=== PATIENT | male | born 1935 | race Caucasian/White ===

== ENCOUNTER → 2016-09-26 | Outpatient (CLI) | payer MEDICARE ==
[~2016-09-26] MED LIST: /ADVA50050; /TIOT18INH INH; ACET65TA OR; ADVA230A INH; ALBU83IN INH; ALFU10TA2 PO; ASPI81TA63; ASPI81TA83 OR; AVEL1TAB PO; BACITAB3 PO; BENI20TA11; CALC600T7 PO; CALCIUM+VIT D PO; CARD180T OR; CIPR500T4 OR; CODE30SO PO; COLA50CA3 PO; COMBVENT; COUM1TAB17 PO; DARV100T; ELIQ2.5T PO; FLAG250T OR; FLON0.054; FLUTISP; FURO20TA2 PO; IBUP-1114 PO; IBUP200C PO; IPRASOL4 IN; LEVA250T PO; LEVA500T; LEVA500T OR; LIPI20TA PO; MEGE20TA PO; METO25TAB PO; MOM30SS PO; MOTR200T4; NICO21DI26 EXT; NICO21DI4 TD; NICOINH IN; PERF50TA PO; POTA10TA16 PO; PRED10TA2; PRED20TA; PRED20TAB PO; PRED50TA; PRED50TA PO; PRIL20CA; PRIL40CA PO; PROAIR INH; REGL10TA6 PO; SPIR1CAP INH; STAR120T3 PO; STARLIX PO; TRAD5TAB PO; TRAMADOL PO; ULTR200T; UROXATRAL PO; VITA500C24 PO; WARF-23 PO; [UNRECOGNIZED DRUG - CODE] SC; [UNRECOGNIZED DRUG - OTHER]
[2016-09-26 13:45] LABS: INR 1.56
== END ==
LOC: M SMT 10:18
PROVIDERS: ATTEND Family Medicine
DX: Z79.01 Long term (current) use of anticoagulants (principal)

== ENCOUNTER → 2016-10-03 | Outpatient (CLI) | payer MEDICARE ==
[2016-10-03 14:02] LABS: INR 1.58
== END ==
LOC: M SMT 11:24
PROVIDERS: ATTEND Family Medicine
DX: Z86.79 Personal history of other diseases of the circulatory system (principal)

== ENCOUNTER → 2016-10-04 | Outpatient (CLI) | payer MEDICARE ==
--- NOTE | 2016-10-04 09:31 | REP ---
Clinical: Abdominal distention. Technique: Ortiz scale ultrasound using curved array transducer. Findings: Fatty infiltration of the liver is appreciated. Spleen with 1 cm cyst is otherwise normal. Visualized pancreas is unremarkable. There is evidence for prior cholecystectomy without biliary ductal dilatation. The common bile duct measures 4.8 mm diameter. Right kidney measures 11.3 x 5.7 x 5.2 cm and is mildly hyperechoic without hydronephrosis, nephrolithiasis or cystic mass lesion. The left kidney is mildly atrophic and echogenic measuring 8.8 x 4.7 x 4.5 cm with 2.9 cm upper pole cyst and no evidence for hydronephrosis or nephrolithiasis. The aorta measures up to 2.4 cm maximal diameter. No ascites identified. Impression: 1. Fatty infiltration to the liver. 2. Evidence for chronic medical renal disease and left renal cyst. 3. Small benign appearing splenic cyst. Signed by Gregg Andrew MD 10/04/2016 09:22 A
== END ==
LOC: M RAD 07:48
PROVIDERS: ATTEND Family Medicine
DX: K76.0 Fatty (change of) liver, not elsewhere classified (principal); N28.1 Cyst of kidney, acquired; D73.4 Cyst of spleen

== ENCOUNTER → 2016-10-10 | Outpatient (CLI) | payer MEDICARE ==
[2016-10-10 13:57] LABS: INR 1.63
== END ==
LOC: M SMT 10:15
PROVIDERS: ATTEND Family Medicine
DX: Z79.01 Long term (current) use of anticoagulants (principal); Z86.79 Personal history of other diseases of the circulatory system

== ENCOUNTER → 2016-10-17 | Outpatient (CLI) | payer MEDICARE ==
[~2016-10-17] MED LIST changes: +GLIM2TA PO; +LOPR1TAB6 PO; +NEUR300C PO; +TESS100C PO
[2016-10-17 13:26] LABS: INR 2.18
== END ==
LOC: M SMT 10:16
PROVIDERS: ATTEND Family Medicine
DX: Z51.81 Encounter for therapeutic drug level monitoring (principal); Z79.01 Long term (current) use of anticoagulants; Z86.79 Personal history of other diseases of the circulatory system
CPT/HCPCS: 36415; 85610; G0463

== ENCOUNTER 2016-10-18 04:59 | Emergency (ER) | payer MEDICARE ==
[~2016-10-18] VITALS: Ht 172.7 cm; Wt 77.1 kg
[~2016-10-18 04:59] MED LIST changes: -GLIM2TA PO; -LOPR1TAB6 PO; -NEUR300C PO; -TESS100C PO
[2016-10-18] MEDS ORDERED: MORPHINE 4 MG/ML 1ML SYRINGE IV ONE (05:30)
[2016-10-18] MEDS ORDERED: GLIM2TA PO (05:55)
[2016-10-18] MEDS ORDERED: NEUR300C PO (05:55)
[2016-10-18] MEDS ORDERED: TESS100C PO (05:55)
[2016-10-18] MEDS ORDERED: LOPR1TAB6 PO (05:55)
--- NOTE | 2016-10-18 06:20 | REPUSA ---
CLINICAL HISTORY: Trauma. TECHNIQUE: Multiple axial CT images were obtained through the thorax without IV contrast material. COMMENTS: Acute mildly displaced fracture of the axillary portion of the left seventh rib. Healed fractures of the axillary portions of the right sixth and seventh ribs. Moderate central pulmonary emphysema. Atelectatic airspace disease in the subpleural aspect of the right upper lobe. Bilateral basilar atelectatic pulmonary changes. Mild cardiomegaly. Prior CABG. Mild to moderate chronic compression fractures of the mid and lower thoracic vertebral bodies. IMPRESSION: Acute mildly displaced fracture of the axillary portion of the left seventh rib. Healed fractures of the right chest ribs. Atelectatic airspace disease in the subpleural aspect of the right upper lobe. This has mildly increa sed since prior exam on 04/26/2016. Unchanged emphysema, cardiomediastinal prior CABG. Chronic compression fractures of the mid and lower thoracic vertebral bodies. Thank you for your kind referral of this patient.
[2016-10-18 06:22] LABS: BASO % 0.6 % (0.0-1.0); EOS # 0.3 K/mm3 (0.0-0.50); EOS % 5.3 % (0.0-3.0); LARGE UNSTAINED CELL # 0.1 K/mm3 (0.0-0.4); LARGE UNSTAINED CELL % 2.5 % (0.0-4.0); LYMPH # 0.8 K/mm3 (1.5-4.5); LYMPH % 11.7 % (24.0-44.0); MEAN CORPUSCULAR HEMOGLOBIN 29.7 pg (27.0-33.0); MEAN CORPUSCULAR HGB CONC 32.3 g/dl (32.0-36.5); MEAN CORPUSCULAR VOLUME 91.8 fl (80.0-96.0); MONO # 0.4 K/mm3 (0.0-0.8); MONO % 7.3 % (0.0-5.0); NEUTROPHILS % 72.5 % (36.0-66.0); PLATELET COUNT, AUTOMATED 144 k/mm3 (150-450); RED CELL DISTRIBUTION WIDTH 15.1 % (11.5-14.5); WHITE BLOOD COUNT 5.6 K/mm3 (4.0-10.0)
[2016-10-18 06:29] LABS: INR 2.18
[2016-10-18 06:45] LABS: CALCIUM LEVEL 8.2 MG/DL (8.8-10.2); CREATININE FOR GFR 1.39 MG/DL (0.70-1.30); GLOMERULAR FILTRATION RATE 52.5 (>42); POTASSIUM SERUM 4.6 MEQ/L (3.5-5.1)
[2016-10-18 07:54] VITALS: BP 133/63
== END 2016-10-18 08:01 | disposition home or self-care (01) ==
LOC: EDBD 04:59 → M ED 06:30
DX: S22.32XA Fracture of one rib, left side, initial encounter for closed fracture (principal); W01.0XXA Fall on same level from slipping, tripping and stumbling without subsequent striking against object, initial encounter; Y92.098 Other place in other non-institutional residence as the place of occurrence of the external cause; Y93.89 Activity, other specified; Y99.8 Other external cause status; J44.9 Chronic obstructive pulmonary disease, unspecified; E11.22 Type 2 diabetes mellitus with diabetic chronic kidney disease; I12.9 Hypertensive chronic kidney disease with stage 1 through stage 4 chronic kidney disease, or unspecified chronic kidney disease; I50.9 Heart failure, unspecified; N18.9 Chronic kidney disease, unspecified; E78.9 Disorder of lipoprotein metabolism, unspecified; I25.2 Old myocardial infarction; I48.91 Unspecified atrial fibrillation; Z91.030 Bee allergy status; Z79.899 Other long term (current) drug therapy; Z79.84 Long term (current) use of oral hypoglycemic drugs; Z79.01 Long term (current) use of anticoagulants

== ENCOUNTER → 2016-10-24 | Outpatient (CLI) | payer MEDICARE ==
[~2016-10-24] MED LIST changes: +GLIM2TA PO; +LOPR1TAB6 PO; +NEUR300C PO; +TESS100C PO
[2016-10-24 12:00] LABS: INR 2.43
== END ==
LOC: M SMT 08:52
PROVIDERS: ATTEND Family Medicine
DX: R31.0 Gross hematuria (principal); Z51.81 Encounter for therapeutic drug level monitoring; Z79.01 Long term (current) use of anticoagulants
CPT/HCPCS: 36415; 81001; 85610; 87086; 88108; G0463

== ENCOUNTER → 2016-10-31 | Outpatient (CLI) | payer MEDICARE ==
[2016-10-31 14:03] LABS: INR 2.54
== END ==
LOC: M SMT 09:50
PROVIDERS: ATTEND Family Medicine
DX: Z51.81 Encounter for therapeutic drug level monitoring (principal); Z79.01 Long term (current) use of anticoagulants; Z86.79 Personal history of other diseases of the circulatory system

== ENCOUNTER → 2016-11-03 | Outpatient (CLI) | payer MEDICARE ==
--- NOTE | 2016-11-03 14:16 | REP ---
Clinical: Urinary retention and gross hematuria. Technique: Real time short scale ultrasound examination using curved array transducer. Findings: The bilateral kidneys are echogenic but relatively normal in contour and without hydronephrosis, obvious nephrolithiasis or mass lesion. The right kidney measures 10.9 x 5.2 x 5.2 cm without cystic change. The left kidney is atrophic at 8.4 x 5.0 x 4.0 cm and includes a 3.4 cm simple upper pole cyst. Bladder is distended and relatively normal measuring 10.7 x 10.3 x 16.2 cm. Impression: Chronic medical renal disease and 3.4 cm simple upper pole left renal cyst Signed by Gregg Andrew MD 11/03/2016 02:08 P
== END ==
LOC: M RAD 13:02
PROVIDERS: ATTEND Nurse Practitioner Women's Health
DX: R33.9 Retention of urine, unspecified (principal); R31.0 Gross hematuria

== ENCOUNTER → 2016-11-14 | Outpatient (CLI) | payer MEDICARE ==
[2016-11-14 13:40] LABS: INR 2.75
== END ==
LOC: M SMT 09:52
PROVIDERS: ATTEND Family Medicine
DX: Z51.81 Encounter for therapeutic drug level monitoring (principal); Z79.01 Long term (current) use of anticoagulants

== ENCOUNTER → 2016-12-05 | Outpatient (CLI) | payer MEDICARE ==
[2016-12-05 13:53] LABS: INR 2.34
== END ==
LOC: M SMT 09:42
PROVIDERS: ATTEND Family Medicine
DX: Z51.81 Encounter for therapeutic drug level monitoring (principal); Z79.01 Long term (current) use of anticoagulants

== ENCOUNTER 2016-12-18 09:48 | Emergency (ER) | payer MEDICARE ==
[~2016-12-18] VITALS: Ht 172.7 cm; Wt 75.7 kg
[2016-12-18] MEDS ORDERED: NS 500 ML IV ONE (10:00)
[2016-12-18] MEDS ORDERED: RAPA8CAP PO (10:26)
[2016-12-18] MEDS ORDERED: COUM1TAB14 PO (10:26)
[2016-12-18] MEDS ORDERED: LEXA5TAB13 PO (10:26)
[2016-12-18] MEDS ORDERED: COUM6TAB PO (10:26)
--- NOTE | 2016-12-18 10:52 | REP ---
TWO VIEW CHEST: Two views of the chest are performed and compared to a prior study of 01/06/2016. Right upper lobe peripheral opacity is stable. No new infiltrates are seen. Heart is normal in size and the mediastinal silhouette is unchanged. There is calcification of the thoracic aorta. Multiple sternal wires and mediastinal clips are present. There are degenerative changes of the spine. IMPRESSION: Old right upper lobe opacity is unchanged. No new infiltrate. Signed by Satnam Ortiz MD 12/19/2016 04:01 P
[2016-12-18 11:23] LABS: BASO % 0.6 % (0.0-1.0); EOS # 0.3 K/mm3 (0.0-0.50); EOS % 4.6 % (0.0-3.0); LARGE UNSTAINED CELL # 0.1 K/mm3 (0.0-0.4); LARGE UNSTAINED CELL % 1.6 % (0.0-4.0); LYMPH # 0.9 K/mm3 (1.5-4.5); LYMPH % 11.4 % (24.0-44.0); MEAN CORPUSCULAR HEMOGLOBIN 29.6 pg (27.0-33.0); MEAN CORPUSCULAR HGB CONC 33.3 g/dl (32.0-36.5); MEAN CORPUSCULAR VOLUME 88.8 fl (80.0-96.0); MONO # 0.4 K/mm3 (0.0-0.8); MONO % 6.1 % (0.0-5.0); NEUTROPHILS % 75.7 % (36.0-66.0); PLATELET COUNT, AUTOMATED 164 k/mm3 (150-450); WHITE BLOOD COUNT 6.6 K/mm3 (4.0-10.0)
[2016-12-18 11:36] LABS: INR 2.53
[2016-12-18 12:00] LABS: ALBUMIN 3.2 GM/DL (3.2-5.2); ALBUMIN/GLOBULIN RATIO 0.74 (1.00-1.93); ALKALINE PHOSPHATASE 90 U/L (45-117); ALT/SGPT 26 U/L (12-78); ANION GAP 5 MEQ/L (8-16); AST/SGOT 20 U/L (15-37); BILIRUBIN,DIRECT < 0.1 MG/DL (0.0-0.2); BILIRUBIN,TOTAL 0.4 MG/DL (0.2-1.0); BLOOD UREA NITROGEN 27 MG/DL (7-18); CARBON DIOXIDE LEVEL 29 MEQ/L (21-32); CHLORIDE LEVEL 105 MEQ/L (98-107); CREATININE FOR GFR 1.48 MG/DL (0.70-1.30); GLOMERULAR FILTRATION RATE 48.8 (>42); GLUCOSE, FASTING 211 MG/DL (83-110); POTASSIUM SERUM 4.4 MEQ/L (3.5-5.1); SODIUM LEVEL 139 MEQ/L (136-145); TOTAL PROTEIN 7.5 GM/DL (6.4-8.2)
--- NOTE | 2016-12-18 13:41 | ECGEPIP ---
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 RBBB INFERIOR MYOCARDIAL INFARCTION, PROBABLY OLD SIMILAR TO 01/06/16 Electronically Signed On 12-18-2016 13:41:04 EDT by Eren Martínez
[2016-12-18 13:58] VITALS: BP 157/79
[2016-12-18] MEDS ORDERED: ALB2.5NEB INH (17:22)
[2016-12-18] MEDS ORDERED: GLUCTAB6 PO (17:22)
[2016-12-18] MEDS ORDERED: GLIM4TAB PO (17:22)
[2016-12-18] MEDS ORDERED: METO-346 PO (17:22)
[2016-12-18] MEDS ORDERED: ATOR40TA PO (17:22)
[2016-12-18] MEDS ORDERED: ACET50TAOT PO (17:22)
[2016-12-18] MEDS ORDERED: PROA1AER INH (17:23)
[2016-12-18] MEDS ORDERED: LORA-376 PO (17:23)
== END 2016-12-18 14:15 | disposition home or self-care (01) ==
LOC: EDBD 09:48 → M ED 11:14
DX: R04.2 Hemoptysis (principal); I48.91 Unspecified atrial fibrillation; E11.9 Type 2 diabetes mellitus without complications; I10 Essential (primary) hypertension; F32.9 Major depressive disorder, single episode, unspecified; J44.9 Chronic obstructive pulmonary disease, unspecified; K57.92 Diverticulitis of intestine, part unspecified, without perforation or abscess without bleeding; C34.90 Malignant neoplasm of unspecified part of unspecified bronchus or lung; Z79.01 Long term (current) use of anticoagulants; Z79.899 Other long term (current) drug therapy; Z79.84 Long term (current) use of oral hypoglycemic drugs; Z91.030 Bee allergy status

== ENCOUNTER 2016-12-18 16:08 | Inpatient (IN) | payer MEDICARE ==
[~2016-12-18] VITALS: Ht 172.7 cm; Wt 73.5 kg
[~2016-12-18 16:08] MED LIST changes: +COUM1TAB14 PO; +COUM6TAB PO; +LEXA5TAB13 PO; +RAPA8CAP PO
[2016-12-18] MEDS ORDERED: ACET50TAOT PO (17:22)
[2016-12-18] MEDS ORDERED: ALB2.5NEB INH (17:22)
[2016-12-18] MEDS ORDERED: GLUCTAB6 PO (17:22)
[2016-12-18] MEDS ORDERED: ATOR40TA PO (17:22)
[2016-12-18] MEDS ORDERED: METO-346 PO (17:22)
[2016-12-18] MEDS ORDERED: GLIM4TAB PO (17:22)
[2016-12-18] MEDS ORDERED: LORA-376 PO (17:23)
[2016-12-18] MEDS ORDERED: PROA1AER INH (17:23)
[2016-12-18 18:25] LABS: BASO % 0.5 % (0.0-1.0); EOS # 0.3 K/mm3 (0.0-0.50); EOS % 4.9 % (0.0-3.0); LARGE UNSTAINED CELL # 0.1 K/mm3 (0.0-0.4); LYMPH # 0.9 K/mm3 (1.5-4.5); LYMPH % 13.6 % (24.0-44.0); MEAN CORPUSCULAR HGB CONC 33.1 g/dl (32.0-36.5); MEAN CORPUSCULAR VOLUME 90.6 fl (80.0-96.0); MONO # 0.5 K/mm3 (0.0-0.8); MONO % 7.1 % (0.0-5.0); NEUTROPHILS # 4.9 K/mm3 (1.8-7.7); NEUTROPHILS % 71.8 % (36.0-66.0); PLATELET COUNT, AUTOMATED 175 k/mm3 (150-450); WHITE BLOOD COUNT 6.8 K/mm3 (4.0-10.0)
[2016-12-18] MEDS: NS 1,000 ML IV SCH (18:47)
[2016-12-18] MEDS ORDERED: LORazepam 0.5 MG TAB PO PRN (19:00)
[2016-12-18] MEDS ORDERED: ONDANSETRON 4MG/2ML VIAL (J2405) IV PRN (19:00)
[2016-12-18] MEDS ORDERED: GLUCOSE 4 GM CHEW TABLET PO PRN (19:00)
[2016-12-18] MEDS ORDERED: DEXTROSE 50% 50 ML SYRINGE IV PRN (19:00)
[2016-12-18] MEDS ORDERED: BISACODYL 5 MG TAB PO PRN (19:00)
[2016-12-18] MEDS ORDERED: ACETAMINOPHEN TAB 650MG DOSE (2X325MG) PO PRN (19:00)
[2016-12-18] MEDS ORDERED: GLUCAGON FOR INJ 1 MG VIAL (J1610) SC PRN (19:00)
[2016-12-18 19:09] LABS: INR 2.56
[2016-12-18] MEDS ORDERED: ISOVUE-370 76% 100ML VIAL (Q9967) As Ordered ONE (20:10)
--- NOTE | 2016-12-18 20:50 | REPUSA ---
CT of the chest Clinical statement: lung cancer, hemoptysis. Technique: Multiple axial CT images were obtained from the thoracic inlet through the upper abdomen a fter a bolus administration of nonionic intravenous contrast. Coronal and sagittal reconstructions we re also obtained. Comparison: 10/18/2016. Findings: The pulmonary arteries are well-opacified with contrast, with no intraluminal filling defec ts to suggest embolism. The thoracic aorta is unremarkable. Thyroid gland is within normal limits. Th ere is no thoracic lymphadenopathy. There are no pericardial or pleural effusions. The lungs are shabbir ar of any acute infiltrate. Moderate diffuse emphysematous changes are seen, most prominent in the r ight lung apex, with associated scarring and parenchymal changes. Limited imaging of the upper abdom en is unremarkable. There are no suspicious osseous lesions. There is mild anterior compression abnor mality of T12. Minimal degenerative disc disease is noted at L1/L2. Old healed bilateral rib fracture s are stable. Impression: 1. No evidence of pulmonary embolism. 2. Moderate emphysematous changes with chronic parenchymal changes in the right upper lung are grossl y stable This is likely the site of the patient's known neoplasm, but is grossly stable. No acute inf iltrates or pulmonary nodules are appreciated. 3. Stable anterior compression abnormality of T12. 4. Stable bilateral old healed rib fractures. 5. Overall, no significant interval change.
[2016-12-18] MEDS: ALBUTEROL SULFATE 2.5 MG/0.5 ML INH NEB SOLN INH SCH (21:00)
[2016-12-18] MEDS: ADVAIR HFA 230/21 INHALER INH SCH (21:00)
[2016-12-19] MEDS: ATORVASTATIN 20 MG TAB PO SCH ×2 (00:18→21:35)
[2016-12-19] MEDS: HumaLOG INSULIN (NovoLOG) PER UNIT SC SCH ×5 (00:19→21:00)
[2016-12-19 04:08] VITALS: BP 133/75
[2016-12-19 05:56] LABS: BASO % 0.5 % (0.0-1.0); EOS # 0.3 K/mm3 (0.0-0.50); EOS % 4.5 % (0.0-3.0); LARGE UNSTAINED CELL # 0.2 K/mm3 (0.0-0.4); LARGE UNSTAINED CELL % 2.4 % (0.0-4.0); LYMPH # 0.8 K/mm3 (1.5-4.5); LYMPH % 12.8 % (24.0-44.0); MEAN CORPUSCULAR HEMOGLOBIN 29.7 pg (27.0-33.0); MEAN CORPUSCULAR HGB CONC 32.6 g/dl (32.0-36.5); MONO # 0.4 K/mm3 (0.0-0.8); MONO % 6.5 % (0.0-5.0); NEUTROPHILS # 4.7 K/mm3 (1.8-7.7); NEUTROPHILS % 73.3 % (36.0-66.0); PLATELET COUNT, AUTOMATED 165 k/mm3 (150-450); WHITE BLOOD COUNT 6.4 K/mm3 (4.0-10.0)
[2016-12-19 06:05] LABS: INR 2.53
[2016-12-19 06:17] LABS: CALCIUM LEVEL 8.7 MG/DL (8.8-10.2); CREATININE FOR GFR 1.35 MG/DL (0.70-1.30); GLOMERULAR FILTRATION RATE 54.3 (>42); POTASSIUM SERUM 4.1 MEQ/L (3.5-5.1)
[2016-12-19 08:00] VITALS: BP 114/65
[2016-12-19] MEDS: NS 1,000 ML IV SCH (08:01)
[2016-12-19] MEDS: TIOTROPIUM INHALER/CAPSULE (SPIRIVA) INH SCH (08:39)
[2016-12-19] MEDS: ALBUTEROL SULFATE 2.5 MG/0.5 ML INH NEB SOLN INH SCH ×3 (08:39→19:20)
[2016-12-19] MEDS ORDERED: GLIMEPIRIDE 2 MG TAB PO SCH (09:00)
[2016-12-19] MEDS: ESCITALOPRAM OXALATE 5MG TABLET (LEXAPRO) PO SCH (09:05)
--- NOTE | 2016-12-19 10:52 | HPE ---
DATE OF ADMISSION: 12/15/2016 PRIMARY CARE PROVIDER: Dr. Guille Wagner CHIEF COMPLAINT: Coughing up blood. HISTORY OF PRESENT ILLNESS: Mr. Mcclure is a 81-year-old male with past medical history significant for right lung adenocarcinoma status post radiation about a year ago, prostate cancer status post radiation and hormone treatment completed in 2011, chronic obstructive pulmonary disease (COPD), chronic hypoxic respiratory failure on 2 liters of oxygen, diabetes, hypertension, dyslipidemia, benign prostatic hypertrophy with urinary retention and self catheterization, chronic atrial fibrillation on Coumadin, coronary artery disease, chronic kidney disease and anxiety, who presents to the emergency department with hemoptysis. Patient reports that he had one episode this morning of about 1-2 ounces of blood. He was seen earlier in the emergency department (ED). Vitals and hemoglobin was stable and he was subsequently discharged. After returning back to the [facility] home, he had two more episodes of hemoptysis. He reports that the second episode had about 1-2 ounces of blood and the third episode had a very minimal amount of blood. He denies any previous episode of this. He denies any fevers, chills, weight loss, chest pain or pressure, or increased shortness of breath. He does have chronic shortness of breath with this COPD that is unchanged. He did report some nausea over the weekend; however, denies any vomiting, abdominal pain, constipation, diarrhea, blood in the stool. No headache, blurry vision, double vision or loss of vision. He has history of chronic urinary retention and self-catheterizes in the morning and at night and will occasionally have hematuria secondary to self-catheterization . No lightheadedness, dizziness or syncope. In the emergency department, vitals are stable. Hemoglobin is stable at 12.6. Hemoglobin earlier today was 13.3. Given his recurrent hemoptysis, he was subsequently admitted. PAST MEDICAL HISTORY: 1. Right lung adenocarcinoma status post radiation. 2. Prostate cancer status post radiation and hormone treatment completed in 2011. 3. History of atrial fibrillation on Coumadin. 4. Coronary artery disease. 5. Diabetes. 6. Hypertension. 7. Hyperlipidemia. 8. Benign prostatic hypertrophy with urinary retention and self-catheterization. 9. Chronic kidney disease. 10. Anxiety. 11. Chronic hypoxic respiratory failure on 2 liters of oxygen. 12. Chronic obstructive pulmonary disease (COPD). PAST SURGICAL HISTORY: 1. Coronary artery bypass grafting times five. 2. Cholecystectomy. 3. Appendectomy. 4. Cardiac ablation. 5. Hernia repair. 6. Bilateral cataract surgery. HOME MEDICATIONS: - Coumadin 6 mg by mouth 4 times a week. - Coumadin 4 mg by mouth 3 times a week - metoprolol 12.5 mg twice a day - Tessalon Perles 100 mg by mouth three times a day - ProAir 2 puffs inhaled four times a day as needed - acetaminophen 1000 mg by mouth three times a day as needed - glucosamine chondroitin one tablet by mouth at night - Tradjenta 5 mg by mouth at night - Starlix 120 mg by mouth three times a day - Rapaflo 8 mg by mouth at night. - albuterol sulfate 2.5 mg nebulizer three times a day - atorvastatin 40 mg by mouth at night - Lexapro 5 mg by mouth daily - glimepiride 8 mg daily - lorazepam 0.5 mg by mouth daily as needed - Advair two puffs inhaled twice daily - Spiriva 18 mcg inhaled daily ALLERGIES: No known drug allergies. SOCIAL HISTORY: Patient is a former smoker, quit about 2-1/2 years ago. Smoked one pack per day for about 60 years. Rare alcohol use. Denies any illicit drug use. He lives in the assisted living home. One dog. No recent travel. No sick contacts. No exposure to birds or farm animals. FAMILY HISTORY: Mother had history of hypertension and cerebrovascular accident (CVA), at 84. Father had history of myocardial infarction at 72. Sister has history of breast cancer. Brother from pancreatic cancer at 62. Son has history of glaucoma. REVIEW OF SYSTEMS: As per history of present illness (HPI). Patient denies any chronic cough prior to today. No numbness or tingling or weakness in his extremities. No rashes or skin lesions. No palpitations or lower extremity edema. He has occasional pain with the insertion of urinary catheter, but only with manipulation of catheter, not currently. No current hematuria. No rashes or skin lesions. No history of cerebrovascular accident (CVA). No history of thyroid disorder. PHYSICAL EXAMINATION: VITAL SIGNS: Temperature 98.0, pulse 76, respiratory rate 18, blood pressure 164/83, pulse oximetry 97% on 3 liters nasal cannula. GENERAL: The patient is alert and oriented times three. In no acute distress. HEENT: Normocephalic, atraumatic. Extraocular muscles are intact. Pupils are equally round and reactive to light. No scleral icterus. Moist mucosa. HEART: Normal S1, S2. Regular. No murmur appreciated. LUNGS: Clear to auscultation bilaterally. No rales, rhonchi or wheezing. ABDOMEN: Soft, nontender, nondistended. Positive bowel sounds. No rebound, guarding or rigidity. EXTREMITIES: No significant cyanosis or edema. Positive pedal pulses bilaterally. SKIN: Warm and dry. No rashes noted. NEUROLOGIC: No focal deficits. Cranial nerves II through XII are grossly intact. Motor and sensation intact. LABORATORY DATA: WBC 6.8, hemoglobin 12.6, hematocrit 37.9, platelet count 175. PT 27.6, INR 2.56. Sodium 139, potassium 4.4, chloride 105, carbon dioxide 29, anion gap 5, BUN 27, creatinine 1.48, GFR 48.8, fasting glucose 211, lactic acid 1.2, calcium 9.0. Total bilirubin 0.4, direct bilirubin less than 0.1, AST 20, ALT 26, alkaline phosphatase 90, total protein 7.5, albumin 3.2, lipase 178. Chest x-ray revealed old right upper lobe opacity that is unchanged. No new infiltrate. Patient had EKG done which showed sinus rhythm, possible left atrial enlargement , incomplete right bundle branch block. ASSESSMENT/PLAN: Mr. Mcclure is a 81-year-old male with multiple past medical history including lung adenocarcinoma status post radiation about a year ago, atrial fibrillation on chronic Coumadin, coronary artery disease, chronic obstructive pulmonary disease (COPD), prostate cancer status post radiation and hormone treatment completed in 2011, chronic hypoxic respiratory failure on 2 liters, diabetes, hypertension, hyperlipidemia, chronic kidney disease, benign prostatic hypertrophy with urinary retention and self-catheterization and anxiety, who presents with recurrent hemoptysis. 1. Hemoptysis. Rule out malignancy versus infection. Patient is afebrile and vitals are stable. Chest x-ray did not show any acute infiltrate. Right upper lobe opacity was reported as unchanged. Will order a CT with contrast to further evaluate. He is also on chronic Coumadin which is being held. Will check hemoglobin and hematocrit every eight hours. Will gently hydrate him with normal saline at a rate of 60 mL/hr. Pulmonary has been consulted for recurrent hemoptysis, although this is not massive. Monitor his vital signs and monitor for any decompensation. If he develops massive hemoptysis, may consider reversing his INR with [facility]. 2. History of lung adenocarcinoma status post five days of radiation about a year ago. The patient reports that this has been stable. He has not had any followup specifically for this history. Will obtain CT with contrast. 3. History of atrial fibrillation on chronic Coumadin. Patient is currently sinus rhythm. Rate is controlled. Coumadin is being held at this time secondary to hemoptysis. 4. Chronic obstructive pulmonary disease (COPD) and chronic hypoxic respiratory failure on 2 liters at home. Continue with pulmonary breathing medications, albuterol nebulizer as needed. He takes Advair and Spiriva at home. Titrate oxygen to 88-92%. He does not appear to be using significantly more oxygen than his baseline. 5. Diabetes. Continue with glimepiride. Insulin sliding scale with hypoglycemic protocol. Consistent carbohydrate diet. 6. Hypertension. Monitor his blood pressures. He is on normal saline. Metoprolol can be resumed tomorrow. Monitor for hemodynamic stability. 7. Hyperlipidemia. Continue Lipitor. 8. Coronary artery disease. The patient is asymptomatic status post coronary artery bypass graft (CABG). Continue beta dotty and statin therapy. Does not appear to be on aspirin. 9. History of prostate cancer status post radiation and hormone therapy. Treatment completed in 2011. 10. History of benign prostatic hypertrophy with urinary retention. Patient self-catheterizes in the morning and at night. 11. Chronic kidney disease. Creatinine is about baseline. Will gently hydrate. 12. History of anxiety. Continue with Ativan daily as needed for anxiety. The patient is also on Lexapro daily. 13. Deep venous thrombosis (DVT) prophylaxis. Thromboembolitic deterrents (TEDs) and sequentials. 13. CODE STATUS: Patient is DO NOT RESUSCITATE. He reports that his healthcare proxy is his son, Sin Bernal. My preceptor for this patient encounter was Dr. Jerome Harman. The preceptor was physically present in the building during the encounter and was fully available as needed. All aspects of the patient interview, examination, medical decision-making process, and medical care plan development were reviewed and approved by the preceptor. The preceptor is aware and concurs with the plan as stated in the body of this note and will attest to such by his/her co-signature. Edited: priti 12/22/2016 1439 MTDAlphonso
--- NOTE | 2016-12-19 11:08 | IPN ---
DATE: 12/19/2016 SUBJECTIVE: Mr. Mcclure was seen this morning at bedside. No acute overnight issues. The patient denies any further episodes of hemoptysis. He states that he is feeling well this morning. No chest pain/pressure, shortness of breath, lightheadedness, dizziness, nausea, vomiting, abdominal pain, diarrhea, fever, or chills. Vitals are stable. He is on baseline oxygen of 2 liters at home. OBJECTIVE: VITAL SIGNS: Temperature 97.8, pulse 87, respiratory rate 20, blood pressure 114/65, pulse oximetry 97% on 2 liters. GENERAL: The patient is alert and oriented times three. No acute distress. HEENT: Normocephalic, atraumatic. Extraocular muscles are intact. Moist mucosa. NECK: Supple. No cervical lymphadenopathy. No thyromegaly. HEART: Normal S1, S2. Regular rate and rhythm. No murmurs appreciated. LUNGS: Clear to auscultation bilaterally. No rales, rhonchi or wheezing. ABDOMEN: Soft, nontender, nondistended. Positive bowel sounds. EXTREMITIES: No cyanosis or edema. SKIN: Warm and dry. No rashes noted. NEUROLOGIC: No focal deficits. Moving all extremities. LABORATORY DATA: WBC 6.4, hemoglobin 12.3, hematocrit 37.7, platelet count 165. Sodium 143, potassium 4.1, chloride 109, carbon dioxide 26, anion gap 8, BUN 28, creatinine 1.35, GFR 54.3, fasting glucose 150, calcium 8.7, PT 27.3, INR 2.53. IMAGING: The patient had a chest CT, which revealed no pulmonary embolism. Moderate emphysema with chronic parenchymal changes in the right upper lung. No acute infiltrates or pulmonary nodules. Stable anterior compression abnormality of T12, stable bilateral old healed rib fractures. ASSESSMENT AND PLAN: 1. Hemoptysis. The patient has had no further episodes of this. Coumadin was held last night. We will not resume Coumadin at this time. If he remains stable, he may be discharged tomorrow. Hemoglobin and hematocrit have remained stable and vitals are stable. Pulmonary was consulted yesterday and he will need outpatient followup. 2. History of lung adenocarcinoma, status post radiation about one year ago. Chest CT does not reveal any new nodules or infiltrates. 3. History of atrial fibrillation, on chronic Coumadin. Coumadin is being resumed. INR is therapeutic. 4. Chronic obstructive pulmonary disease (COPD) with chronic hypoxic respiratory failure. He is on 2 liters of oxygen at night. Breathing is stable. Continue with Advair, Spiriva, and albuterol as needed. 5. Diabetes. Continue insulin sliding scale with hypoglycemic protocol. Home medications to be resumed upon discharge. 6. Hypertension. Blood pressure is stable. The patient's beta dotty was held. This could be resumed at discharge. 7. Hyperlipidemia. Continue atorvastatin 40 mg at night. 8. History of prostate cancer, status post radiation and home therapy completed in 2011. 9. History of benign prostatic hypertrophy (BPH) with urinary retention. The patient does self catheterization in the morning and at night. 10. History of anxiety. Continue Lexapro and Ativan daily as needed. 11. Deep vein thrombosis (DVT) prophylaxis. Coumadin is being resumed. DISPOSITION: The patient will likely be discharged tomorrow, as long as he remains stable My preceptor for this patient encounter was Dr. Mary Anne Almendarez. The preceptor was physically present in the building during the encounter and was fully available. As needed, all aspects of the patient interview, examination, medical decision making process, and medical care plan development were reviewed and approved by the preceptor. The preceptor is aware and concurs with the plan as stated in the body of this note and will attest to such by his/her cosignature. EMY
[2016-12-19] MEDS: ADVAIR HFA 230/21 INHALER INH SCH ×2 (11:18→20:37)
[2016-12-19 11:45] VITALS: BP 160/81
[2016-12-19 16:00] VITALS: BP 143/84
[2016-12-19] MEDS ORDERED: WARFARIN SOD 3 MG TAB PO SCH (17:00)
[2016-12-19 19:21] VITALS: BP 119/69
[2016-12-19] MEDS ORDERED: SLF 3 ML SYR IV PRN (21:15)
[2016-12-19] MEDS: SLF 3 ML SYR IV SCH (21:35)
[2016-12-19 23:35] VITALS: BP 133/67
[2016-12-20 04:00] VITALS: BP 123/75
[2016-12-20] MEDS: SLF 3 ML SYR IV SCH (05:32)
[2016-12-20 05:37] LABS: BASO % 0.6 % (0.0-1.0); EOS # 0.3 K/mm3 (0.0-0.50); EOS % 4.8 % (0.0-3.0); LARGE UNSTAINED CELL # 0.2 K/mm3 (0.0-0.4); LARGE UNSTAINED CELL % 2.7 % (0.0-4.0); LYMPH # 0.9 K/mm3 (1.5-4.5); MEAN CORPUSCULAR HEMOGLOBIN 29.5 pg (27.0-33.0); MEAN CORPUSCULAR HGB CONC 32.9 g/dl (32.0-36.5); MEAN CORPUSCULAR VOLUME 89.5 fl (80.0-96.0); MONO # 0.4 K/mm3 (0.0-0.8); MONO % 7.7 % (0.0-5.0); NEUTROPHILS # 3.9 K/mm3 (1.8-7.7); NEUTROPHILS % 70.2 % (36.0-66.0); PLATELET COUNT, AUTOMATED 158 k/mm3 (150-450); RED CELL DISTRIBUTION WIDTH 15.1 % (11.5-14.5); WHITE BLOOD COUNT 5.5 K/mm3 (4.0-10.0)
[2016-12-20 05:43] LABS: INR 1.99
[2016-12-20 05:51] LABS: CALCIUM LEVEL 8.3 MG/DL (8.8-10.2); CREATININE FOR GFR 1.4 MG/DL (0.70-1.30); POTASSIUM SERUM 4.1 MEQ/L (3.5-5.1)
[2016-12-20 08:00] VITALS: BP 109/74
[2016-12-20] MEDS: TIOTROPIUM INHALER/CAPSULE (SPIRIVA) INH SCH (08:11)
[2016-12-20] MEDS: ADVAIR HFA 230/21 INHALER INH SCH (08:12)
[2016-12-20] MEDS: ESCITALOPRAM OXALATE 5MG TABLET (LEXAPRO) PO SCH (08:43)
[2016-12-20] MEDS: HumaLOG INSULIN (NovoLOG) PER UNIT SC SCH ×2 (08:43→11:46)
[2016-12-20] MEDS: ALBUTEROL SULFATE 2.5 MG/0.5 ML INH NEB SOLN INH SCH ×2 (09:00→12:42)
[2016-12-20] MEDS ORDERED: PREVNAR 13 VACCINE SYRINGE (CPT CODE:90670) IM ONE (09:00)
[2016-12-20 12:00] VITALS: BP 144/79
[2016-12-20] MEDS ORDERED: WARFARIN SOD 4 MG TAB PO SCH (17:00)
--- NOTE | 2016-12-21 12:02 | DSES ---
DATE OF ADMISSION: 12/18/2016 DATE OF DISCHARGE: 12/20/2016 DISCHARGE DIAGNOSES: 1. Hemoptysis. 2. History of lung adenocarcinoma status post radiation about a year ago. 3. History of prostate cancer status post radiation and hormone therapy completed in 2011. 4. History of atrial fibrillation on chronic anticoagulation with Coumadin. 5. Coronary artery disease. 6. Hypertension. 7. Diabetes. 8. Hyperlipidemia. 9. Benign prostatic hypertrophy with urinary retention and self-catheterization. 10. Chronic kidney disease. 11. Chronic hypoxic respiratory failure on two liters of oxygen. 12. Chronic obstructive pulmonary disease (COPD). 13. Anxiety. DISCHARGE MEDICATIONS: - acetaminophen 1000 mg by mouth three times daily as needed - albuterol nebulizer inhaled three times daily - albuterol inhaler two puffs inhaled four times a day as needed - atorvastatin 40 mg daily - Tessalon Perles 100 mg three times a day - Lexapro 5 mg by mouth daily - glimepiride 8 mg by mouth daily - glucosamine chondroitin one tablet by mouth at night - Tradjenta 5 mg by mouth at night - lorazepam 0.5 mg by mouth daily as needed - metoprolol 12.5 mg by mouth twice daily - Starlix 120 mg by mouth three times daily - Advair two puffs inhaled twice daily - Rapaflo 8 mg by mouth at night - Spiriva 18 mcg inhaled daily DISCONTINUED MEDICATIONS: - Coumadin 6 mg by mouth four times a week - Coumadin 4 mg by mouth three times a week CONSULTANTS: Dr. Montero, pulmonology. HISTORY OF PRESENT ILLNESS: The patient presented with a history of hemoptysis. He reported that he had two episodes where he had maybe 1-2 ounces of blood and the third episode was a minimal amount of blood. He denied any other significant complaints apart from the hemoptysis. No fevers, chills, weight loss, chest pain, pressure or increased shortness of breath. He was admitted to the hospital for closer observation. He was seen by pulmonary who recommended obtaining a sputum culture. His Coumadin was discontinued. He had a CT of the chest given his history of lung adenocarcinoma which just revealed moderate emphysema changes with chronic parenchymal changes in the right upper lung, likely from his previous neoplasm. He was monitored on the floor without any significant recurrence of his hemoptysis. On the day of discharge, the patient had not had any recurrence. He was feeling well. No fevers, chills, chest pain/pressure, shortness of breath, lightheadedness, dizziness, nausea, vomiting, abdominal pain, diarrhea, bleeding or bruising. LABORATORY DATA ON DISCHARGE: WBC 5.5, hemoglobin 12.5, hematocrit 38.0, platelet count 158. Sodium 141, potassium 4.1, chloride 109, carbon dioxide 26, anion gap 6, BUN 27, creatinine 1.4, GFR 52, fasting glucose 153, calcium 8.3, PT 22.7, INR 1.99. IMAGING STUDIES: As stated above. PHYSICAL EXAMINATION ON DISCHARGE: VITAL SIGNS: Temperature 97.4, pulse 89, respiratory rate 20, blood pressure 109/74, pulse oximetry 92% on two liters nasal cannula. GENERAL: The patient is alert and oriented, in no acute distress. HEENT: Normocephalic, atraumatic. Extraocular muscles are intact. Pupils are equally round and reactive to light. No scleral icterus. Moist mucosa. NECK: Supple. No cervical lymphadenopathy. No thyromegaly. HEART: Normal S1, S2, regular rate and rhythm. No murmurs appreciated. LUNGS: Clear to auscultation bilaterally. No rales, rhonchi or wheezing. ABDOMEN: Soft, nontender, nondistended. Positive bowel sounds. No rebound, guarding or rigidity. EXTREMITIES: No cyanosis or edema. Positive pedal pulses bilaterally. SKIN: Warm and dry. No rashes noted. NEUROLOGIC: No focal deficits. Cranial nerves II-XII are grossly intact. Motor and sensation intact. DISCHARGE INSTRUCTIONS: The patient is discharged in stable condition. He should followup with pulmonary within a week. Followup with his primary care physician within a week. Coumadin has been discontinued and should not be reinstated until he is seen by pulmonary in case they need to do any procedures. Sputum culture obtained prior to discharge. Activity as tolerated. Consistent-carbohydrate diet. Return to the emergency department with any worsening symptoms. THINGS TO FOLLOWUP ON: Sputum culture results. TIME SPENT ON DISCHARGE: Greater than 30 minutes. My preceptor for this patient encounter was Dr. Mary Anne Almendarez. The preceptor was physically present in the building during the encounter and was fully available as needed. All aspects of the patient interview, examination, medical decision making process, and medical care plan development were reviewed and approved by the preceptor. The preceptor is aware and concurs with the plan as stated in the body of this note and will attest to such by his/her co-signature.
== END 2016-12-20 13:23 | disposition home or self-care (01) | DRG 204 ==
LOC: EDBD 16:08 → M ED 18:54 → M ED INP 19:37 → M PCU 23:55
PROVIDERS: ADMIT Internal Medicine; ATTEND Internal Medicine
DX: R04.2 Hemoptysis (principal); J96.11 Chronic respiratory failure with hypoxia; I25.10 Atherosclerotic heart disease of native coronary artery without angina pectoris; E11.9 Type 2 diabetes mellitus without complications; N40.0 Benign prostatic hyperplasia without lower urinary tract symptoms; N18.9 Chronic kidney disease, unspecified; J44.9 Chronic obstructive pulmonary disease, unspecified; F41.9 Anxiety disorder, unspecified; I48.91 Unspecified atrial fibrillation; Z66 Do not resuscitate; Z79.899 Other long term (current) drug therapy; I12.9 Hypertensive chronic kidney disease with stage 1 through stage 4 chronic kidney disease, or unspecified chronic kidney disease; E78.5 Hyperlipidemia, unspecified; Z85.118 Personal history of other malignant neoplasm of bronchus and lung; Z85.46 Personal history of malignant neoplasm of prostate

== ENCOUNTER → 2017-01-02 | Outpatient (CLI) | payer MEDICARE ==
[~2017-01-02] MED LIST changes: +ACET50TAOT PO; +ALB2.5NEB INH; +ATOR40TA PO; +GABA-282 PO; +GLIM4TAB PO; +GLUCTAB6 PO; +INSUDET SC; +LORA-376 PO; +METO-346 PO; +PRED10TA PO; +PROA1AER INH; +TOUJ1.2I SC; +WARF4TAB51 PO
== END ==
LOC: M PLARAD 11:08
PROVIDERS: ATTEND Radiology Radiation Oncology
DX: C34.11 Malignant neoplasm of upper lobe, right bronchus or lung (principal); Z51.81 Encounter for therapeutic drug level monitoring; Z79.01 Long term (current) use of anticoagulants; R33.9 Retention of urine, unspecified
CPT/HCPCS: 36415; 78815; 81001; 85610; A9552

== ENCOUNTER → 2017-01-02 | Outpatient (CLI) | payer MEDICARE ==
[~2017-01-02] MED LIST changes: -GABA-282 PO; -INSUDET SC; -PRED10TA PO; -TOUJ1.2I SC; -WARF4TAB51 PO
[2017-01-02 13:51] LABS: INR 0.98
== END ==
LOC: M SMT 10:52
PROVIDERS: ATTEND Family Medicine
DX: Z51.81 Encounter for therapeutic drug level monitoring (principal); Z79.01 Long term (current) use of anticoagulants; R33.9 Retention of urine, unspecified

== ENCOUNTER → 2017-01-04 | Outpatient (CLI) | payer MEDICARE ==
[~2017-01-04] MED LIST changes: +ALBUTEROL SULFATE 2.5 MG/0.5 ML INH NEB SOLN As Ordered ONE; +EPINEPHrine 1MG/10ML SYRINGE 1.5IN As Ordered ONE; +LIDOCAINE 1% MDV 20ML VIAL As Ordered ONE; +LIDOCAINE 4% INJ 5 ML AMP As Ordered ONE; +LIDOCAINE VISCOUS 2% SOLN 15ML UDC As Ordered ONE; +MIDAZOLAM INJ 2 MG/2 ML VIAL (J2250) As Ordered ONE; +fentaNYL 100 MCG/2 ML INJECTION (J3010) As Ordered ONE
[2017-01-04 09:01] VITALS: BP 131/78
--- NOTE | 2017-01-04 10:06 | RO ---
DATE OF PROCEDURE: 01/04/2017 PREPROCEDURE DIAGNOSIS: Hemoptysis. POSTPROCEDURE DIAGNOSIS: Hemoptysis. PROCEDURE: Bronchoscopy SURGEON: Dr. Garrett Olson. MACHINE CLOTH EXAMINER: ANESTHESIA: 2 mg Versed. DESCRIPTION OF PROCEDURE: The procedure explained and consent obtained. The patient was placed on continuous cardiac monitoring, oximetry, and tidal CO2 monitoring. He had frequent blood pressure evaluations. [place] procedure was followed. Sedation was achieved with 2 mg of Versed. The patient was given 4% lidocaine nebulization. Following this, the right nares was topically anesthetized. However, the bronchoscope could not fit through the opening. The left nares was then topically anesthetized and again the bronchoscopy could not fit through the opening. A mouth block was then placed and the posterior pharynx was numbed with Cetacaine. Following this, the bronchoscope was introduced to the level of the vocal cords. The vocal cords moved well but were "ratty" in appearance. Following topical anesthetization, the bronchoscope was introduced into the trachea. Both the left and right lung were examined. There is a small amount of clear, slightly viscus secretions. There was pitting of the airway and evidence of bronchiectasis. No endobronchial lesions. No heme. After inspecting all of the orifices in both the left and right side, and finding no abnormalities responsible for hemoptysis, the bronchoscope was with drawn. He tolerated the procedure well. FINDINGS: 1. Small amount of clear, slightly viscus secretions with pitting of the airways and evidence of bronchiectasis. 2. No endobronchial lesions. No heme. SPECIMENS: None. MTDD
== END | disposition home or self-care (01) ==
LOC: M OPP 06:41
PROVIDERS: ATTEND Internal Medicine Pulmonary Disease
DX: R04.2 Hemoptysis (principal); Z98.890 Other specified postprocedural states; J44.9 Chronic obstructive pulmonary disease, unspecified; Z85.118 Personal history of other malignant neoplasm of bronchus and lung; I48.92 Unspecified atrial flutter; E11.9 Type 2 diabetes mellitus without complications; Z95.1 Presence of aortocoronary bypass graft; Z85.46 Personal history of malignant neoplasm of prostate; I25.10 Atherosclerotic heart disease of native coronary artery without angina pectoris; I25.2 Old myocardial infarction; Z87.891 Personal history of nicotine dependence; Z79.899 Other long term (current) drug therapy; Z79.01 Long term (current) use of anticoagulants; Z79.51 Long term (current) use of inhaled steroids; Z99.81 Dependence on supplemental oxygen
CPT/HCPCS: 31622; 94640; J2250; J3010

== ENCOUNTER → 2017-01-11 | Outpatient (CLI) | payer MEDICARE ==
[~2017-01-11] MED LIST changes: -ALBUTEROL SULFATE 2.5 MG/0.5 ML INH NEB SOLN As Ordered ONE; -EPINEPHrine 1MG/10ML SYRINGE 1.5IN As Ordered ONE; -LIDOCAINE 1% MDV 20ML VIAL As Ordered ONE; -LIDOCAINE 4% INJ 5 ML AMP As Ordered ONE; -LIDOCAINE VISCOUS 2% SOLN 15ML UDC As Ordered ONE; -MIDAZOLAM INJ 2 MG/2 ML VIAL (J2250) As Ordered ONE; -fentaNYL 100 MCG/2 ML INJECTION (J3010) As Ordered ONE
[2017-01-11 14:29] LABS: INR 1.85
== END ==
LOC: M SMT 10:46
PROVIDERS: ATTEND Family Medicine
DX: Z51.81 Encounter for therapeutic drug level monitoring (principal); Z79.01 Long term (current) use of anticoagulants

== ENCOUNTER → 2017-01-18 | Outpatient (CLI) | payer MEDICARE ==
[2017-01-18 14:15] LABS: INR 2.62
== END ==
LOC: M SMT 08:50
PROVIDERS: ATTEND Family Medicine
DX: Z51.81 Encounter for therapeutic drug level monitoring (principal); Z79.01 Long term (current) use of anticoagulants

== ENCOUNTER 2017-01-27 21:02 | Inpatient (IN) | payer MEDICARE ==
[~2017-01-27] VITALS: Ht 172.7 cm; Wt 76.1 kg
[2017-01-27] MEDS ORDERED: INSUDET SC (21:24)
--- NOTE | 2017-01-27 22:30 | REPUSA ---
CLINICAL HISTORY: Syncope TECHNIQUE: Head CT without contrast COMPARISON: No study for comparison is available at the time of interpretation. Brain: Generalized atrophy. No intracranial hemorrhage, hydrocephalus, acute parenchymal edema or mick dent mass. Calvarium: Unremarkable. Sinuses: Paranasal sinuses are clear. Mastoid air cells are opacified. Intracranial vessels: Atherosclerotic calcification of the anterior and posterior circulation. IMPRESSION: 1. Generalized age-related atrophy without hemorrhage. 2. Opacification of the bilateral mastoid air cells is nonspecific, though mastoiditis is not exclude d.
[2017-01-27 22:52] LABS: BASO % 0.4 % (0.0-1.0); EOS # 0.2 K/mm3 (0.0-0.50); EOS % 2.6 % (0.0-3.0); LARGE UNSTAINED CELL # 0.1 K/mm3 (0.0-0.4); LARGE UNSTAINED CELL % 1.6 % (0.0-4.0); LYMPH # 0.7 K/mm3 (1.5-4.5); LYMPH % 11.1 % (24.0-44.0); MEAN CORPUSCULAR HEMOGLOBIN 29.7 pg (27.0-33.0); MEAN CORPUSCULAR HGB CONC 33.1 g/dl (32.0-36.5); MEAN CORPUSCULAR VOLUME 89.6 fl (80.0-96.0); MONO # 0.6 K/mm3 (0.0-0.8); MONO % 10.3 % (0.0-5.0); NEUTROPHILS # 4.3 K/mm3 (1.8-7.7); PLATELET COUNT, AUTOMATED 159 k/mm3 (150-450); RED CELL DISTRIBUTION WIDTH 15.3 % (11.5-14.5); WHITE BLOOD COUNT 5.8 K/mm3 (4.0-10.0)
[2017-01-27 22:57] LABS: VENOUS BASE EXCESS 0.2 (-2.0-2.0); VENOUS O2 SATURATION 74.9 % (60.0-80.0); VENOUS PARTIAL PRESSURE CO2 42.1 mmHg (38.0-50.0); VENOUS PARTIAL PRESSURE O2 40.3 mmHg (30.0-50.0); VENOUS STANDARD HCO3 24.2 MEQ/L; VENOUS TOTAL CO2 26.5 MEQ/L (24.0-28.0)
[2017-01-27] MEDS ORDERED: TOUJ1.2I SC (23:41)
[2017-01-27 23:42] LABS: ANION GAP 6 MEQ/L (8-16); BLOOD UREA NITROGEN 24 MG/DL (7-18); CARBON DIOXIDE LEVEL 29 MEQ/L (21-32); CHLORIDE LEVEL 102 MEQ/L (98-107); CREATININE FOR GFR 1.26 MG/DL (0.70-1.30); GLOMERULAR FILTRATION RATE 58.6 (>35); GLUCOSE, FASTING 216 MG/DL (83-110); POTASSIUM SERUM 4.2 MEQ/L (3.5-5.1); SODIUM LEVEL 137 MEQ/L (136-145)
[2017-01-27] MEDS ORDERED: FURO20TA2 PO (23:44)
[2017-01-27] MEDS ORDERED: POTA10TA16 PO (23:44)
[2017-01-27] MEDS ORDERED: GABA-282 PO (23:44)
[2017-01-27] MEDS ORDERED: WARF4TAB51 PO ×2 (23:44)
[2017-01-27] MEDS ORDERED: ISOVUE-370 76% 100ML VIAL (Q9967) As Ordered ONE (23:56)
[2017-01-28] VITALS (7 sets, daily range): BP systolic 108–141; BP diastolic 58–71
--- NOTE | 2017-01-28 02:30 | REPUSA ---
CLINICAL HISTORY: Abdominal pain. TECHNIQUE: Multiple axial, sagittal and coronal CT images were obtained through the abdomen and pelvi s after administration of intravenous contrast material. COMMENTS: The liver is of uniform attenuation without mass or defect. There is no intra or extrahepatic biliary ductal dilatation. The spleen is normal. The gallbladder is surgically absent.. The pancreas is of n ormal contour and attenuation characteristics. There is no evidence of adrenal mass. Both kidneys demonstrate prompt and equal nephrograms. The kidneys are normal in size, shape and conf iguration. There is no evidence of renal or ureteral mass. No renal or ureteral calculi are identifie d. There is no hydroureter or hydronephrosis. 2cm left renal cyst is seen. No evidence for appendicitis. There iis wall thickening involving all small bowel segments ompatible with enteritis. . No evidence for small or large bowel obstruction. There is no evidence of abdomina l ascites or lymphadenopathy. There is no evidence of intrinsic or extrinsic bladder mass. There is no pelvic ascites or lymphadeno andrew. Radiation seeds are noted in the prostate. Images of the lung bases show no evidence of pleural or parenchymal mass. There are no pleural effusi ons. The bony structures are free of lytic or blastic lesions. Multilevel degenerative changes are seen in volving the thoracolumbar spine. Scattered calcifications are seen involving the aorta and major bran ches compatible with atherosclerosis. IMPRESSION: Enteritis. Infectious and inflammatory etiiologies are considered Thank you for your kind referral of this patient.
[2017-01-28] MEDS ORDERED: ACETAMINOPHEN TAB 650MG DOSE (2X325MG) PO PRN (06:00)
[2017-01-28] MEDS ORDERED: LORazepam 0.5 MG TAB PO PRN (06:15)
[2017-01-28] MEDS ORDERED: ALBUTEROL 90 MCG/ACT 8GM HFA INHALER INH PRN (06:15)
[2017-01-28] MEDS ORDERED: metroNIDAZOLE 500 MG in APPROPRIATE DILUENT 1 EA IV SCH (06:30)
[2017-01-28 06:40] LABS: BASO % 0.4 % (0.0-1.0); EOS # 0.2 K/mm3 (0.0-0.50); EOS % 3.9 % (0.0-3.0); LARGE UNSTAINED CELL # 0.1 K/mm3 (0.0-0.4); LARGE UNSTAINED CELL % 2.5 % (0.0-4.0); LYMPH # 0.8 K/mm3 (1.5-4.5); LYMPH % 12.4 % (24.0-44.0); MEAN CORPUSCULAR HEMOGLOBIN 29.8 pg (27.0-33.0); MEAN CORPUSCULAR HGB CONC 33.2 g/dl (32.0-36.5); MEAN CORPUSCULAR VOLUME 89.8 fl (80.0-96.0); MONO # 0.5 K/mm3 (0.0-0.8); MONO % 8.4 % (0.0-5.0); NEUTROPHILS # 4.1 K/mm3 (1.8-7.7); NEUTROPHILS % 72.4 % (36.0-66.0); PLATELET COUNT, AUTOMATED 146 k/mm3 (150-450); RED CELL DISTRIBUTION WIDTH 15.2 % (11.5-14.5); WHITE BLOOD COUNT 5.6 K/mm3 (4.0-10.0)
[2017-01-28 06:55] LABS: INR 2.5
[2017-01-28] MEDS ORDERED: PANTOPRAZOLE 40MG INJ (PROTONIX) (C9113) IV SCH (07:00)
[2017-01-28 07:08] LABS: ALBUMIN 2.7 GM/DL (3.2-5.2); ALBUMIN/GLOBULIN RATIO 0.68 (1.00-1.93); ALKALINE PHOSPHATASE 65 U/L (45-117); ALT/SGPT 21 U/L (12-78); ANION GAP 6 MEQ/L (8-16); AST/SGOT 13 U/L (15-37); BILIRUBIN,TOTAL 0.6 MG/DL (0.2-1.0); BLOOD UREA NITROGEN 22 MG/DL (7-18); CALCIUM LEVEL 8.9 MG/DL (8.8-10.2); CARBON DIOXIDE LEVEL 28 MEQ/L (21-32); CHLORIDE LEVEL 104 MEQ/L (98-107); CREATININE FOR GFR 1.17 MG/DL (0.70-1.30); GLOMERULAR FILTRATION RATE > 60.0 (>35); GLUCOSE, FASTING 177 MG/DL (83-110); POTASSIUM SERUM 4.1 MEQ/L (3.5-5.1); SODIUM LEVEL 138 MEQ/L (136-145); TOTAL PROTEIN 6.7 GM/DL (6.4-8.2)
[2017-01-28] MEDS: ALBUTEROL SULFATE 2.5 MG/0.5 ML INH NEB SOLN INH SCH ×3 (07:34→20:00)
[2017-01-28] MEDS: ADVAIR HFA 230/21 INHALER INH SCH ×2 (08:50→21:03)
[2017-01-28] MEDS: TIOTROPIUM INHALER/CAPSULE (SPIRIVA) INH SCH (08:50)
[2017-01-28] MEDS: METOPROLOL TART 12.5 MG PER 1/2 TAB PO SCH ×2 (08:55→20:40)
[2017-01-28] MEDS: ESCITALOPRAM OXALATE 5MG TABLET (LEXAPRO) PO SCH (08:56)
[2017-01-28] MEDS: LEVEMIR (INSULIN DETEMIR) 1 UNITS/0.01ML SC SCH (08:56)
[2017-01-28] MEDS: GABAPENTIN 300 MG CAP PO SCH ×3 (08:56→20:40)
[2017-01-28] MEDS: NS 1,000 ML IV SCH (09:00)
--- NOTE | 2017-01-28 09:16 | REP ---
Portable chest: Single view. History: Syncope. Comparison study: December 18, 2016. Findings: The patient status post prior sternotomy. Heart is not enlarged. EKG monitoring electrodes and oxygen delivery tubing are seen. There is an irregular parenchymal opacity in the right lung apex immediately underlying the EKG electrode clip on today's radiograph. This is unchanged from the comparison study. On December 18, [address] exam, this was described. The patient apparently has a history of lung carcinoma. Impression: Irregular opacity persists in the right upper lung zone unchanged. Otherwise no acute disease. The patient is status post prior sternotomy. Signed by Morris Pineda MD 01/28/2017 11:30 A
--- NOTE | 2017-01-28 15:15 | REP ---
MR angiography the brain without contrast: History: CVA. Technique: 3-D [id number] MR angiography of the brain is acquired in the usual fashion and maximal intensity projection images were generated in rotational format about the vertical and horizontal axes. In addition, source axial T1-weighted images are viewed in cine mode. MR angiographic findings: The distal vertebral arteries are patent , right is a dominant . Basilar artery is a little tortuous but widely patent. The posterior cerebral and superior cerebellar vessels are normal , the right posterior cerebral takes a persistent origin which is a common normal variant. The distal internal carotid arteries are unremarkable. The right A1 segment is absent. The anterior communicator is patent. Anterior and middle cerebral arteries appear intact. There is no visible galo aneurysm or arteriovenous malformation. Impression: Unremarkable MR angiography the brain. Signed by Morris Pineda MD 01/28/2017 03:06 P
[2017-01-28] MEDS: WARFARIN SOD 3 MG TAB PO SCH (16:53)
[2017-01-28] MEDS: ATORVASTATIN 20 MG TAB PO SCH (20:40)
[2017-01-29] MEDS: NS 1,000 ML IV SCH (03:54)
[2017-01-29 04:45] VITALS: BP 113/59
[2017-01-29 05:46] LABS: MEAN CORPUSCULAR HEMOGLOBIN 29.6 pg (27.0-33.0); MEAN CORPUSCULAR VOLUME 89.7 fl (80.0-96.0); WHITE BLOOD COUNT 6.2 K/mm3 (4.0-10.0)
[2017-01-29 05:58] LABS: ANION GAP 4 MEQ/L (8-16); BLOOD UREA NITROGEN 17 MG/DL (7-18); CALCIUM LEVEL 8.2 MG/DL (8.8-10.2); CARBON DIOXIDE LEVEL 27 MEQ/L (21-32); CHLORIDE LEVEL 101 MEQ/L (98-107); GLOMERULAR FILTRATION RATE > 60.0 (>35); GLUCOSE, FASTING 136 MG/DL (83-110); POTASSIUM SERUM 3.9 MEQ/L (3.5-5.1); SODIUM LEVEL 132 MEQ/L (136-145)
--- NOTE | 2017-01-29 07:14 | REP ---
BRAIN MRI STUDY WITHOUT CONTRAST: HISTORY: CVA. Comparison CT study is from January 27, 2017. TECHNIQUE: Axial and sagittal imaging planes are utilized for T1 and T2-weighted scans. Sequences include spin-echo, fast spin echo, FLAIR, and diffusion weighted sequences. MRI FINDINGS: No bony calvarial lesion is appreciated. Craniocervical junction and upper cervical cord are normal in appearance. There is diffuse moderate cerebral atrophy. There is no evidence of intracranial hemorrhage. Diffusion weighted scan show no evidence to suggest acute ischemia. No mass, extra-axial fluid collection or midline shift is seen. There is some periventricular and subcortical T2 hyperintensity bilaterally consistent with small vessel changes. IMPRESSION: Moderate diffuse atrophy and small vessel changes. No acute intracranial lesion. Signed by Morris Pineda MD 01/29/2017 08:22 A
[2017-01-29 08:00] VITALS: BP 137/65
[2017-01-29] MEDS: ALBUTEROL SULFATE 2.5 MG/0.5 ML INH NEB SOLN INH SCH ×3 (08:00→22:38)
[2017-01-29] MEDS: TIOTROPIUM INHALER/CAPSULE (SPIRIVA) INH SCH (08:10)
[2017-01-29] MEDS: ADVAIR HFA 230/21 INHALER INH SCH ×2 (08:10→20:32)
[2017-01-29] MEDS ORDERED: PANTOPRAZOLE 40MG INJ (PROTONIX) (C9113) IV SCH (09:00)
[2017-01-29] MEDS: METOPROLOL TART 12.5 MG PER 1/2 TAB PO SCH ×2 (09:41→20:41)
[2017-01-29] MEDS: ESCITALOPRAM OXALATE 5MG TABLET (LEXAPRO) PO SCH (09:41)
[2017-01-29] MEDS: GABAPENTIN 300 MG CAP PO SCH ×3 (09:41→20:42)
[2017-01-29] MEDS: LEVEMIR (INSULIN DETEMIR) 1 UNITS/0.01ML SC SCH (09:42)
[2017-01-29 12:00] VITALS: BP 127/63
[2017-01-29] MEDS ORDERED: GLUCOSE 4 GM CHEW TABLET PO PRN (15:45)
[2017-01-29] MEDS ORDERED: DEXTROSE 50% 50 ML SYRINGE IV PRN (15:45)
[2017-01-29] MEDS ORDERED: GLUCAGON FOR INJ 1 MG VIAL (J1610) SC PRN (15:45)
[2017-01-29 16:00] VITALS: BP 134/62
--- NOTE | 2017-01-29 16:18 | REP ---
CAROTID DUPLEX ULTRASOUND: 01/29/2017 Clinical history: TIA symptoms. No prior study. Findings: Standard duplex techniques were utilized. There is circumferential small amounts of soft plaque in the right common carotid with more plaque in the bulb and extending to the proximal ICA and ECA. Some mixed plaque noted. The left internal carotid shows intimal thickening, soft plaque and some calcific plaque mid CCA with more distally in the CCA and circumferential mixed plaque at the bulb as well. This extends into the ICA and ECA. Peak velocities: Right Left CCA systolic 0.89 m/s 1.06 m/s ICA systolic 1.32 m/s 1.16 m/Colin diastolic 0.25 m/s 0.30 m/s ECA systolic 1.07 cm/s 1.17m/s IC/CC ratio 1.5 1.1 Cranial direction of flow is seen in both vertebral arteries. Doppler waveform analysis shows some mild spectral broadening in the proximal right ICA without filling of the systolic window. The left ICA also shows some mild spectral broadening. There is some tortuosity of the mid to distal course of that vessel where spectral broadening was also seen and likely contributed to the spectral broadening from that tortuosity. There is no other finding. Impression: 1. Bilateral proximal 50% carotid stenosis based on velocity criteria and some mild spectral broadening. I do not see severe critical stenosis. Soft and mixed plaque with some shadowing at the bulb and proximal IACs. 2. Cranial direction of flow in the vertebral arteries bilaterally. Signed by Lc Vyas MD 01/30/2017 03:56 P
[2017-01-29] MEDS: WARFARIN SOD 4 MG TAB PO SCH (16:24)
[2017-01-29] MEDS: HumaLOG INSULIN (NovoLOG) PER UNIT SC SCH ×2 (17:32→20:41)
[2017-01-29] MEDS: ATORVASTATIN 20 MG TAB PO SCH (20:41)
[2017-01-29 20:44] VITALS: BP 130/62
--- NOTE | 2017-01-29 21:56 | IPN ---
DATE: 01/29/2017 NOTE: At the time of this dictation, no history and physical is available. In brief, this is an 82-year-old man who was recently admitted to [facility] on 12/18/2016 through 12/20/2016. At that time, the patient was found to have hemoptysis. He was discontinued on Coumadin, which he had been on for atrial fibrillation. He was recommended to followup with pulmonary. He did undergo bronchoscopy on 01/04/2017 in the outpatient setting for hemoptysis. The patient has a history of active lung cancer. No abnormalities or other lesions were seen. During his previous stay, the patient did have a CT scan of the chest, which revealed moderate emphysema, chronic parenchymal changes in the right upper lung, grossly stable. This is at the site of the patient's known neoplasm. The patient subsequently underwent outpatient PET scan on 01/02/2017 with stable findings in the right upper lung region, compatible with post radiation change. The patient was reportedly at his assisted living facility on the date of admission. He does not remember the details of his fall, but he reportedly was in a standing position and fell to his right knee. He used his Life Alert. He denies any loss of consciousness. He denies prodromal symptoms but he really cannot recall. The patient did have some nausea on his arrival to the hospital; however, he was afebrile and not tachycardic. CT scan of his belly was completed that showed enteritis. The patient was admitted to the progressive care unit for syncope. OBJECTIVE: This morning, the patient reports that he feels back to normal. He tells me that he actually feels better than he has in the last month. He is extremely hard of hearing. The patient informs me that he has no complaints at this time and has no nausea. He is eating well. VITAL SIGNS: Temperature 97.4, pulse 74, respiratory rate 20, blood pressure 137/65, oxygen saturation 92% on 2 liters. GENERAL: He is a frail, obese, elderly man lying in bed. He is not in any acute distress. He is extremely hard of hearing. HEENT: Cranial nerves II through XII are grossly intact. He has hearing aids in place. Moist mucous membranes. No elevation in central venous pressure. He has a chronic wet cough, which is not new or worse. ABDOMINAL EXAM: Obese. RESPIRATORY EXAM: Good air movement. He has no wheezes appreciable. EXTREMITIES: He has no clubbing, cyanosis or edema. LABORATORY STUDIES: WBC 6.2, hemoglobin 10.6, hematocrit 32.1, platelet count 160. Chemistry panel: Sodium 132, potassium 3.9, chloride 101, bicarbonate 27, BUN 17, down from 24, creatinine 1.2. C-reactive protein is 9. Two sets of cardiac enzymes are negative. TSH within normal limits. INR is 2.5. Arterial blood gas is unremarkable. Urine culture is negative. Blood culture is pending. IMAGING: The patient did have a CT scan of his head, which revealed generalized age-related atrophy without hemorrhage. Some opacification of the bilateral mastoid. He had a chest x-ray with a regular opacity persisting in the right upper lung zone. He also had a CT of the abdomen and pelvis, which, as mentioned above, revealed enteritis. The patient did have a MRI of the brain that revealed moderate diffuse atrophy and small vessel changes. No acute intracranial lesion. He also had a MRA of the brain, which was unremarkable. The patient did have a duplex of the carotids, which is currently pending. Echocardiogram was ordered but not yet completed. ASSESSMENT AND PLAN: This is an 82-year-old man status post what appears to be an unwitnessed syncopal episode at assisted living facility. 1. Syncopal episode. I feel that this may be most likely related to a viral gastroenteritis. Self limiting abdominal symptoms have resolved and he is tolerating a regular diet. He has had one time fever, but otherwise is not tachycardic. No leukocytosis. He is no longer having any diarrhea or abdominal symptoms. We were unable to obtain a GI PCR panel. Given that he has lung cancer there was concern and fairly significant chronic obstructive pulmonary disease (COPD) and an unwitnessed episode where the patient was unable to provide an accurate history regarding the condition of his fall, he is undergoing a full syncope workup. We are waiting carotid duplex and echocardiogram. Should these be negative, I suspect that he can continue working with physical therapy (PT) with a goal of returning back to his assisted living facility. Should he worsen or develop pulmonary symptoms, we will consider treatment for potential healthcare associated pneumonia. 2. Atrial fibrillation. The patient is anticoagulated with Coumadin. We will check INR daily. He is on metoprolol. 3. Depression. The patient is on Lexapro. 4. Anxiety. The patient is on as needed Ativan. 5. Chronic obstructive pulmonary disease (COPD). The patient is on 2 liters chronically of oxygen. He is on Spiriva and Advair. He is at his baseline. 6. Diabetic neuropathy. The patient is on Gabapentin. 7. Type 2 diabetes. The patient is on 18 units of Levemir and sliding scale. 8. Dyslipidemia. The patient is on a statin. 9. Coronary artery disease. The patient is on aspirin. He is on Coumadin, statin and a beta dotty. 10. History of prostate cancer, status post hormonal therapy 12 years ago. 11. Adenocarcinoma of the right lung. Has a history of it in the right upper lobe, recent bronchoscopy and PET scan were negative. 12. Chronic kidney disease, stable. 13. Deep vein thrombosis (DVT) prophylaxis. The patient is therapeutic with Coumadin. DISPOSITION: The patient will continue to be monitored. I suspect that he will be eventually placed back to his assisted living facility. EMY
--- NOTE | 2017-01-29 22:03 | ECHO ---
DATE OF PROCEDURE: REFERRING PHYSICIAN: Jenna Wan MD INDICATION: Syncope. HEIGHT: 170 cm WEIGHT: 72 kg DIMENSIONS: IVS: 1.1 LV: 4.4 LVPW: 1.2 LA: 3.6 Aorta: 3.7 FINDINGS: The study is of fair technical quality. Left ventricle is normal size and hyperdynamic left ventricle (LV) systolic function. Estimated left ventricular ejection fraction (LVEF) 70-75%. Borderline left ventricular hypertrophy (LVH) is noted. Right ventricle does not appear enlarged. Both atria appear grossly normal. Aortic valve is heavily sclerotic, but mobility of cusp seems grossly preserved based on fair visualization. There are also mild degenerative abnormalities of mitral valve with thickening of mitral leaflets and mitral annular calcifications. Tricuspid and pulmonic valves appear normal. No pericardial effusion is noted. Inferior vena cava is normal size. Aortic root is on upper limits of normal size. Aortic arch and abdominal aorta were not visualized. Doppler interrogation reveals no aortic insufficiency and no significant stenosis. There is trace mitral insufficiency and trace tricuspid insufficiency. Quality of TR jet was not sufficient to adequately estimate pulmonary artery pressure. Pulmonic valve is also functionally competent. Mitral inflow pattern and tissue Doppler imaging of mitral annulus reveal grade 1 diastolic dysfunction. CONCLUSION 1. The study is of fair technical quality. 2. Aortic sclerosis but no significant stenosis or insufficiency. 3. No further valvular abnormalities. 4. Normal central venous pressure. 5. Unable to estimate pulmonary artery pressure. COMMENT: Subacute bacterial endocarditis (SBE) prophylaxis is not recommended. This study does not provide explanation for mechanism of syncopal event.
[2017-01-29 23:59] VITALS: BP 115/65
[2017-01-30 05:04] VITALS: BP 140/65
[2017-01-30 06:27] LABS: MEAN CORPUSCULAR HEMOGLOBIN 29.7 pg (27.0-33.0); MEAN CORPUSCULAR HGB CONC 33.1 g/dl (32.0-36.5); MEAN CORPUSCULAR VOLUME 89.7 fl (80.0-96.0); RED CELL DISTRIBUTION WIDTH 15.4 % (11.5-14.5); WHITE BLOOD COUNT 5.5 K/mm3 (4.0-10.0)
[2017-01-30 06:39] LABS: CALCIUM LEVEL 8.2 MG/DL (8.8-10.2); CREATININE FOR GFR 1.3 MG/DL (0.70-1.30); GLOMERULAR FILTRATION RATE 56.5 (>35)
[2017-01-30 06:43] LABS: INR 2.65
[2017-01-30 08:00] VITALS: BP 118/58
[2017-01-30] MEDS: ALBUTEROL SULFATE 2.5 MG/0.5 ML INH NEB SOLN INH SCH ×3 (08:00→19:27)
[2017-01-30] MEDS: TIOTROPIUM INHALER/CAPSULE (SPIRIVA) INH SCH (08:31)
[2017-01-30] MEDS: ADVAIR HFA 230/21 INHALER INH SCH ×2 (08:31→19:27)
--- NOTE | 2017-01-30 08:37 | ECGEPIP ---
Stationary ECG Study [facility] - ED Test Date: 2017-01-27 Pat Name: LELO GANDHI Department: Room: - Gender: M Hand Umbrella Tipper: tk : [id number] Requested By: DEMARCO Werner Order Number: [id number] Reading MD: Araceli Barboza Measurements Intervals [place] Rate: 89 P: 33 WI: 172 QRS: 22 QRSD: 113 T: 44 QT: 341 QTc: 416 Interpretive Statements SINUS RHYTHM POSSIBLE RIGHT VENTRICULAR CONDUCTION DELAY INFERIOR MYOCARDIAL INFARCTION, PROBABLY OLD SIMILAR 12/18/16 Electronically Signed On 01-30-2017 8:36:47 EDT by Araceli Barboza
[2017-01-30] MEDS: GABAPENTIN 300 MG CAP PO SCH ×3 (08:51→20:49)
[2017-01-30] MEDS: ESCITALOPRAM OXALATE 5MG TABLET (LEXAPRO) PO SCH (08:51)
[2017-01-30] MEDS: METOPROLOL TART 12.5 MG PER 1/2 TAB PO SCH ×2 (08:51→20:49)
[2017-01-30] MEDS: LEVEMIR (INSULIN DETEMIR) 1 UNITS/0.01ML SC SCH (08:51)
[2017-01-30] MEDS: HumaLOG INSULIN (NovoLOG) PER UNIT SC SCH ×4 (08:52→20:44)
[2017-01-30 12:00] VITALS: BP 125/66
[2017-01-30] MEDS: cefTRIAXone SOD 1 GM in D5W MINI-BAG PLUS 50 ML IV SCH (15:27)
[2017-01-30 16:00] VITALS: BP 140/68
[2017-01-30 16:10] VITALS: BP 168/76
[2017-01-30] MEDS: WARFARIN SOD 3 MG TAB PO SCH (17:12)
--- NOTE | 2017-01-30 19:18 | IPNPDOC ---
Subjective Date Seen The patient was seen on 01/30/17. Subjective Chief Complaint/HPI The patient is a 82-year-old male admitted with a reason for visit of Enteritis. Events since last encounter No acute events overnight, denied cp, abd pain, sob, reported cough, denied n/v/ diarrhea Constitutional: Denies: Chills, Fever ENT: Denies: Head Aches Skin: Denies: Rash Pulmonary: Reports: Cough, Denies: Dyspnea Cardiovascular: Denies: Chest Pain, Palpitations Gastrointestinal: Denies: Nausea, Vomiting, Abdominal Pain, Diarrhea, Constipation Objective Physical Examination General Exam: Positive: Alert, Cooperative, No Acute Distress, Other (frail, hard of hearing) Eye Exam: Positive: PERRLA, Conjunctiva & lids normal, EOMI, Negative: Sclera icteric ENT Exam: Positive: Mucous membr. moist/pink, Negative: Atraumatic Chest Exam: Positive: Clear to auscultation, Normal air movement, Negative: Rales, Rhonchi, Wheezing Heart Exam: Positive: Irregular Rhythm, Normal S1, Normal S2 Abdomen Exam: Positive: Normal bowel sounds, Soft, Negative: Tenderness Extremity Exam: Negative: Edema Assessment /Plan Assessment 82-year-old man h/o a fib, depression, anxiety, COPD on 2L o2, DMII with diabteic neuropathy, HLD, CAD, prsotate cancer, adnocarcinoma of lung, CKD status post what appears to be an unwitnessed syncopal episode at assisted living facility Problems (1) Syncope Status: Acute Problem Text: likely viral gastroenteritis vs UTI. Self limiting abdominal symptoms have resolved and he is tolerating a regular diet. He has had one time fever, but otherwise is not tachycardic. No leukocytosis. He is no longer having any diarrhea or abdominal symptoms. We were unable to obtain a GI PCR panel. Given that he has lung cancer there was concern and fairly significant chronic obstructive pulmonary disease (COPD) and an unwitnessed episode where the patient was unable to provide an accurate history regarding the condition of his fall, he is undergoing a full syncope workup. We are waiting carotid duplex and echocardiogram, mri. pt, (2) Anxiety and depression Problem Text: c/w med (3) Afib Problem Text: c/w bb and Coumadin f/u INR (4) COPD (chronic obstructive pulmonary disease) Problem Text: stable , c/w med, O2 dependent (5) CAD (coronary artery disease) Problem Text: c/w med (6) Prostate cancer Problem Text: remission , outpatient f/u (7) Adenocarcinoma, lung Problem Text: remission, outpatient f/u (8) CKD (chronic kidney disease) Problem Text: stable (9) UTI (urinary tract infection) Problem Text: cultures appreciated, Rocephin (10) DMII (diabetes mellitus, type 2) Problem Text: basal bolus insulin fs Plan/VTE VTE Prophylaxis Ordered?: Yes (coumadin for a fib) Plan/Urinary Catheter Reason for insertion/continuin: Acute obstruct/retention Disposition pending pt, return of assisted living VS, I&O, 24H, Fishbone Vital Signs/I&O Vital Signs Date Time Temp Pulse Resp B/P (MAP) Pulse Ox O2 Delivery O2 Flow Rate FiO2 01/30/17 18:25 Nasal Cannula 2.0 01/30/17 16:10 98.8 102 22 168/76 (106) 92 I&O- Last 24 Hours up to 6 AM 01/30/17 05:59 Intake Total 1980 ml Output Total 1100 ml Balance 880 ml Laboratory Data 24H LABS Laboratory Tests 2 01/29/17 20:36: Bedside Glucose (Misc Panel) 264H 01/30/17 05:34: Prothrombin Time 28.3H, Prothromb Time International Ratio 2.65, Anion Gap 7L, Glomerular Filtration Rate 56.5, Blood Urea Nitrogen 25H, Creatinine 1.30, Sodium Level 136, Potassium Level 4.0, Chloride Level 104, Carbon Dioxide Level 25, Calcium Level 8.2L 01/30/17 12:05: Bedside Glucose (Misc Panel) 270H 01/30/17 16:17: Bedside Glucose (Misc Panel) 268H CBC/BMP Laboratory Tests 01/30/17 05:34 Red Blood Count 3.34 L, Mean Corpuscular Volume 89.7, Mean Corpuscular Hemoglobin 29.7, Mean Corpuscular Hemoglobin Concent 33.1, Red Cell Distribution Width 15.4 H, Calcium Level 8.2 L Microbiology Microbiology 01/29/17 Blood Culture - Preliminary, Resulted No growth after 24 hours . All specim... 01/29/17 Blood Culture - Preliminary, Resulted No growth after 24 hours . All specim... 01/28/17 Urine Culture - Final, Complete Strep Agalactiae Group B 01/27/17 Urine Culture - Final, Complete ALEXIS OLIVEIRA MD Jan 30, 2017 19:18
[2017-01-30] MEDS: ATORVASTATIN 20 MG TAB PO SCH (20:49)
[2017-01-30] MEDS: DOCUSATE SODIUM 100 MG CAP PO SCH (21:57)
[2017-01-30 22:00] VITALS: BP 134/64
[2017-01-31 02:00] VITALS: BP 109/52
[2017-01-31 06:00] VITALS: BP 122/58
[2017-01-31 06:44] LABS: MEAN CORPUSCULAR HEMOGLOBIN 29.3 pg (27.0-33.0); MEAN CORPUSCULAR HGB CONC 32.2 g/dl (32.0-36.5); RED CELL DISTRIBUTION WIDTH 14.8 % (11.5-14.5); WHITE BLOOD COUNT 6.7 K/mm3 (4.0-10.0)
[2017-01-31 06:48] LABS: INR 2.54
[2017-01-31 07:11] LABS: CALCIUM LEVEL 8.5 MG/DL (8.8-10.2); CREATININE FOR GFR 1.36 MG/DL (0.70-1.30); GLOMERULAR FILTRATION RATE 53.7 (>35); POTASSIUM SERUM 4.2 MEQ/L (3.5-5.1)
[2017-01-31] MEDS: ALBUTEROL SULFATE 2.5 MG/0.5 ML INH NEB SOLN INH SCH ×4 (08:00→23:16)
[2017-01-31] MEDS: ADVAIR HFA 230/21 INHALER INH SCH ×2 (08:13→20:10)
[2017-01-31] MEDS: TIOTROPIUM INHALER/CAPSULE (SPIRIVA) INH SCH (08:13)
[2017-01-31] MEDS: METOPROLOL TART 12.5 MG PER 1/2 TAB PO SCH ×2 (08:25→21:52)
[2017-01-31] MEDS: ESCITALOPRAM OXALATE 5MG TABLET (LEXAPRO) PO SCH (08:25)
[2017-01-31] MEDS: GABAPENTIN 300 MG CAP PO SCH ×3 (08:25→21:53)
[2017-01-31] MEDS: DOCUSATE SODIUM 100 MG CAP PO SCH ×2 (08:25→21:52)
[2017-01-31] MEDS: LEVEMIR (INSULIN DETEMIR) 1 UNITS/0.01ML SC SCH (08:26)
[2017-01-31] MEDS: HumaLOG INSULIN (NovoLOG) PER UNIT SC SCH ×4 (08:26→21:50)
[2017-01-31 10:00] VITALS: BP 136/77
[2017-01-31 14:00] VITALS: BP 133/64
[2017-01-31] MEDS: cefTRIAXone SOD 1 GM in D5W MINI-BAG PLUS 50 ML IV SCH (15:10)
[2017-01-31] MEDS: WARFARIN SOD 4 MG TAB PO SCH (17:07)
--- NOTE | 2017-01-31 17:55 | IPNPDOC ---
Subjective Date Seen The patient was seen on 01/31/17. Subjective Chief Complaint/HPI The patient is a 82-year-old male admitted with a reason for visit of Enteritis. Events since last encounter denied cp, abd pain, n/v reported respiration at baseline, Febrile overnight, possiblly 2/2 to UTI General: Denies: Chills Constitutional: Reports: Chills, Fever Eyes: Denies: Pain, Vision change ENT: Denies: Head Aches, Ear Pain Skin: Denies: Rash, Lesions Pulmonary: Reports: Dyspnea, Cough Cardiovascular: Denies: Chest Pain, Palpitations, Orthopnea Gastrointestinal: Denies: Nausea, Vomiting, Abdominal Pain Genitourinary: Reports: Other Symptoms (thompson, straignth cath at home) Objective Physical Examination General Exam: Positive: Alert, Cooperative, No Acute Distress, Other (frail, hard of hearing) Eye Exam: Positive: PERRLA, Conjunctiva & lids normal, EOMI, Negative: Sclera icteric ENT Exam: Positive: Mucous membr. moist/pink, Negative: Atraumatic Chest Exam: Positive: Normal air movement, Rales, Negative: Rhonchi, Wheezing Heart Exam: Positive: Irregular Rhythm, Normal S1, Normal S2 Abdomen Exam: Positive: Normal bowel sounds, Soft, Negative: Tenderness Extremity Exam: Negative: Edema Assessment /Plan Problems (1) Syncope Status: Acute Problem Text: likely viral gastroenteritis vs UTI. Self limiting abdominal symptoms have resolved and he is tolerating a regular diet. febrile overnight No leukocytosis. He is no longer having any diarrhea or abdominal symptoms. We were unable to obtain a GI PCR panel. Given that he has lung cancer there was concern and fairly significant chronic obstructive pulmonary disease (COPD) and an unwitnessed episode where the patient was unable to provide an accurate history regarding the condition of his fall, he is undergoing a full syncope workup. We are waiting carotid duplex and echocardiogram, mri. pt, (2) Anxiety and depression Problem Text: c/w med (3) Afib Problem Text: c/w bb and Coumadin f/u INR (4) COPD (chronic obstructive pulmonary disease) Problem Text: stable , c/w med, O2 dependent (5) CAD (coronary artery disease) Problem Text: c/w med (6) Prostate cancer Problem Text: remission , outpatient f/u (7) Adenocarcinoma, lung Problem Text: remission, outpatient f/u (8) CKD (chronic kidney disease) Problem Text: stable (9) UTI (urinary tract infection) Problem Text: cultures appreciated, Rocephin (10) DMII (diabetes mellitus, type 2) Problem Text: basal bolus insulin fs (11) Fever Problem Text: undergoing treatment for UTI, with rocephin f/u cxr and bcx repeat Tylenol monitor Plan/VTE VTE Prophylaxis Ordered?: Yes (coumadin for a fib) Plan/Urinary Catheter Urinary Catheter: Straight Cath Reason for insertion/continuin: Acute obstruct/retention Disposition pending PT and monitor for afebrile VS, I&O, 24H, Fishbone Vital Signs/I&O Vital Signs Date Time Temp Pulse Resp B/P (MAP) Pulse Ox O2 Delivery O2 Flow Rate FiO2 01/31/17 14:00 97.8 92 18 133/64 (87) 94 High Flow Cannula 2.0 I&O- Last 24 Hours up to 6 AM 01/31/17 06:00 Intake Total 1080 ml Output Total 1450 ml Balance -370 ml Laboratory Data 24H LABS Laboratory Tests 2 01/30/17 20:40: Bedside Glucose (Misc Panel) 236H 01/31/17 06:02: Prothrombin Time 27.4H, Prothromb Time International Ratio 2.54, Anion Gap 5L, Glomerular Filtration Rate 53.7, Blood Urea Nitrogen 26H, Creatinine 1.36H, Sodium Level 136, Potassium Level 4.2, Chloride Level 105, Carbon Dioxide Level 26, Calcium Level 8.5L 01/31/17 16:06: Bedside Glucose (Misc Panel) 197H CBC/BMP Laboratory Tests 01/31/17 06:02 Red Blood Count 3.45 L, Mean Corpuscular Volume 91.0, Mean Corpuscular Hemoglobin 29.3, Mean Corpuscular Hemoglobin Concent 32.2, Red Cell Distribution Width 14.8 H, Calcium Level 8.5 L Microbiology Microbiology 01/31/17 Blood Culture, Received Pending 01/31/17 Blood Culture, Received Pending 01/29/17 Blood Culture - Preliminary, Resulted No Growth after 48 hours. All Specime... 01/29/17 Blood Culture - Preliminary, Resulted No Growth after 48 hours. All Specime... 01/28/17 Urine Culture - Final, Complete Strep Agalactiae Group B 01/27/17 Urine Culture - Final, Complete ALEXIS OLIVEIRA MD Jan 31, 2017 17:55
[2017-01-31 18:00] VITALS: BP 136/63
--- NOTE | 2017-01-31 18:33 | REP ---
CHEST PA AND LATERAL: 01/31/2017: Comparison: Portable chest 01/27/2017, two-view chest 12/18/2016, CT chest 12/18/2016 and 10/18/2016. Clinical history: Known lung carcinoma. Evaluate for pneumonia. Findings: Sternotomy wires and clips from prior CABG noted. Calcified coronary arteries suggested. Heart size not enlarged. Aorta is calcified at the arch without aneurysm. Airway midline. Chronic a opacity pleural-based right upper lobe as seen on previous chest x-rays and CT and related to his prior of lung malignancy. I do not see pleural effusion. Basilar fibrotic changes are seen without some lateral pleural thickening. I see no definite new or superimposed acute infiltrate. Bones are demineralized. There is no acute compression deformity evident. No free air. Impression: 1. COPD with emphysematous changes and fibrosis with a pleural-based chronic change right upper lobe likely related to his primary malignancy and unchanged from the two previous studies. No new or superimposed acute infiltrate, cardiomegaly, edema or definite effusion. Signed by Lc Vyas MD 01/31/2017 08:30 P
[2017-01-31] MEDS: ATORVASTATIN 20 MG TAB PO SCH (21:53)
[2017-01-31 22:00] VITALS: BP_SYST 127; BP_SYST 133; BP_SYST 137; BP_DIAS 69; BP_DIAS 72; BP_DIAS 77
[2017-02-01] VITALS (8 sets, daily range): BP systolic 124–155; BP diastolic 60–75
[2017-02-01] MEDS ORDERED: MIRALAX *UNIT DOSE* 17GM PACKET PO PRN (02:00)
[2017-02-01] MEDS ORDERED: ALBUTEROL SULFATE 2.5 MG/0.5 ML INH NEB SOLN NEB PRN (02:00)
[2017-02-01] MEDS: SENNA 8.6 MG TAB (SENOKOT) PO SCH ×3 (02:02→21:05)
[2017-02-01 06:10] LABS: MEAN CORPUSCULAR HEMOGLOBIN 29.7 pg (27.0-33.0); MEAN CORPUSCULAR HGB CONC 33.1 g/dl (32.0-36.5); MEAN CORPUSCULAR VOLUME 89.9 fl (80.0-96.0); RED CELL DISTRIBUTION WIDTH 15.1 % (11.5-14.5); WHITE BLOOD COUNT 7.7 K/mm3 (4.0-10.0)
[2017-02-01 06:13] LABS: INR 2.52
[2017-02-01] MEDS: ALBUTEROL SULFATE 2.5 MG/0.5 ML INH NEB SOLN INH SCH ×3 (06:20→19:09)
[2017-02-01 06:29] LABS: CALCIUM LEVEL 8.8 MG/DL (8.8-10.2); CREATININE FOR GFR 1.36 MG/DL (0.70-1.30); GLOMERULAR FILTRATION RATE 53.7 (>35); POTASSIUM SERUM 4.2 MEQ/L (3.5-5.1)
[2017-02-01] MEDS: TIOTROPIUM INHALER/CAPSULE (SPIRIVA) INH SCH (07:25)
[2017-02-01] MEDS: ADVAIR HFA 230/21 INHALER INH SCH ×2 (07:26→19:11)
[2017-02-01] MEDS: NS 1,000 ML IV SCH ×2 (08:12→17:12)
[2017-02-01] MEDS: ESCITALOPRAM OXALATE 5MG TABLET (LEXAPRO) PO SCH (08:12)
[2017-02-01] MEDS: HumaLOG INSULIN (NovoLOG) PER UNIT SC SCH ×4 (08:12→20:59)
[2017-02-01] MEDS: METOPROLOL TART 12.5 MG PER 1/2 TAB PO SCH ×2 (08:13→21:05)
[2017-02-01] MEDS: DOCUSATE SODIUM 100 MG CAP PO SCH ×2 (08:13→21:05)
[2017-02-01] MEDS: LEVEMIR (INSULIN DETEMIR) 1 UNITS/0.01ML SC SCH (08:13)
[2017-02-01] MEDS: GABAPENTIN 300 MG CAP PO SCH ×3 (08:13→21:05)
[2017-02-01] MEDS: BENZONATATE 100 MG CAP PO SCH ×3 (09:31→21:05)
[2017-02-01] MEDS: cefTRIAXone SOD 1 GM in D5W MINI-BAG PLUS 50 ML IV SCH (15:30)
[2017-02-01] MEDS: WARFARIN SOD 3 MG TAB PO SCH (17:12)
--- NOTE | 2017-02-01 17:57 | IPNPDOC ---
Subjective Date Seen The patient was seen on 02/01/17. Subjective Chief Complaint/HPI The patient is a 82-year-old male admitted with a reason for visit of Enteritis. Events since last encounter reported lightheadedness, Orthostatic Positive, Given IVF with resolution. Denied cp/f/c/n/v/ abd pain. unable to straight cath, thompson replaced. D/w family about disposition, family wished STR prior to return to assisted living Constitutional: Denies: Chills, Fever Eyes: Denies: Pain ENT: Denies: Head Aches Pulmonary: Reports: Dyspnea, Cough Cardiovascular: Reports: Lt Headedness, Denies: Chest Pain, Palpitations Gastrointestinal: Denies: Nausea, Vomiting, Abdominal Pain, Diarrhea, Constipation Objective Physical Examination General Exam: Positive: Alert, Cooperative, No Acute Distress, Other (frail, hard of hearing) Eye Exam: Positive: PERRLA, Conjunctiva & lids normal, EOMI, Negative: Sclera icteric ENT Exam: Positive: Mucous membr. moist/pink, Negative: Atraumatic Chest Exam: Positive: Normal air movement, Rales, Negative: Rhonchi, Wheezing Heart Exam: Positive: Rate Normal, Regular Rhythm, Normal S1, Normal S2 Abdomen Exam: Positive: Normal bowel sounds, Soft, Negative: Tenderness Extremity Exam: Negative: Edema Assessment /Plan Assessment 82-year-old man h/o a fib, depression, anxiety, COPD on 2L o2, DMII with diabteic neuropathy, HLD, CAD, prsotate cancer, adnocarcinoma of lung, CKD status post what appears to be an unwitnessed syncopal episode at assisted living facility Problems (1) Syncope Status: Acute Problem Text: likely viral gastroenteritis vs UTI. Self limiting abdominal symptoms have resolved and he is tolerating a regular diet. febrile No leukocytosis. He is no longer having any diarrhea or abdominal symptoms. We were unable to obtain a GI PCR panel. Given that he has lung cancer there was concern and fairly significant chronic obstructive pulmonary disease (COPD) and an unwitnessed episode where the patient was unable to provide an accurate history regarding the condition of his fall, he is undergoing a full syncope workup. We are waiting carotid duplex and echocardiogram, mri. pt, IVF given for orthostasis, (2) Anxiety and depression Problem Text: c/w med (3) Afib Problem Text: c/w bb and Coumadin f/u INR (4) COPD (chronic obstructive pulmonary disease) Problem Text: stable , c/w med, O2 dependent Tessalon cameron (5) CAD (coronary artery disease) Problem Text: c/w med (6) Prostate cancer Problem Text: remission , outpatient f/u (7) Adenocarcinoma, lung Problem Text: remission, outpatient f/u tessalon Erasmo (8) CKD (chronic kidney disease) Problem Text: stable (9) UTI (urinary tract infection) Problem Text: cultures appreciated, Rocephin (10) DMII (diabetes mellitus, type 2) Problem Text: basal bolus insulin fs (11) Fever Problem Text: undergoing treatment for UTI, with rocephin f/u cxr and bcx repeat Tylenol monitor (12) Dehydration Problem Text: orthostatic pos IVF resolved with IVF (13) Physical deconditioning Problem Text: pt/ot PFS for potential STR. Plan/VTE VTE Prophylaxis Ordered?: Yes (coumadin for a fib) Plan/Urinary Catheter Urinary Catheter: Straight Cath Reason for insertion/continuin: Acute obstruct/retention Disposition PT, family wished for STR. VS, I&O, 24H, [facility] Vital Signs/I&O Vital Signs Date Time Temp Pulse Resp B/P (MAP) Pulse Ox O2 Delivery O2 Flow Rate FiO2 02/01/17 17:32 90 135/74 (94) 95 130/72 (91) 98 130/66 (87) 02/01/17 14:00 96.9 19 93 High Flow Cannula 2.0 I&O- Last 24 Hours up to 6 AM 02/01/17 05:59 Intake Total 1310 ml Output Total 675 ml Balance 635 ml Laboratory Data 24H LABS Laboratory Tests 2 01/31/17 20:33: Bedside Glucose (Misc Panel) 186H 02/01/17 05:33: Prothrombin Time 27.2H, Prothromb Time International Ratio 2.52, Anion Gap 8, Glomerular Filtration Rate 53.7, Blood Urea Nitrogen 25H, Creatinine 1.36H, Sodium Level 136, Potassium Level 4.2, Chloride Level 102, Carbon Dioxide Level 26, Calcium Level 8.8 02/01/17 11:22: Bedside Glucose (Misc Panel) 257H 02/01/17 16:38: Bedside Glucose (Misc Panel) 266H CBC/BMP Laboratory Tests 02/01/17 05:33 Red Blood Count 3.25 L, Mean Corpuscular Volume 89.9, Mean Corpuscular Hemoglobin 29.7, Mean Corpuscular Hemoglobin Concent 33.1, Red Cell Distribution Width 15.1 H, Calcium Level 8.8 Microbiology Microbiology 01/31/17 Blood Culture - Preliminary, Resulted No growth after 24 hours . All specim... 01/31/17 Blood Culture - Preliminary, Resulted No growth after 24 hours . All specim... 01/29/17 Blood Culture - Preliminary, Resulted No Growth after 72 hours. All specime... 01/29/17 Blood Culture - Preliminary, Resulted No Growth after 72 hours. All specime... 01/28/17 Urine Culture - Final, Complete Strep Agalactiae Group B 01/27/17 Urine Culture - Final, Complete ALEXIS OLIVEIRA MD Feb 01, 2017 17:57
[2017-02-01] MEDS: ATORVASTATIN 20 MG TAB PO SCH (21:05)
[2017-02-02] VITALS (8 sets, daily range): BP systolic 99–147; BP diastolic 51–85
--- NOTE | 2017-02-02 00:24 | ECGEPIP ---
Stationary ECG Study 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
[2017-02-02] MEDS: NS 1,000 ML IV SCH (03:58)
[2017-02-02 06:05] LABS: INR 2.61; MEAN CORPUSCULAR HGB CONC 33.2 g/dl (32.0-36.5); MEAN CORPUSCULAR VOLUME 90.2 fl (80.0-96.0); RED CELL DISTRIBUTION WIDTH 15.2 % (11.5-14.5); WHITE BLOOD COUNT 7.7 K/mm3 (4.0-10.0)
[2017-02-02 06:17] LABS: CALCIUM LEVEL 8.4 MG/DL (8.8-10.2); CREATININE FOR GFR 1.3 MG/DL (0.70-1.30); GLOMERULAR FILTRATION RATE 56.5 (>35); POTASSIUM SERUM 4.2 MEQ/L (3.5-5.1)
[2017-02-02] MEDS ORDERED: BISACODYL 10 MG SUPP PR PRN (06:45)
[2017-02-02] MEDS: TIOTROPIUM INHALER/CAPSULE (SPIRIVA) INH SCH (07:32)
[2017-02-02] MEDS: ALBUTEROL SULFATE 2.5 MG/0.5 ML INH NEB SOLN INH SCH ×2 (07:33→14:00)
[2017-02-02] MEDS: ADVAIR HFA 230/21 INHALER INH SCH ×2 (07:33→19:20)
[2017-02-02] MEDS: METOPROLOL TART 12.5 MG PER 1/2 TAB PO SCH ×2 (08:35→20:40)
[2017-02-02] MEDS: ESCITALOPRAM OXALATE 5MG TABLET (LEXAPRO) PO SCH (08:36)
[2017-02-02] MEDS: SENNA 8.6 MG TAB (SENOKOT) PO SCH (08:36)
[2017-02-02] MEDS: BENZONATATE 100 MG CAP PO SCH ×3 (08:36→20:40)
[2017-02-02] MEDS: GABAPENTIN 300 MG CAP PO SCH ×3 (08:36→20:39)
[2017-02-02] MEDS: DOCUSATE SODIUM 100 MG CAP PO SCH (08:36)
[2017-02-02] MEDS: HumaLOG INSULIN (NovoLOG) PER UNIT SC SCH ×4 (08:37→20:41)
[2017-02-02] MEDS: LEVEMIR (INSULIN DETEMIR) 1 UNITS/0.01ML SC SCH (08:37)
[2017-02-02] MEDS ORDERED: IPRATROPIUM 0.5MG/ALBUTEROL 2.5MG INH SOL UD 3ML (DUONEB)(J7620) NEB PRN (11:00)
[2017-02-02] MEDS: predniSONE 20 MG TAB PO SCH (11:55)
[2017-02-02] MEDS: IPRATROPIUM 0.5MG/ALBUTEROL 2.5MG INH SOL UD 3ML (DUONEB)(J7620) NEB SCH ×2 (13:44→19:20)
[2017-02-02] MEDS: cefTRIAXone SOD 1 GM in D5W MINI-BAG PLUS 50 ML IV SCH (15:00)
--- NOTE | 2017-02-02 16:23 | IPNPDOC ---
Subjective Date Seen The patient was seen on 02/02/17. Subjective Chief Complaint/HPI The patient is a 82-year-old male admitted with a reason for visit of Enteritis. Events since last encounter No acute events overnight. coughing improved. Denied CP, abd pain, n/v/f/c. tolerating oral Constitutional: Denies: Chills, Fever ENT: Denies: Head Aches, Ear Pain, Dysphagia Pulmonary: Reports: Dyspnea, Cough Cardiovascular: Denies: Chest Pain, Palpitations, Orthopnea Gastrointestinal: Denies: Nausea, Vomiting, Abdominal Pain, Diarrhea, Constipation Hematologic: Denies: Bruising Objective Physical Examination General Exam: Positive: Alert, Cooperative, No Acute Distress, Other (frail, hard of hearing) Eye Exam: Positive: PERRLA, Conjunctiva & lids normal, EOMI, Negative: Sclera icteric ENT Exam: Positive: Mucous membr. moist/pink, Negative: Atraumatic Chest Exam: Positive: Normal air movement, Rales, Wheezing, Negative: Rhonchi Heart Exam: Positive: Rate Normal, Regular Rhythm, Normal S1, Normal S2 Abdomen Exam: Positive: Normal bowel sounds, Soft, Negative: Tenderness Extremity Exam: Negative: Edema Assessment /Plan Assessment 82-year-old man h/o a fib, depression, anxiety, COPD on 2L o2, DMII with diabteic neuropathy, HLD, CAD, prostate cancer, adenocarcinoma of lung, CKD status post what appears to be an unwitnessed syncopal episode at assisted living facility Problems (1) Syncope Status: Acute Problem Text: likely viral gastroenteritis vs UTI. Self limiting abdominal symptoms have resolved and he is tolerating a regular diet. febrile No leukocytosis. He is no longer having any diarrhea or abdominal symptoms. We were unable to obtain a GI PCR panel. Given that he has lung cancer there was concern and fairly significant chronic obstructive pulmonary disease (COPD) and an unwitnessed episode where the patient was unable to provide an accurate history regarding the condition of his fall, he is undergoing a full syncope workup. carotid duplex and echocardiogram, mri. done PT eval IVF given for orthostasis, (2) Anxiety and depression Problem Text: c/w med (3) Afib Problem Text: c/w bb and Coumadin f/u INR (4) COPD (chronic obstructive pulmonary disease) Problem Text: stable , c/w med, O2 dependent Tessalon erasmo c/w duoneb, advaire, spiriva, trial of prednisone for wheeze (5) CAD (coronary artery disease) Problem Text: c/w med (6) Prostate cancer Problem Text: remission , outpatient f/u (7) Adenocarcinoma, lung Problem Text: remission, outpatient f/u aryanon Erasmo (8) CKD (chronic kidney disease) Problem Text: stable (9) UTI (urinary tract infection) Problem Text: cultures appreciated, Rocephin (10) DMII (diabetes mellitus, type 2) Problem Text: basal bolus insulin fs (11) Fever Problem Text: undergoing treatment for UTI, with rocephin f/u cxr and bcx repeat Tylenol monitor (12) Dehydration Problem Text: orthostatic pos IVF resolved with IVF (13) Physical deconditioning Problem Text: pt/ot PFS for potential STR. Plan/VTE VTE Prophylaxis Ordered?: Yes (coumadin for a fib) Plan/Urinary Catheter Urinary Catheter: Straight Cath Reason for insertion/continuin: Acute obstruct/retention Disposition pending PT/OT, possible STR vs [place] VS, I&O, 24H, [facility] Vital Signs/I&O Vital Signs Date Time Temp Pulse Resp B/P (MAP) Pulse Ox O2 Delivery O2 Flow Rate FiO2 02/02/17 14:00 97.4 87 19 126/70 (88) 92 High Flow Cannula 2.0 I&O- Last 24 Hours up to 6 AM 02/02/17 06:00 Intake Total 2820 ml Output Total 1200 ml Balance 1620 ml Laboratory Data 24H LABS Laboratory Tests 2 02/01/17 16:38: Bedside Glucose (Misc Panel) 266H 02/01/17 20:24: Bedside Glucose (Misc Panel) 239H 02/02/17 05:16: Prothrombin Time 28.0H, Prothromb Time International Ratio 2.61, Anion Gap 4L, Glomerular Filtration Rate 56.5, Blood Urea Nitrogen 23H, Creatinine 1.30, Sodium Level 134L, Potassium Level 4.2, Chloride Level 103, Carbon Dioxide Level 27, Calcium Level 8.4L, C-Reactive Protein, Quantitative 14.10H 02/02/17 11:28: Bedside Glucose (Misc Panel) 296H CBC/BMP Laboratory Tests 02/02/17 05:16 Red Blood Count 2.98 L, Mean Corpuscular Volume 90.2, Mean Corpuscular Hemoglobin 30.0, Mean Corpuscular Hemoglobin Concent 33.2, Red Cell Distribution Width 15.2 H, Calcium Level 8.4 L Microbiology Microbiology 01/31/17 Blood Culture - Preliminary, Resulted No Growth after 48 hours. All Specime... 01/31/17 Blood Culture - Preliminary, Resulted No Growth after 48 hours. All Specime... 01/29/17 Blood Culture - Preliminary, Resulted No Growth after 72 hours. All specime... 01/29/17 Blood Culture - Preliminary, Resulted No Growth after 72 hours. All specime... 01/28/17 Urine Culture - Final, Complete Strep Agalactiae Group B 01/27/17 Urine Culture - Final, Complete ALEXIS OLIVEIRA MD Feb 02, 2017 16:23
[2017-02-02] MEDS: WARFARIN SOD 4 MG TAB PO SCH (18:28)
[2017-02-02] MEDS: ATORVASTATIN 20 MG TAB PO SCH (20:40)
[2017-02-02] MEDS: SENOKOT S TAB PO SCH (20:40)
[2017-02-03] MEDS: IPRATROPIUM 0.5MG/ALBUTEROL 2.5MG INH SOL UD 3ML (DUONEB)(J7620) NEB SCH ×4 (00:54→19:01)
[2017-02-03 02:00] VITALS: BP 125/61
[2017-02-03 06:00] VITALS: BP 119/57
[2017-02-03 06:37] LABS: MEAN CORPUSCULAR HEMOGLOBIN 29.8 pg (27.0-33.0); MEAN CORPUSCULAR HGB CONC 32.8 g/dl (32.0-36.5); MEAN CORPUSCULAR VOLUME 90.9 fl (80.0-96.0); RED CELL DISTRIBUTION WIDTH 14.9 % (11.5-14.5); WHITE BLOOD COUNT 7.3 K/mm3 (4.0-10.0)
[2017-02-03 06:42] LABS: INR 2.94
[2017-02-03 06:55] LABS: ANION GAP 6 MEQ/L (8-16); BLOOD UREA NITROGEN 24 MG/DL (7-18); CALCIUM LEVEL 8.3 MG/DL (8.8-10.2); CARBON DIOXIDE LEVEL 26 MEQ/L (21-32); CHLORIDE LEVEL 107 MEQ/L (98-107); CREATININE FOR GFR 1.17 MG/DL (0.70-1.30); GLOMERULAR FILTRATION RATE > 60.0 (>35); GLUCOSE, FASTING 360 MG/DL (83-110); POTASSIUM SERUM 4.5 MEQ/L (3.5-5.1); SODIUM LEVEL 139 MEQ/L (136-145)
[2017-02-03] MEDS: HumaLOG INSULIN (NovoLOG) PER UNIT SC SCH ×4 (08:08→21:12)
[2017-02-03] MEDS: SENOKOT S TAB PO SCH ×2 (08:09→21:11)
[2017-02-03] MEDS: GABAPENTIN 300 MG CAP PO SCH ×3 (08:09→21:13)
[2017-02-03] MEDS: BENZONATATE 100 MG CAP PO SCH ×3 (08:09→21:11)
[2017-02-03] MEDS: predniSONE 20 MG TAB PO SCH (08:09)
[2017-02-03] MEDS: METOPROLOL TART 12.5 MG PER 1/2 TAB PO SCH ×2 (08:09→21:13)
[2017-02-03] MEDS: LEVEMIR (INSULIN DETEMIR) 1 UNITS/0.01ML SC SCH (08:10)
[2017-02-03] MEDS: ESCITALOPRAM OXALATE 10 MG TAB (LEXAPRO) PO SCH (08:10)
[2017-02-03] MEDS: TIOTROPIUM INHALER/CAPSULE (SPIRIVA) INH SCH (08:17)
[2017-02-03] MEDS: ADVAIR HFA 230/21 INHALER INH SCH ×2 (08:17→19:17)
[2017-02-03 10:00] VITALS: BP 122/64
[2017-02-03 14:00] VITALS: BP 129/61
[2017-02-03] MEDS: cefTRIAXone SOD 1 GM in D5W MINI-BAG PLUS 50 ML IV SCH (15:08)
--- NOTE | 2017-02-03 16:58 | IPNPDOC ---
Subjective Date Seen The patient was seen on 02/03/17. Subjective Chief Complaint/HPI The patient is a 82-year-old male admitted with a reason for visit of Enteritis. Events since last encounter Reported improved cough. Denied chest pain, n/v/abd pain. Wanted to see his dog General: Denies: Chills Constitutional: Denies: Chills, Fever Eyes: Denies: Pain, Vision change ENT: Denies: Head Aches Skin: Denies: Rash, Lesions Pulmonary: Reports: Dyspnea, Cough Cardiovascular: Denies: Chest Pain, Palpitations, Orthopnea Gastrointestinal: Denies: Nausea, Vomiting, Abdominal Pain, Diarrhea, Constipation Objective Physical Examination General Exam: Positive: Alert, Cooperative, No Acute Distress, Other (frail, hard of hearing) Eye Exam: Positive: PERRLA, Conjunctiva & lids normal, EOMI, Negative: Sclera icteric ENT Exam: Positive: Mucous membr. moist/pink, Negative: Atraumatic Chest Exam: Positive: Normal air movement, Rales, Wheezing (improved), Negative: Rhonchi Heart Exam: Positive: Rate Normal, Regular Rhythm, Normal S1, Normal S2 Abdomen Exam: Positive: Normal bowel sounds, Soft, Negative: Tenderness Extremity Exam: Negative: Edema Assessment /Plan Assessment 82-year-old man h/o a fib, depression, anxiety, COPD on 2L o2, DMII with diabteic neuropathy, HLD, CAD, prostate cancer, adenocarcinoma of lung, CKD status post what appears to be an unwitnessed syncopal episode at assisted living facility Problems (1) Syncope Status: Acute Problem Text: likely viral gastroenteritis vs UTI. Self limiting abdominal symptoms have resolved and he is tolerating a regular diet. febrile No leukocytosis. He is no longer having any diarrhea or abdominal symptoms. We were unable to obtain a GI PCR panel. Given that he has lung cancer there was concern and fairly significant chronic obstructive pulmonary disease (COPD) and an unwitnessed episode where the patient was unable to provide an accurate history regarding the condition of his fall, he is undergoing a full syncope workup. carotid duplex and echocardiogram, mri. done PT eval IVF given for orthostasis, (2) Anxiety and depression Problem Text: c/w med (3) Afib Problem Text: c/w bb and Coumadin f/u INR (4) COPD (chronic obstructive pulmonary disease) Problem Text: stable , c/w med, O2 dependent Tessalon erasmo c/w duoneb, advaire, spiriva, trial of prednisone for wheeze, taper as tolerated (5) CAD (coronary artery disease) Problem Text: c/w med (6) Prostate cancer Problem Text: remission , outpatient f/u (7) Adenocarcinoma, lung Problem Text: remission, outpatient f/u tessalon Erasmo (8) CKD (chronic kidney disease) Problem Text: stable (9) UTI (urinary tract infection) Problem Text: cultures appreciated, Rocephin (10) DMII (diabetes mellitus, type 2) Problem Text: basal bolus insulin fs hyperglycemia 2/2 steroid, insulin coverage adjusted (11) Fever Problem Text: undergoing treatment for UTI, with rocephin f/u cxr and bcx repeat Tylenol monitor (12) Dehydration Problem Text: orthostatic pos IVF resolved with IVF (13) Physical deconditioning Problem Text: pt/ot PFS for potential STR. Plan/VTE VTE Prophylaxis Ordered?: Yes (coumadin for a fib) Plan/Urinary Catheter Urinary Catheter: Straight Cath Reason for insertion/continuin: Acute obstruct/retention Disposition OT/PT possible STR vs back to [place]. VS, I&O, 24H, [facility] Vital Signs/I&O Vital Signs Date Time Temp Pulse Resp B/P (MAP) Pulse Ox O2 Delivery O2 Flow Rate FiO2 02/03/17 14:00 96.9 73 19 129/61 (83) 94 High Flow Cannula 2.0 I&O- Last 24 Hours up to 6 AM 02/03/17 06:00 Intake Total 1760 ml Output Total 2525 ml Balance -765 ml Laboratory Data 24H LABS Laboratory Tests 2 02/02/17 20:17: Bedside Glucose (Misc Panel) 354H 02/03/17 05:59: Prothrombin Time 30.7H, Prothromb Time International Ratio 2.94, Anion Gap 6L, Glomerular Filtration Rate > 60.0, Blood Urea Nitrogen 24H, Creatinine 1.17, Sodium Level 139, Potassium Level 4.5, Chloride Level 107, Carbon Dioxide Level 26, Calcium Level 8.3L 02/03/17 11:24: Bedside Glucose (Misc Panel) 309H 02/03/17 16:38: Bedside Glucose (Misc Panel) 366H CBC/BMP Laboratory Tests 02/03/17 05:59 Red Blood Count 2.93 L, Mean Corpuscular Volume 90.9, Mean Corpuscular Hemoglobin 29.8, Mean Corpuscular Hemoglobin Concent 32.8, Red Cell Distribution Width 14.9 H, Calcium Level 8.3 L Microbiology Microbiology 01/31/17 Blood Culture - Preliminary, Resulted No Growth after 72 hours. All specime... 01/31/17 Blood Culture - Preliminary, Resulted No Growth after 72 hours. All specime... 01/29/17 Blood Culture - Final, Complete NO GROWTH AFTER 5 DAYS 01/29/17 Blood Culture - Final, Complete NO GROWTH AFTER 5 DAYS 01/28/17 Urine Culture - Final, Complete Strep Agalactiae Group B 01/27/17 Urine Culture - Final, Complete ALEXIS OLIVEIRA MD Feb 03, 2017 16:58
[2017-02-03] MEDS: WARFARIN SOD 3 MG TAB PO SCH (17:36)
[2017-02-03 18:00] VITALS: BP 138/68
[2017-02-03] MEDS: ATORVASTATIN 20 MG TAB PO SCH (21:12)
[2017-02-03 22:00] VITALS: BP 154/70
[2017-02-04] VITALS (8 sets, daily range): BP systolic 119–157; BP diastolic 57–80; O2SAT 95
[2017-02-04] MEDS: IPRATROPIUM 0.5MG/ALBUTEROL 2.5MG INH SOL UD 3ML (DUONEB)(J7620) NEB SCH ×4 (01:34→20:00)
[2017-02-04 06:03] LABS: MEAN CORPUSCULAR HEMOGLOBIN 29.5 pg (27.0-33.0); MEAN CORPUSCULAR HGB CONC 32.5 g/dl (32.0-36.5); MEAN CORPUSCULAR VOLUME 90.7 fl (80.0-96.0); RED CELL DISTRIBUTION WIDTH 14.8 % (11.5-14.5); WHITE BLOOD COUNT 9.8 K/mm3 (4.0-10.0)
[2017-02-04 06:07] LABS: INR 3.66
[2017-02-04 06:23] LABS: ANION GAP 7 MEQ/L (8-16); BLOOD UREA NITROGEN 28 MG/DL (7-18); CALCIUM LEVEL 8.8 MG/DL (8.8-10.2); CARBON DIOXIDE LEVEL 26 MEQ/L (21-32); CHLORIDE LEVEL 107 MEQ/L (98-107); CREATININE FOR GFR 1.21 MG/DL (0.70-1.30); GLOMERULAR FILTRATION RATE > 60.0 (>35); GLUCOSE, FASTING 248 MG/DL (83-110); POTASSIUM SERUM 4.2 MEQ/L (3.5-5.1); SODIUM LEVEL 140 MEQ/L (136-145)
[2017-02-04] MEDS: HumaLOG INSULIN (NovoLOG) PER UNIT SC SCH ×4 (07:59→20:43)
[2017-02-04] MEDS: ESCITALOPRAM OXALATE 10 MG TAB (LEXAPRO) PO SCH (08:00)
[2017-02-04] MEDS: GABAPENTIN 300 MG CAP PO SCH ×3 (08:00→20:42)
[2017-02-04] MEDS: SENOKOT S TAB PO SCH ×2 (08:00→20:42)
[2017-02-04] MEDS: METOPROLOL TART 12.5 MG PER 1/2 TAB PO SCH ×2 (08:00→20:42)
[2017-02-04] MEDS: BENZONATATE 100 MG CAP PO SCH ×3 (08:00→20:42)
[2017-02-04] MEDS: LEVEMIR (INSULIN DETEMIR) 1 UNITS/0.01ML SC SCH (08:01)
[2017-02-04] MEDS: ADVAIR HFA 230/21 INHALER INH SCH ×2 (08:27→20:58)
[2017-02-04] MEDS: TIOTROPIUM INHALER/CAPSULE (SPIRIVA) INH SCH (08:27)
[2017-02-04] MEDS ORDERED: predniSONE 10 MG TAB PO SCH (09:00)
--- NOTE | 2017-02-04 13:34 | IPNPDOC ---
Subjective Date Seen The patient was seen on 02/04/17. Subjective Chief Complaint/HPI The patient is a 82-year-old male admitted with a reason for visit of Enteritis. Events since last encounter no acute events overnight. cough improved. denied n/v/abd pain/cp. Constitutional: Denies: Chills, Fever Eyes: Denies: Pain ENT: Denies: Head Aches, Ear Pain Pulmonary: Denies: Dyspnea, Cough Cardiovascular: Denies: Chest Pain, Palpitations, Orthopnea Gastrointestinal: Denies: Nausea, Vomiting, Abdominal Pain, Diarrhea, Constipation Objective Physical Examination General Exam: Positive: Alert, Cooperative, No Acute Distress, Other (frail, hard of hearing) Eye Exam: Positive: PERRLA, Conjunctiva & lids normal, EOMI, Negative: Sclera icteric ENT Exam: Positive: Mucous membr. moist/pink, Negative: Atraumatic Chest Exam: Positive: Normal air movement, Rales, Wheezing (improved), Negative: Rhonchi Heart Exam: Positive: Rate Normal, Regular Rhythm, Normal S1, Normal S2 Abdomen Exam: Positive: Normal bowel sounds, Soft, Negative: Tenderness Extremity Exam: Negative: Edema Assessment /Plan Assessment 82-year-old man h/o a fib, depression, anxiety, COPD on 2L o2, DMII with diabteic neuropathy, HLD, CAD, prostate cancer, adenocarcinoma of lung, CKD status post what appears to be an unwitnessed syncopal episode at assisted living facility Problems (1) Syncope Status: Acute Problem Text: likely viral gastroenteritis vs UTI. Self limiting abdominal symptoms have resolved and he is tolerating a regular diet. febrile No leukocytosis. He is no longer having any diarrhea or abdominal symptoms. We were unable to obtain a GI PCR panel. Given that he has lung cancer there was concern and fairly significant chronic obstructive pulmonary disease (COPD) and an unwitnessed episode where the patient was unable to provide an accurate history regarding the condition of his fall, he is undergoing a full syncope workup. carotid duplex and echocardiogram, mri. done PT eval IVF given for orthostasis, (2) Anxiety and depression Problem Text: c/w med (3) Afib Problem Text: c/w bb and Coumadin f/u INR (4) COPD (chronic obstructive pulmonary disease) Problem Text: stable , c/w med, O2 dependent Tessalon ashok c/w duoneb, advaire, spiriva, trial of prednisone for wheeze, taper as tolerated (5) CAD (coronary artery disease) Problem Text: c/w med (6) Prostate cancer Problem Text: remission , outpatient f/u (7) Adenocarcinoma, lung Problem Text: remission, outpatient f/u marlovinnie Zimmerman (8) CKD (chronic kidney disease) Problem Text: stable (9) UTI (urinary tract infection) Problem Text: cultures appreciated, Rocephin (10) DMII (diabetes mellitus, type 2) Problem Text: basal bolus insulin fs hyperglycemia 2/2 steroid, insulin coverage adjusted (11) Fever Problem Text: undergoing treatment for UTI, with rocephin f/u cxr and bcx repeat Tylenol monitor (12) Dehydration Problem Text: orthostatic pos IVF resolved with IVF (13) Physical deconditioning Problem Text: pt/ot PFS for potential STR. Plan/VTE VTE Prophylaxis Ordered?: Yes (coumadin for a fib) Plan/Urinary Catheter Urinary Catheter: Straight Cath Reason for insertion/continuin: Acute obstruct/retention Disposition PT/OT potential STR VS, I&O, 24H, [facility] Vital Signs/I&O Vital Signs Date Time Temp Pulse Resp B/P (MAP) Pulse Ox O2 Delivery O2 Flow Rate FiO2 02/04/17 13:23 95 Nasal Cannula 2.0 02/04/17 10:00 97.2 60 19 139/76 (97) I&O- Last 24 Hours up to 6 AM 02/04/17 06:00 Intake Total 1350 ml Output Total 1475 ml Balance -125 ml Laboratory Data 24H LABS Laboratory Tests 2 02/03/17 16:38: Bedside Glucose (Misc Panel) 366H 02/03/17 20:05: Bedside Glucose (Misc Panel) 413H 02/04/17 05:46: Prothrombin Time 36.4H, Prothromb Time International Ratio 3.66, Anion Gap 7L, Glomerular Filtration Rate > 60.0, Blood Urea Nitrogen 28H, Creatinine 1.21, Sodium Level 140, Potassium Level 4.2, Chloride Level 107, Carbon Dioxide Level 26, Calcium Level 8.8 02/04/17 11:27: Bedside Glucose (Misc Panel) 287H CBC/BMP Laboratory Tests 02/04/17 05:46 Red Blood Count 3.03 L, Mean Corpuscular Volume 90.7, Mean Corpuscular Hemoglobin 29.5, Mean Corpuscular Hemoglobin Concent 32.5, Red Cell Distribution Width 14.8 H, Calcium Level 8.8 Microbiology Microbiology 01/31/17 Blood Culture - Preliminary, Resulted No Growth after 72 hours. All specime... 01/31/17 Blood Culture - Preliminary, Resulted No Growth after 72 hours. All specime... 01/29/17 Blood Culture - Final, Complete NO GROWTH AFTER 5 DAYS 01/29/17 Blood Culture - Final, Complete NO GROWTH AFTER 5 DAYS 01/28/17 Urine Culture - Final, Complete Strep Agalactiae Group B 01/27/17 Urine Culture - Final, Complete ALEXIS OLIVEIRA MD Feb 04, 2017 13:34
[2017-02-04] MEDS: cefTRIAXone SOD 1 GM in D5W MINI-BAG PLUS 50 ML IV SCH (15:30)
[2017-02-04] MEDS: ATORVASTATIN 20 MG TAB PO SCH (20:42)
[2017-02-05] MEDS: IPRATROPIUM 0.5MG/ALBUTEROL 2.5MG INH SOL UD 3ML (DUONEB)(J7620) NEB SCH ×4 (01:30→20:00)
[2017-02-05 02:00] VITALS: BP 134/63
[2017-02-05 06:00] VITALS: BP 152/70
[2017-02-05 06:35] LABS: MEAN CORPUSCULAR HEMOGLOBIN 29.8 pg (27.0-33.0); MEAN CORPUSCULAR HGB CONC 32.8 g/dl (32.0-36.5); RED CELL DISTRIBUTION WIDTH 15.2 % (11.5-14.5); WHITE BLOOD COUNT 8.2 K/mm3 (4.0-10.0)
[2017-02-05 06:42] LABS: INR 3.54
[2017-02-05 06:44] LABS: ANION GAP 4 MEQ/L (8-16); BLOOD UREA NITROGEN 25 MG/DL (7-18); CALCIUM LEVEL 8.5 MG/DL (8.8-10.2); CARBON DIOXIDE LEVEL 29 MEQ/L (21-32); CHLORIDE LEVEL 105 MEQ/L (98-107); GLOMERULAR FILTRATION RATE > 60.0 (>35); GLUCOSE, FASTING 196 MG/DL (83-110); POTASSIUM SERUM 4.2 MEQ/L (3.5-5.1); SODIUM LEVEL 138 MEQ/L (136-145)
[2017-02-05] MEDS: TIOTROPIUM INHALER/CAPSULE (SPIRIVA) INH SCH (07:42)
[2017-02-05] MEDS: ADVAIR HFA 230/21 INHALER INH SCH ×2 (07:42→20:00)
[2017-02-05] MEDS: HumaLOG INSULIN (NovoLOG) PER UNIT SC SCH ×4 (08:38→20:36)
[2017-02-05] MEDS: LEVEMIR (INSULIN DETEMIR) 1 UNITS/0.01ML SC SCH (08:38)
[2017-02-05] MEDS: GABAPENTIN 300 MG CAP PO SCH ×3 (08:39→20:35)
[2017-02-05] MEDS: BENZONATATE 100 MG CAP PO SCH ×3 (08:39→20:35)
[2017-02-05] MEDS: SENOKOT S TAB PO SCH ×2 (08:39→20:35)
[2017-02-05] MEDS: METOPROLOL TART 12.5 MG PER 1/2 TAB PO SCH ×2 (08:39→20:35)
[2017-02-05] MEDS: ESCITALOPRAM OXALATE 10 MG TAB (LEXAPRO) PO SCH (08:39)
[2017-02-05] MEDS: predniSONE 20 MG TAB PO SCH (08:40)
[2017-02-05 10:00] VITALS: BP 120/67
[2017-02-05 14:00] VITALS: BP 123/69
[2017-02-05] MEDS: cefTRIAXone SOD 1 GM in D5W MINI-BAG PLUS 50 ML IV SCH (15:12)
[2017-02-05] MEDS ORDERED: WARFARIN SOD 4 MG TAB PO SCH ×2 (17:00)
--- NOTE | 2017-02-05 18:54 | IPNPDOC ---
Subjective Date Seen The patient was seen on 02/05/17. Subjective Chief Complaint/HPI The patient is a 82-year-old male admitted with a reason for visit of Enteritis. Events since last encounter Patient seen and examined, no acute events overnight. cough baseline, denied cp/ abd pain/n/v/f/c. tolerate oral Constitutional: Denies: Chills, Fever Skin: Denies: Rash, Lesions Pulmonary: Denies: Dyspnea, Cough Cardiovascular: Denies: Chest Pain, Palpitations, Orthopnea Gastrointestinal: Denies: Nausea, Vomiting, Abdominal Pain, Diarrhea, Constipation Objective Physical Examination General Exam: Positive: Alert, Cooperative, No Acute Distress, Other (frail, hard of hearing) Eye Exam: Positive: PERRLA, Conjunctiva & lids normal, EOMI, Negative: Sclera icteric ENT Exam: Positive: Mucous membr. moist/pink, Negative: Atraumatic Chest Exam: Positive: Normal air movement, Rales, Wheezing (improved), Negative: Rhonchi Heart Exam: Positive: Rate Normal, Regular Rhythm, Normal S1, Normal S2 Abdomen Exam: Positive: Normal bowel sounds, Soft, Negative: Tenderness Extremity Exam: Negative: Edema Assessment /Plan Assessment 82-year-old man h/o a fib, depression, anxiety, COPD on 2L o2, DMII with diabteic neuropathy, HLD, CAD, prostate cancer, adenocarcinoma of lung, CKD status post what appears to be an unwitnessed syncopal episode at assisted living facility Problems (1) Syncope Status: Acute Problem Text: likely viral gastroenteritis vs UTI. Self limiting abdominal symptoms have resolved and he is tolerating a regular diet. febrile No leukocytosis. He is no longer having any diarrhea or abdominal symptoms. We were unable to obtain a GI PCR panel. Given that he has lung cancer there was concern and fairly significant chronic obstructive pulmonary disease (COPD) and an unwitnessed episode where the patient was unable to provide an accurate history regarding the condition of his fall, he is undergoing a full syncope workup. carotid duplex and echocardiogram, mri. done PT eval IVF given for orthostasis, (2) Anxiety and depression Problem Text: c/w med (3) Afib Problem Text: c/w bb and Coumadin adjusted f/u INR elevated (4) COPD (chronic obstructive pulmonary disease) Problem Text: stable , c/w med, O2 dependent Tessalon ashok c/w duoneb, advaire, spiriva, trial of prednisone for wheeze, taper as tolerated (5) CAD (coronary artery disease) Problem Text: c/w med (6) Prostate cancer Problem Text: remission , outpatient f/u (7) Adenocarcinoma, lung Problem Text: remission, outpatient f/u chencho Zimmerman (8) CKD (chronic kidney disease) Problem Text: stable (9) UTI (urinary tract infection) Problem Text: cultures appreciated, Rocephin (10) DMII (diabetes mellitus, type 2) Problem Text: basal bolus insulin fs hyperglycemia 2/2 steroid, insulin coverage adjusted (11) Fever Problem Text: undergoing treatment for UTI, with rocephin f/u cxr and bcx repeat Tylenol monitor (12) Dehydration Problem Text: orthostatic pos IVF resolved with IVF (13) Physical deconditioning Problem Text: pt/ot PFS for potential STR. Plan/VTE VTE Prophylaxis Ordered?: Yes (coumadin for a fib) Plan/Urinary Catheter Urinary Catheter: Straight Cath Reason for insertion/continuin: Acute obstruct/retention Disposition pending OT, family wished to participate in OT. return to [place], vs STR. VS, I&O, 24H, [facility] Vital Signs/I&O Vital Signs Date Time Temp Pulse Resp B/P (MAP) Pulse Ox O2 Delivery O2 Flow Rate FiO2 02/05/17 10:00 97.4 80 20 120/67 (84) 97 High Flow Cannula 2.0 I&O- Last 24 Hours up to 6 AM 02/05/17 06:00 Intake Total 1490 ml Output Total 1925 ml Balance -435 ml Laboratory Data 24H LABS Laboratory Tests 2 02/04/17 20:36: Bedside Glucose (Misc Panel) 426H 02/05/17 06:11: Prothrombin Time 35.4H, Prothromb Time International Ratio 3.54, Anion Gap 4L, Glomerular Filtration Rate > 60.0, Blood Urea Nitrogen 25H, Creatinine 1.20, Sodium Level 138, Potassium Level 4.2, Chloride Level 105, Carbon Dioxide Level 29, Calcium Level 8.5L, C-Reactive Protein, Quantitative 3.56H 02/05/17 11:08: Bedside Glucose (Misc Panel) 311H 02/05/17 16:32: Bedside Glucose (Misc Panel) 383H CBC/BMP Laboratory Tests 02/05/17 06:11 Red Blood Count 3.11 L, Mean Corpuscular Volume 91.0, Mean Corpuscular Hemoglobin 29.8, Mean Corpuscular Hemoglobin Concent 32.8, Red Cell Distribution Width 15.2 H, Calcium Level 8.5 L Microbiology Microbiology 01/31/17 Blood Culture - Final, Complete NO GROWTH AFTER 5 DAYS 01/31/17 Blood Culture - Final, Complete NO GROWTH AFTER 5 DAYS 01/29/17 Blood Culture - Final, Complete NO GROWTH AFTER 5 DAYS 01/29/17 Blood Culture - Final, Complete NO GROWTH AFTER 5 DAYS 01/28/17 Urine Culture - Final, Complete Strep Agalactiae Group B 01/27/17 Urine Culture - Final, Complete ALEXIS OLIVEIRA MD Feb 05, 2017 18:54
[2017-02-05] MEDS: ATORVASTATIN 20 MG TAB PO SCH (20:35)
[2017-02-05 22:00] VITALS: BP 146/76
[2017-02-06 02:00] VITALS: BP 130/63
[2017-02-06] MEDS: IPRATROPIUM 0.5MG/ALBUTEROL 2.5MG INH SOL UD 3ML (DUONEB)(J7620) NEB SCH (02:00)
[2017-02-06 06:00] VITALS: BP 126/59
[2017-02-06 07:13] LABS: MEAN CORPUSCULAR HEMOGLOBIN 29.4 pg (27.0-33.0); MEAN CORPUSCULAR HGB CONC 32.6 g/dl (32.0-36.5); MEAN CORPUSCULAR VOLUME 90.4 fl (80.0-96.0); RED CELL DISTRIBUTION WIDTH 15.2 % (11.5-14.5); WHITE BLOOD COUNT 7.2 K/mm3 (4.0-10.0)
[2017-02-06 07:23] LABS: ANION GAP 4 MEQ/L (8-16); BLOOD UREA NITROGEN 25 MG/DL (7-18); CALCIUM LEVEL 8.4 MG/DL (8.8-10.2); CARBON DIOXIDE LEVEL 30 MEQ/L (21-32); CHLORIDE LEVEL 104 MEQ/L (98-107); CREATININE FOR GFR 1.16 MG/DL (0.70-1.30); GLOMERULAR FILTRATION RATE > 60.0 (>35); GLUCOSE, FASTING 211 MG/DL (83-110); MAGNESIUM LEVEL 2.2 MG/DL (1.8-2.4); POTASSIUM SERUM 4.2 MEQ/L (3.5-5.1); SODIUM LEVEL 138 MEQ/L (136-145)
[2017-02-06] MEDS ORDERED: HumaLOG INSULIN (NovoLOG) PER UNIT SC SCH (07:30)
[2017-02-06 07:34] LABS: INR 2.86
[2017-02-06] MEDS: TIOTROPIUM INHALER/CAPSULE (SPIRIVA) INH SCH (08:02)
[2017-02-06] MEDS: ADVAIR HFA 230/21 INHALER INH SCH (08:02)
[2017-02-06 08:05] VITALS: O2SAT 95
[2017-02-06] MEDS: GABAPENTIN 300 MG CAP PO SCH (08:58)
[2017-02-06] MEDS: SENOKOT S TAB PO SCH (08:58)
[2017-02-06 09:00] VITALS: BP 142/66
[2017-02-06] MEDS: METOPROLOL TART 12.5 MG PER 1/2 TAB PO SCH (09:00)
[2017-02-06] MEDS ORDERED: LEVEMIR (INSULIN DETEMIR) 1 UNITS/0.01ML SC SCH (09:00)
[2017-02-06] MEDS: predniSONE 20 MG TAB PO SCH (09:00)
[2017-02-06] MEDS: ESCITALOPRAM OXALATE 10 MG TAB (LEXAPRO) PO SCH (09:01)
[2017-02-06] MEDS: BENZONATATE 100 MG CAP PO SCH (09:01)
[2017-02-06 10:00] VITALS: BP 117/57
[2017-02-06] MEDS ORDERED: PRED10TA PO (11:13)
[2017-02-06] MEDS ORDERED: COUM1TAB14 PO (11:13)
[2017-02-06] MEDS ORDERED: INSUDET SC (11:13)
--- NOTE | 2017-02-06 16:59 | DS.PDOC ---
Discharge Summary General Date of Admission Jan 29, 2017 at 16:44 Date of Discharge 02/06/17 Attending Physician: SHAKIR HINSON MD Discharge Summary PROCEDURES PERFORMED DURING STAY: None. ADMITTING/DISCHARGE DIAGNOSES: 1. Pre-Syncope with orthostatic hypotension. Viral gastric enteritis 2. AF on Coumadin 3. COPD on 2L O2 NC 4. Depression 5. CAD 6. DM 7. HLD 8. H/o Adenocarcinoma right lung 9. H/o prostate ca s/o hormonal therapy 12 years ago 10. H/o CKD COMPLICATIONS/CHIEF COMPLAINT: Enteritis. HISTORY OF PRESENT ILLNESS/HOSPITAL COURSE: . This 82-year-old male past history of CAD, diabetes, hypertension, question more adenocarcinoma the right lung with recent PET scan/bronchial workup following up with pulmonary who presents with nausea/vomiting and noted to have enteritis on CT abdomen and pelvis. Patient likely had gastric gastroenteritis. Patient also had presyncopal/syncopal episode secondary to orthostatic hypotension. Over the course of hospitalization, patient tolerated by mouth intake, participated with physical therapy and was cleared for discharge. The patient did not have any recurrent episodes of presyncope. No abdominal pain. The patient did not have any episodes of diarrhea to obtain a GI panel. Patient is currently being followed by pulmonary for possible lung mass, and had a recent PET scan as well as bronchoscopy per medical records. He will need to follow-up with pulmonary shortly after discharge. DISCHARGE MEDICATIONS: Please see below. ALLERGIES: Please see below. PHYSICAL EXAMINATION ON DISCHARGE: Vitals: (see below) General: No acute distress, laying comfortably in bed. HEENT: Moist mucous membranes. Neck: No JVD or lymphadenopathy Cardiac: RRR, No murmurs Pulm: Diminished breath sounds at the bases b/l. No wheezing, rhonchi Abd: NT/ND + BS Ext: No edema or cyanosis LABORATORY DATA: Please see below. IMAGING: MRA Brain 01/28/17 Impression: Unremarkable MR angiography the brain Carotid u/s 01/28/17 Impression: 1. Bilateral proximal 50% carotid stenosis based on velocity criteria and some mild spectral broadening. I do not see severe critical stenosis. Soft and mixed plaque with some shadowing at the bulb and proximal IACs. 2. Cranial direction of flow in the vertebral arteries bilaterally. MRI Brain 01/28/17 IMPRESSION: Moderate diffuse atrophy and small vessel changes. No acute intracranial lesion. CT Abd/pelvis 01/27/17 IMPRESSION: Enteritis. Infectious and inflammatory etiiologies are considered PROGNOSIS: Fair ACTIVITY: As tolerated. DIET: Low-sodium DISCHARGE PLAN/DISPOSITION: [facility]. DISCHARGE INSTRUCTIONS: 1. F/u with PCP in 1-2 weeks. DISCHARGE CONDITION: Stable. TIME SPENT ON DISCHARGE: Greater than 30 minutes. Vital Signs/I&Os Vital Signs Date Time Temp Pulse Resp B/P (MAP) Pulse Ox O2 Delivery O2 Flow Rate FiO2 02/06/17 10:00 97.3 96 20 117/57 (77) 92 High Flow Cannula 2.0 I&O- Last 24 Hours up to 6 AM 02/06/17 06:00 Intake Total 1500 ml Output Total 2225 ml Balance -725 ml Laboratory Data Labs 24H Laboratory Tests 2 02/05/17 20:11: Bedside Glucose (Misc Panel) 446H 02/06/17 06:53: Bedside Glucose (Misc Panel) 220H 02/06/17 06:58: Prothrombin Time 30.0H, Prothromb Time International Ratio 2.86, Anion Gap 4L, Glomerular Filtration Rate > 60.0, Blood Urea Nitrogen 25H, Creatinine 1.16, Sodium Level 138, Potassium Level 4.2, Chloride Level 104, Carbon Dioxide Level 30, Calcium Level 8.4L, Magnesium Level 2.2 02/06/17 11:37: Bedside Glucose (Misc Panel) 209H CBC/BMP Laboratory Tests 02/06/17 06:58 Red Blood Count 3.05 L, Mean Corpuscular Volume 90.4, Mean Corpuscular Hemoglobin 29.4, Mean Corpuscular Hemoglobin Concent 32.6, Red Cell Distribution Width 15.2 H, Calcium Level 8.4 L FSBS Laboratory Tests Test 02/05/17 20:11 02/06/17 06:53 02/06/17 11:37 Range/Units Bedside Glucose (Misc Panel) 446 220 209 83-110 MG/DL Microbiology Microbiology 01/31/17 Blood Culture - Final, Complete NO GROWTH AFTER 5 DAYS 01/31/17 Blood Culture - Final, Complete NO GROWTH AFTER 5 DAYS 01/29/17 Blood Culture - Final, Complete NO GROWTH AFTER 5 DAYS 01/29/17 Blood Culture - Final, Complete NO GROWTH AFTER 5 DAYS 01/28/17 Urine Culture - Final, Complete Strep Agalactiae Group B 01/27/17 Urine Culture - Final, Complete Discharge Medications Scheduled (Glucosamine Chondroitin) 1 Tab Tab, 1 TAB PO QPM, (Reported) Albuterol Sulfate (Albuterol Sulfate) 2.5 Mg/0.5 Ml Neb, 2.5 MG INH TID, ( Reported) Atorvastatin Calcium (Atorvastatin Calcium) 40 Mg Tab, 40 MG PO QPM, (Reported) Escitalopram Oxalate (Lexapro) 5 Mg Tab, 5 MG PO DAILY, (Reported) Gabapentin (Gabapentin) 300 Mg Cap, 300 MG PO TID, (Reported) Insulin Detemir (Levemir) 1 Units/0.01 Ml Susp, 24 UNITS SC DAILY Metoprolol Tartrate (Metoprolol Tartrate) 12.5 Mg Halftab, 12.5 MG PO BID, ( Reported) Prednisone (Prednisone) 10 Mg Tab, 10 MG PO TAPER Take 2 tabs daily x 2 days, then 1 tabs daily x 3 days, then stop Salmeterol/Fluticasone (Advair Hfa 230-21 Mcg/Act) 1 Aer Aer, 2 PUFF INH BID, ( Reported) Silodosin (Rapaflo) 8 Mg Cap, 8 MG PO QPM, (Reported) Tiotropium [place] Monohydrate (Spiriva Handihaler) 18 Mcg Cap, 18 MCG INH DAILY , (Reported) Warfarin Sod (Coumadin) 4 Mg Tab, 3 MG PO DAILY@17 Scheduled PRN Albuterol Sulfate (Proair Hfa) 108 Mcg/Act Aer, 2 PUFF INH QID PRN for SHORTNESS OF BREATH, (Reported) Lorazepam (Lorazepam) 0.5 Mg Tab, 0.5 MG PO DAILY PRN for ANXIETY, (Reported) Allergies Coded Allergies: Sulfamethoxazole w/Trimethoprim (Verified Allergy, Mild, hives, 01/27/17) Bee Venom (Verified Allergy, Unknown, 11/16/12) SHAKIR HINSON MD Feb 06, 2017 16:59
== END 2017-02-06 12:55 | DRG 392 ==
LOC: EDBD 21:02 → M ED 22:48 → M ED INP 22:49 → M PCU 01-28 06:38 → OBSVTOIN 01-29 16:44 → M MSPAV 01-30 18:10
PROVIDERS: ADMIT Internal Medicine; ATTEND Internal Medicine
DX: A08.4 Viral intestinal infection, unspecified (principal); N39.0 Urinary tract infection, site not specified; I48.91 Unspecified atrial fibrillation; Z79.01 Long term (current) use of anticoagulants; J44.9 Chronic obstructive pulmonary disease, unspecified; E11.40 Type 2 diabetes mellitus with diabetic neuropathy, unspecified; N18.9 Chronic kidney disease, unspecified; Z85.118 Personal history of other malignant neoplasm of bronchus and lung; Z85.46 Personal history of malignant neoplasm of prostate; F32.9 Major depressive disorder, single episode, unspecified; I25.10 Atherosclerotic heart disease of native coronary artery without angina pectoris; I12.9 Hypertensive chronic kidney disease with stage 1 through stage 4 chronic kidney disease, or unspecified chronic kidney disease; I95.1 Orthostatic hypotension; Z79.899 Other long term (current) drug therapy; Z88.2 Allergy status to sulfonamides; Z91.038 Other insect allergy status; F41.9 Anxiety disorder, unspecified; E78.5 Hyperlipidemia, unspecified; E86.0 Dehydration

== ENCOUNTER → 2017-02-14 | Outpatient (REF) ==
[~2017-02-14] MED LIST changes: -ATOR40TA PO; +ATOR40TA75 PO; -AVEL1TAB PO; +AVEL1TAB3 PO; +BACITAB PO; -BACITAB3 PO; +BENZ100C5 PO; +GABA-282 PO; -IBUP200C PO; +IBUP200C10 PO; +INSUDET SC; +LEVA1TAB PO; -LEVA250T PO; -LORA-376 PO; +LORA0.5T11 PO; -MEGE20TA PO; +MEGE20TA3 PO; +METO1TAB87 PO; +MILKSUS PO; +PRED10TA2 PO; -PROA1AER INH; +PROAAER10 INH; +TOUJ1.2I SC; +TYLE500T78 PO; +WARF-58 PO; +WARF4TAB51 PO
[2017-02-14 10:58] LABS: MEAN CORPUSCULAR HEMOGLOBIN 29.8 pg (27.0-33.0); MEAN CORPUSCULAR HGB CONC 31.8 g/dl (32.0-36.5); MEAN CORPUSCULAR VOLUME 93.6 fl (80.0-96.0); RED CELL DISTRIBUTION WIDTH 15.6 % (11.5-14.5); WHITE BLOOD COUNT 6.8 K/mm3 (4.0-10.0)
[2017-02-14 11:20] LABS: CALCIUM LEVEL 8.9 MG/DL (8.8-10.2); CREATININE FOR GFR 1.42 MG/DL (0.70-1.30); GLOMERULAR FILTRATION RATE 51.1 (>35); POTASSIUM SERUM 4.9 MEQ/L (3.5-5.1)
== END ==
PROVIDERS: ATTEND Family Medicine
DX: I48.91 Unspecified atrial fibrillation (principal)

== ENCOUNTER → 2017-02-18 | Outpatient (CLI) | payer MEDICARE | LOC: SKLAB4 16:08 | PROVIDERS: ATTEND Family Medicine | DX: N39.0 Urinary tract infection, site not specified (principal) ==

== ENCOUNTER → 2017-02-20 | Outpatient (REF) ==
[2017-02-20 11:49] LABS: MEAN CORPUSCULAR HEMOGLOBIN 29.1 pg (27.0-33.0); MEAN CORPUSCULAR HGB CONC 31.7 g/dl (32.0-36.5); MEAN CORPUSCULAR VOLUME 91.8 fl (80.0-96.0); RED CELL DISTRIBUTION WIDTH 15.4 % (11.5-14.5); WHITE BLOOD COUNT 5.6 K/mm3 (4.0-10.0)
[2017-02-20 12:34] LABS: ANION GAP 7 MEQ/L (8-16); BLOOD UREA NITROGEN 18 MG/DL (7-18); CALCIUM LEVEL 8.4 MG/DL (8.8-10.2); CARBON DIOXIDE LEVEL 29 MEQ/L (21-32); CHLORIDE LEVEL 103 MEQ/L (98-107); CREATININE FOR GFR 1.22 MG/DL (0.70-1.30); GLOMERULAR FILTRATION RATE > 60.0 (>35); GLUCOSE, FASTING 254 MG/DL (83-110); POTASSIUM SERUM 4.3 MEQ/L (3.5-5.1); SODIUM LEVEL 139 MEQ/L (136-145)
== END ==
PROVIDERS: ATTEND Family Medicine
DX: I48.91 Unspecified atrial fibrillation (principal)

== ENCOUNTER → 2017-03-08 | Outpatient (CLI) | payer MEDICARE ==
[2017-03-08 14:22] LABS: INR 1.97
== END ==
LOC: M SMT 09:14
PROVIDERS: ATTEND Family Medicine
DX: Z51.81 Encounter for therapeutic drug level monitoring (principal); Z79.01 Long term (current) use of anticoagulants

== ENCOUNTER → 2017-03-22 | Outpatient (CLI) | payer MEDICARE ==
[2017-03-22 13:37] LABS: INR 2.56
== END ==
LOC: M SMT 08:18
PROVIDERS: ATTEND Family Medicine
DX: Z51.81 Encounter for therapeutic drug level monitoring (principal); Z79.01 Long term (current) use of anticoagulants

== ENCOUNTER → 2017-04-05 | Outpatient (CLI) | payer MEDICARE ==
[2017-04-05 13:31] LABS: INR 2.31
== END ==
LOC: M SMT 09:17
PROVIDERS: ATTEND Family Medicine
DX: Z51.81 Encounter for therapeutic drug level monitoring (principal); Z79.01 Long term (current) use of anticoagulants

== ENCOUNTER → 2017-04-26 | Outpatient (CLI) | payer MEDICARE | LOC: M SMT 09:47 | PROVIDERS: ATTEND Family Medicine | DX: Z51.81 Encounter for therapeutic drug level monitoring (principal); Z79.01 Long term (current) use of anticoagulants ==

== ENCOUNTER → 2017-05-03 | Outpatient (CLI) | payer MEDICARE | LOC: M SMT 10:22 | PROVIDERS: ATTEND Nurse Practitioner Women's Health | DX: Z85.46 Personal history of malignant neoplasm of prostate (principal) ==

== ENCOUNTER 2017-05-24 18:21 | Inpatient (IN) | payer MEDICARE ==
[~2017-05-24] VITALS: Ht 172.7 cm; Wt 71.5 kg
[~2017-05-24 18:21] MED LIST changes: -BENZ100C5 PO; -METO1TAB87 PO; -MILKSUS PO; -TYLE500T78 PO; -WARF-58 PO
[2017-05-24] MEDS ORDERED: METOPROLOL SUCC (TopROL XL) 50MG **XL** TAB PO ONE (19:00)
[2017-05-24] MEDS ORDERED: ASPIRIN 81 MG CHEW TABLET PO ONE (19:00)
[2017-05-24] MEDS ORDERED: ACETAMINOPHEN 325 MG TAB PO ONE (19:00)
[2017-05-24] MEDS ORDERED: NS 1,000 ML IV ONE (19:00)
[2017-05-24 19:13] LABS: BASO % 0.2 % (0.0-1.0); EOS % 0.2 % (0.0-3.0); IMMATURE GRANULOCYTE % 0.3 % (0-0); LYMPH # 0.6 10^3/uL (1.5-4.5); LYMPH % 6.2 % (24.0-44.0); MEAN CORPUSCULAR HEMOGLOBIN 28.4 pg (27.0-33.0); MEAN CORPUSCULAR HGB CONC 31.9 g/dl (32.0-36.5); MEAN CORPUSCULAR VOLUME 89.1 fl (80.0-96.0); MONO % 9.9 % (0.0-5.0); NEUTROPHILS # 8.6 10^3/uL (1.8-7.7); NEUTROPHILS % 83.2 % (36.0-66.0); PLATELET COUNT, AUTOMATED 183 10^3/uL (150-450); RED CELL DISTRIBUTION WIDTH 15.9 % (11.5-14.5); WHITE BLOOD COUNT 10.3 10^3/uL (4.0-10.0)
[2017-05-24 19:19] LABS: VENOUS BASE EXCESS 1.3 (-2.0-2.0); VENOUS O2 SATURATION 72.6 % (60.0-80.0); VENOUS PARTIAL PRESSURE CO2 43.8 mmHg (38.0-50.0); VENOUS PARTIAL PRESSURE O2 38.1 mmHg (30.0-50.0); VENOUS TOTAL CO2 27.7 MEQ/L (24.0-28.0)
[2017-05-24 19:24] LABS: INR 1.8
[2017-05-24 19:45] LABS: ANION GAP 8 MEQ/L (8-16); BLOOD UREA NITROGEN 33 MG/DL (7-18); CALCIUM LEVEL 9.2 MG/DL (8.8-10.2); CARBON DIOXIDE LEVEL 26 MEQ/L (21-32); CHLORIDE LEVEL 101 MEQ/L (98-107); CREATININE FOR GFR 1.67 MG/DL (0.70-1.30); GLOMERULAR FILTRATION RATE 42.4 (>35); GLUCOSE, FASTING 320 MG/DL (83-110); POTASSIUM SERUM 4.7 MEQ/L (3.5-5.1); SODIUM LEVEL 135 MEQ/L (136-145); THYROXINE (T4) 6.4 UG/DL (4.5-12.0)
[2017-05-24] MEDS: IPRATROPIUM 0.5MG/ALBUTEROL 2.5MG INH SOL UD 3ML (DUONEB)(J7620) NEB PRN ×2 (20:02→20:17)
[2017-05-24] MEDS ORDERED: AZITHROMYCIN INJ 500 MG, VIAL MATE ADAPTER 1 EACH in D5W 250 ML IV ONE (21:00)
[2017-05-24] MEDS ORDERED: cefTRIAXone SOD 1 GM in D5W 50 ML IV ONE (21:00)
--- NOTE | 2017-05-24 21:04 | REP ---
HISTORY: Dyspnea and cough. COMPARISON: 01/31/2017 The technique utilized in obtaining the radiograph has magnified the cardiac silhouette and accentuated the interstitial markings. There is an unchanged irregular right upper lobe opacity which is stable from the latest prior and from an examination of 01/06/2016. There is evidence of scattered interstitial fibrotic change with basilar predominance, status quo. There has been previous median sternotomy. The heart is not enlarged. The osseous structures are unchanged. Stable appearing chronic changes as described above, however, correlate clinically to rule out the possibility of acute disease superimposed upon chronic change. Signed by Esvin Mayberry DO 05/25/2017 05:24 P
[2017-05-24] MEDS ORDERED: IPRATROPIUM 0.5MG/ALBUTEROL 2.5MG INH SOL UD 3ML (DUONEB)(J7620) NEB PRN (22:00)
[2017-05-24] MEDS ORDERED: DEXTROSE 50% 50 ML SYRINGE IV PRN (22:15)
[2017-05-24] MEDS ORDERED: GLUCOSE 4 GM CHEW TABLET PO PRN (22:15)
[2017-05-24] MEDS ORDERED: GLUCAGON FOR INJ 1 MG VIAL (J1610) SC PRN (22:15)
[2017-05-24] MEDS ORDERED: METO1TAB87 PO (22:20)
[2017-05-24] MEDS ORDERED: WARF-58 PO (22:24)
[2017-05-24] MEDS ORDERED: BENZ100C5 PO (22:26)
[2017-05-24] MEDS ORDERED: TOUJ1.2I SC (22:26)
[2017-05-24] MEDS ORDERED: MILKSUS PO (22:30)
[2017-05-24] MEDS ORDERED: TYLE500T78 PO (22:30)
[2017-05-24] MEDS ORDERED: ALBUTEROL 90 MCG/ACT 8GM HFA INHALER INH PRN (22:45)
[2017-05-24] MEDS ORDERED: MOM 30ML SUSPENSION UDC PO PRN (22:45)
--- NOTE | 2017-05-24 22:50 | HPE ---
DATE OF ADMISSION: 05/24/2017 PRIMARY CARE PROVIDER: Dr. Guille Wagner FABRIC MACHINE OPERATOR: Dr. Olson INSULATION EXTRUDER OPERATOR: Dr. Espinal CHIEF COMPLAINT: Shortness of breath and coughing. HISTORY OF PRESENT ILLNESS: This is an 82-year-old male patient with underlying medical history of right-sided lung cancer with adenocarcinoma status post radiation about a year ago. Is currently on recent PET scan in remission. Prostate cancer, status post radiation and hormone treatment, completed 2011, chronic obstructive pulmonary disease (COPD), history of radiation pneumonitis, chronic hypoxia, on 2 liters oxygen at home, diabetes, hypertension, dyslipidemia, benign prostatic hypertrophy (BPH), chronic urinary retention with Davis catheter with frequent urinary tract infection (UTI), due to Davis change, chronic atrial fibrillation with ablation 2-1/2 years ago, on Coumadin, coronary artery disease, chronic kidney disease (CKD), anxiety, was recently admitted to the hospital for syncope, discharge to short-term rehabilitation, presented to the hospital with coughing and shortness of breath that started on Sunday. Coughing productive of brown sputum, found to be febrile in the emergency room with a temperature of 101. Patient baseline is hard of hearing. Also reported shortness of breath. Baseline ambulating with a walker. Found to be in atrial fibrillation with rapid ventricular response in the emergency room. Patient denies any chest pain, pressure, discomfort, lower extremity swelling. Reported nausea but no vomiting. Reported constipation. Denies any vision change. ALLERGIES: Bee venom, SULFA, BACTRIM. PAST MEDICAL HISTORY: 1. Right-sided lung adenocarcinoma status post radiation. 2. Prostate cancer status post radiation, hormonal treatment, completed 2011. 3. Atrial fibrillation, on Coumadin. 4. Coronary artery disease. 5. Type 2 diabetes, insulin dependent. 6. Hypertension. 7. Dyslipidemia. 8. BPH with chronic urinary retention, on Davis catheter. 9. CKD. 10. Anxiety. 11. Chronic hypoxia, on 2 liters. 12. COPD. 13. Radiation pneumonitis. PAST SURGICAL HISTORY: 1. Cardiac ablation. 2. Cardiac bypass. 3. Cholecystectomy. 4. Appendectomy. 5. Hernia. 6. Bilateral cataract surgery. SOCIAL HISTORY: Former smoker. Quit about 3 years ago. Smoked one pack per day for 60 years. Rare alcohol use. No illicit drug use. Lives at short-term rehabilitation. FAMILY HISTORY: Mother with hypertension, cerebrovascular accident (CVA). Father had history of myocardial infarction (OR). Sister with breast cancer. Brother with pancreatic cancer. Patient reported shortness of breath, cough, fever in the emergency room, constipation, hard of hearing, frequent falls. Baseline walks ambulating with a walker. All other review of systems negative. HOME MEDICATIONS: - albuterol nebulizer - ProAir inhalation four times a day as needed - Lipitor 40 mg by mouth daily - Lexapro 5 mg by mouth daily - gabapentin 300 mg by mouth three times a day - glucosamine one tablet by mouth every evening - Levemir 24 units subcutaneous daily - Ativan 0.5 mg by mouth daily as needed - metoprolol 12.5 mg by mouth twice a day - prednisone 10 mg taper - Advair 230/21 inhalation twice a day - Tessalon Perles thee times a day - Rapaflo 8 mg by mouth every evening - Spiriva 18 mcg inhalation daily - Coumadin 3 mg by mouth daily PHYSICAL EXAMINATION: Temperature 101.3, pulse 138, respirations 18, blood pressure 114/90, pulse oximetry 93% on 4 liters nasal cannula. GENERAL: Patient hard of hearing. Alert and oriented times three in no acute distress. HEENT: Normocephalic, atraumatic. PULMONARY: Diminished breath sounds, bilateral. No significant wheeze. Fine rhonchi. CARDIAC: Irregular. Mild tachycardia. S1, S2. ABDOMEN: Soft. Surgical scar noted. Nontender. Hypoactive bowel sounds. EXTREMITIES: No clubbing, cyanosis, or edema. EKG shows atrial fibrillation with ventricular rate of 128. No ST-segment changes. Chest x-ray shows chronic changes. LABORATORY DATA: WBC 10.3, hemoglobin and hematocrit 12/37.6, platelets 183. Chemistry: Sodium 135, potassium 4.7, chloride 101, bicarbonate 26, BUN 31, creatinine 1.67, lactic acid 1.6. Cardiac enzymes negative times one. ASSESSMENT AND PLAN: This is an 82-year-old male patient with underlying medical history of right lung adenocarcinoma status post radiation, currently in remission, prostate cancer status post radiation and hormone therapy, completed 2011, chronic obstructive pulmonary disease (COPD), radiation pneumonitis, chronic hypoxia, respiratory failure require 2 liters oxygen as outpatient, history of atrial fibrillation with ablation, on Coumadin, coronary artery disease, type 2 diabetes, insulin dependent, hypertension, dyslipidemia, chronic kidney disease (CKD), anxiety, admitted with shortness of breath and cough with fever. 1. Fever, shortness of breath, and cough secondary to community-acquired bacterial pneumonia. Followup respiratory panel, sputum panel, blood culture. Rocephin and Zithromax. Followup CT scan for further evaluation, given patient has a lot of scar tissue from radiation in the past. Patient sees Dr. Olson as outpatient. Patient currently does not have significant wheeze. Will give nebulizer treatments as needed. Hold off on steroids for now. Will reassess in the morning. 2. Atrial fibrillation with rapid ventricular response. Beta dotty given in the emergency room. Will continue oral metoprolol. Adjust dose as needed. Telemetry monitoring. Continue Coumadin. Followup INR. 3. Constipation. Bowel regimen as prescribed. Continue to follow. 4. COPD. Patient currently not having any significant wheeze. 5. Chronic hypoxic respiratory failure. Oxygen supplementation. Arterial blood gas (ABG) appreciated. Nebulizer treatment, inhalers. Will reassess in the morning to see if patient requires steroids. 6. Type 2 diabetes. Followup A1c in the morning. Insulin basal bolus, adjust as needed. 7. Hypertension. Patient currently borderline blood pressure. Continue beta dotty for atrial fibrillation. Monitor blood pressure. 8. Dyslipidemia. Continue statin. 9. Coronary artery disease. Patient on Coumadin, beta blockers, statin. Continue current medication. Followup cardiac enzymes. 10. Chronic urinary retention. Change Davis catheter. Patient is due for Davis catheter change. Continue home medication. Secondary to benign prostatic hypertrophy (BPH) and prostate cancer in the past. 11. CKD. Monitor BUN and creatinine. Currently patient is only slightly more elevated than baseline, likely secondary to underlying infection. Will continue to monitor. Avoid nephrotoxic agents. 12. Anxiety. Continue home medication. 13. History of adenocarcinoma of the lung. Outpatient followup. Completed treatment. Is currently in remission. Continue Tessalon Perles. 14. Deconditioning. Physical therapy. 15. Deep vein thrombosis (DVT) prophylaxis. Patient is on Coumadin for atrial fibrillation. Followup INR. DISPOSITION: Pending clinical improvement, further workup, better control of atrial fibrillation.
--- NOTE | 2017-05-24 23:30 | REPUSA ---
CT of the chest without contrast Clinical statement: lung cancer. Shortness of breath. Technique: Multiple axial CT images were obtained with 5 mm cuts through the chest without administra tion of contrast. Comparison: 12/18/2016. Findings: There is no thoracic lymphadenopathy. The visualized portions of the thyroid gland is unrem arkable. There are no pericardial or pleural effusions. Moderate extensive emphysematous changes are noted with upper lobe predominance. Chronic parenchymal changes in the right upper lung are stable, l ikely posttreatment changes from previous lung cancer. There is a new large infiltrate in the posteri or right lower lobe. There is a small infiltrate in the posterior left lower lobe. Limited imaging of the upper abdomen does not demonstrate any acute abnormalities. There are no suspicious osseous lesi ons. Compression abnormality of T12 is stable. Multiple bilateral healed rib fractures are noted. Impression: 1. New large infiltrate in the posterior right lower lobe consistent with pneumonia. 2. Smaller infiltrate in the left lower lobe also likely represents infiltrate/atelectasis. 3. Large chronic parenchymal changes in the right upper lobe are stable, likely represent posttreatme nt changes. 4. Stable moderate emphysema. 5. No new suspicious osseous lesions. Chronic compression fracture of T12.
[2017-05-25] VITALS (7 sets, daily range): BP systolic 102–132; BP diastolic 54–78
[2017-05-25] MEDS: HumaLOG INSULIN (NovoLOG) PER UNIT SC SCH ×5 (00:14→21:32)
[2017-05-25] MEDS: BENZONATATE 100 MG CAP PO SCH ×4 (01:26→21:32)
[2017-05-25 01:41] LABS: MICROSCOPIC INDICATED? MAN YES (NO)
[2017-05-25 01:42] LABS: WBC, URINE TNTC /hpf (0-3)
[2017-05-25 01:43] LABS: BACTERIA, URINE LARGE AMOUNT; SQUAMOUS EPITHELIAL CELL URINE MOD AMOUNT /hpf (SMALL AMT)
[2017-05-25 01:44] LABS: HYALINE CAST, URINE NONE SEEN /lpf (0-1); RBC, URINE 30-40 /hpf (0-3)
[2017-05-25 01:45] LABS: MICROSCOPIC EXAM UNSPUN
[2017-05-25 01:47] LABS: TRANSITIONAL EPI CELLS, URINE SMALL AMOUNT /hpf
[2017-05-25 04:58] LABS: MEAN CORPUSCULAR HEMOGLOBIN 28.1 pg (27.0-33.0); MEAN CORPUSCULAR HGB CONC 30.8 g/dl (32.0-36.5); RED CELL DISTRIBUTION WIDTH 15.9 % (11.5-14.5); WHITE BLOOD COUNT 6.8 10^3/uL (4.0-10.0)
[2017-05-25 05:14] LABS: INR 2.05
[2017-05-25 05:30] LABS: CALCIUM LEVEL 8.6 MG/DL (8.8-10.2); CREATININE FOR GFR 1.87 MG/DL (0.70-1.30); GLOMERULAR FILTRATION RATE 37.2 (>35); MAGNESIUM LEVEL 2.1 MG/DL (1.8-2.4); POTASSIUM SERUM 4.1 MEQ/L (3.5-5.1)
[2017-05-25] MEDS: ONDANSETRON 4MG/2ML VIAL (J2405) IV PRN (06:03)
--- NOTE | 2017-05-25 07:45 | ECGEPIP ---
Stationary ECG Study - ED Test Date: 2017-05-24 Pat Name: LELO GANDHI Department: Room: [place] [address] Gender: M Clinical Pharmacist: DEBBY : [id number] Requested By: Araceli Barboza Order Number: [id number] Reading MD: Araceli Barboza Measurements Intervals [place] Rate: 128 P: MN: 0 QRS: 29 QRSD: 100 T: 26 QT: 298 QTc: 435 Interpretive Statements ATRIAL FIBRILLATION WITH RAPID VENTRICULAR RESPONSE INCOMPLETE RIGHT BUNDLE BRANCH BLOCK PROBABLE INFERIOR MYOCARDIAL INFARCTION, PROBABLY OLD Electronically Signed On 05-25-2017 7:44:37 EDT by Araceli Barboza
[2017-05-25] MEDS: IPRATROPIUM 0.5MG/ALBUTEROL 2.5MG INH SOL UD 3ML (DUONEB)(J7620) NEB SCH ×3 (08:00→20:00)
[2017-05-25] MEDS: ADVAIR HFA 230/21MCG INHALER INH SCH ×2 (08:07→19:53)
[2017-05-25] MEDS: TIOTROPIUM INHALER/CAPSULE (SPIRIVA) INH SCH (08:07)
[2017-05-25] MEDS: METOPROLOL TART 12.5 MG PER 1/2 TAB PO SCH ×2 (08:12→21:32)
[2017-05-25] MEDS: SENOKOT S TAB PO SCH ×2 (08:12→21:31)
[2017-05-25] MEDS: methylPREDNISolone INJ 40 MG/1 ML VIAL (J2920) IV SCH ×3 (08:12→23:46)
[2017-05-25] MEDS: ESCITALOPRAM OXALATE 5MG TABLET (LEXAPRO) PO SCH (08:12)
[2017-05-25] MEDS: LEVEMIR (INSULIN DETEMIR) 1 UNITS/0.01ML SC SCH (09:14)
--- NOTE | 2017-05-25 15:27 | IPN ---
DATE: 05/25/2017 Mr. Mcclure is somewhat shortness of breath today, coughing, bringing up large amounts of sputum. Temperature 100.4, pulse 103, respiratory rate 25, blood pressure 120/69, 92% on 4 liters. Input and output notable positive fluid balance 1065. He is awake appropriately interactive, pleasantly conversant. Neck is supple. Breathing is symmetrical at rest. Speaking in short sentences. No accessory muscle use. Breathing is symmetrical with coarse upper airway sounds throughout. Cardiovascular: Normal S1, S2. Abdomen soft doughy nontender. White cell count 6.8, hemoglobin 38, platelets 150. BUN 38, creatinine 1.87. Sputum shows many white cells, gram negative Coccobacillus, speciation pending. Hemoglobin A1c is 9. ASSESSMENT: This is an 82-year-old with suspected community acquired pneumonia in the setting of previous right lung adenocarcinoma, status post radiation with atrial fibrillation, rapid ventricular response (RVR). PLAN: 1. Infectious disease: The patient is on appropriate antibiotics for broad spectrum antibiotics. Await sputum cultures. He appears to be improved. He does have a good amount of sputum production. 2. The patient has atrial fibrillation with RVR: Rate is improved. INR is therapeutic. 3. Patient has COPD. Slightly tachypneic. Upper airway sounds and some intermittent wheeze noted. Will give some steroids to see if that is hypoxia cough. 4. The patient has type 2 diabetes: A1c shows that it is relatively poorly controlled as an outpatient. 5. The patient has coronary artery disease. 6. The patient has chronic urinary retention with Davis catheter from an outpatient setting. 7. The patient has chronic kidney disease, slightly worse in the baseline. This is likely related to his pneumonia infection. Continue current care. 8. Patient has a history of adenocarcinoma of the lung.
[2017-05-25] MEDS ORDERED: WARFARIN SOD 4 MG TAB PO SCH (17:00)
[2017-05-25] MEDS ORDERED: ENTER DRUG NAME HERE (PATIENT'S OWN MED) PO SCH (21:00)
[2017-05-25] MEDS: ATORVASTATIN 20 MG TAB PO SCH (21:31)
[2017-05-25] MEDS: cefTRIAXone SOD 1 GM in D5W 50 ML IV SCH (21:31)
[2017-05-25] MEDS: AZITHROMYCIN INJ 500 MG, VIAL MATE ADAPTER 1 EACH in D5W 250 ML IV SCH (22:23)
[2017-05-26] VITALS: BP 102/56
[2017-05-26] MEDS: IPRATROPIUM 0.5MG/ALBUTEROL 2.5MG INH SOL UD 3ML (DUONEB)(J7620) NEB SCH ×4 (01:29→19:45)
[2017-05-26 04:00] VITALS: BP 129/58
[2017-05-26 04:45] LABS: MEAN CORPUSCULAR HEMOGLOBIN 27.9 pg (27.0-33.0); MEAN CORPUSCULAR HGB CONC 30.6 g/dl (32.0-36.5); MEAN CORPUSCULAR VOLUME 90.9 fl (80.0-96.0); RED CELL DISTRIBUTION WIDTH 15.7 % (11.5-14.5); WHITE BLOOD COUNT 5.8 10^3/uL (4.0-10.0)
[2017-05-26 04:55] LABS: INR 2.18
[2017-05-26 05:02] LABS: CALCIUM LEVEL 9.1 MG/DL (8.8-10.2); CREATININE FOR GFR 1.65 MG/DL (0.70-1.30); GLOMERULAR FILTRATION RATE 42.9 (>35); MAGNESIUM LEVEL 2.3 MG/DL (1.8-2.4); POTASSIUM SERUM 4.8 MEQ/L (3.5-5.1)
[2017-05-26] MEDS: BENZONATATE 100 MG CAP PO SCH ×3 (05:05→21:26)
[2017-05-26 08:00] VITALS: BP 128/65
[2017-05-26] MEDS: TIOTROPIUM INHALER/CAPSULE (SPIRIVA) INH SCH (08:29)
[2017-05-26] MEDS: ADVAIR HFA 230/21MCG INHALER INH SCH ×2 (08:29→19:44)
[2017-05-26] MEDS: HumaLOG INSULIN (NovoLOG) PER UNIT SC SCH ×4 (08:48→21:00)
[2017-05-26] MEDS: ESCITALOPRAM OXALATE 5MG TABLET (LEXAPRO) PO SCH (08:48)
[2017-05-26] MEDS: LEVEMIR (INSULIN DETEMIR) 1 UNITS/0.01ML SC SCH (08:48)
[2017-05-26] MEDS: SENOKOT S TAB PO SCH ×2 (08:48→21:00)
[2017-05-26] MEDS: predniSONE 20 MG TAB PO SCH (08:48)
[2017-05-26] MEDS: METOPROLOL TART 12.5 MG PER 1/2 TAB PO SCH ×2 (08:49→21:00)
[2017-05-26 09:20] VITALS: BP 113/55
[2017-05-26 14:00] VITALS: BP 118/58
--- NOTE | 2017-05-26 16:14 | IPN ---
DATE: 05/26/2017 Mr. Mcclure is feeling well today. He still has a cough. No chest pain. Feels more energetic than previous encounter. Temperature 97.6, pulse 83, respiratory rate 22, blood pressure 128/65, 95% on 2 liters, which is his home level of oxygen. Input and output notable positive fluid balance 1535. Weight is 72 kg. Body Mass Index (BMI) 24.1. He is awake appropriately interactive, pleasantly conversant. Breathing is symmetrical and rested. There is decreased aeration in the right lung compared to the left. Upper airway sounds throughout. Heart is distant sounding. Normal S1, S2. Abdomen soft, doughy, nontender. White cell count 5.8, hemoglobin 9.5, platelets 162. BUN 43, creatinine 1.65. ASSESSMENT: This is an 82-year-old with suspected community acquired pneumonia in the setting of previous right lung adenocarcinoma, status post radiation with atrial fibrillation and rapid ventricular response (RVR). PLAN: 1. Infectious disease. The patient is on appropriate antibiotics for broad spectrum coverage. Sputum is pending. Continue current care. The patient can be transferred though to medical/surgical on telemetry. Await culture results. 2. The patient has atrial fibrillation with RVR on presentation. Rate is improved. INR is therapeutic. 3. Patient has chronic obstructive pulmonary disease (COPD) and was started on steroids yesterday with much improvement. Steroids have been weaned today. 4. The patient has type 2 diabetes. Hemoglobin A1c shows poor control and use of steroids has resulted in hyperglycemia. We will wean steroids and continue with insulin as ordered. 5. The patient has coronary artery disease. 6. The patient has chronic urinary retention with indwelling Davis catheter present on admission. 7. The patient has chronic kidney disease. Renal function is improved from yesterday. 8. Patient has a history of adenocarcinoma of the lung. Would plan for discharge on 05/28/2017 should he continue on the current course.
[2017-05-26] MEDS: ONDANSETRON 4MG/2ML VIAL (J2405) IV PRN (17:44)
[2017-05-26] MEDS: WARFARIN SOD 3 MG TAB PO SCH (18:47)
[2017-05-26] MEDS ORDERED: PROMETHAZINE INJ 25 MG/ML VIAL (J2550) IV ONE (20:30)
[2017-05-26] MEDS: cefTRIAXone SOD 1 GM in D5W 50 ML IV SCH (21:00)
[2017-05-26] MEDS: ATORVASTATIN 20 MG TAB PO SCH (21:00)
[2017-05-26] MEDS: LORazepam 0.5 MG TAB PO PRN (21:26)
[2017-05-26 22:00] VITALS: BP 141/71
[2017-05-26] MEDS: AZITHROMYCIN INJ 500 MG, VIAL MATE ADAPTER 1 EACH in D5W 250 ML IV SCH (22:00)
--- NOTE | 2017-05-26 22:50 | REPUSA ---
CT of the abdomen and pelvis without contrast Clinical statement: nausea and vomiting, distention. Technique: Multiple axial CT images were obtained from the base of the lungs to the floor of the pelv is utilizing 5 mm axial slices without administration of contrast. Coronal and sagittal reconstructio ns were also obtained. Comparison: 01/28/2017. Findings: Chest: The visualized lung bases demonstrate bilateral lower lobe atelectasis, greater on the right. There is a small right-sided pleural effusion. Abdomen: The kidneys are normal in size bilaterally. There is a 2 cm simple cyst in the lateral left kidney. There is no evidence of hydronephrosis or nephrolithiasis. The liver, spleen, pancreas, and a drenal glands are unremarkable. The aorta demonstrates normal caliber and contour, with moderate athe rosclerotic calcifications. There is no abdominal lymphadenopathy or ascites. Pelvis: The bowel is unremarkable, with no obstructive or inflammatory changes. Moderate diffuse left -sided diverticulosis is noted. The urinary bladder is catheterized, with small amount of intralumina l gas noted. Extensive diffuse circumferential bladder wall thickening is appreciated. There is no pe lvic lymphadenopathy or ascites. The other pelvic structures appear unremarkable. Bones: There are no suspicious osseous abnormalities seen. Moderate osteoarthritis of the hip joints is noted bilaterally, worse on the right. Severe multilevel degenerative disc disease is seen through out the lower thoracic and lumbar spine. This causes moderately severe central canal stenosis at T12/ L1, L1/L2, L2/L3 and L3/L4. There is a large anterior osteophyte at L5/S1. There is a moderate anteri or compression fracture of T12, which appears to be chronic. Impression: 1. No obstructive or inflammatory bowel changes. 2. Stable moderate left-sided diverticulosis. The midright is seen on the prior study has resolved. 3. Bilateral lower lobe atelectasis, greater on the right. Small right-sided pleural effusion. 4. No evidence of hydronephrosis or nephrolithiasis. Simple left renal cyst. 5. Urinary bladder is catheterized. There is diffuse circumferential bladder wall thickening, suspici ous for cystitis. Clinical correlation is recommended. 6. Moderately severe multilevel degenerative disc disease and spondylosis. Disc osteophyte complexes caused moderately severe central canal stenosis at T12/L1, L1/L2, L2/L3 and L3/L4. 7. Chronic compression fracture of T12.
[2017-05-26] MEDS: NS 1,000 ML IV SCH (23:57)
[2017-05-27] MEDS: PROMETHAZINE INJ 25 MG/ML VIAL (J2550) IV ONE ×2 (01:15→01:30)
[2017-05-27] MEDS: IPRATROPIUM 0.5MG/ALBUTEROL 2.5MG INH SOL UD 3ML (DUONEB)(J7620) NEB SCH ×4 (01:40→20:00)
[2017-05-27 03:08] LABS: CALCIUM LEVEL 9.2 MG/DL (8.8-10.2); CREATININE FOR GFR 1.83 MG/DL (0.70-1.30); GLOMERULAR FILTRATION RATE 38.1 (>35); MAGNESIUM LEVEL 2.4 MG/DL (1.8-2.4)
[2017-05-27 04:02] LABS: ABG BASE EXCESS 5.4 (-2.0-2.0); ABG PARTIAL PRESSURE CO2 50.7 mmHg (35.0-45.0); ABG PARTIAL PRESSURE O2 92.3 mmHg (75.0-100.0); ABG STANDARD HCO3 29.3 MEQ/L (22.0-26.0); ABG TOTAL CO2 32.5 MEQ/L (23.0-31.0); ABG pH (ARTERIAL) 7.404 UNITS (7.350-7.450)
[2017-05-27] MEDS: BENZONATATE 100 MG CAP PO SCH ×3 (04:48→21:24)
[2017-05-27 06:00] VITALS: BP 114/57
[2017-05-27] MEDS: HumaLOG INSULIN (NovoLOG) PER UNIT SC SCH ×4 (06:00→18:00)
[2017-05-27 06:45] LABS: MEAN CORPUSCULAR HEMOGLOBIN 28.3 pg (27.0-33.0); MEAN CORPUSCULAR HGB CONC 31.3 g/dl (32.0-36.5); MEAN CORPUSCULAR VOLUME 90.4 fl (80.0-96.0); RED CELL DISTRIBUTION WIDTH 15.8 % (11.5-14.5); WHITE BLOOD COUNT 10.5 10^3/uL (4.0-10.0)
[2017-05-27 07:01] LABS: CALCIUM LEVEL 8.7 MG/DL (8.8-10.2); CREATININE FOR GFR 1.7 MG/DL (0.70-1.30); GLOMERULAR FILTRATION RATE 41.5 (>35); MAGNESIUM LEVEL 2.4 MG/DL (1.8-2.4); POTASSIUM SERUM 4.3 MEQ/L (3.5-5.1)
[2017-05-27 07:03] LABS: INR 2.54
[2017-05-27] MEDS: TIOTROPIUM INHALER/CAPSULE (SPIRIVA) INH SCH (08:44)
[2017-05-27] MEDS: ADVAIR HFA 230/21MCG INHALER INH SCH ×2 (08:44→20:11)
[2017-05-27] MEDS: LEVEMIR (INSULIN DETEMIR) 1 UNITS/0.01ML SC SCH (09:00)
[2017-05-27] MEDS: SENOKOT S TAB PO SCH ×2 (09:06→21:23)
[2017-05-27] MEDS: ESCITALOPRAM OXALATE 5MG TABLET (LEXAPRO) PO SCH (09:06)
[2017-05-27] MEDS: predniSONE 20 MG TAB PO SCH (09:06)
[2017-05-27] MEDS: METOPROLOL TART 12.5 MG PER 1/2 TAB PO SCH ×2 (09:17→21:24)
--- NOTE | 2017-05-27 13:29 | IPN ---
DATE: 05/27/2017 Mr. Mcclure had an eventful night. I did see him around 6:00 p.m. last night and he developed some abdominal distention and nausea after eating dinner. Last night he did vomit, ended up getting NG tube and CT scan of his belly. This morning he is feeling better. He is having active bowel sounds, passing flatus. He was somewhat confused with the staff, but is appropriate this morning. Temperature 97.2, pulse 62, respiratory rate 20, blood pressure 114/57, 97% on 2 liters. Input and output notable negative fluid balance of -90. No bowel movements noted. Awake, following commands. Remembers me from previous encounters. Answering questions appropriately. Breathing is symmetrical. Upper airway sounds throughout. No wheeze, rales or rhonchi. Heart is distant sounding. Normal S1, S2. Abdomen tympanic, hyperactive bowel sounds. Nontender to deep palpation, except for some mild suprapubic tenderness. White cell count 10.5, hemoglobin 9.7, platelets 189. BUN 52, creatinine 1.7. INR is 2.5. Urinalysis culture done on 05/25 is suspicious for UTI and culture has grown E. coli which is pansensitive. ASSESSMENT: This is an 82-year-old with suspected community acquired pneumonia in the setting of previous right lung adenocarcinoma, status post radiation with atrial fibrillation and rapid ventricular response (RVR). PLAN: 1. Infectious disease. The patient is on appropriate antibiotics for broad spectrum coverage of this community acquired pneumonia. Sputum continues to be pending. A UA has grown E. Coli, which is pansensitive, and is certainly sensitive to his ceftriaxone he has been receiving for pneumonia. 2. Patient had ileus overnight which appears to have resolved. Will advance his diet to clears. 3. The patient has atrial fibrillation with RVR at the time of presentation. Continue on his beta blockade. If he becomes tachycardic, may require IV fluid. 4. Patient has chronic obstructive pulmonary disease (COPD) and was started on steroids with much improvement. Steroids were tapered yesterday. 5. The patient has type 2 diabetes. Fingersticks were quite elevated with the use of Solu-Medrol. With the wean of steroids, fingerstick are better controlled. 6. The patient has coronary artery disease. 7. The patient has chronic urinary retention with indwelling Davis catheter which was present on admission. 8. The patient has chronic kidney disease. Renal function is improved from last evening. 9. Patient has a history of adenocarcinoma of the lung. 10. Based on last night's events, I am unsure about the discharge plan for tomorrow, but will consider on a day by day basis.
[2017-05-27] MEDS: NS 1,000 ML IV SCH (13:50)
[2017-05-27 14:00] VITALS: BP 109/55
[2017-05-27] MEDS: WARFARIN SOD 3 MG TAB PO SCH (17:32)
[2017-05-27] MEDS: ACETAMINOPHEN TAB 650MG DOSE (2X325MG) PO PRN (21:24)
[2017-05-27] MEDS: ATORVASTATIN 20 MG TAB PO SCH (21:24)
[2017-05-27] MEDS: cefTRIAXone SOD 1 GM in D5W 50 ML IV SCH (21:25)
[2017-05-27 22:00] VITALS: BP 123/59
[2017-05-27] MEDS: AZITHROMYCIN INJ 500 MG, VIAL MATE ADAPTER 1 EACH in D5W 250 ML IV SCH (22:00)
[2017-05-28] MEDS: HumaLOG INSULIN (NovoLOG) PER UNIT SC SCH ×5 (00:18→21:20)
[2017-05-28] MEDS: IPRATROPIUM 0.5MG/ALBUTEROL 2.5MG INH SOL UD 3ML (DUONEB)(J7620) NEB SCH ×4 (01:11→20:00)
[2017-05-28] MEDS: BENZONATATE 100 MG CAP PO SCH ×3 (05:32→21:19)
[2017-05-28 06:00] VITALS: BP 109/59
[2017-05-28 06:20] LABS: MEAN CORPUSCULAR HGB CONC 30.6 g/dl (32.0-36.5); MEAN CORPUSCULAR VOLUME 91.4 fl (80.0-96.0); RED CELL DISTRIBUTION WIDTH 15.8 % (11.5-14.5); WHITE BLOOD COUNT 8.1 10^3/uL (4.0-10.0)
[2017-05-28 06:30] LABS: INR 3.2
[2017-05-28 06:31] LABS: CALCIUM LEVEL 8.5 MG/DL (8.8-10.2); CREATININE FOR GFR 1.36 MG/DL (0.70-1.30); GLOMERULAR FILTRATION RATE 53.7 (>35); MAGNESIUM LEVEL 2.3 MG/DL (1.8-2.4); POTASSIUM SERUM 3.9 MEQ/L (3.5-5.1)
[2017-05-28] MEDS: ADVAIR HFA 230/21MCG INHALER INH SCH ×2 (07:46→21:19)
[2017-05-28] MEDS: TIOTROPIUM INHALER/CAPSULE (SPIRIVA) INH SCH (07:46)
[2017-05-28] MEDS: ESCITALOPRAM OXALATE 5MG TABLET (LEXAPRO) PO SCH (08:47)
[2017-05-28] MEDS: predniSONE 20 MG TAB PO SCH (08:47)
[2017-05-28] MEDS: SENOKOT S TAB PO SCH ×2 (08:48→21:19)
[2017-05-28] MEDS: LEVEMIR (INSULIN DETEMIR) 1 UNITS/0.01ML SC SCH (08:48)
[2017-05-28] MEDS: METOPROLOL TART 12.5 MG PER 1/2 TAB PO SCH ×2 (08:48→21:19)
[2017-05-28] MEDS ORDERED: DEXTROSE 50% 50 ML SYRINGE IV PRN (11:45)
[2017-05-28] MEDS ORDERED: GLUCAGON FOR INJ 1 MG VIAL (J1610) SC PRN (11:45)
[2017-05-28] MEDS ORDERED: GLUCOSE 4 GM CHEW TABLET PO PRN (11:45)
[2017-05-28 14:00] VITALS: BP 130/65
[2017-05-28] MEDS: AZITHROMYCIN 250 MG TAB PO SCH (14:51)
--- NOTE | 2017-05-28 15:20 | IPN ---
DATE: 05/28/2017 Mr. Mcclure is feeing very well today. I would like to advance his diet. He has no abdominal pain. He still has some cough and shortness of breath, but feels much better. Temperature 97.2, pulse 54, respiratory rate 19, blood pressure 109/59, 96% on 2 liters. Intake and output (I and Os) notable for positive fluid balance of a liter. One bowel movement today. He is awake and appropriately interactive. Remembers me from previous encounters. Mucous membranes are moist. Neck is supple. Breathing is symmetrical. Inspiratory to expiratory (I-to-E) ratio is 1 to 3. Breathing is rested. No accessory muscle use. Speaking in complete sentences. Heart distant sounding. Normal S1, S2. Not tachycardic. Radial pulses 2+, capillary refill is less than 2 seconds. Abdomen is somewhat distended, nontender to deep palpation and minimally tympanic. White cell count 8.1, hemoglobin 9.4, platelets 155, BUN 43, creatinine 1.36. CRP is 6.81. Sputum has only grown mold. ASSESSMENT: An 82-year-old with suspected community-acquired pneumonia in the setting of previous right lung adenocarcinoma, status post radiation with atrial fibrillation and rapid ventricular response. Status post ileus. PLAN: 1. Infectious disease. The patient is on appropriate antibiotics for broad-spectrum coverage of community-acquired pneumonia. Has been switched to by mouth antibiotics at this point. He is improving. UA has also grown Escherichia (E.) coli which is pansensitive. Has a chronic Davis catheter, which could benefit from a change during this stay. 2. The patient has had an ileus, which has resolved. Will advance his diet today to see how he does with that. 3. The patient has atrial fibrillation. At the time of presentation, rate is controlled. INR is supratherapeutic. Coumadin will be held today. Will need to reconsider Coumadin tomorrow. Coumadin is held based on the rate of change. Is most likely related to antibiotic use. 4. The patient has type 2 diabetes. Fingersticks have been quite elevated with the use of Solu-Medrol. We are weaning steroids. Fingersticks re better controlled. 5. The patient has coronary artery disease. 6. The patient has chronic urinary retention with an indwelling Davis catheter, which was present on admission. 7. The patient has chronic kidney disease. Renal function is improving. 8. The patient has history of adenocarcinoma of the lung. 9. I will continue discharge plan on a day by day basis.
[2017-05-28] MEDS: ACETAMINOPHEN TAB 650MG DOSE (2X325MG) PO PRN (21:19)
[2017-05-28] MEDS: ATORVASTATIN 20 MG TAB PO SCH (21:19)
[2017-05-28] MEDS: CEFDINIR 300 MG CAP (OMNICEF) PO SCH (21:19)
[2017-05-28 22:00] VITALS: BP 166/82
[2017-05-29] MEDS: IPRATROPIUM 0.5MG/ALBUTEROL 2.5MG INH SOL UD 3ML (DUONEB)(J7620) NEB SCH ×4 (00:57→19:46)
[2017-05-29 06:00] VITALS: BP 141/67
[2017-05-29 06:06] LABS: MEAN CORPUSCULAR HEMOGLOBIN 28.4 pg (27.0-33.0); MEAN CORPUSCULAR HGB CONC 31.3 g/dl (32.0-36.5); MEAN CORPUSCULAR VOLUME 90.8 fl (80.0-96.0); RED CELL DISTRIBUTION WIDTH 15.5 % (11.5-14.5); WHITE BLOOD COUNT 7.1 10^3/uL (4.0-10.0)
[2017-05-29] MEDS: BENZONATATE 100 MG CAP PO SCH ×3 (06:09→21:29)
[2017-05-29 06:18] LABS: INR 3.6
[2017-05-29 06:24] LABS: CALCIUM LEVEL 8.7 MG/DL (8.8-10.2); CREATININE FOR GFR 1.39 MG/DL (0.70-1.30); GLOMERULAR FILTRATION RATE 52.3 (>35); MAGNESIUM LEVEL 2.3 MG/DL (1.8-2.4); POTASSIUM SERUM 4.2 MEQ/L (3.5-5.1)
[2017-05-29] MEDS: HumaLOG INSULIN (NovoLOG) PER UNIT SC SCH ×4 (07:30→21:30)
[2017-05-29] MEDS: LEVEMIR (INSULIN DETEMIR) 1 UNITS/0.01ML SC SCH (08:17)
[2017-05-29] MEDS: SENOKOT S TAB PO SCH ×2 (08:17→21:29)
[2017-05-29] MEDS: CEFDINIR 300 MG CAP (OMNICEF) PO SCH ×2 (08:17→21:29)
[2017-05-29] MEDS: METOPROLOL TART 12.5 MG PER 1/2 TAB PO SCH ×2 (08:17→21:30)
[2017-05-29] MEDS: AZITHROMYCIN 250 MG TAB PO SCH (08:17)
[2017-05-29] MEDS: predniSONE 20 MG TAB PO SCH (08:17)
[2017-05-29] MEDS: ADVAIR HFA 230/21MCG INHALER INH SCH ×2 (08:28→19:46)
[2017-05-29] MEDS: TIOTROPIUM INHALER/CAPSULE (SPIRIVA) INH SCH (08:28)
[2017-05-29 09:00] VITALS: BP 128/72
[2017-05-29] MEDS: ESCITALOPRAM OXALATE 5MG TABLET (LEXAPRO) PO SCH (09:00)
[2017-05-29 14:00] VITALS: BP 140/68
--- NOTE | 2017-05-29 19:26 | IPNPDOC ---
Subjective Date Seen The patient was seen on 05/29/17. Subjective Chief Complaint/HPI The patient is a 82-year-old male admitted with a reason for visit of Farrukh Aguilera. Events since last encounter Patient states that he is feeling better today. Still having cough, tough time bringing up phlegm. Patient is hard of hearing and difficult to talk to. States he last had a BM last night. Is passing gas. Constitutional: Denies: Chills, Fever Eyes: Denies: Pain ENT: Denies: Head Aches Pulmonary: Denies: Dyspnea Cardiovascular: Denies: Chest Pain Gastrointestinal: Denies: Constipation Objective Physical Examination General Exam: Positive: No Acute Distress ENT Exam: Positive: Atraumatic Neck Exam: Positive: Supple Chest Exam: Positive: Diminished (lower lobes bilaterally) Heart Exam: Positive: Rate Normal, Normal S1, Normal S2, Negative: Tachycardic, Bradycardic Abdomen Exam: Positive: Normal bowel sounds, Soft, Negative: Tenderness Extremity Exam: Positive: Normal pulses (Radial pulse 2/4 bilaterally), Negative: Edema Neuro Exam: Positive: Normal Speech Assessment /Plan Assessment 1. CAP Continue oral antibiotics and steroids. Continue to taper steroids. Currently on 20 mg prednisone. Monitor vitals. 2. Supratherapeutic INR Monitor INR. INR 3.6 today. Continue to hold coumadin today. 3. Afib Patient is on coumadin for anticoagulation, on hold at moment. On metoprolol for rate control. Monitor vitals. 4. E. Coli urine Patient has had chronic UTI. Current antibiotic regimen covers, sensitive to. Continue for now. 5. COPD Continue home meds. 6. Type 2 DM Insulin with sliding scale. Monitor glucose. Hypoglycemic protocol. 7. Chronic urinary retention Has catheter. Changing catheter today. 8. CKD Chronic. Monitor. 9. Ileus Has resolved. Continue to monitor BM and flatulence. 10. Anxiety Ativan as needed. Plan/VTE VTE Prophylaxis Ordered?: Yes Plan/Urinary Catheter Reason for insertion/continuin: Acute obstruct/retention Disposition Discuss possible D/C to [facility]. Continue with Physical Therapy. VS, I&O, 24H, Fishbone Vital Signs/I&O Vital Signs Date Time Temp Pulse Resp B/P (MAP) Pulse Ox O2 Delivery O2 Flow Rate FiO2 05/29/17 14:00 97.0 78 18 140/68 (92) 94 High Flow Mask 2.0 I&O- Last 24 Hours up to 6 AM 05/30/17 06:00 Intake Total 720 ml Output Total 250 ml Balance 470 ml Laboratory Data 24H LABS Laboratory Tests 2 05/28/17 20:57: Bedside Glucose (Misc Panel) 287H 05/29/17 05:46: Nucleated Red Blood Cells % (auto) 0.0, Prothrombin Time 37.7H, Prothromb Time International Ratio 3.60, Anion Gap 4L, Glomerular Filtration Rate 52.3, Blood Urea Nitrogen 33H, Creatinine 1.39H, Sodium Level 141, Potassium Level 4.2, Chloride Level 106, Carbon Dioxide Level 31, Calcium Level 8.7L, Magnesium Level 2.3, C-Reactive Protein, Quantitative 9.78H 05/29/17 12:19: Bedside Glucose (Misc Panel) 196H 05/29/17 16:53: Bedside Glucose (Misc Panel) 325H CBC/BMP Laboratory Tests 05/29/17 05:46 Red Blood Count 3.38 L, Mean Corpuscular Volume 90.8, Mean Corpuscular Hemoglobin 28.4, Mean Corpuscular Hemoglobin Concent 31.3 L, Red Cell Distribution Width 15.5 H, Calcium Level 8.7 L Microbiology Microbiology 05/25/17 Blood Culture - Preliminary, Resulted No Growth after 72 hours. All specime... 05/24/17 Blood Culture - Preliminary, Resulted No Growth after 72 hours. All specime... 05/25/17 Gram Stain - Final, Complete 05/25/17 Sputum Culture - Final, Complete Mold Like Organism 05/24/17 Respiratory Virus Panel (PCR) (STEPHANIE) - Final, Complete 05/25/17 Urine Culture - Final, Complete Escherichia Coli GME ATTESTATION GME ATTESTATION My preceptor for this patient encounter was physically present in the building during the encounter and was fully available. As needed, all aspects of the patient interview, examination, medical decision making process, and medical care plan development were reviewed and approved by the preceptor. Preceptor is aware and concurs with the plan as stated in the body of this note and will attest to such by his/her cosignature. NEDA JOSEPH DO May 29, 2017 18:14
[2017-05-29] MEDS: ATORVASTATIN 20 MG TAB PO SCH (21:29)
[2017-05-29] MEDS: ACETAMINOPHEN TAB 650MG DOSE (2X325MG) PO PRN (21:29)
[2017-05-29 22:00] VITALS: BP 141/68
[2017-05-30] MEDS: IPRATROPIUM 0.5MG/ALBUTEROL 2.5MG INH SOL UD 3ML (DUONEB)(J7620) NEB SCH ×4 (01:08→20:00)
[2017-05-30 06:00] VITALS: BP 118/66
[2017-05-30] MEDS: BENZONATATE 100 MG CAP PO SCH ×3 (06:15→21:04)
[2017-05-30 07:13] LABS: MEAN CORPUSCULAR HEMOGLOBIN 28.4 pg (27.0-33.0); MEAN CORPUSCULAR HGB CONC 31.6 g/dl (32.0-36.5); RED CELL DISTRIBUTION WIDTH 15.3 % (11.5-14.5); WHITE BLOOD COUNT 9.6 10^3/uL (4.0-10.0)
[2017-05-30 07:28] LABS: INR 2.69
[2017-05-30 07:29] LABS: ANION GAP 5 MEQ/L (8-16); BLOOD UREA NITROGEN 30 MG/DL (7-18); CALCIUM LEVEL 8.3 MG/DL (8.8-10.2); CARBON DIOXIDE LEVEL 29 MEQ/L (21-32); CHLORIDE LEVEL 106 MEQ/L (98-107); CREATININE FOR GFR 1.18 MG/DL (0.70-1.30); GLOMERULAR FILTRATION RATE > 60.0 (>35); GLUCOSE, FASTING 143 MG/DL (83-110); MAGNESIUM LEVEL 2.1 MG/DL (1.8-2.4); SODIUM LEVEL 140 MEQ/L (136-145)
[2017-05-30] MEDS: ADVAIR HFA 230/21MCG INHALER INH SCH ×2 (07:51→20:25)
[2017-05-30] MEDS: TIOTROPIUM INHALER/CAPSULE (SPIRIVA) INH SCH (07:51)
[2017-05-30] MEDS: LEVEMIR (INSULIN DETEMIR) 1 UNITS/0.01ML SC SCH (09:00)
[2017-05-30] MEDS: SENOKOT S TAB PO SCH ×3 (09:00→21:07)
[2017-05-30] MEDS: predniSONE 20 MG TAB PO SCH (10:01)
[2017-05-30] MEDS: CEFDINIR 300 MG CAP (OMNICEF) PO SCH ×2 (10:02→21:04)
[2017-05-30] MEDS: AZITHROMYCIN 250 MG TAB PO SCH (10:02)
[2017-05-30] MEDS: HumaLOG INSULIN (NovoLOG) PER UNIT SC SCH ×4 (10:04→21:05)
[2017-05-30] MEDS: METOPROLOL TART 12.5 MG PER 1/2 TAB PO SCH ×2 (10:06→21:05)
--- NOTE | 2017-05-30 10:35 | IPNPDOC ---
Text Note Date of Service The patient was seen on 05/30/17. NOTE Subjective: Patient seen and examined at bedside. No new complaints, no acute overnight events reported. Objective: General: NAD, lying comfortably in bed HEENT: NC/AT Lungs: CTA B/L Heart: +S1S2 Abd: soft, NT, +BS Ext: no edema ASSESSMENT: An 82-year-old with suspected community-acquired pneumonia in the setting of previous right lung adenocarcinoma, status post radiation with atrial fibrillation and rapid ventricular response. Status post ileus. PLAN: 1. Infectious disease. The patient is on appropriate oral antibiotics for broad-spectrum coverage of community-acquired pneumonia. He is improving. UA has also grown Escherichia (E.) coli which is pansensitive. Has a chronic Davis catheter, which has been changed. 2. The patient had an ileus, which has resolved. Tolerating diet. 3. The patient has atrial fibrillation. At the time of presentation, rate is controlled. INR is therapeutic. Resuming coumadin. 4. The patient has type 2 diabetes. Fingersticks are better controlled. 5. The patient has coronary artery disease. 6. The patient has chronic urinary retention with an indwelling Davis catheter, which was present on admission. 7. The patient has chronic kidney disease. Renal function at baseline. 8. The patient has history of adenocarcinoma of the lung. 9. DVT prophylaxis - therapeutic on coumadin Dispo: pending clearance by PT for return to [facility] VS,Alfredobone, I+O VS, Fishbone, I+O Laboratory Tests 05/30/17 06:33 Red Blood Count 3.20 L, Mean Corpuscular Volume 90.0, Mean Corpuscular Hemoglobin 28.4, Mean Corpuscular Hemoglobin Concent 31.6 L, Red Cell Distribution Width 15.3 H, Calcium Level 8.3 L Vital Signs Date Time Temp Pulse Resp B/P (MAP) Pulse Ox O2 Delivery O2 Flow Rate FiO2 05/30/17 10:06 91 107/63 05/30/17 06:00 96.8 20 94 High Flow Cannula 2.0 I&O- Last 24 Hours up to 6 AM 05/31/17 05:59 Intake Total 0 ml Output Total 250 ml Balance -250 ml NEDA CONKLIN MD May 30, 2017 10:35
[2017-05-30] MEDS: ESCITALOPRAM OXALATE 5MG TABLET (LEXAPRO) PO SCH (12:09)
[2017-05-30 14:00] VITALS: BP 122/78
[2017-05-30] MEDS ORDERED: WARFARIN SOD 4 MG TAB PO ONE (19:00)
[2017-05-30] MEDS: ATORVASTATIN 20 MG TAB PO SCH (21:04)
[2017-05-30 22:00] VITALS: BP 139/71
[2017-05-31] MEDS: IPRATROPIUM 0.5MG/ALBUTEROL 2.5MG INH SOL UD 3ML (DUONEB)(J7620) NEB SCH ×4 (01:29→20:00)
[2017-05-31] MEDS: BENZONATATE 100 MG CAP PO SCH ×3 (05:10→20:41)
[2017-05-31 06:00] VITALS: BP 129/82
[2017-05-31 06:43] LABS: MEAN CORPUSCULAR HEMOGLOBIN 27.6 pg (27.0-33.0); MEAN CORPUSCULAR HGB CONC 30.7 g/dl (32.0-36.5); MEAN CORPUSCULAR VOLUME 89.8 fl (80.0-96.0); RED CELL DISTRIBUTION WIDTH 15.5 % (11.5-14.5); WHITE BLOOD COUNT 7.8 10^3/uL (4.0-10.0)
[2017-05-31 06:54] LABS: INR 1.7
[2017-05-31 06:56] LABS: CALCIUM LEVEL 8.4 MG/DL (8.8-10.2); CREATININE FOR GFR 1.29 MG/DL (0.70-1.30); GLOMERULAR FILTRATION RATE 57.1 (>35); POTASSIUM SERUM 4.1 MEQ/L (3.5-5.1)
[2017-05-31] MEDS: TIOTROPIUM INHALER/CAPSULE (SPIRIVA) INH SCH (07:53)
[2017-05-31] MEDS: ADVAIR HFA 230/21MCG INHALER INH SCH ×2 (07:53→19:27)
[2017-05-31] MEDS: CEFDINIR 300 MG CAP (OMNICEF) PO SCH ×2 (08:37→20:41)
[2017-05-31] MEDS: METOPROLOL TART 12.5 MG PER 1/2 TAB PO SCH ×2 (08:40→20:42)
[2017-05-31] MEDS: AZITHROMYCIN 250 MG TAB PO SCH (08:40)
[2017-05-31] MEDS: HumaLOG INSULIN (NovoLOG) PER UNIT SC SCH ×4 (08:40→20:41)
[2017-05-31] MEDS: predniSONE 20 MG TAB PO SCH (08:40)
[2017-05-31] MEDS: LEVEMIR (INSULIN DETEMIR) 1 UNITS/0.01ML SC SCH (08:41)
[2017-05-31] MEDS: SENOKOT S TAB PO SCH ×2 (09:00→20:42)
[2017-05-31] MEDS: ESCITALOPRAM OXALATE 5MG TABLET (LEXAPRO) PO SCH (11:21)
[2017-05-31 14:00] VITALS: BP 130/79
[2017-05-31] MEDS ORDERED: WARFARIN SOD 4 MG TAB PO ONE (17:00)
--- NOTE | 2017-05-31 19:46 | IPNPDOC ---
Subjective Date Seen The patient was seen on 05/31/17. Subjective Chief Complaint/HPI The patient is a 82-year-old male admitted with a reason for visit of Afib, Farrukh. Events since last encounter Patient is doing well today. No complaints. Feeling a lot better and is ready to go home. Has been working with physical therapy and has been walking the hallways. Does not have as a productive cough today. Not as short of breath. No chest pain. Sitting upright on exam at bedside. Eating breakfast. Stooling appropriately, no abdominal pain. Constitutional: Denies: Fever ENT: Denies: Head Aches, Ear Pain Pulmonary: Denies: Dyspnea Cardiovascular: Denies: Chest Pain Gastrointestinal: Denies: Nausea, Vomiting Genitourinary: Denies: Dysuria Objective Physical Examination General Exam: Positive: Alert, No Acute Distress, Other (hearing aids working, still little hard of hearing) ENT Exam: Positive: Mucous membr. moist/pink, Nares Patent Chest Exam: Positive: Clear to auscultation Heart Exam: Positive: Rate Normal, Normal S1, Normal S2, Negative: Tachycardic, Bradycardic Abdomen Exam: Positive: Normal bowel sounds, Soft, Negative: Tenderness Extremity Exam: Positive: Normal pulses (Radial pulse 2/4 bilaterally), Negative: Edema, Swelling Neuro Exam: Positive: Normal Speech Assessment /Plan Assessment 1. CAP Continue abx. monitor vitals. Cefdinir day 05/28 started, continue for 10 days total. 2. UTI Continue abx 3. subtherapeutic INR Today subtherapeutic. Patient was on 6 mg sun, sun, . Giving 4 mg today. 4. Afib Continue rate control and warfarin. 5. Diabetes morning glucose 180s this morning. Continue current insulin with sliding scale. Monitor glucose levels. Hypoglycemic protocol. 6. Urinary retention Catheter was changed in hospital. Plan/VTE VTE Prophylaxis Ordered?: Yes Plan/Urinary Catheter Reason for insertion/continuin: Acute obstruct/retention VS, I&O, 24H, Fishbone Vital Signs/I&O Vital Signs Date Time Temp Pulse Resp B/P (MAP) Pulse Ox O2 Delivery O2 Flow Rate FiO2 05/31/17 06:00 97.5 94 20 129/82 (98) 93 High Flow Cannula 2.0 I&O- Last 24 Hours up to 6 AM 06/01/17 05:59 Intake Total 0 ml Output Total 250 ml Balance -250 ml Laboratory Data 24H LABS Laboratory Tests 2 05/30/17 11:52: Bedside Glucose (Misc Panel) 331H 05/30/17 16:54: Bedside Glucose (Misc Panel) 352H 05/30/17 20:27: Bedside Glucose (Misc Panel) 312H 05/31/17 06:08: Nucleated Red Blood Cells % (auto) 0.0, Prothrombin Time 20.5H, Prothromb Time International Ratio 1.70, Anion Gap 3L, Glomerular Filtration Rate 57.1, Blood Urea Nitrogen 27H, Creatinine 1.29, Sodium Level 139, Potassium Level 4.1, Chloride Level 103, Carbon Dioxide Level 33H, Calcium Level 8.4L, Magnesium Level 2.0 CBC/BMP Laboratory Tests 05/31/17 06:08 Red Blood Count 3.52 L, Mean Corpuscular Volume 89.8, Mean Corpuscular Hemoglobin 27.6, Mean Corpuscular Hemoglobin Concent 30.7 L, Red Cell Distribution Width 15.5 H, Calcium Level 8.4 L Microbiology Microbiology 05/25/17 Blood Culture - Final, Complete NO GROWTH AFTER 5 DAYS 05/24/17 Blood Culture - Final, Complete NO GROWTH AFTER 5 DAYS 05/25/17 Gram Stain - Final, Complete 05/25/17 Sputum Culture - Final, Complete Mold Like Organism 05/24/17 Respiratory Virus Panel (PCR) (STEPHANIE) - Final, Complete 05/25/17 Urine Culture - Final, Complete Escherichia Coli GME ATTESTATION GME ATTESTATION My preceptor for this patient encounter was physically present in the building during the encounter and was fully available. As needed, all aspects of the patient interview, examination, medical decision making process, and medical care plan development were reviewed and approved by the preceptor. Preceptor is aware and concurs with the plan as stated in the body of this note and will attest to such by his/her cosignature. NEDA JOSEHP DO May 31, 2017 07:41
[2017-05-31] MEDS: ATORVASTATIN 20 MG TAB PO SCH (20:41)
[2017-05-31 22:00] VITALS: BP 141/69
[2017-06-01] MEDS: IPRATROPIUM 0.5MG/ALBUTEROL 2.5MG INH SOL UD 3ML (DUONEB)(J7620) NEB SCH ×4 (00:48→20:00)
[2017-06-01] MEDS: BENZONATATE 100 MG CAP PO SCH ×3 (05:17→21:09)
[2017-06-01 06:00] VITALS: BP 154/73
[2017-06-01] MEDS: ADVAIR HFA 230/21MCG INHALER INH SCH ×2 (07:34→19:26)
[2017-06-01] MEDS: TIOTROPIUM INHALER/CAPSULE (SPIRIVA) INH SCH (07:34)
[2017-06-01 08:19] LABS: INR 1.36
[2017-06-01] MEDS: SENOKOT S TAB PO SCH ×3 (08:19→21:09)
[2017-06-01] MEDS: predniSONE 10 MG TAB PO SCH (08:19)
[2017-06-01] MEDS: CEFDINIR 300 MG CAP (OMNICEF) PO SCH ×2 (08:19→21:09)
[2017-06-01] MEDS: AZITHROMYCIN 250 MG TAB PO SCH (08:19)
[2017-06-01] MEDS: METOPROLOL TART 12.5 MG PER 1/2 TAB PO SCH ×2 (08:20→21:10)
[2017-06-01] MEDS: LEVEMIR (INSULIN DETEMIR) 1 UNITS/0.01ML SC SCH (08:21)
[2017-06-01] MEDS: HumaLOG INSULIN (NovoLOG) PER UNIT SC SCH ×4 (08:21→21:10)
[2017-06-01 09:38] LABS: BASO % 0.3 % (0.0-1.0); EOS # 0.3 10^3/uL (0.0-0.50); EOS % 3.1 % (0.0-3.0); IMMATURE GRANULOCYTE % 2.6 % (0-0); LYMPH # 1.3 10^3/uL (1.5-4.5); LYMPH % 12.2 % (24.0-44.0); MEAN CORPUSCULAR HGB CONC 31.3 g/dl (32.0-36.5); MEAN CORPUSCULAR VOLUME 89.5 fl (80.0-96.0); MONO # 0.6 10^3/uL (0.0-0.8); MONO % 5.5 % (0.0-5.0); NEUTROPHILS # 7.8 10^3/uL (1.8-7.7); NEUTROPHILS % 76.3 % (36.0-66.0); PLATELET COUNT, AUTOMATED 231 10^3/uL (150-450); RED CELL DISTRIBUTION WIDTH 15.4 % (11.5-14.5); WHITE BLOOD COUNT 10.3 10^3/uL (4.0-10.0)
[2017-06-01 10:34] LABS: CALCIUM LEVEL 8.4 MG/DL (8.8-10.2); CREATININE FOR GFR 1.33 MG/DL (0.70-1.30); GLOMERULAR FILTRATION RATE 55.1 (>35); MAGNESIUM LEVEL 1.8 MG/DL (1.8-2.4); POTASSIUM SERUM 4.7 MEQ/L (3.5-5.1)
[2017-06-01] MEDS: ESCITALOPRAM OXALATE 5MG TABLET (LEXAPRO) PO SCH (13:38)
[2017-06-01 14:00] VITALS: BP 123/77
--- NOTE | 2017-06-01 16:56 | IPNPDOC ---
Subjective Date Seen The patient was seen on 06/01/17. Subjective Chief Complaint/HPI The patient is a 82-year-old male admitted with a reason for visit of Farrukh Aguilera. Events since last encounter Patient is breathing comfortably on 2 L of oxygen. This is what he is on at home. Feels he is at his baseline. Had a bowel movement yesterday. None yet today. Some cough still, not as productive. No fevers or chills. Constitutional: Denies: Chills, Fever ENT: Denies: Head Aches Cardiovascular: Denies: Chest Pain, Palpitations Gastrointestinal: Denies: Nausea, Vomiting, Abdominal Pain Musculoskeletal: Denies: Back Pain Objective Physical Examination General Exam: Positive: Alert, No Acute Distress, Other (hard of hearing) ENT Exam: Positive: Mucous membr. moist/pink Chest Exam: Positive: Clear to auscultation Heart Exam: Positive: Rate Normal, Normal S1, Normal S2 Abdomen Exam: Positive: Normal bowel sounds, Soft, Negative: Tenderness Extremity Exam: Positive: Normal pulses (Radial pulse 2/4 bilaterally), Negative: Edema Neuro Exam: Positive: Normal Speech Assessment /Plan Assessment 1. CAP Continue antibiotic. monitor vitals. Cefdinir day 05/28 started. Day 4 of antibiotic. 2. Leukocytosis Most likely due to antibiotics. Repeat CBC in morning. 3. UTI Continue antibiotic. Continue catheter. 4. Subtherapeutic INR Today subtherapeutic. Increasing warfarin dose to 5 mg. 5. Atrial fibrillation Continue rate control and warfarin. 6. Diabetes Continue current insulin with sliding scale. Monitor glucose levels. Hypoglycemic protocol. 7. Urinary retention Continue catheter use. 8. Chronic hypoxia Continue 2 L of oxygen. 9. CKD At baseline. Continue to monitor fluid status and repeat BMP tomorrow. Plan/VTE VTE Prophylaxis Ordered?: Yes Plan/Urinary Catheter Reason for insertion/continuin: Acute obstruct/retention VS, I&O, 24H, Alfredobone Vital Signs/I&O Vital Signs Date Time Temp Pulse Resp B/P (MAP) Pulse Ox O2 Delivery O2 Flow Rate FiO2 06/01/17 14:00 98.7 87 20 123/77 (92) 94 High Flow Cannula 2.0 I&O- Last 24 Hours up to 6 AM 06/02/17 05:59 Intake Total 1080 ml Output Total 1325 ml Balance -245 ml Laboratory Data 24H LABS Laboratory Tests 2 10/19/17 20:13: Bedside Glucose (Misc Panel) 317H 06/01/17 07:02: Bedside Glucose (Misc Panel) 221H 06/01/17 07:42: Prothrombin Time 17.1H, Prothromb Time International Ratio 1.36 06/01/17 09:18: Immature Granulocyte % (Auto) 2.6H, White Blood Count 10.3H, Red Blood Count 3.61L, Hemoglobin 10.1L, Hematocrit 32.3L, Mean Corpuscular Volume 89.5, Mean Corpuscular Hemoglobin 28.0, Mean Corpuscular Hemoglobin Concent 31.3L, Red Cell Distribution Width 15.4H, Platelet Count 231, Neutrophils (%) (Auto) 76.3H , Lymphocytes (%) (Auto) 12.2L, Monocytes (%) (Auto) 5.5H, Eosinophils (%) (Auto ) 3.1H, Basophils (%) (Auto) 0.3, Neutrophils # (Auto) 7.8H, Lymphocytes # (Auto ) 1.3L, Monocytes # (Auto) 0.6, Eosinophils # (Auto) 0.3, Basophils # (Auto) 0.0 , Immature Granulocyte # (Auto) 0.3H, Nucleated Red Blood Cells % (auto) 0.0, Anion Gap 6L, Glomerular Filtration Rate 55.1, Blood Urea Nitrogen 30H, Creatinine 1.33H, Sodium Level 137, Potassium Level 4.7, Chloride Level 99, Carbon Dioxide Level 32, Calcium Level 8.4L, Magnesium Level 1.8 06/01/17 11:30: Bedside Glucose (Misc Panel) 246H CBC/BMP Laboratory Tests 06/01/17 09:18 Red Blood Count 3.61 L, Mean Corpuscular Volume 89.5, Mean Corpuscular Hemoglobin 28.0, Mean Corpuscular Hemoglobin Concent 31.3 L, Red Cell Distribution Width 15.4 H, Neutrophils (%) (Auto) 76.3 H, Lymphocytes (%) (Auto ) 12.2 L, Monocytes (%) (Auto) 5.5 H, Eosinophils (%) (Auto) 3.1 H, Basophils (% ) (Auto) 0.3, Neutrophils # (Auto) 7.8 H, Lymphocytes # (Auto) 1.3 L, Monocytes # (Auto) 0.6, Eosinophils # (Auto) 0.3, Basophils # (Auto) 0.0, Calcium Level 8.4 L Microbiology Microbiology 05/25/17 Blood Culture - Final, Complete NO GROWTH AFTER 5 DAYS 05/24/17 Blood Culture - Final, Complete NO GROWTH AFTER 5 DAYS 05/25/17 Gram Stain - Final, Complete 05/25/17 Sputum Culture - Final, Complete Mold Like Organism 05/24/17 Respiratory Virus Panel (PCR) (STEPHANIE) - Final, Complete 05/25/17 Urine Culture - Final, Complete Escherichia Coli GME ATTESTATION GME ATTESTATION My preceptor for this patient encounter was physically present in the building during the encounter and was fully available. As needed, all aspects of the patient interview, examination, medical decision making process, and medical care plan development were reviewed and approved by the preceptor. Preceptor is aware and concurs with the plan as stated in the body of this note and will attest to such by his/her cosignature. NEDA JOSEPH DO Jun 01, 2017 16:56
[2017-06-01] MEDS ORDERED: WARFARIN SOD 5 MG TAB PO ONE (17:00)
[2017-06-01] MEDS: ATORVASTATIN 20 MG TAB PO SCH (21:09)
[2017-06-01 22:00] VITALS: BP_SYST 113; BP_SYST 143; BP_DIAS 64; BP_DIAS 68
[2017-06-02] MEDS: IPRATROPIUM 0.5MG/ALBUTEROL 2.5MG INH SOL UD 3ML (DUONEB)(J7620) NEB SCH ×4 (00:29→20:00)
[2017-06-02] MEDS: BENZONATATE 100 MG CAP PO SCH ×3 (05:39→21:28)
[2017-06-02] MEDS: ACETAMINOPHEN TAB 650MG DOSE (2X325MG) PO PRN (05:40)
[2017-06-02 06:00] VITALS: BP 117/66
[2017-06-02 06:05] LABS: BASO % 0.3 % (0.0-1.0); EOS # 0.3 10^3/uL (0.0-0.50); EOS % 3.3 % (0.0-3.0); LYMPH # 1.3 10^3/uL (1.5-4.5); LYMPH % 12.7 % (24.0-44.0); MEAN CORPUSCULAR HGB CONC 31.1 g/dl (32.0-36.5); MEAN CORPUSCULAR VOLUME 89.8 fl (80.0-96.0); MONO # 0.6 10^3/uL (0.0-0.8); MONO % 6.1 % (0.0-5.0); NEUTROPHILS # 7.8 10^3/uL (1.8-7.7); NEUTROPHILS % 74.6 % (36.0-66.0); PLATELET COUNT, AUTOMATED 229 10^3/uL (150-450); RED CELL DISTRIBUTION WIDTH 15.4 % (11.5-14.5); WHITE BLOOD COUNT 10.4 10^3/uL (4.0-10.0)
[2017-06-02 06:28] LABS: CALCIUM LEVEL 8.4 MG/DL (8.8-10.2); CREATININE FOR GFR 1.25 MG/DL (0.70-1.30); GLOMERULAR FILTRATION RATE 59.2 (>35); POTASSIUM SERUM 4.2 MEQ/L (3.5-5.1)
[2017-06-02] MEDS: ADVAIR HFA 230/21MCG INHALER INH SCH ×2 (07:15→19:34)
[2017-06-02] MEDS: TIOTROPIUM INHALER/CAPSULE (SPIRIVA) INH SCH (07:15)
[2017-06-02 07:21] LABS: INR 1.39
[2017-06-02] MEDS: HumaLOG INSULIN (NovoLOG) PER UNIT SC SCH ×4 (08:49→21:29)
[2017-06-02] MEDS: AZITHROMYCIN 250 MG TAB PO SCH (08:50)
[2017-06-02] MEDS: METOPROLOL TART 12.5 MG PER 1/2 TAB PO SCH ×2 (08:50→21:00)
[2017-06-02] MEDS: SENOKOT S TAB PO SCH ×3 (08:51→21:00)
[2017-06-02] MEDS: predniSONE 10 MG TAB PO SCH (08:51)
[2017-06-02] MEDS: LEVEMIR (INSULIN DETEMIR) 1 UNITS/0.01ML SC SCH (08:51)
[2017-06-02] MEDS: CEFDINIR 300 MG CAP (OMNICEF) PO SCH ×2 (08:51→21:28)
[2017-06-02] MEDS: ESCITALOPRAM OXALATE 5MG TABLET (LEXAPRO) PO SCH (08:51)
--- NOTE | 2017-06-02 11:21 | IPNPDOC ---
Subjective Date Seen The patient was seen on 06/02/17. Subjective Chief Complaint/HPI The patient is a 82-year-old male admitted with a reason for visit of Farrukh Aguilera. Events since last encounter Patient is sitting up at bedside. On 2L of oxygen, NC. On entrance to room states been a tough day. No change in cough and breathing. No worsening. Still has mild cough, not coughing up much phlegm. Has been tough to have to stay another day, feels down and depressed. Is looking forward to leaving the hospital. Would like to do that as soon as possible. Still having bowel movements. Has been walking around and plans on walking with nurse after finish exam. Constitutional: Denies: Chills, Fever ENT: Denies: Ear Pain Pulmonary: Reports: Cough Cardiovascular: Denies: Chest Pain, Palpitations Gastrointestinal: Denies: Nausea, Vomiting Musculoskeletal: Denies: Back Pain Psych: Reports: Depression Objective Physical Examination General Exam: Positive: Alert, Cooperative, No Acute Distress, Other (hard of hearing. wears hearing aids) ENT Exam: Positive: Mucous membr. moist/pink Neck Exam: Positive: Supple Chest Exam: Positive: Clear to auscultation, Negative: Rhonchi, Wheezing Heart Exam: Positive: Rate Normal, Normal S1, Normal S2 Extremity Exam: Positive: Normal pulses (Radial pulse 2/4 bilaterally), Negative: Edema Neuro Exam: Positive: Normal Speech Psych Exam: Positive: Other (depressed) Assessment /Plan Assessment 1. CAP Continue antibiotic. monitor vitals. afebrile. Cefdinir day 05/28 started. Total of 7 days. 2. Leukocytosis Most likely due to antibiotics. Check white count with CBC in morning. 3. Depressed Patient feels depressed. Wants to leave hospital. Discouraged with staying another day. Monitor patient. 4. UTI Continue antibiotic. Continue catheter. 5. Subtherapeutic INR For atrial fibrillation. Today subtherapeutic. Increase dose to 7 mg. 6. Atrial fibrillation Continue rate control and warfarin. Patient has tried new oral anticoagulants in the past, had headaches. [id number] score is 4, risk is 4.8% of stroke per year. 7. Diabetes Continue current insulin with sliding scale. Monitor glucose levels. Hypoglycemic protocol. 8. Urinary retention Continue catheter use. 9. Chronic hypoxia Continue 2 L of oxygen. 10. CKD At baseline. Continue to monitor fluid status and repeat BMP tomorrow. Plan/VTE VTE Prophylaxis Ordered?: Yes Plan/Urinary Catheter Reason for insertion/continuin: Acute obstruct/retention Disposition Plan is to discharge back to [facility] rehabilitation. Attempted to call son yesterday to discuss patient but no answer, left message to call hospital back if questions. VS, I&O, 24H, Fishbone Vital Signs/I&O Vital Signs Date Time Temp Pulse Resp B/P (MAP) Pulse Ox O2 Delivery O2 Flow Rate FiO2 06/02/17 08:50 94 123/74 06/02/17 06:00 98.5 20 97 High Flow Cannula 2.0 Laboratory Data 24H LABS Laboratory Tests 2 06/01/17 11:30: Bedside Glucose (Misc Panel) 246H 06/01/17 16:40: Bedside Glucose (Misc Panel) 285H 06/01/17 20:33: Bedside Glucose (Misc Panel) 279H 06/02/17 05:41: Immature Granulocyte % (Auto) 3.0H, White Blood Count 10.4H, Red Blood Count 3.54L, Hemoglobin 9.9L, Hematocrit 31.8L, Mean Corpuscular Volume 89.8, Mean Corpuscular Hemoglobin 28.0, Mean Corpuscular Hemoglobin Concent 31.1L, Red Cell Distribution Width 15.4H, Platelet Count 229, Neutrophils (%) (Auto) 74.6H , Lymphocytes (%) (Auto) 12.7L, Monocytes (%) (Auto) 6.1H, Eosinophils (%) (Auto ) 3.3H, Basophils (%) (Auto) 0.3, Neutrophils # (Auto) 7.8H, Lymphocytes # (Auto ) 1.3L, Monocytes # (Auto) 0.6, Eosinophils # (Auto) 0.3, Basophils # (Auto) 0.0 , Immature Granulocyte # (Auto) 0.3H, Nucleated Red Blood Cells % (auto) 0.0, Prothrombin Time 17.4H, Prothromb Time International Ratio 1.39, Anion Gap 4L, Glomerular Filtration Rate 59.2, Blood Urea Nitrogen 29H, Creatinine 1.25, Sodium Level 137, Potassium Level 4.2, Chloride Level 103, Carbon Dioxide Level 30, Calcium Level 8.4L, C-Reactive Protein, Quantitative 1.92H CBC/BMP Laboratory Tests 06/02/17 05:41 Red Blood Count 3.54 L, Mean Corpuscular Volume 89.8, Mean Corpuscular Hemoglobin 28.0, Mean Corpuscular Hemoglobin Concent 31.1 L, Red Cell Distribution Width 15.4 H, Neutrophils (%) (Auto) 74.6 H, Lymphocytes (%) (Auto ) 12.7 L, Monocytes (%) (Auto) 6.1 H, Eosinophils (%) (Auto) 3.3 H, Basophils (% ) (Auto) 0.3, Neutrophils # (Auto) 7.8 H, Lymphocytes # (Auto) 1.3 L, Monocytes # (Auto) 0.6, Eosinophils # (Auto) 0.3, Basophils # (Auto) 0.0, Calcium Level 8.4 L Microbiology Microbiology 05/25/17 Blood Culture - Final, Complete NO GROWTH AFTER 5 DAYS 05/24/17 Blood Culture - Final, Complete NO GROWTH AFTER 5 DAYS 05/25/17 Gram Stain - Final, Complete 05/25/17 Sputum Culture - Final, Complete Mold Like Organism 05/24/17 Respiratory Virus Panel (PCR) (STEPHANIE) - Final, Complete 05/25/17 Urine Culture - Final, Complete Escherichia Coli GME ATTESTATION GME ATTESTATION My preceptor for this patient encounter was physically present in the building during the encounter and was fully available. As needed, all aspects of the patient interview, examination, medical decision making process, and medical care plan development were reviewed and approved by the preceptor. Preceptor is aware and concurs with the plan as stated in the body of this note and will attest to such by his/her cosignature. NEDA JOSEPH DO Jun 02, 2017 10:03
[2017-06-02 14:00] VITALS: BP 140/88
[2017-06-02] MEDS ORDERED: WARFARIN SOD 3 MG TAB PO ONE (17:00)
[2017-06-02] MEDS ORDERED: WARFARIN SOD 5 MG TAB PO ONE (17:00)
[2017-06-02] MEDS ORDERED: WARFARIN SOD 1 MG TAB PO ONE (17:00)
[2017-06-02] MEDS: ATORVASTATIN 20 MG TAB PO SCH (21:28)
[2017-06-02 22:00] VITALS: BP 148/75
[2017-06-03] MEDS: IPRATROPIUM 0.5MG/ALBUTEROL 2.5MG INH SOL UD 3ML (DUONEB)(J7620) NEB SCH ×4 (00:02→20:00)
[2017-06-03] MEDS: BENZONATATE 100 MG CAP PO SCH ×3 (05:27→21:25)
[2017-06-03 06:00] VITALS: BP 138/66
[2017-06-03 07:07] LABS: INR 1.39
[2017-06-03] MEDS: TIOTROPIUM INHALER/CAPSULE (SPIRIVA) INH SCH (08:11)
[2017-06-03] MEDS: ADVAIR HFA 230/21MCG INHALER INH SCH ×2 (08:11→19:50)
--- NOTE | 2017-06-03 09:53 | IPNPDOC ---
Text Note Date of Service The patient was seen on 06/03/17. NOTE Subjective: Patient seen and examined at bedside. No new complaints, no acute overnight events reported. Objective: General: NAD, sitting comfortably at edge of bed HEENT: NC/AT Lungs: CTA B/L Heart: +S1S2 Abd: soft, NT, +BS Ext: no edema ASSESSMENT: An 82-year-old with suspected community-acquired pneumonia in the setting of previous right lung adenocarcinoma, status post radiation with atrial fibrillation and rapid ventricular response. Status post ileus and UTI in the setting of urinary retention requiring chronic thompson. PLAN: 1. Infectious disease. - completed course of abx for CAP and UTI - dc abx today 2. The patient had an ileus, which has resolved. Tolerating diet. 3. The patient has atrial fibrillation. At the time of presentation, rate is controlled. INR is subtherapeutic. Continue coumadin. Absorption likely complicated with antibiotics which have been discontinued. 4. The patient has type 2 diabetes. Fingersticks are better controlled. 5. The patient has coronary artery disease. 6. The patient has chronic urinary retention with an indwelling Thompson catheter, which was present on admission. 7. The patient has chronic kidney disease. Renal function at baseline. 8. The patient has history of adenocarcinoma of the lung. 9. DVT prophylaxis - mechanical prophylaxis and coumadin Dispo: anticipating discharge in 24 to return to assisted living facility VS,John, I+O VS, John, I+O Vital Signs Date Time Temp Pulse Resp B/P (MAP) Pulse Ox O2 Delivery O2 Flow Rate FiO2 06/03/17 06:00 97.7 69 20 138/66 (90) 96 Nasal Cannula 2.0 NEDA CONKLIN MD Jun 03, 2017 09:53
[2017-06-03] MEDS: HumaLOG INSULIN (NovoLOG) PER UNIT SC SCH ×4 (10:03→21:25)
[2017-06-03] MEDS: SENOKOT S TAB PO SCH ×2 (10:03→21:00)
[2017-06-03] MEDS: ESCITALOPRAM OXALATE 5MG TABLET (LEXAPRO) PO SCH (10:03)
[2017-06-03] MEDS: predniSONE 10 MG TAB PO SCH (10:03)
[2017-06-03] MEDS: METOPROLOL TART 12.5 MG PER 1/2 TAB PO SCH ×2 (10:04→21:26)
[2017-06-03] MEDS: LEVEMIR (INSULIN DETEMIR) 1 UNITS/0.01ML SC SCH (10:04)
[2017-06-03 14:00] VITALS: BP 158/76
[2017-06-03] MEDS ORDERED: WARFARIN SOD 7.5 MG TAB PO ONE (17:00)
[2017-06-03] MEDS: ATORVASTATIN 20 MG TAB PO SCH (21:25)
[2017-06-03 22:00] VITALS: BP 150/72
[2017-06-04] MEDS: IPRATROPIUM 0.5MG/ALBUTEROL 2.5MG INH SOL UD 3ML (DUONEB)(J7620) NEB SCH ×2 (02:00→07:34)
[2017-06-04 06:00] VITALS: BP 135/65
[2017-06-04] MEDS: BENZONATATE 100 MG CAP PO SCH (06:06)
[2017-06-04 06:50] LABS: BASO % 0.2 % (0.0-1.0); EOS # 0.2 10^3/uL (0.0-0.50); EOS % 1.8 % (0.0-3.0); IMMATURE GRANULOCYTE % 1.6 % (0-0); LYMPH # 1.3 10^3/uL (1.5-4.5); LYMPH % 10.7 % (24.0-44.0); MEAN CORPUSCULAR HEMOGLOBIN 27.8 pg (27.0-33.0); MEAN CORPUSCULAR HGB CONC 30.9 g/dl (32.0-36.5); MEAN CORPUSCULAR VOLUME 89.8 fl (80.0-96.0); MONO # 0.6 10^3/uL (0.0-0.8); MONO % 4.7 % (0.0-5.0); NEUTROPHILS # 10.1 10^3/uL (1.8-7.7); PLATELET COUNT, AUTOMATED 222 10^3/uL (150-450); RED CELL DISTRIBUTION WIDTH 15.5 % (11.5-14.5); WHITE BLOOD COUNT 12.5 10^3/uL (4.0-10.0)
[2017-06-04 06:58] LABS: INR 1.46
[2017-06-04] MEDS: ADVAIR HFA 230/21MCG INHALER INH SCH (07:34)
[2017-06-04] MEDS: TIOTROPIUM INHALER/CAPSULE (SPIRIVA) INH SCH (07:34)
[2017-06-04] MEDS: predniSONE 10 MG TAB PO SCH (08:43)
[2017-06-04 08:44] VITALS: BP 135/65
[2017-06-04] MEDS: ESCITALOPRAM OXALATE 5MG TABLET (LEXAPRO) PO SCH (08:44)
[2017-06-04] MEDS: METOPROLOL TART 12.5 MG PER 1/2 TAB PO SCH (08:44)
[2017-06-04] MEDS: SENOKOT S TAB PO SCH ×2 (08:44→08:47)
[2017-06-04] MEDS: HumaLOG INSULIN (NovoLOG) PER UNIT SC SCH ×2 (08:45→12:27)
[2017-06-04] MEDS: LEVEMIR (INSULIN DETEMIR) 1 UNITS/0.01ML SC SCH (08:46)
--- NOTE | 2017-06-04 18:45 | DS.PDOC ---
Discharge Summary General Date of Admission May 24, 2017 at 21:59 Date of Discharge 06/04/17 Primary Care Physician: Guille Wagner Attending Physician: NEDA CONKLIN MD Discharge Summary PROCEDURES PERFORMED DURING STAY: None ADMITTING DIAGNOSES: 1. Community acquired pneumonia. 2. Atrial fibrillation with RVR. 3. Constipation. 4. COPD 5. Chronic hypoxic respiratory failure 6. Type 2 DM 7. Hypertension 8. Dyslipidemia 9. Coronary Artery Disease 10. Chronic urinary retention 11. CKD 12. Anxiety DISCHARGE DIAGNOSES: 1. Community acquired pneumonia, resolved. 2. Atrial fibrillation with RVR. 3. Constipation. 4. COPD 5. Chronic hypoxic respiratory failure 6. Type 2 DM 7. Hypertension 8. Dyslipidemia 9. Coronary Artery Disease 10. Chronic urinary retention 11. CKD 12. Anxiety COMPLICATIONS/CHIEF COMPLAINT: Afib, Pna. HISTORY OF PRESENT ILLNESS: Patient is an 82-year-old male with past medical history significant for right-sided lung cancer with adenocarcinoma, atrial fibrillation on Coumadin, coronary artery disease, type 2 diabetes, COPD, hypertension, dyslipidemia presents emergency room with shortness of breath and cough for 2 days prior to admission. Cough is productive with brown sputum. In the ER was found to have a temperature 101 F. he denies chest pain, pressure, discomfort and lotion is following. He has some nausea and reported no vomiting. His heart hearing chronically. Has a chronic Davis due to urinary retention. HOSPITAL COURSE: Patient was started on antibiotics for 20 quart bacterial pneumonia. Patient had a respiratory panel sputum panel and blood cultures performed. Respiratory panel came back negative. Blood cultures came back negative. Sputum came back positive for mold-like organism. Patient has chronic catheter due to urinary obstruction. Urine culture came back positive for Escherichia coli. Catheter was changed while in the hospital. Patient was started on Rocephin and Zithromax initially for empiric antibiotic therapy. Was switched to oral antibiotics after a few days. Patient was given steroids prednisone, tapered over the course of stay. This was to help with his breathing. Patient's Coumadin was managed for atrial fibrillation. INR was checked daily. It was held for couple days due to supratherapeutic INR. Patient then became subtherapeutic. Patient remained in the hospital while Coumadin was increased and INR was rechecked. Patient was still subtherapeutic on discharge. Patient will follow up on INR outpatient the next day. Patient had a ileus overnights one day during hospitalization. Resolved the next day. Still passing flatus and bowel movements upon discharge. Patient still has catheter due to benign prostatic hypertrophy. Patient did have prostate cancer in the past. For catheter was changed during hospitalization. DISCHARGE MEDICATIONS: Please see below. ALLERGIES: Please see below. PHYSICAL EXAMINATION ON DISCHARGE: VITAL SIGNS: Please see below. GENERAL: Alert and orientated. No acute distress. HEENT: No rhinorrhea. Atraumatic. Nares patent. NECK: Supple. No lymphadenopathy. CARDIOVASCULAR EXAMINATION: Normal S1 and S2. No murmurs. RESPIRATORY EXAMINATION: Clear to auscultation. No wheezing. ABDOMINAL EXAMINATION: Soft and nondistended. Bowel sounds to auscultation. EXTREMITIES: Moves all extremities equally. No lower extremity edema. SKIN: No rashes or lesions. NEUROLOGICAL EXAMINATION: Speech intact. PSYCHIATRIC EXAMINATION: Normal affect. LABORATORY DATA: Please see below. IMAGING: Abdominal/Pelvic CT impression showed 1. No obstructive or inflammatory bowel changes. 2. Stable moderate left-sided diverticulosis. The midright is seen on the prior study has resolved. 3. Bilateral lower lobe atelectasis, greater on the right. Small right-sided pleural effusion. 4. No evidence of hydronephrosis or nephrolithiasis. Simple left renal cyst. 5. Urinary bladder is catheterized. There is diffuse circumferential bladder wall thickening, suspicious for cystitis. Clinical correlation is recommended. 6. Moderately severe multilevel degenerative disc disease and spondylosis. Disc osteophyte complexes caused moderately severe central canal stenosis at T12/L1, L1/L2, L2/L3 and L3/L4. 7. Chronic compression fracture of T12. Chest CT impression showed 1. New large infiltrate in the posterior right lower lobe consistent with pneumonia. 2. Smaller infiltrate in the left lower lobe also likely represents infiltrate/ atelectasis. 3. Large chronic parenchymal changes in the right upper lobe are stable, likely represent posttreatment changes. 4. Stable moderate emphysema. 5. No new suspicious osseous lesions. Chronic compression fracture of T12. Portable chest radiograph Stable appearing chronic changes as described above, however, correlate clinically to rule out the possibility of acute disease superimposed upon chronic change. PROGNOSIS: Stable. ACTIVITY: As tolerated DIET: Consistent carbohydrate. DISCHARGE PLAN: Plan is discharge patient back to [facility]. DISPOSITION: Discharged to Rehabilitation Center. DISCHARGE INSTRUCTIONS: 1. Patient is to follow up INR for subtherapeutic anticoagulation for atrial fibrillation tomorrow with lab. Lab results sent to Dr. Wagner PCP. 2. Patient continue Coumadin home dose 3. Antibiotics and steroids and been discontinued. 4. Patient is return to the ER if symptoms worsen DISCHARGE CONDITION: Stable TIME SPENT ON DISCHARGE: Greater than 30 minutes. Vital Signs/I&Os Vital Signs Date Time Temp Pulse Resp B/P (MAP) Pulse Ox O2 Delivery O2 Flow Rate FiO2 06/04/17 08:44 135/65 06/04/17 07:52 99.6 06/04/17 06:00 85 20 98 Nasal Cannula 2.0 Laboratory Data Labs 24H Laboratory Tests 2 06/03/17 11:32: Bedside Glucose (Misc Panel) 188H 06/03/17 17:14: Bedside Glucose (Misc Panel) 322H 06/03/17 21:13: Bedside Glucose (Misc Panel) 342H 06/04/17 06:07: Prothrombin Time 18.0H, Prothromb Time International Ratio 1.46 06/04/17 06:30: Immature Granulocyte % (Auto) 1.6H, White Blood Count 12.5H, Red Blood Count 3.71L, Hemoglobin 10.3L, Hematocrit 33.3L, Mean Corpuscular Volume 89.8, Mean Corpuscular Hemoglobin 27.8, Mean Corpuscular Hemoglobin Concent 30.9L, Red Cell Distribution Width 15.5H, Platelet Count 222, Neutrophils (%) (Auto) 81.0H , Lymphocytes (%) (Auto) 10.7L, Monocytes (%) (Auto) 4.7, Eosinophils (%) (Auto ) 1.8, Basophils (%) (Auto) 0.2, Neutrophils # (Auto) 10.1H, Lymphocytes # (Auto ) 1.3L, Monocytes # (Auto) 0.6, Eosinophils # (Auto) 0.2, Basophils # (Auto) 0.0 , Immature Granulocyte # (Auto) 0.2H, Nucleated Red Blood Cells % (auto) 0.0 CBC/BMP Laboratory Tests 06/04/17 06:30 Red Blood Count 3.71 L, Mean Corpuscular Volume 89.8, Mean Corpuscular Hemoglobin 27.8, Mean Corpuscular Hemoglobin Concent 30.9 L, Red Cell Distribution Width 15.5 H, Neutrophils (%) (Auto) 81.0 H, Lymphocytes (%) (Auto ) 10.7 L, Monocytes (%) (Auto) 4.7, Eosinophils (%) (Auto) 1.8, Basophils (%) ( Auto) 0.2, Neutrophils # (Auto) 10.1 H, Lymphocytes # (Auto) 1.3 L, Monocytes # (Auto) 0.6, Eosinophils # (Auto) 0.2, Basophils # (Auto) 0.0 FSBS Laboratory Tests Test 06/03/17 11:32 06/03/17 17:14 06/03/17 21:13 Range/Units Bedside Glucose (Misc Panel) 188 322 342 83-110 MG/DL Microbiology Microbiology 05/25/17 Blood Culture - Final, Complete NO GROWTH AFTER 5 DAYS 05/25/17 Gram Stain - Final, Complete 05/25/17 Sputum Culture - Final, Complete Mold Like Organism 05/25/17 Urine Culture - Final, Complete Escherichia Coli Discharge Medications Scheduled (Glucosamine Chondroitin) 1 Tab Tab, 1 TAB PO QPM, (Reported) (Toujeo Solostar) 300 Unit/Ml Inj, 56 UNIT SC DAILY, (Reported) Albuterol Sulfate (Albuterol Sulfate) 2.5 Mg/0.5 Ml Neb, 2.5 MG INH TID, ( Reported) Atorvastatin Calcium (Atorvastatin Calcium) 40 Mg Tab, 40 MG PO QPM, (Reported) Benzonatate (Benzonatate) 100 Mg Cap, 100 MG PO TID, (Reported) Escitalopram Oxalate (Lexapro) 5 Mg Tab, 5 MG PO DAILY, (Reported) Metoprolol Tartrate (Metoprolol Tartrate) 25 Mg Tab, 12.5 MG PO BID, (Reported) Salmeterol/Fluticasone (Advair Hfa 230-21 Mcg/Act) 1 Aer Aer, 2 PUFF INH BID, ( Reported) Silodosin (Rapaflo) 8 Mg Cap, 8 MG PO QPM, (Reported) Tiotropium Fletcher Monohydrate (Spiriva Handihaler) 18 Mcg Cap, 18 MCG INH DAILY , (Reported) Warfarin Sod (Warfarin Sodium) 3 Mg Tab, 4 MG PO DAILY, (Reported) AT 1700 ON MON, WED, FRI Warfarin Sod (Warfarin Sodium) 3 Mg Tab, 6 MG PO DAILY, (Reported) AT 1700 ON , URS, SAT, SUN Scheduled PRN Acetaminophen (Tylenol Extra Strength) 500 Mg Tab, 1,000 MG PO QID PRN for PAIN, (Reported) Albuterol Sulfate (Proair Hfa) 108 Mcg/Act Aer, 2 PUFF INH QID PRN for SHORTNESS OF BREATH, (Reported) Lorazepam (Lorazepam) 0.5 Mg Tab, 0.5 MG PO DAILY PRN for ANXIETY, (Reported) Milk Of Magnesia (Milk of Magnesia) 1,200 Mg/15 Ml Mary, 10 ML PO DAILYPRN PRN for CONSTIPATION, (Reported) Allergies Coded Allergies: Sulfamethoxazole w/Trimethoprim (Verified Allergy, Mild, hives, 01/27/17) Bee Venom (Verified Allergy, Unknown, 11/16/12) GME ATTESTATION GME ATTESTATION My preceptor for this patient encounter was physically present in the building during the encounter and was fully available. As needed, all aspects of the patient interview, examination, medical decision making process, and medical care plan development were reviewed and approved by the preceptor. Preceptor is aware and concurs with the plan as stated in the body of this note and will attest to such by his/her cosignature. NEDA JOSEPH DO Jun 04, 2017 11:03
== END 2017-06-04 14:40 | disposition home health service (06) | DRG 178 ==
LOC: EDBD 18:21 → M ED 18:21 → M ED INP 21:59 → M ICU 05-25 00:01 → M MSPAV 05-26 09:04
PROVIDERS: ADMIT Hospitalist; ATTEND Internal Medicine
DX: J15.8 Pneumonia due to other specified bacteria (principal); J96.11 Chronic respiratory failure with hypoxia; N39.0 Urinary tract infection, site not specified; K56.7 Ileus, unspecified; I48.91 Unspecified atrial fibrillation; J44.9 Chronic obstructive pulmonary disease, unspecified; I12.9 Hypertensive chronic kidney disease with stage 1 through stage 4 chronic kidney disease, or unspecified chronic kidney disease; E11.9 Type 2 diabetes mellitus without complications; K59.00 Constipation, unspecified; E78.5 Hyperlipidemia, unspecified; I25.10 Atherosclerotic heart disease of native coronary artery without angina pectoris; R33.9 Retention of urine, unspecified; N18.9 Chronic kidney disease, unspecified; Z79.01 Long term (current) use of anticoagulants; Z80.1 Family history of malignant neoplasm of trachea, bronchus and lung; F41.9 Anxiety disorder, unspecified; B96.29 Other Escherichia coli [E. coli] as the cause of diseases classified elsewhere; N40.0 Benign prostatic hyperplasia without lower urinary tract symptoms; K57.30 Diverticulosis of large intestine without perforation or abscess without bleeding; M51.36 Other intervertebral disc degeneration, lumbar region; M51.34 Other intervertebral disc degeneration, thoracic region; Z79.899 Other long term (current) drug therapy; Z88.2 Allergy status to sulfonamides; Z91.038 Other insect allergy status; Z87.891 Personal history of nicotine dependence

== ENCOUNTER → 2017-06-05 | Outpatient (CLI) | payer MEDICARE ==
[~2017-06-05] MED LIST changes: +BENZ100C5 PO; +METO1TAB87 PO; +MILKSUS PO; +TYLE500T78 PO; +WARF-58 PO
[2017-06-05 14:08] LABS: INR 1.78
== END ==
LOC: M SMT 09:51
PROVIDERS: ATTEND Family Medicine
DX: Z79.01 Long term (current) use of anticoagulants (principal)

== ENCOUNTER → 2017-07-30 | Outpatient (CLI) | payer MEDICARE ==
--- NOTE | 2017-07-30 13:12 | REP ---
CT chest without contrast: History: Abnormal lung field findings. The patient gives a history of primary lung carcinoma and prostate carcinoma. The most recent prior study showed an infiltrate in the right lower lobe posteriorly which was felt to be inflammatory. There is a chronic pleuroparenchymal opacity previously described in the right upper lobe. Comparison CT study May 24, 2017, December 18, 2016, and April 26, 2016. Comparison study is also reviewed from May 21, 2015. CT findings: There is a horizontally oriented band-like pleuroparenchymal opacity spanning the upper lateral aspect of the right upper lobe again noted unchanged from recent prior studies. This is more pronounced than on the 2014 prior exam however. This has a fibrotic appearance. The recent study showed an infiltrate in the right lower lobe which is improved considerably since the May 24, 2017 prior study. There were some patchy inflammatory changes in the left lower lobe which are also improved. These infiltrates are not completely resolved. There are some inspissated endobronchial secretions visible in the segmental and subsegmental bronchi of the right lower lobe. No new consolidation is seen. The lungs remain over-inflated consistent with some degree of COPD. Extensive vascular calcification is seen. Prior sternotomy wires are noted. No hilar or mediastinal mass or adenopathy is seen. No pleural effusion is noted. No adrenal lesion is observed. There is a cyst in the upper pole of the left kidney again noted. Vascular calcification is seen. There are clips in the gallbladder fossa. Impression: Improved infiltrates and inflammatory changes in the lower lobes bilaterally. Inspissated endobronchial secretions are noted in the right lower lobe. Chronic pleuroparenchymal changes right upper lobe. Signed by Morris Pineda MD 07/30/2017 04:12 P
== END ==
LOC: M RAD 09:48
PROVIDERS: ATTEND Internal Medicine Pulmonary Disease
DX: J98.4 Other disorders of lung (principal)

== ENCOUNTER → 2017-10-02 | Outpatient (REF) | payer MEDICARE ==
[2017-10-03 11:43] LABS: ALBUMIN 3.3 GM/DL (3.2-5.2); ALBUMIN/GLOBULIN RATIO 0.79 (1.00-1.93); ALKALINE PHOSPHATASE 80 U/L (45-117); ALT/SGPT 21 U/L (12-78); ANION GAP 9 MEQ/L (8-16); AST/SGOT 18 U/L (7-37); BILIRUBIN,TOTAL 0.4 MG/DL (0.2-1.0); BLOOD UREA NITROGEN 33 MG/DL (7-18); CALCIUM LEVEL 8.9 MG/DL (8.8-10.2); CARBON DIOXIDE LEVEL 29 MEQ/L (21-32); CHLORIDE LEVEL 102 MEQ/L (98-107); CREATININE FOR GFR 1.39 MG/DL (0.70-1.30); GLOMERULAR FILTRATION RATE 52.3 (>35); GLUCOSE, FASTING 219 MG/DL (70-100); POTASSIUM SERUM 4.2 MEQ/L (3.5-5.1); SODIUM LEVEL 140 MEQ/L (136-145); TOTAL PROTEIN 7.5 GM/DL (6.4-8.2)
[2017-10-03 11:49] LABS: ESTIMATED AVERAGE GLUCOSE 166 MG/DL (60-110); HEMOGLOBIN A1c 7.4 %
== END ==
LOC: M SFHCCLAY 15:40
DX: E11.9 Type 2 diabetes mellitus without complications (principal)
CPT/HCPCS: 80053

== ENCOUNTER → 2018-01-01 | Outpatient (REF) | payer MEDICARE ==
[2018-01-02 11:19] LABS: BASO % 0.6 % (0.0-1.0); EOS # 0.2 10^3/uL (0.0-0.50); EOS % 2.3 % (0.0-3.0); HEMATOCRIT 35.7 % (42.0-52.0); HEMOGLOBIN 11.6 g/dl (13.5-17.5); IMMATURE GRANULOCYTE % 0.2 % (0-3.0); LYMPH # 0.9 10^3/uL (1.5-4.5); LYMPH % 14.1 % (24.0-44.0); MEAN CORPUSCULAR HEMOGLOBIN 29.7 pg (27.0-33.0); MEAN CORPUSCULAR HGB CONC 32.5 g/dl (32.0-36.5); MEAN CORPUSCULAR VOLUME 91.5 fl (80.0-96.0); MONO # 0.6 10^3/uL (0.0-0.8); MONO % 8.9 % (0.0-5.0); NEUTROPHILS # 4.7 10^3/uL (1.8-7.7); NEUTROPHILS % 73.9 % (36.0-66.0); PLATELET COUNT, AUTOMATED 158 10^3/uL (150-450); RED CELL DISTRIBUTION WIDTH 14.3 % (11.5-14.5); WHITE BLOOD COUNT 6.4 10^3/uL (4.0-10.0)
[2018-01-02 11:46] LABS: ESTIMATED AVERAGE GLUCOSE 200 MG/DL (60-110); HEMOGLOBIN A1c 8.6 %
[2018-01-02 11:51] LABS: ANION GAP 6 MEQ/L (8-16); BLOOD UREA NITROGEN 28 MG/DL (7-18); CALCIUM LEVEL 8.7 MG/DL (8.8-10.2); CARBON DIOXIDE LEVEL 27 MEQ/L (21-32); CHLORIDE LEVEL 105 MEQ/L (98-107); CREATININE FOR GFR 1.47 MG/DL (0.70-1.30); GLOMERULAR FILTRATION RATE 49.1 (>35); GLUCOSE, FASTING 354 MG/DL (70-100); IRON (FE) 59 UG/DL (65-175); POTASSIUM SERUM 4.5 MEQ/L (3.5-5.1); SODIUM LEVEL 138 MEQ/L (136-145)
== END ==
LOC: M SFHCCLAY 14:13
DX: E11.9 Type 2 diabetes mellitus without complications (principal); D64.9 Anemia, unspecified
CPT/HCPCS: 83540

== ENCOUNTER → 2018-01-09 | Outpatient (REF) | payer MEDICARE ==
[2018-01-10 08:42] LABS: APPEARANCE, URINE HAZY (CLEAR); BACTERIA, URINE AUTO NEGATIVE (NEGATIVE); BILIRUBIN, URINE AUTO NEGATIVE (NEGATIVE); BLOOD, URINE BLOOD 2+ (NEGATIVE); COLOR, URINE YELLOW (YELLOW); GLUCOSE, URINE (UA) AUTO 1+ mg/dL (NEGATIVE); KETONE, URINE AUTO NEGATIVE (NEGATIVE); LEUKOCYTE ESTERASE, URINE AUTO NEGATIVE (NEGATIVE); NITRITE, URINE AUTO NEGATIVE (NEGATIVE); PROTEIN, URINE AUTO 2+ mg/dL (NEGATIVE); RBC, URINE AUTO 12 /HPF (0-3); SQUAMOUS EPITHELIAL CELL UR AU 0 /HPF (0-6); UROBILINOGEN, URINE AUTO 0.2 mg/dL (0.0-2.0); WBC, URINE AUTO 32 /HPF (0-3)
== END ==
LOC: M SMT 07:52
DX: R31.0 Gross hematuria (principal)
CPT/HCPCS: 81001

== ENCOUNTER → 2018-02-08 | Outpatient (CLI) | payer MEDICARE ==
[2018-02-08 13:44] LABS: PROSTATIC SPECIFIC AG MONITOR < 0.01 NG/ML (< 4.0)
== END ==
LOC: M SMT 10:20
DX: Z85.46 Personal history of malignant neoplasm of prostate (principal)
CPT/HCPCS: 84153

== ENCOUNTER → 2018-02-21 | Outpatient (CLI) | payer MEDICARE | LOC: M RAD 10:41 | DX: C34.90 Malignant neoplasm of unspecified part of unspecified bronchus or lung (principal) | CPT/HCPCS: 71250 ==

== ENCOUNTER → 2018-03-26 | Outpatient (REF) | payer MEDICARE ==
[2018-03-26 17:52] LABS: ESTIMATED AVERAGE GLUCOSE 174 MG/DL (60-110); HEMOGLOBIN A1c 7.7 %
[2018-03-26 18:04] LABS: ALBUMIN 3.1 GM/DL (3.2-5.2); ALBUMIN/GLOBULIN RATIO 0.82 (1.00-1.93); ALKALINE PHOSPHATASE 71 U/L (45-117); ALT/SGPT 18 U/L (12-78); ANION GAP 8 MEQ/L (8-16); AST/SGOT 28 U/L (7-37); BILIRUBIN,TOTAL 0.5 MG/DL (0.2-1.0); BLOOD UREA NITROGEN 27 MG/DL (7-18); CALCIUM LEVEL 8.8 MG/DL (8.8-10.2); CARBON DIOXIDE LEVEL 27 MEQ/L (21-32); CHLORIDE LEVEL 106 MEQ/L (98-107); CREATININE FOR GFR 1.45 MG/DL (0.70-1.30); GLOMERULAR FILTRATION RATE 49.7 (>35); GLUCOSE, FASTING 198 MG/DL (70-100); SODIUM LEVEL 141 MEQ/L (136-145); TOTAL PROTEIN 6.9 GM/DL (6.4-8.2)
== END ==
LOC: M SFHCCLAY 13:22
DX: E11.9 Type 2 diabetes mellitus without complications (principal)
CPT/HCPCS: 80053

== ENCOUNTER → 2018-07-15 | Outpatient (REF) | payer MEDICARE ==
[2018-07-16 12:44] LABS: ALBUMIN 3.1 GM/DL (3.2-5.2); ALBUMIN/GLOBULIN RATIO 0.78 (1.00-1.93); ALKALINE PHOSPHATASE 67 U/L (45-117); ALT/SGPT 16 U/L (12-78); ANION GAP 7 MEQ/L (8-16); AST/SGOT 16 U/L (7-37); BILIRUBIN,TOTAL 0.5 MG/DL (0.2-1.0); BLOOD UREA NITROGEN 33 MG/DL (7-18); CARBON DIOXIDE LEVEL 28 MEQ/L (21-32); CHLORIDE LEVEL 103 MEQ/L (98-107); CHOLESTEROL LEVEL 150 MG/DL (<200); CHOLESTEROL RISK RATIO 3.658 (<5); CREATININE FOR GFR 1.55 MG/DL (0.70-1.30); GLUCOSE, FASTING 215 MG/DL (70-100); HDL CHOLESTEROL 41 MG/DL (>40); LDL CHOLESTEROL 88 MG/DL (<100); NON-HDL-C 109 MG/DL; POTASSIUM SERUM 4.7 MEQ/L (3.5-5.1); SODIUM LEVEL 138 MEQ/L (136-145); TOTAL PROTEIN 7.1 GM/DL (6.4-8.2); TRIGLYCERIDES LEVEL 106 MG/DL (<150)
[2018-07-16 13:20] LABS: ESTIMATED AVERAGE GLUCOSE 183 MG/DL (60-110)
== END ==
LOC: M SFHCCLAY 14:12
DX: E11.9 Type 2 diabetes mellitus without complications (principal)
CPT/HCPCS: 80053

== ENCOUNTER → 2018-07-15 | Outpatient (CLI) | payer MEDICARE | LOC: M CLY 14:43 | DX: J44.1 Chronic obstructive pulmonary disease with (acute) exacerbation (principal); E11.40 Type 2 diabetes mellitus with diabetic neuropathy, unspecified | CPT/HCPCS: 71046; 80053 ==

== ENCOUNTER 2018-09-04 00:25 | Emergency (ER) | payer MEDICARE ==
[~2018-09-04] VITALS: Ht 162.6 cm; Wt 84.1 kg
[~2018-09-04 00:25] MED LIST changes: +ACET500T15 PO; -ACET50TAOT PO; +BENZ-18 PO; -BENZ100C5 PO; -GABA-282 PO; +GABA-843 PO; -IBUP200C10 PO; +IBUP200C25 PO; +IPRA0.00 IN; -IPRASOL4 IN; -LEVA1TAB PO; +LEVA250T13 PO; +MILK120011 PO; -MILKSUS PO
[2018-09-04] MEDS ORDERED: ELIQ2.5T PO (01:01)
[2018-09-04 01:32] LABS: BASO % 0.2 % (0.0-1.0); EOS # 0.2 10^3/uL (0.0-0.50); EOS % 1.7 % (0.0-3.0); HEMATOCRIT 34.3 % (42.0-52.0); LYMPH # 0.5 10^3/uL (1.5-4.5); LYMPH % 4.5 % (24.0-44.0); MEAN CORPUSCULAR HEMOGLOBIN 28.9 pg (27.0-33.0); MEAN CORPUSCULAR HGB CONC 32.1 g/dl (32.0-36.5); MONO # 0.7 10^3/uL (0.0-0.8); MONO % 6.5 % (0.0-5.0); NEUTROPHILS # 8.6 10^3/uL (1.8-7.7); NEUTROPHILS % 86.6 % (36.0-66.0); RED BLOOD COUNT 3.81 10^6/uL (4.30-6.10)
[2018-09-04 01:51] LABS: PLATELET COUNT, AUTOMATED 88 10^3/uL (150-450)
[2018-09-04 02:06] LABS: CALCIUM LEVEL 8.6 MG/DL (8.8-10.2); CREATININE FOR GFR 1.81 MG/DL (0.70-1.30); GLOMERULAR FILTRATION RATE 38.5 (>35); MB/CK RELATIVE INDEX 1.66 (< OR =4); POTASSIUM SERUM 4.1 MEQ/L (3.5-5.1); TROPONIN I 0.36 NG/ML (< 0.10)
[2018-09-04 04:00] LABS: MB/CK RELATIVE INDEX 1.4 (< OR =4); TROPONIN I 0.4 NG/ML (< 0.10)
[2018-09-04 05:57] VITALS: BP 150/78
--- NOTE | 2018-09-04 09:08 | REP ---
Chest two views HISTORY: Cough Comparison: 07/15/2018 An increase in interstitial markings is present in the lower lobes consistent with chronic interstitial fibrosis. An irregular parenchymal density is present in the right upper lobe that appears slightly increased in size compared to the previous study. The heart is normal in size. The pulmonary vasculature is normal in appearance. The bony structure is intact. IMPRESSION: 1. Bibasilar chronic interstitial fibrosis. 2. There has been increase in size of the irregular parenchymal density present in the right upper lobe compared to the previous study. Electronically Signed by Flaco Cage MD 09/04/2018 09:00 A
--- NOTE | 2018-09-04 13:44 | ED PDOC ---
Post-Departure Follow-Up dr hdz faxed formal report of cxr for fu verónicag Lucy Candelario MD Sep 04, 2018 13:44
--- NOTE | 2018-09-04 17:48 | ECGEPIP ---
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
--- NOTE | 2018-09-04 17:48 | ECGEPIP ---
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
[2018-09-04] MEDS ORDERED: LEXA1TAB PO (17:59)
== END 2018-09-04 06:07 | disposition home or self-care (01) ==
LOC: M ED 00:25 → EDBD 00:25 → M ED 06:07
DX: R06.02 Shortness of breath (principal); Z91.14 Patient's other noncompliance with medication regimen; I48.91 Unspecified atrial fibrillation; I50.9 Heart failure, unspecified; I25.10 Atherosclerotic heart disease of native coronary artery without angina pectoris; J44.9 Chronic obstructive pulmonary disease, unspecified

== ENCOUNTER 2018-09-04 13:52 | Inpatient (IN) | payer MEDICARE ==
[~2018-09-04] VITALS: Ht 172.7 cm; Wt 67.3 kg
[2018-09-04] MEDS ORDERED: dexameTHASONE 20 MG/5 ML VIAL (J1100) IV ONE (14:15)
[2018-09-04] MEDS: IPRATROPIUM 0.5MG/ALBUTEROL 2.5MG INH SOL UD 3ML (DUONEB)(J7620) NEB PRN ×3 (14:34→14:41)
[2018-09-04 14:38] LABS: ABG BASE EXCESS 0.1 (-2.0-2.0); ABG HCO3 22.7 MEQ/L (22.0-26.0); ABG O2 SATURATION 98.4 % (95.0-99.0); ABG PARTIAL PRESSURE CO2 29.9 mmHg (35.0-45.0); ABG PARTIAL PRESSURE O2 115.1 mmHg (75.0-100.0); ABG STANDARD HCO3 24.6 MEQ/L (22.0-26.0); ABG TOTAL CO2 23.6 MEQ/L (23.0-31.0); ABG pH (ARTERIAL) 7.498 UNITS (7.350-7.450)
[2018-09-04 14:51] LABS: BASO % 0.2 % (0.0-1.0); EOS % 0.1 % (0.0-3.0); HEMATOCRIT 36.6 % (42.0-52.0); HEMOGLOBIN 11.6 g/dl (13.5-17.5); LYMPH # 0.8 10^3/uL (1.5-4.5); LYMPH % 5.2 % (24.0-44.0); MEAN CORPUSCULAR HEMOGLOBIN 28.9 pg (27.0-33.0); MEAN CORPUSCULAR HGB CONC 31.7 g/dl (32.0-36.5); MONO # 1.1 10^3/uL (0.0-0.8); MONO % 7.3 % (0.0-5.0); NEUTROPHILS # 12.8 10^3/uL (1.8-7.7); NEUTROPHILS % 86.8 % (36.0-66.0); RED BLOOD COUNT 4.02 10^6/uL (4.30-6.10); WHITE BLOOD COUNT 14.7 10^3/uL (4.0-10.0)
[2018-09-04 14:53] LABS: PLATELET COUNT, AUTOMATED 91 10^3/uL (150-450)
--- NOTE | 2018-09-04 15:12 | REP ---
Chest one-view HISTORY: Cough Comparison: 09/04/2018 A diffuse increase in interstitial markings is present in the lower lobes consistent with chronic interstitial fibrosis. Irregular parenchymal density is present in the right upper lobe unchanged compared to the previous study. Patchy density is present in the left lower lobe consistent with atelectasis or infiltrate. The heart is normal in size. The pulmonary vasculature is normal in appearance. Impression: 1. Bibasilar chronic interstitial fibrosis. 2. Irregular parenchymal density in the right upper lobe unchanged compared to the previous study. 3. Left lower lobe atelectasis or infiltrate. Electronically Signed by Flaco Cage MD 09/04/2018 03:03 P
[2018-09-04 15:24] LABS: CALCIUM LEVEL 8.8 MG/DL (8.8-10.2); CREATININE FOR GFR 1.98 MG/DL (0.70-1.30); GLOMERULAR FILTRATION RATE 34.7 (>35); MB/CK RELATIVE INDEX 1.27 (< OR =4); POTASSIUM SERUM 4.4 MEQ/L (3.5-5.1); THYROID STIMULATING HORMONE 1.55 uIU/ML (0.358-3.740); TROPONIN I 0.61 NG/ML (< 0.10)
[2018-09-04] MEDS ORDERED: FUROSEMIDE 40 MG/4 ML VIAL (J1940) IV ONE (15:45)
[2018-09-04] MEDS ORDERED: METOPROLOL 5 MG/5 ML VIAL IV STA (16:12)
[2018-09-04 16:26] LABS: MB/CK RELATIVE INDEX 1.21 (< OR =4); TROPONIN I 0.55 NG/ML (< 0.10)
[2018-09-04] MEDS ORDERED: DIGOXIN INJ 0.5 MG/2 ML AMP (J1160) IV ONE (17:15)
[2018-09-04] MEDS ORDERED: LEXA1TAB PO (17:59)
[2018-09-04] MEDS ORDERED: MOM 30ML SUSPENSION UDC PO PRN (18:45)
[2018-09-04] MEDS: NS 1,000 ML IV SCH (18:46)
[2018-09-04] MEDS ORDERED: PIPERACILLIN/TAZOBACTAM SOD 3.375 GM in D5W MINI-BAG PLUS 50 ML IV ONE (19:45)
--- NOTE | 2018-09-04 19:47 | HPE ---
DATE OF ADMISSION: 09/04/2018 PRIMARY CARE PROVIDER: Dr. Wagner. LEAD RELAY TESTER: Dr. Olson. ATTENDING PHYSICIAN: Dr. Harman. CHIEF COMPLAINT: Coughing and confusion. HISTORY OF PRESENT ILLNESS: The patient is an 83-year-old white male with multiple chronic medical conditions who yesterday he came to the ER for evaluation of confusion. The history is provided by his son as well as by review of chart. Patient is very confused and he could not provide any useful information. Per medical record patient has chronic obstructive pulmonary disease as well as lung cancer which he is using 2-3 nasal oxygen supplement at home. Per this time patient lives at home by himself but he does have some nursing instructor visit every day for 3 hours. Also he is doing self catheter for urination. Yesterday the patient was sent to ER here for evaluation because he had worsening coughing. He was discharged from ER here directly and then this morning he was found very confused and ambulance called. He was brought to the ER for further evaluation. In the ER his initial work up was not significant except he has tachycardia up to 150s so medicine service called for admission. Review of system not available since patient is very confused. PAST MEDICAL HISTORY: 1. Type 2 diabetes. 2. Hypertension. 3. Chronic kidney disease stage 3. 4. Chronic obstructive pulmonary disease. 2 liters nasal oxygen at home. 5. Right-sided lung cancer with adenocarcinoma status post radiation. 6. Prostate cancer post radiation on hormone treatment. 7. Proximal atrial fibrillation on Eliquis. 8. Coronary artery disease. PAST SURGICAL HISTORY: 1. Cardiac ablation. 2. Cardiac bypass surgery. 3. Cholecystectomy. 4. Appendectomy. 5. Hernia repair. 6. Bilateral cataract surgery. SOCIAL HISTORY: He is a former smoker but quit about 3-4 years ago and smoked cigarettes, a pack a day for more than 60 years. No alcohol abuse. No drug abuse. He is living at home by himself and he assigns his health care proxy as DO NOT RESUSCITATE and DO NOT INTUBATE. FAMILY HISTORY: His father had myocardial infarction, and one sister has breast cancer and one brother has pancreatic cancer. MEDICATIONS: - Eliquis 2.5 mg by mouth twice a day - Lipitor 40 mg by mouth daily - Lexapro 10 mg by mouth daily - metoprolol 12.5 mg by mouth twice a day - albuterol inhaler as needed PHYSICAL EXAMINATION: Vitals: Temperature is 100.4, heart rate is up to 139 and respirations 16. Blood pressure 109/69 and Oxygen sat is 94% on 4 liters nasal oxygen supplement. GENERAL: He is awake, alert, but he is very confused. He does not follow commands, does not answer questions appropriately. HEENT: Atraumatic. Pupils equal, round, reactive to light. No jaundice. Extraocular muscle intact. Ears, nose, throat normal. Mouth mucous very dry. NECK: No jugular venous distention or no bruits. LUNGS: Diminished breathing sound but no crackles, no wheezing. HEART: S1, S2,m regular. No murmur. ABDOMEN: Soft, bowel sounds positive, non-tender. LOWER EXTREMITIES: No edema in bilateral lower extremities. NEUROLOGIC: Non focal. SKIN: No rash. PSYCHOLOGICAL: No acute psychosis. LABORATORY: Including CBC and differential WBC 14.7, hematocrit and hemoglobin 11.6/36.6. Platelets 91, sodium 140, potassium 4.4, chloride 105, bicarbonate 25, BUN 35, creatinine 1.98, and initial troponin 6.1 down to 0.55. Chest x-ray reviewed no significant change. IMPRESSION: 1. Acute on chronic respiratory failure. 2. Chronic obstructive pulmonary disease exacerbation. 3. Possible early pneumonia. 4. Proximal atrial fibrillation with rapid ventricular response. 5. Minimal elevated troponin likely due to demand ischemia. 6. Type 2 diabetes. 7. Hypertension. 8. Chronic kidney disease stage 3. PLAN: Patient will be admitted to the Progressive care unit (PCU). In the ER his atrial fibrillation came to normal sinus rhythm after IV Digoxin. I will treat him with IV Solu-Medrol and nebulizer as well as IV antibiotics for chronic obstructive pulmonary disease exacerbation and pneumonia. Will continue his home medications. He is a DO NOT RESUSCITATE, DO NOT INTUBATE. Dr. Harman will follow up tomorrow. EMY
[2018-09-04] MEDS: IPRATROPIUM 0.5MG/ALBUTEROL 2.5MG INH SOL UD 3ML (DUONEB)(J7620) NEB SCH (20:00)
[2018-09-04] MEDS: ADVAIR HFA 230/21MCG INHALER INH SCH (21:00)
[2018-09-04 21:40] VITALS: BP 143/62
[2018-09-04] MEDS ORDERED: HEPARIN SOD (PORCINE) 5000 UNITS/ML VIAL SC SCH (22:00)
[2018-09-04] MEDS: methylPREDNISolone INJ 40 MG/1 ML VIAL (J2920) IV SCH (22:19)
[2018-09-04] MEDS: APIXABAN 2.5 MG TAB (ELIQUIS) PO SCH (22:20)
[2018-09-04] MEDS: ATORVASTATIN 20 MG TAB PO SCH (22:20)
[2018-09-04] MEDS: SENOKOT S TAB PO SCH (22:20)
[2018-09-04] MEDS: METOPROLOL TART 12.5 MG PER 1/2 TAB PO SCH (22:20)
[2018-09-04] MEDS: BENZONATATE 100 MG CAP PO SCH (22:53)
[2018-09-04] MEDS: PIPERACILLIN/TAZOBACTAM SOD 3.375 GM in D5W MINI-BAG PLUS 50 ML IV SCH (22:54)
[2018-09-05] VITALS: BP 117/56
[2018-09-05 04:00] VITALS: BP 120/60
[2018-09-05 05:16] LABS: BASO % 0.1 % (0.0-1.0); LYMPH # 0.5 10^3/uL (1.5-4.5); LYMPH % 5.7 % (24.0-44.0); MEAN CORPUSCULAR HEMOGLOBIN 28.9 pg (27.0-33.0); MEAN CORPUSCULAR HGB CONC 31.7 g/dl (32.0-36.5); MEAN CORPUSCULAR VOLUME 91.2 fl (80.0-96.0); MONO # 0.2 10^3/uL (0.0-0.8); MONO % 2.1 % (0.0-5.0); NEUTROPHILS # 8.2 10^3/uL (1.8-7.7); NEUTROPHILS % 91.8 % (36.0-66.0); RED BLOOD COUNT 3.18 10^6/uL (4.30-6.10)
[2018-09-05 05:18] LABS: HEMOGLOBIN 9.2 g/dl (13.5-17.5); PLATELET COUNT, AUTOMATED 80 10^3/uL (150-450)
[2018-09-05] MEDS: methylPREDNISolone INJ 40 MG/1 ML VIAL (J2920) IV SCH ×3 (05:23→23:00)
[2018-09-05] MEDS: PIPERACILLIN/TAZOBACTAM SOD 3.375 GM in D5W MINI-BAG PLUS 50 ML IV SCH ×3 (05:24→23:00)
[2018-09-05 05:30] LABS: CALCIUM LEVEL 8.1 MG/DL (8.8-10.2); CREATININE FOR GFR 2.12 MG/DL (0.70-1.30); GLOMERULAR FILTRATION RATE 32.1 (>35); POTASSIUM SERUM 4.6 MEQ/L (3.5-5.1)
[2018-09-05] MEDS: NS 1,000 ML IV SCH ×2 (07:30→14:28)
[2018-09-05 08:00] VITALS: BP 100/50
[2018-09-05] MEDS: ADVAIR HFA 230/21MCG INHALER INH SCH ×2 (08:00→20:03)
[2018-09-05] MEDS: IPRATROPIUM 0.5MG/ALBUTEROL 2.5MG INH SOL UD 3ML (DUONEB)(J7620) NEB SCH ×5 (08:00→23:58)
[2018-09-05] MEDS ORDERED: GLUCAGON FOR INJ 1 MG VIAL (J1610) SC PRN (08:45)
[2018-09-05] MEDS ORDERED: DEXTROSE 50% 50 ML SYRINGE IV PRN (08:45)
[2018-09-05] MEDS ORDERED: GLUCOSE 4 GM CHEW TABLET PO PRN (08:45)
[2018-09-05] MEDS ORDERED: LEVEMIR (INSULIN DETEMIR) 1 UNITS/0.01ML SC SCH (09:00)
--- NOTE | 2018-09-05 10:05 | REP ---
CT CHEST WITHOUT CONTRAST: HISTORY: Question infiltrate. Shortness of breath and cough. Comparison chest CT study February 21, 2018. CT FINDINGS: There is a large area of pleural thickening and adjacent parenchymal fibrosis in the right upper lobe anteriorly and laterally. This may be slightly improved compared to prior study. No progressive change is seen in any event. There are emphysematous changes in the upper lobes bilaterally. Some linear fibrosis is seen in the lower lobes bilaterally. No new infiltrate is appreciated. Heavy vascular calcification is noted. Previous study showed scattered normal-sized mediastinal lymph nodes. Several of these have enlarged in the interval since the February 21, 2018 study. The largest of these is a right pretracheal lymph node which measures 16 mm in short axis dimension x 25 mm. There is a hiatal hernia. There is a cyst in the upper pole left kidney. There are clips in the gallbladder fossa. Prior sternotomy. No bony destructive lesion. There are old healed rib fractures. IMPRESSION: There is a band-like area of chronic pleuroparenchymal fibrosis in the right upper lobe which may be slightly improved. There is mild mediastinal lymphadenopathy with interval mild enlargement of one or two mediastinal lymph nodes. The largest is a pretracheal lymph node measuring 16 x 25 mm. No new infiltrate. Electronically Signed by Morris Pineda MD 09/05/2018 11:27 A
--- NOTE | 2018-09-05 10:06 | REP ---
URINARY TRACT SONOGRAPHY: HISTORY: Renal insufficiency. FINDINGS: Exam quality is inhibited by patient immobility and inability to breath hold. Davis catheter is in place in the urinary bladder. Renal cortical echogenicity pattern is increased bilaterally consistent with chronic medical renal disease. Right renal dimensions are 9.4 x 5.1 x 4.7 cm. The left kidney measures 9.9 x 5.3 x 4.8 cm. There is no evidence of hydronephrosis on either side. There is a small cyst in the medial upper pole right kidney 0.6 cm in greatest diameter. In the left kidney superolaterally there is a cyst measuring 4.3 x 2.4 x 3.6 cm. This is seen on CT. No other abnormality. IMPRESSION: Small cysts. No hydronephrosis. Increased renal cortical echogenicity pattern consistent with chronic medical renal disease. Electronically Signed by Morris Pineda MD 09/05/2018 11:27 A
[2018-09-05] MEDS: BENZONATATE 100 MG CAP PO SCH ×3 (10:18→20:47)
[2018-09-05] MEDS: ESCITALOPRAM OXALATE 10 MG TAB (LEXAPRO) PO SCH (10:18)
[2018-09-05] MEDS: METOPROLOL TART 12.5 MG PER 1/2 TAB PO SCH ×2 (10:18→20:47)
[2018-09-05] MEDS: SENOKOT S TAB PO SCH ×2 (10:18→20:47)
[2018-09-05] MEDS: APIXABAN 2.5 MG TAB (ELIQUIS) PO SCH ×2 (10:18→20:47)
[2018-09-05 12:00] VITALS: BP 134/62
[2018-09-05] MEDS: HumaLOG INSULIN (NovoLOG) PER UNIT SC SCH ×3 (13:28→20:48)
--- NOTE | 2018-09-05 13:33 | IPNPDOC ---
Text Note Date of Service The patient was seen on 09/05/18. NOTE Subjective: She states dyspnea is improving. No chest pain. Objective: Vitals: (see below) General: No acute distress, laying comfortably in bed. HEENT: Moist mucous membranes. Neck: No JVD or lymphadenopathy Cardiac: RRR, No murmurs Pulm: Diminished breath sounds at the bases b/l. No wheezing, rhonchi Abd: NT/ND + BS Ext: No edema or cyanosis Labs (see below) Images: Renal u/s 09/05/18 IMPRESSION: Small cysts. No hydronephrosis. Increased renal cortical echogenicity pattern consistent with chronic medical renal disease. CT Chest IMPRESSION: There is a band-like area of chronic pleuroparenchymal fibrosis in the right upper lobe which may be slightly im proved. There is mild mediastinal lymphadenopathy with interval mild enlargement of one or two mediastinal lymph nodes. The largest is a pretracheal lymph node measuring 16 x 25 mm. No new infiltrate. Assessment/Plan 1. Acute on chronic hypoxic respiratory failure secondary to COPD exacerbation- likely 2/2 bacterial bronchitis- on Zosyn and improving. Cont steroids, nebs. 2. Atrial fibrillation with rapid ventricular response- Rate better controlled at this time. On eliquis 3. FLORENCE on CKD - on IVF. Renal u/s with no hydronephrosis. Urine lytes. If no improvement by tomorrow will consult Nephro. 4. Elevated troponin secondary from demand ischemia, rapid ventricular response. Trending down. Patient denies chest pain. 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 5. H/o CAD s/p CABG. Cont home meds. 6. 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 7. 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 8. Hypertension controlled DVT prophy:on eliquis. VS,Fishbone, I+O VS, Fishbone, I+O Laboratory Tests 09/04/18 14:39 Red Blood Count 4.02 L, Mean Corpuscular Volume 91.0, Mean Corpuscular Hemoglobin 28.9, Mean Corpuscular Hemoglobin Concent 31.7 L, Red Cell Distribution Width 16.1 H, Neutrophils (%) (Auto) 86.8 H, Lymphocytes (%) (Auto) 5.2 L, Monocytes (%) (Auto) 7.3 H, Eosinophils (%) (Auto) 0.1, Basophils (%) (Auto) 0.2, Neutrophils # (Auto) 12.8 H, Lymphocytes # (Auto) 0.8 L, Monocytes # (Auto) 1.1 H, Eosinophils # (Auto) 0.0, Basophils # (Auto) 0.0, Calcium Level 8.8, Total Creatine Kinase 197 09/05/18 04:47 Red Blood Count 3.18 L, Mean Corpuscular Volume 91.2, Mean Corpuscular Hemoglobin 28.9, Mean Corpuscular Hemoglobin Concent 31.7 L, Red Cell Distribution Width 16.0 H, Neutrophils (%) (Auto) 91.8 H, Lymphocytes (%) (Auto) 5.7 L, Monocytes (%) (Auto) 2.1, Eosinophils (%) (Auto) 0.0, Basophils (%) (Auto) 0.1, Neutrophils # (Auto) 8.2 H, Lymphocytes # (Auto) 0.5 L, Monocytes # (Auto) 0.2, Eosinophils # (Auto) 0.0, Basophils # (Auto) 0.0, Calcium Level 8.1 L Vital Signs Date Time Temp Pulse Resp B/P (MAP) Pulse Ox O2 Delivery O2 Flow Rate FiO2 09/05/18 10:18 70 100/50 09/05/18 08:00 98.0 22 90 Nasal Cannula 2.0 09/04/18 14:36 86 I&O- Last 24 Hours up to 6 AM 09/05/18 06:00 Intake Total 1120 ml Output Total 1160 ml Balance -40 ml SHAKIR HINSON MD Sep 05, 2018 13:33
[2018-09-05 14:09] LABS: BASO % 0.1 % (0.0-1.0); HEMATOCRIT 32.2 % (42.0-52.0); HEMOGLOBIN 10.3 g/dl (13.5-17.5); LYMPH # 0.4 10^3/uL (1.5-4.5); LYMPH % 3.3 % (24.0-44.0); MEAN CORPUSCULAR HEMOGLOBIN 28.9 pg (27.0-33.0); MEAN CORPUSCULAR VOLUME 90.2 fl (80.0-96.0); MONO # 0.2 10^3/uL (0.0-0.8); MONO % 1.9 % (0.0-5.0); NEUTROPHILS # 11.6 10^3/uL (1.8-7.7); NEUTROPHILS % 94.3 % (36.0-66.0); PLATELET COUNT, AUTOMATED 106 10^3/uL (150-450); RED BLOOD COUNT 3.57 10^6/uL (4.30-6.10); WHITE BLOOD COUNT 12.3 10^3/uL (4.0-10.0)
[2018-09-05 14:31] LABS: ABG BASE EXCESS -3.3 (-2.0-2.0); ABG HCO3 20.1 MEQ/L (22.0-26.0); ABG O2 SATURATION 87.6 % (95.0-99.0); ABG PARTIAL PRESSURE CO2 30.8 mmHg (35.0-45.0); ABG PARTIAL PRESSURE O2 56.7 mmHg (75.0-100.0); ABG STANDARD HCO3 21.5 MEQ/L (22.0-26.0); ABG TOTAL CO2 21.1 MEQ/L (23.0-31.0); ABG pH (ARTERIAL) 7.433 UNITS (7.350-7.450)
[2018-09-05 14:33] LABS: CALCIUM LEVEL 8.2 MG/DL (8.8-10.2); CREATININE FOR GFR 2.56 MG/DL (0.70-1.30); GLOMERULAR FILTRATION RATE 25.8 (>35); MAGNESIUM LEVEL 2.3 MG/DL (1.8-2.4); POTASSIUM SERUM 3.8 MEQ/L (3.5-5.1)
[2018-09-05 14:43] LABS: MB/CK RELATIVE INDEX 2.8 (< OR =4); TROPONIN I 0.26 NG/ML (< 0.10)
[2018-09-05 19:45] LABS: APPEARANCE, URINE CLOUDY (CLEAR); BACTERIA, URINE AUTO NEGATIVE (NEGATIVE); BILIRUBIN, URINE AUTO NEGATIVE (NEGATIVE); BLOOD, URINE BLOOD 3+ (NEGATIVE); CHLORIDE,RANDOM URINE < 10 MEQ/L; COLOR, URINE YELLOW (YELLOW); GLUCOSE, URINE (UA) AUTO 3+ mg/dL (NEGATIVE); KETONE, URINE AUTO NEGATIVE (NEGATIVE); LEUKOCYTE ESTERASE, URINE AUTO NEGATIVE (NEGATIVE); MUCUS, URINE SMALL (NEGATIVE); NITRITE, URINE AUTO NEGATIVE (NEGATIVE); PROTEIN, URINE AUTO 2+ mg/dL (NEGATIVE); RBC, URINE AUTO TNTC /HPF (0-3); SODIUM,RANDOM URINE < 10 MEQ/L; SPECIFIC GRAVITY URINE AUTO 1.017 (1.002-1.035); SQUAMOUS EPITHELIAL CELL UR AU 1 /HPF (0-6); UROBILINOGEN, URINE AUTO 0.2 mg/dL (0.0-2.0); WBC, URINE AUTO 2 /HPF (0-3)
[2018-09-05 20:00] VITALS: BP 133/63
[2018-09-05] MEDS: ATORVASTATIN 20 MG TAB PO SCH (20:47)
[2018-09-05] MEDS ORDERED: NS 250 ML IV ONE (23:45)
[2018-09-05 23:47] VITALS: BP 115/54
[2018-09-06] VITALS (7 sets, daily range): BP systolic 104–153; BP diastolic 52–80
[2018-09-06] MEDS: IPRATROPIUM 0.5MG/ALBUTEROL 2.5MG INH SOL UD 3ML (DUONEB)(J7620) NEB SCH ×6 (04:35→23:33)
[2018-09-06 05:43] LABS: BASO % 0.1 % (0.0-1.0); HEMATOCRIT 24.3 % (42.0-52.0); LYMPH # 0.4 10^3/uL (1.5-4.5); MEAN CORPUSCULAR HEMOGLOBIN 28.6 pg (27.0-33.0); MEAN CORPUSCULAR HGB CONC 32.1 g/dl (32.0-36.5); MONO # 0.6 10^3/uL (0.0-0.8); MONO % 5.5 % (0.0-5.0); NEUTROPHILS # 9.2 10^3/uL (1.8-7.7); NEUTROPHILS % 90.1 % (36.0-66.0); RED BLOOD COUNT 2.73 10^6/uL (4.30-6.10); WHITE BLOOD COUNT 10.2 10^3/uL (4.0-10.0)
[2018-09-06 06:06] LABS: CALCIUM LEVEL 7.3 MG/DL (8.8-10.2); CREATININE FOR GFR 2.72 MG/DL (0.70-1.30); GLOMERULAR FILTRATION RATE 24.1 (>35); POTASSIUM SERUM 4.1 MEQ/L (3.5-5.1)
[2018-09-06] MEDS: HumaLOG INSULIN (NovoLOG) PER UNIT SC SCH ×5 (06:15→20:32)
[2018-09-06 06:22] LABS: PLATELET COUNT, AUTOMATED 77 10^3/uL (150-450)
[2018-09-06 06:23] LABS: HEMOGLOBIN 7.8 g/dl (13.5-17.5)
[2018-09-06] MEDS: PIPERACILLIN/TAZOBACTAM SOD 3.375 GM in D5W MINI-BAG PLUS 50 ML IV SCH ×3 (06:50→21:10)
[2018-09-06] MEDS: methylPREDNISolone INJ 40 MG/1 ML VIAL (J2920) IV SCH ×2 (06:50→18:22)
[2018-09-06] MEDS: ADVAIR HFA 230/21MCG INHALER INH SCH ×2 (07:23→20:17)
[2018-09-06] MEDS ORDERED: NS 1,000 ML IV SCH (08:15)
[2018-09-06 08:59] LABS: PERCENT SATURATION 29.6 % (19.7-50.0)
[2018-09-06] MEDS: METOPROLOL TART 12.5 MG PER 1/2 TAB PO SCH ×2 (09:00→20:33)
[2018-09-06] MEDS ORDERED: LEVEMIR (INSULIN DETEMIR) 1 UNITS/0.01ML SC SCH (09:00)
[2018-09-06 09:05] LABS: ALBUMIN 2.5 GM/DL (3.2-5.2); BILIRUBIN,DIRECT 0.2 MG/DL (0.0-0.2); BILIRUBIN,TOTAL 0.5 MG/DL (0.2-1.0); TOTAL PROTEIN 5.9 GM/DL (6.4-8.2)
[2018-09-06] MEDS: BENZONATATE 100 MG CAP PO SCH ×3 (09:07→20:28)
[2018-09-06] MEDS: APIXABAN 2.5 MG TAB (ELIQUIS) PO SCH ×2 (09:07→20:29)
[2018-09-06] MEDS: SENOKOT S TAB PO SCH ×2 (09:07→20:31)
[2018-09-06] MEDS: ESCITALOPRAM OXALATE 10 MG TAB (LEXAPRO) PO SCH (09:07)
[2018-09-06] MEDS ORDERED: HumaLOG INSULIN (NovoLOG) PER UNIT SC ONE (09:30)
[2018-09-06 10:07] LABS: FOLATE 7.7 NG/ML (>5.4)
--- NOTE | 2018-09-06 13:53 | IPNPDOC ---
Text Note Date of Service The patient was seen on 09/06/18. NOTE Subjective: Denies dyspnea today. No chest pain. Feels well. Objective: Vitals: (see below) General: No acute distress, laying comfortably in bed. HEENT: Moist mucous membranes. Neck: No JVD or lymphadenopathy Cardiac: RRR, No murmurs Pulm: Diminished breath sounds at the bases b/l. No wheezing, rhonchi Abd: NT/ND + BS Ext: No edema or cyanosis Labs (see below) Images: Renal u/s 09/05/18 IMPRESSION: Small cysts. No hydronephrosis. Increased renal cortical echogenicity pattern consistent with chronic medical renal disease. CT Chest IMPRESSION: There is a band-like area of chronic pleuroparenchymal fibrosis in the right upper lobe which may be slightly i mproved. There is mild mediastinal lymphadenopathy with interval mild enlargement of one or two mediastinal lymph nodes. The largest is a pretracheal lymph node measuring 16 x 25 mm. No new infiltrate. Assessment/Plan 1. Acute on chronic hypoxic respiratory failure secondary to COPD exacerbation- likely 2/2 bacterial bronchitis- on Zosyn and improving. Cont steroids, nebs. 2. Atrial fibrillation with rapid ventricular response- Rate better controlled at this time. On eliquis 3. FLORENCE on CKD - on IVF. Renal u/s with no hydronephrosis. Urine lytes. FeNa- Prenal. Given IVF. Nephro consulted. 4. Elevated troponin secondary from demand ischemia, rapid ventricular response. Trending down. Patient denies chest pain. 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 5. H/o CAD s/p CABG. Cont home meds. 6. 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 7. 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 8. Hypertension controlled 9. Lactic acidosis secondary to the patient's acute on chronic hypoxic respiratory failure, nebulizers, will give breathing. Improved. Status post IV fluids. Continue to monitor. 10. Chronic anemia- we'll send for iron studies. Stool occult. No acute bleeding at this time. Repeat labs at 2 PM. DVT prophy:on eliquis. Overall prognosis guarded. PT consulted. VS,Fishbone, I+O VS, Fishbone, I+O Laboratory Tests 09/05/18 13:59 Red Blood Count 3.57 L, Mean Corpuscular Volume 90.2, Mean Corpuscular Hemoglobin 28.9, Mean Corpuscular Hemoglobin Concent 32.0, Red Cell Distribution Width 15.9 H, Neutrophils (%) (Auto) 94.3 H, Lymphocytes (%) (Auto) 3.3 L, Monocytes (%) (Auto) 1.9, Eosinophils (%) (Auto) 0.0, Basophils (%) (Auto) 0.1, Neutrophils # (Auto) 11.6 H, Lymphocytes # (Auto) 0.4 L, Monocytes # (Auto) 0.2, Eosinophils # (Auto) 0.0, Basophils # (Auto) 0.0, Calcium Level 8.2 L 09/06/18 04:59 Red Blood Count 2.73 L, Mean Corpuscular Volume 89.0, Mean Corpuscular Hemoglobin 28.6, Mean Corpuscular Hemoglobin Concent 32.1, Red Cell Distribution Width 16.2 H, Neutrophils (%) (Auto) 90.1 H, Lymphocytes (%) (Auto) 4.0 L, Monocytes (%) (Auto) 5.5 H, Eosinophils (%) (Auto) 0.0, Basophils (%) (Auto) 0.1, Neutrophils # (Auto) 9.2 H, Lymphocytes # (Auto) 0.4 L, Monocytes # (Auto) 0.6, Eosinophils # (Auto) 0.0, Basophils # (Auto) 0.0, Calcium Level 7.3 L Vital Signs Date Time Temp Pulse Resp B/P (MAP) Pulse Ox O2 Delivery O2 Flow Rate FiO2 09/06/18 09:00 91 116/67 09/06/18 08:00 97.5 20 90 Nasal Cannula 2.0 09/04/18 14:36 86 I&O- Last 24 Hours up to 6 AM 09/06/18 06:00 Intake Total 3300 ml Output Total 1100 ml Balance 2200 ml SHAKIR HINSON MD Sep 06, 2018 13:53
[2018-09-06 14:11] LABS: BASO % 0.1 % (0.0-1.0); HEMATOCRIT 26.3 % (42.0-52.0); HEMOGLOBIN 8.3 g/dl (13.5-17.5); LYMPH # 0.3 10^3/uL (1.5-4.5); LYMPH % 3.2 % (24.0-44.0); MEAN CORPUSCULAR HEMOGLOBIN 28.7 pg (27.0-33.0); MEAN CORPUSCULAR HGB CONC 31.6 g/dl (32.0-36.5); MONO # 0.4 10^3/uL (0.0-0.8); MONO % 4.1 % (0.0-5.0); NEUTROPHILS # 8.5 10^3/uL (1.8-7.7); NEUTROPHILS % 91.7 % (36.0-66.0); PLATELET COUNT, AUTOMATED 80 10^3/uL (150-450); RED BLOOD COUNT 2.89 10^6/uL (4.30-6.10); WHITE BLOOD COUNT 9.3 10^3/uL (4.0-10.0)
[2018-09-06 14:42] LABS: CREATININE FOR GFR 2.54 MG/DL (0.70-1.30); MAGNESIUM LEVEL 2.2 MG/DL (1.8-2.4); POTASSIUM SERUM 3.7 MEQ/L (3.5-5.1)
[2018-09-06] MEDS: FERROUS SULFATE 325MG TAB PO SCH (20:29)
[2018-09-06] MEDS: ATORVASTATIN 20 MG TAB PO SCH (20:29)
[2018-09-07] VITALS (8 sets, daily range): BP systolic 125–159; BP diastolic 59–68
[2018-09-07] MEDS: CEPACOL LOZENGE PO PRN (00:11)
[2018-09-07] MEDS: IPRATROPIUM 0.5MG/ALBUTEROL 2.5MG INH SOL UD 3ML (DUONEB)(J7620) NEB SCH ×6 (02:50→23:58)
[2018-09-07] MEDS: methylPREDNISolone INJ 40 MG/1 ML VIAL (J2920) IV SCH (05:37)
[2018-09-07] MEDS: PIPERACILLIN/TAZOBACTAM SOD 3.375 GM in D5W MINI-BAG PLUS 50 ML IV SCH (05:37)
[2018-09-07 05:43] LABS: HEMOGLOBIN 8.6 g/dl (13.5-17.5); MEAN CORPUSCULAR HEMOGLOBIN 28.5 pg (27.0-33.0); MEAN CORPUSCULAR HGB CONC 30.7 g/dl (32.0-36.5); MEAN CORPUSCULAR VOLUME 92.7 fl (80.0-96.0); RED BLOOD COUNT 3.02 10^6/uL (4.30-6.10); WHITE BLOOD COUNT 9.5 10^3/uL (4.0-10.0)
[2018-09-07 05:44] LABS: PLATELET COUNT, AUTOMATED 80 10^3/uL (150-450)
[2018-09-07] MEDS: HumaLOG INSULIN (NovoLOG) PER UNIT SC SCH ×5 (05:48→21:00)
[2018-09-07 06:10] LABS: CREATININE FOR GFR 2.38 MG/DL (0.70-1.30); GLOMERULAR FILTRATION RATE 28.1 (>35); POTASSIUM SERUM 4.2 MEQ/L (3.5-5.1)
[2018-09-07] MEDS: ADVAIR HFA 230/21MCG INHALER INH SCH ×2 (07:24→19:48)
[2018-09-07] MEDS: SENOKOT S TAB PO SCH ×2 (08:25→20:04)
[2018-09-07] MEDS: APIXABAN 2.5 MG TAB (ELIQUIS) PO SCH ×2 (09:23→20:04)
[2018-09-07] MEDS: ESCITALOPRAM OXALATE 10 MG TAB (LEXAPRO) PO SCH (09:23)
[2018-09-07] MEDS: METOPROLOL TART 12.5 MG PER 1/2 TAB PO SCH ×2 (09:23→20:03)
[2018-09-07] MEDS: predniSONE 10 MG TAB PO SCH (09:23)
[2018-09-07] MEDS: FERROUS SULFATE 325MG TAB PO SCH ×2 (09:23→20:03)
[2018-09-07] MEDS: BENZONATATE 100 MG CAP PO SCH ×3 (09:23→20:03)
[2018-09-07] MEDS: cefTRIAXone SOD 1 GM in D5W MINI-BAG PLUS 50 ML IV SCH (09:24)
[2018-09-07] MEDS: LEVEMIR (INSULIN DETEMIR) 1 UNITS/0.01ML SC SCH (09:24)
[2018-09-07] MEDS ORDERED: SLF 3 ML SYR IV PRN (11:00)
[2018-09-07] MEDS: SLF 3 ML SYR IV SCH ×2 (13:26→20:04)
--- NOTE | 2018-09-07 14:21 | IPNPDOC ---
Text Note Date of Service The patient was seen on 09/07/18. NOTE Subjective: States he has a dry nose from the O2. No CP/SOB. No chest pain. Objective: Vitals: (see below) General: No acute distress, laying comfortably in bed. HEENT: Moist mucous membranes. Neck: No JVD or lymphadenopathy Cardiac: RRR, No murmurs Pulm: Diminished breath sounds at the bases b/l. No wheezing, rhonchi Abd: NT/ND + BS Ext: No edema or cyanosis Labs (see below) Images: Renal u/s 09/05/18 IMPRESSION: Small cysts. No hydronephrosis. Increased renal cortical echogenicity pattern consistent with chronic medical renal disease. CT Chest IMPRESSION: There is a band-like area of chronic pleuroparenchymal fibrosis in the right upper lobe which may be slightly improved. There is mild mediastinal lymphadenopathy with interval mild enlargement of one or two mediastinal lymph nodes. The largest is a pretracheal lymph node measuring 16 x 25 mm. No new infiltrate. Assessment/Plan 1. Acute on chronic hypoxic respiratory failure secondary to COPD exacerbation- 2/2 H. Influenza. Zosyn changed to Rocephin. Cont steroids, nebs. 2. Atrial fibrillation with rapid ventricular response- Rate better controlled at this time. On eliquis 3. FLORENCE on CKD - on IVF. Renal u/s with no hydronephrosis. Urine lytes. FeNa- Prenal. Given IVF. Nephro consulted. 4. Elevated troponin secondary from demand ischemia, rapid ventricular response. Trending down. Patient denies chest pain. 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 5. H/o CAD s/p CABG. Cont home meds. 6. 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 7. 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 8. Hypertension controlled 9. Lactic acidosis secondary to the patient's acute on chronic hypoxic respiratory failure, nebulizers, will give breathing. Improved. Status post IV fluids. Continue to monitor. 10. Chronic anemia- we'll send for iron studies. Stool occult. No acute bleeding at this time. Repeat labs at 2 PM. DVT prophy:on eliquis. Overall prognosis guarded. PT consulted. VS,Aishae, I+O VS, Alfredobone, I+O Laboratory Tests 09/06/18 14:00 Red Blood Count 2.89 L, Mean Corpuscular Volume 91.0, Mean Corpuscular Hemoglobin 28.7, Mean Corpuscular Hemoglobin Concent 31.6 L, Red Cell Distribution Width 15.9 H, Neutrophils (%) (Auto) 91.7 H, Lymphocytes (%) (Auto) 3.2 L, Monocytes (%) (Auto) 4.1, Eosinophils (%) (Auto) 0.0, Basophils (%) (Auto) 0.1, Neutrophils # (Auto) 8.5 H, Lymphocytes # (Auto) 0.3 L, Monocytes # (Auto) 0.4, Eosinophils # (Auto) 0.0, Basophils # (Auto) 0.0, Calcium Level 8.0 L 09/07/18 05:28 Red Blood Count 3.02 L, Mean Corpuscular Volume 92.7, Mean Corpuscular Hemoglobin 28.5, Mean Corpuscular Hemoglobin Concent 30.7 L, Red Cell Distribution Width 16.0 H, Calcium Level 8.0 L Vital Signs Date Time Temp Pulse Resp B/P (MAP) Pulse Ox O2 Delivery O2 Flow Rate FiO2 09/07/18 12:00 98.0 65 20 159/65 (96) 93 Nasal Cannula 2.0 09/04/18 14:36 86 I&O- Last 24 Hours up to 6 AM 09/07/18 06:00 Intake Total 1340 ml Output Total 725 ml Balance 615 ml SHAKIR HINSON MD Sep 07, 2018 14:21
--- NOTE | 2018-09-07 15:11 | CR ---
DATE OF CONSULTATION: 09/06/2018 REQUESTING PHYSICIAN: Dr. Jerome Harman REASON FOR CONSULTATION: Management of acute kidney injury (FLORENCE) on chronic kidney disease stage III. HISTORY OF THE PRESENT ILLNESS: Ceferino Mcclure is an 83-year-old male with a past medical history of chronic kidney disease stage III, baseline creatinine in the mid 1s, type 2 diabetes, hypertension, chronic obstructive pulmonary disease (COPD) - on two liters nasal oxygen at home, history of lung cancer, adenocarcinoma - status post radiation, history of prostate cancer - status post radiation and dependent on intermittent self-catheterization at home, paroxysmal atrial fibrillation - on Eliquis, and coronary artery disease. The patient came into the emergency room on 09/04/2018 with complaint of shortness of breath and cough and apparently he was also confused, which prompted further evaluation. In the emergency room, patient was found to have a white count, acute kidney injury, tachycardia, low grade temperature, and desaturation, initially 86% on four liters nasal cannula. Blood gas showed respiratory alkalosis. He was found to be in atrial fibrillation with rapid ventricular response (RVR). He was started on intravenous (IV) steroids and nebulizer for COPD and given a dose of digoxin for his uncontrolled heart rate. Over the past two days of his stay, his renal function has worsened with creatinine of 2.7 today and nephrology evaluation was subsequently requested. PAST MEDICAL HISTORY: Chronic kidney disease stage III; baseline creatinine mid 1s. Type 2 diabetes. Hypertension. COPD - home oxygen dependent. History of lung cancer. History of prostate cancer - dependent on intermittent straight catheterization. Paroxysmal atrial fibrillation - anticoagulated with Eliquis. History of coronary artery disease. PAST SURGICAL HISTORY: Cardiac ablation. Bypass. Cholecystectomy. Appendectomy. Hernia repair. Bilateral cataract surgery. SOCIAL HISTORY: He is an ex-smoker. No alcohol or drug use. He lives alone but apparently has some nursing visits. FAMILY HISTORY: Heart disease and myocardial infarction in his father. ALLERGIES: BEE VENOM and BACTRIM. HOME MEDICATIONS: Reviewed and include Tylenol as needed, albuterol, Eliquis 2.5 mg by mouth twice a day, atorvastatin 40 mg by mouth every evening, Lexapro 10 mg by mouth daily, metoprolol 12.5 mg by mouth twice a day, Advair, Spiriva and Toujeo. REVIEW OF SYSTEMS: CONSTITUTIONAL: Patient denies fevers or chills. EYES: He denies visual changes or blurring. ENT: He is very hard of hearing. He denies rhinorrhea or dysphagia. CARDIAC: He reports atrial fibrillation and coronary artery disease. RESPIRATORY: He reports COPD - dependent on home oxygen, and shortness of breath. GASTROINTESTINAL (GI): He denies nausea, vomiting, or diarrhea. GENITOURINARY (): He has a history of prostate cancer and is dependent on self straight catheterizations. MUSCULOSKELETAL: He denies any acute myalgias or arthralgias. ENDOCRINE: He reports a history of diabetes, insulin dependent. He denies polyuria. HEMATOLOGY: He reports chronic use of anticoagulant. Denies easy bruising or bleeding. SKIN: He denies any new rashes or ulcers. NEUROLOGIC: He denies seizure or syncope. Remainder of review of systems is as per history of the present illness. PHYSICAL EXAMINATION: Temperature 97.5, pulse 91, respiratory rate 20, blood pressure 116/67, saturating 90-93% on two liters nasal cannula. Intake yesterday was 3.7 liters. Urine output yesterday was 775. Net positive 3 liters. Weight on the bed scale today is 69.8 kg. General: Patient is seen lying in bed in no acute distress. He is oriented times two at the time of my visit. Hard of hearing. Extraocular muscles are intact. Tongue is moist. Nasal cannula is in place. Jugular veins are not elevated. Cardiac: Regular rate and rhythm. S1, S2. Lungs: Diminished breath sounds bilaterally. Occasional rhonchus. Abdomen: Soft and nontender with bowel sounds. Genitourinary: Shows Davis catheter with urine. Extremities are negative for edema. LABORATORY: Sodium 135, potassium 4.1, bicarbonate 22, BUN 64, creatinine 2.7, glucose 486, lactic acid was 4.5 last night and lactic acid this morning 2.9. Urine sodium and urine chloride are both less than 10. Sputum culture with Haemophilus (H) Influenza. Blood cultures with no growth for two sets for 48 hours. Renal ultrasound 09/05/2018 shows increased cortical echogenicity. No hydronephrosis. Bilateral renal cyst. INPATIENT MEDICATIONS: Patient is on normal saline at 100 mL an hour, Zosyn 3.375 grams IV every 8 hours, Tylenol as needed, DuoNebs, Eliquis 2.5 mg by mouth twice a day, Lipitor 40 mg by mouth every evening, Tessalon 100 mg by mouth three times a day, Lexapro 10 mg by mouth daily, iron 325 mg by mouth twice a day, insulin, Solu-Medrol 40 mg IV every 12 hours, metoprolol 12.5 mg by mouth twice a day, Advair. PROBLEMS: 1. Acute kidney injury on chronic kidney disease stage III. Baseline creatinine is in the mid 1s. His admission creatinine was 1.9, which worsened up to 2.7 today. Renal imaging is negative for any obstruction. At home, he is dependent on intermittent self-catheterization. Presently, he has a Davis catheter. Urine lytes show less than 10 urine sodium and urine chloride There is a persistent mild lactic acidosis. Clinically he looks dry. He is on IV fluids, normal saline at 100 mL an hour, and I would continue him on the same. And I would also continue to trend his lactic acid. 2. Acute on chronic hypoxic respiratory failure. Blood gas did not look consistent with COPD exacerbation. His CO2 was only 29. There is respiratory alkalosis. He is on his usual amount of supplemental oxygen. He uses two liters nasal cannula at home. Sputum culture grew Haemophilus influenza. Primary team is managing antibiotics. He is on a steroid taper and nebulizers. He is symptomatically improving. 3. Lactic acidosis. Persistent but down trending. He is not on any medications that are known to cause lactic acidosis. His mean arterial pressures are acceptable. Continue with gentle IV fluids. His blood gases show acceptable pH. His lactic acidosis may be due to a respiratory issue. Thank you for involving me in the care of Mr. Mcclure. I will be happy to follow him along with you.
[2018-09-07] MEDS: ATORVASTATIN 20 MG TAB PO SCH (20:03)
[2018-09-08 04:00] VITALS: BP 140/70
[2018-09-08] MEDS ORDERED: LORazepam 2 MG/ML VIAL (J2060) IV ONE (04:15)
[2018-09-08] MEDS: ONDANSETRON 4MG/2ML VIAL (J2405) IV PRN (04:15)
[2018-09-08] MEDS: SLF 3 ML SYR IV SCH ×3 (05:03→20:30)
--- NOTE | 2018-09-08 07:08 | IPN ---
DATE: 09/07/2018 Mr. Mcclure is seen this evening on his bedside. He is feeling better now but reports that he had 2-3 loose stools earlier. He denies any nausea or vomiting. His dyspnea is slightly better. He has no fever or chills. He was admitted with shortness of breath and found to have chronic obstructive pulmonary disease (COPD) exacerbation. He also had acute renal failure which is gradually improving. The patient has known history of prostate cancer, status post radiation and urinary retention requiring self-catheterization at home. He currently has a Davis catheter in place with good urine output. His intravenous (IV) fluid has already been stopped. PHYSICAL EXAMINATION: Temperature is 98.8 degrees Fahrenheit, heart rate 94 per minute and respiratory rate 20 per minute. Blood pressure 138/60 mmHg and oxygen saturation 95% on 2 liters oxygen. Intake and output records from yesterday showed total intake 1460 and output 1050 mL. His head is atraumatic. There is no oral thrush or ulcers. Neck is supple and without jugular venous distention (JVD) or thyroid enlargement. Heart sounds are irregular and lungs have bilateral rhonchi and diminished breath sounds. Abdomen: Soft with mild tenderness in right upper quadrant and bowel sounds are normal. Extremities have no cyanosis or clubbing. Neurologically he is awake, alert and oriented. He does have significant difficulty hearing. Renal ultrasound done yesterday showed small cysts, no hydronephrosis but increased cortical echogenicity and average size kidneys. A chest CT scan was also done which showed chronic fibrosis and mild mediastinal lymphadenopathy. Today's labs show sodium 141, potassium 4.2, CO2 25, BUN 67 and creatinine 2.38. Hemoglobin is 8.6 and hematocrit 28.0. PROBLEMS: 1. Acute kidney injury superimposed on chronic kidney disease. Gradually improving kidney function without any electrolyte problems. His volume status seems reasonably well compensated. The patient has shortness of breath with COPD and adequate oral intake, so I will not recommend IV fluids at this point. We anticipate gradual improvement in his kidney function over next few days. 2. Diabetes. Blood sugars seem reasonably well controlled, and he is not at risk for osmotic diuresis. 3. Anemia. Probably multifactorial. At this point, it seems stable and will need to continue monitoring closely. We will consider giving him Aranesp if needed, but at this point, we will continue with oral iron supplement. 4. Chronic obstructive pulmonary disease exacerbation. Patient seems gradually improving and remains on nebulizers, steroids and antibiotics.
[2018-09-08 07:16] LABS: HEMATOCRIT 26.7 % (42.0-52.0); HEMOGLOBIN 8.4 g/dl (13.5-17.5); MEAN CORPUSCULAR HEMOGLOBIN 29.3 pg (27.0-33.0); MEAN CORPUSCULAR HGB CONC 31.5 g/dl (32.0-36.5); RED BLOOD COUNT 2.87 10^6/uL (4.30-6.10); WHITE BLOOD COUNT 15.1 10^3/uL (4.0-10.0)
[2018-09-08] MEDS: ADVAIR HFA 230/21MCG INHALER INH SCH ×2 (07:16→20:50)
[2018-09-08] MEDS: IPRATROPIUM 0.5MG/ALBUTEROL 2.5MG INH SOL UD 3ML (DUONEB)(J7620) NEB SCH ×4 (07:16→20:51)
[2018-09-08 07:18] LABS: PLATELET COUNT, AUTOMATED 75 10^3/uL (150-450)
[2018-09-08] MEDS: HumaLOG INSULIN (NovoLOG) PER UNIT SC SCH ×4 (07:30→20:30)
[2018-09-08 07:32] LABS: ALBUMIN 2.5 GM/DL (3.2-5.2); CREATININE FOR GFR 1.96 MG/DL (0.70-1.30); GLOMERULAR FILTRATION RATE 35.1 (>35); PHOSPHORUS LEVEL 2.9 MG/DL (2.5-4.9); POTASSIUM SERUM 4.4 MEQ/L (3.5-5.1)
[2018-09-08 08:00] VITALS: BP 143/67
[2018-09-08] MEDS ORDERED: NS 1,000 ML IV SCH (08:30)
[2018-09-08 08:34] LABS: C REACTIVE PROTEIN QUANTITATIV 3.94 MG/DL (0.00-0.30)
[2018-09-08 09:52] LABS: ABG BASE EXCESS -2.8 (-2.0-2.0); ABG O2 SATURATION 91.3 % (95.0-99.0); ABG PARTIAL PRESSURE O2 64.2 mmHg (75.0-100.0); ABG STANDARD HCO3 22.1 MEQ/L (22.0-26.0); ABG TOTAL CO2 23.2 MEQ/L (23.0-31.0); ABG pH (ARTERIAL) 7.381 UNITS (7.350-7.450)
--- NOTE | 2018-09-08 09:52 | ECGEPIP ---
Stationary ECG Study [facility] - ED Test Date: 2018-09-04 Pat Name: LELO GANDHI Department: Room: - Gender: M [employer] Director: BRITTNY : [id number] Requested By: Eren Trejo Order Number: [id number] Reading MD: Araceli Barboza Measurements Intervals [place] Rate: 165 P: [place]: 0 QRS: 35 QRSD: 96 T: 25 QT: 284 QTc: 472 Interpretive Statements ATRIAL FIBRILLATION WITH RAPID VENTRICULAR RESPONSE INCOMPLETE RIGHT BUNDLE BRANCH BLOCK POSSIBLE INFERIOR MYOCARDIAL INFARCTION, PROBABLY OLD ABNORMAL RHYTHM ECG Electronically Signed On 09-08-2018 9:51:41 EST by Araceli Barboza
--- NOTE | 2018-09-08 10:20 | REP ---
Clinical: Altered mental status. Comparison: 01/27/2017 Findings: Age-related atrophy and microvascular ischemic changes are appreciated. The ventricles and sulci are symmetric. Ortiz-white differentiation is maintained. There is no evidence for acute intracranial hemorrhage, mass/mass effect, pathology or infarction. No extra-axial fluid collection. Calvarium is intact. Paranasal sinuses and mastoid air cells are clear. Impression: Age related atrophy and microvascular ischemic changes. No acute intracranial hemorrhage, infarction, or mass/mass effect. Electronically Signed by Gregg Andrew MD 09/08/2018 10:11 A
[2018-09-08] MEDS: BENZONATATE 100 MG CAP PO SCH ×3 (10:43→20:29)
[2018-09-08] MEDS: cefTRIAXone SOD 1 GM in D5W MINI-BAG PLUS 50 ML IV SCH (10:43)
[2018-09-08] MEDS: ESCITALOPRAM OXALATE 10 MG TAB (LEXAPRO) PO SCH (10:43)
[2018-09-08] MEDS: METOPROLOL TART 12.5 MG PER 1/2 TAB PO SCH ×2 (10:44→20:29)
[2018-09-08] MEDS: SENOKOT S TAB PO SCH ×2 (10:44→20:29)
[2018-09-08] MEDS: FERROUS SULFATE 325MG TAB PO SCH ×2 (10:44→20:29)
[2018-09-08] MEDS: predniSONE 10 MG TAB PO SCH (10:44)
[2018-09-08] MEDS: LEVEMIR (INSULIN DETEMIR) 1 UNITS/0.01ML SC SCH (10:45)
[2018-09-08] MEDS: APIXABAN 2.5 MG TAB (ELIQUIS) PO SCH ×2 (10:45→20:29)
--- NOTE | 2018-09-08 11:46 | IPNPDOC ---
Text Note Date of Service The patient was seen on 09/08/18. NOTE Subjective: Pt was disoriented this am as he received ativan at 4am. CT Head unremarkable. ABG with no significant CO2 retention. Arouses easily. Objective: Vitals: (see below) General: No acute distress, laying comfortably in bed. HEENT: Moist mucous membranes. Neck: No JVD or lymphadenopathy Cardiac: RRR, No murmurs Pulm: Diminished breath sounds at the bases b/l. No wheezing, rhonchi Abd: NT/ND + BS Ext: No edema or cyanosis Drowsy, however awakes easily. Moves ext. Labs (see below) Images: Renal u/s 09/05/18 IMPRESSION: Small cysts. No hydronephrosis. Increased renal cortical echogenicity pattern consistent with chronic medical renal disease. CT Chest IMPRESSION: There is a band-like area of chronic pleuroparenchymal fibrosis in the right upper lobe which may be slightly improved. There is mild mediastinal lymphadenopathy with interval mild enlargement of one or two mediastinal lymph nodes. The largest is a pretracheal lymph node measuring 16 x 25 mm. No new infiltrate. Assessment/Plan 1. Acute on chronic hypoxic respiratory failure secondary to COPD exacerbation- 2/2 H. Influenza. Zosyn changed to Rocephin. Cont steroids, nebs. 2. Atrial fibrillation with rapid ventricular response- Rate better controlled at this time. On eliquis 3. FLORENCE on CKD - on IVF. Renal u/s with no hydronephrosis. Urine lytes. FeNa- Prenal. Given IVF. Nephro consulted. 4. Elevated troponin secondary from demand ischemia, rapid ventricular response. Trending down. Patient denies chest pain. 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 5. H/o CAD s/p CABG. Cont home meds. 6. 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 7. 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 8. Hypertension controlled 9. Lactic acidosis secondary to the patient's acute on chronic hypoxic respiratory failure, nebulizers, will give breathing. Improved. Status post IV fluids. Continue to monitor. 10. Chronic anemia- we'll send for iron studies. Stool occult. No acute bleeding at this time. Repeat labs at 2 PM. 11. AMS 2/[address] head negative for acute findings. ABG with no significant retention. Avoid benzos. DVT prophy:on eliquis. Overall prognosis guarded. PT consulted. VS,Fishbone, I+O VS, Fishbone, I+O Laboratory Tests 09/08/18 06:58 Red Blood Count 2.87 L, Mean Corpuscular Volume 93.0, Mean Corpuscular Hemoglobin 29.3, Mean Corpuscular Hemoglobin Concent 31.5 L, Red Cell Distribution Width 16.1 H, Anion Gap 7 L Vital Signs Date Time Temp Pulse Resp B/P (MAP) Pulse Ox O2 Delivery O2 Flow Rate FiO2 09/08/18 10:44 94 143/67 09/08/18 09:13 90 Nasal Cannula 4.0 09/08/18 08:00 99.7 20 09/04/18 14:36 86 I&O- Last 24 Hours up to 6 AM 09/08/18 06:00 Intake Total 510 ml Output Total 1100 ml Balance -590 ml SHAKIR HINSON MD Sep 08, 2018 11:46
[2018-09-08 11:55] VITALS: BP 148/63
[2018-09-08 16:00] VITALS: BP 126/65
[2018-09-08 18:34] LABS: ABG BASE EXCESS -1.1 (-2.0-2.0); ABG HCO3 23.9 MEQ/L (22.0-26.0); ABG PARTIAL PRESSURE CO2 41.1 mmHg (35.0-45.0); ABG PARTIAL PRESSURE O2 79.3 mmHg (75.0-100.0); ABG STANDARD HCO3 23.5 MEQ/L (22.0-26.0); ABG TOTAL CO2 25.1 MEQ/L (23.0-31.0); ABG pH (ARTERIAL) 7.382 UNITS (7.350-7.450)
--- NOTE | 2018-09-08 18:46 | REP ---
Clinical: Congestion. Comparison: 09/04/2018. Findings: Mediastinum and cardiac silhouette are relatively stable. Lung cruz demonstrate chronic interstitial changes with superimposed lower lobe opacities (left greater than right) suggesting atelectasis and/or acute pneumonia. Layering left pleural effusion cannot be excluded. Right upper lobe opacity is relatively similar to prior examination. No pneumothorax. Skeletal structures stable. Impression: Chronic interstitial changes with superimposed bibasilar infiltrate/atelectasis (left greater than right) and relatively stable peripheral right upper lobe area of opacity. Layering left effusion cannot be excluded. Electronically Signed by Gregg Andrew MD 09/08/2018 06:37 P
[2018-09-08 19:28] LABS: BASO % 0.1 % (0.0-1.0); HEMATOCRIT 26.2 % (42.0-52.0); HEMOGLOBIN 8.2 g/dl (13.5-17.5); LYMPH # 0.4 10^3/uL (1.5-4.5); LYMPH % 2.8 % (24.0-44.0); MEAN CORPUSCULAR HEMOGLOBIN 29.1 pg (27.0-33.0); MEAN CORPUSCULAR HGB CONC 31.3 g/dl (32.0-36.5); MEAN CORPUSCULAR VOLUME 92.9 fl (80.0-96.0); MONO # 0.8 10^3/uL (0.0-0.8); MONO % 5.6 % (0.0-5.0); NEUTROPHILS % 89.9 % (36.0-66.0); RED BLOOD COUNT 2.82 10^6/uL (4.30-6.10); WHITE BLOOD COUNT 13.4 10^3/uL (4.0-10.0)
[2018-09-08 19:30] LABS: PLATELET COUNT, AUTOMATED 65 10^3/uL (150-450)
[2018-09-08 19:57] LABS: ALBUMIN 2.5 GM/DL (3.2-5.2); BILIRUBIN,TOTAL 0.3 MG/DL (0.2-1.0); CALCIUM LEVEL 7.7 MG/DL (8.8-10.2); CREATININE FOR GFR 1.85 MG/DL (0.70-1.30); GLOMERULAR FILTRATION RATE 37.5 (>35); THYROID STIMULATING HORMONE 0.677 uIU/ML (0.358-3.740); TOTAL PROTEIN 5.6 GM/DL (6.4-8.2)
[2018-09-08 20:00] VITALS: BP 119/58
[2018-09-08] MEDS: ATORVASTATIN 20 MG TAB PO SCH (20:28)
[2018-09-08 23:52] LABS: AMORPHOUS SEDIMENT SMALL (NEGATIVE); APPEARANCE, URINE CLOUDY (CLEAR); BACTERIA, URINE AUTO NEGATIVE (NEGATIVE); BILIRUBIN, URINE AUTO NEGATIVE (NEGATIVE); BLOOD, URINE BLOOD 3+ (NEGATIVE); COLOR, URINE YELLOW (YELLOW); GLUCOSE, URINE (UA) AUTO 1+ mg/dL (NEGATIVE); KETONE, URINE AUTO NEGATIVE (NEGATIVE); LEUKOCYTE ESTERASE, URINE AUTO NEGATIVE (NEGATIVE); MUCUS, URINE SMALL (NEGATIVE); NITRITE, URINE AUTO NEGATIVE (NEGATIVE); PROTEIN, URINE AUTO 2+ mg/dL (NEGATIVE); RBC, URINE AUTO TNTC /HPF (0-3); SPECIFIC GRAVITY URINE AUTO 1.018 (1.002-1.035); SQUAMOUS EPITHELIAL CELL UR AU 0 /HPF (0-6); UROBILINOGEN, URINE AUTO 0.2 mg/dL (0.0-2.0); WBC, URINE AUTO 6 /HPF (0-3)
[2018-09-09] VITALS: BP 117/52
[2018-09-09] MEDS: IPRATROPIUM 0.5MG/ALBUTEROL 2.5MG INH SOL UD 3ML (DUONEB)(J7620) NEB SCH ×4 (00:06→20:32)
[2018-09-09 04:45] VITALS: BP 106/53
--- NOTE | 2018-09-09 05:45 | IPN ---
DATE: 09/08/2018 Mr. Mcclure is seen this morning on his bedside. He is laying in the bed and resting comfortably. The patient did have acute kidney injury and is also short of breath due to chronic obstructive pulmonary disease (COPD) exacerbation. He is quite hard of hearing. PHYSICAL EXAMINATION: VITALS: Temperature 97.9 degrees Fahrenheit, heart rate 94 per minute and respiratory rate 20 per minute. Blood pressure 143/67 mmHg and oxygen saturation 96% on 4 liters oxygen. Intake and output records from yesterday showed total output 1100 mL while intake is recorded only 510 mL. HEENT: His head is atraumatic. Neck is supple and jugular venous distention (JVD) is not elevated. HEART: His heart sounds are somewhat tachycardiac. LUNGS: Lungs have bilateral expiratory wheezing. ABDOMEN: Abdomen is soft and nontender and bowel sounds are present. EXTREMITIES: Have no cyanosis or clubbing. Today's labs show white blood cell (WBC) count 15.1, hemoglobin 8.4 and hematocrit 26.7. Sodium 145, potassium 4.4, CO2 24, BUN 60 and creatinine 1.96. A blood gas has been done which showed a pH of 7.38, pCO2 of 38 and pO2 64.2 with oxygen saturation 91.3%. PROBLEMS: 1. Acute kidney injury superimposed on chronic kidney disease. At this time kidney function is improving gradually and the patient has normal electrolytes. We will continue to monitor his kidney function without any need for intravenous (IV) fluid. 2. Anemia. His anemia is stable at this time and does not need any urgent intervention. 3. Shortness of breath. It is mostly due to chronic obstructive pulmonary disease (COPD) exacerbation which is gradually improving and he remains on steroids, inhalers and oxygen supplementation in addition to antibiotic.
[2018-09-09] MEDS: SLF 3 ML SYR IV SCH ×3 (06:00→20:27)
[2018-09-09] MEDS: HumaLOG INSULIN (NovoLOG) PER UNIT SC SCH ×4 (06:23→20:37)
[2018-09-09] MEDS: ADVAIR HFA 230/21MCG INHALER INH SCH ×2 (07:45→20:32)
[2018-09-09 08:00] VITALS: BP 170/82
[2018-09-09 08:58] LABS: HEMATOCRIT 26.2 % (42.0-52.0); HEMOGLOBIN 8.3 g/dl (13.5-17.5); MEAN CORPUSCULAR HEMOGLOBIN 28.8 pg (27.0-33.0); MEAN CORPUSCULAR HGB CONC 31.7 g/dl (32.0-36.5); RED BLOOD COUNT 2.88 10^6/uL (4.30-6.10); WHITE BLOOD COUNT 13.9 10^3/uL (4.0-10.0)
[2018-09-09] MEDS: LEVEMIR (INSULIN DETEMIR) 1 UNITS/0.01ML SC SCH (09:00)
[2018-09-09 09:02] LABS: PLATELET COUNT, AUTOMATED 68 10^3/uL (150-450)
[2018-09-09] MEDS: APIXABAN 2.5 MG TAB (ELIQUIS) PO SCH ×2 (09:02→20:26)
[2018-09-09] MEDS: ESCITALOPRAM OXALATE 10 MG TAB (LEXAPRO) PO SCH (09:02)
[2018-09-09] MEDS: METOPROLOL TART 12.5 MG PER 1/2 TAB PO SCH ×2 (09:02→20:27)
[2018-09-09] MEDS: predniSONE 10 MG TAB PO SCH (09:02)
[2018-09-09] MEDS: BENZONATATE 100 MG CAP PO SCH ×3 (09:03→20:26)
[2018-09-09] MEDS: FERROUS SULFATE 325MG TAB PO SCH ×2 (09:03→20:26)
[2018-09-09] MEDS: PIPERACILLIN/TAZOBACTAM SOD 3.375 GM in D5W MINI-BAG PLUS 50 ML IV SCH ×2 (09:03→16:41)
[2018-09-09] MEDS: SENOKOT S TAB PO SCH ×2 (09:03→20:26)
[2018-09-09 09:28] LABS: ALBUMIN 2.6 GM/DL (3.2-5.2); C REACTIVE PROTEIN QUANTITATIV 12.2 MG/DL (0.00-0.30); CREATININE FOR GFR 1.76 MG/DL (0.70-1.30); GLOMERULAR FILTRATION RATE 39.8 (>35); POTASSIUM SERUM 4.3 MEQ/L (3.5-5.1)
[2018-09-09] MEDS ORDERED: FUROSEMIDE 100 MG/10 ML VIAL (J1940) IV ONE (10:00)
[2018-09-09 12:00] VITALS: BP 128/50
[2018-09-09] MEDS: ACETAMINOPHEN TAB 650MG DOSE (2X325MG) PO PRN (12:37)
--- NOTE | 2018-09-09 13:48 | IPNPDOC ---
Text Note Date of Service The patient was seen on 09/09/18. NOTE Subjective: Patient is more awake and alert today. He also increased shortness of breath today. Objective: Vitals: (see below) General: No acute distress, laying comfortably in bed. HEENT: Moist mucous membranes. Neck: No JVD or lymphadenopathy Cardiac: RRR, No murmurs Pulm: Diminished breath sounds and crackles at the bases b/l, increased from yesterday. No wheezing, rhonchi Abd: NT/ND + BS Ext: No edema or cyanosis More awake and alert today. Following commands. Moving all extremities. Labs (see below) Images: Renal u/s 09/05/18 IMPRESSION: Small cysts. No hydronephrosis. Increased renal cortical echogenicity pattern consistent with chronic medical renal disease. CT Chest IMPRESSION: There is a band-like area of chronic pleuroparenchymal fibrosis in the right upper lobe which may be slightly improved. There is mild mediastinal lymphadenopathy with interval mild enlargement of one or two mediastinal lymph nodes. The largest is a pretracheal lymph node measuring 16 x 25 mm. No new infiltrate. Assessment/Plan 1. Acute on chronic hypoxic respiratory failure secondary to COPD exacerbation- 2/2 H. Influenza. Zosyn. Cont steroids, nebs. Patient also had pulmonary congestion this morning, and received 1 dose of Lasix. 2. Atrial fibrillation with rapid ventricular response- Rate better controlled at this time. On eliquis 3. FLORENCE on CKD - on IVF. Renal u/s with no hydronephrosis. Urine lytes. FeNa- Prenal. Given IVF. Nephro consulted. 4. Elevated troponin secondary from demand ischemia, rapid ventricular response. Trending down. Patient denies chest pain. Will need close outpatient follow-up with his attending physician. 5. H/o CAD s/p CABG. Cont home meds. 6. 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 7. 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 8. Hypertension controlled 9. Lactic acidosis secondary to the patient's acute on chronic hypoxic respiratory failure, nebulizers, will give breathing. Improved. Status post IV fluids. Continue to monitor. 10. Chronic anemia- we'll send for iron studies. Stool occult. No acute bleeding at this time. Repeat labs at 2 PM. DVT prophy:on eliquis. Overall prognosis guarded. PT consulted. VS,Alfredobone, I+O VS, Fishbone, I+O Laboratory Tests 09/08/18 18:58 Red Blood Count 2.82 L, Mean Corpuscular Volume 92.9, Mean Corpuscular Hemoglobin 29.1, Mean Corpuscular Hemoglobin Concent 31.3 L, Red Cell Distribution Width 16.4 H, Neutrophils (%) (Auto) 89.9 H, Lymphocytes (%) (Auto) 2.8 L, Monocytes (%) (Auto) 5.6 H, Eosinophils (%) (Auto) 0.0, Basophils (%) (Auto) 0.1, Neutrophils # (Auto) 12.0 H, Lymphocytes # (Auto) 0.4 L, Monocytes # (Auto) 0.8, Eosinophils # (Auto) 0.0, Basophils # (Auto) 0.0, Calcium Level 7.7 L, Aspartate Amino Transf (AST/SGOT) 38 H, Alanine Aminotransferase (ALT/SGPT) 66, Alkaline Phosphatase 47, Total Bilirubin 0.3, Total Protein 5.6 L, Albumin 2.5 L 09/09/18 08:29 Red Blood Count 2.88 L, Mean Corpuscular Volume 91.0, Mean Corpuscular Hemoglobin 28.8, Mean Corpuscular Hemoglobin Concent 31.7 L, Red Cell Distribution Width 16.5 H, Anion Gap 8 Vital Signs Date Time Temp Pulse Resp B/P (MAP) Pulse Ox O2 Delivery O2 Flow Rate FiO2 09/09/18 12:41 4.0 09/09/18 12:00 98.0 110 18 128/50 (76) 95 Nasal Cannula 09/04/18 14:36 86 I&O- Last 24 Hours up to 6 AM 09/09/18 06:00 Intake Total 1100 ml Output Total 1075 ml Balance 25 ml SHAKIR HINSON MD Sep 09, 2018 13:48
[2018-09-09 16:00] VITALS: BP 120/57
--- NOTE | 2018-09-09 19:06 | ECHO ---
DATE OF PROCEDURE: 09/07/2018 AGE: 83 GENDER: Male HEIGHT: 68 inches WEIGHT: 154 pounds BODY SURFACE AREA: 1.83 sq m INPATIENT: Progressive care unit (PCU) room 3214. REFERRING PHYSICIAN: Dr. Jerome Harman INDICATION: Dyspnea. MEASUREMENTS: 2D MEASUREMENTS: RV: 4.4 cm LV: 5.2 cm Septum: 1.1 cm Posterior wall: 1.1 cm Aortic root: 3.6 cm LA: 4.0 cm LVEF: 65% DOPPLER MEASUREMENTS: AV: 2.45 m/s LVOT: 1.2 m/s LVOT diameter: 2.2 cm Mean AV systolic gradient 12 mmHg Dimensionless index: 0.51 MV-E 123, A 130, E/A ratio 0.9. Early mitral acceleration time: 329 ms E prime: 9 A prime: 10 E/E prime ratio: 13.7 Mean MV diastolic gradient 4 mmHg PV: 0.9 m/s Pulmonary artery acceleration time: 102 ms RVSP: 50 mmHg IVC: 2.7 cm COMMENTS: Normal sinus rhythm with frequent isolated PACs. No intraventricular conduction disturbance. M mode and two-dimensional echocardiography was performed with pulsed, continuous wave, color flow and tissue Doppler studies. Normal left ventricular size with LV wall thickness upper limits of normal. Wall motion was symmetrical and normal and normal. Slightly dilated left atrium but could not comment on LV diastolic function in light of mitral valve disorder. At least mildly dilated right heart chambers with slight right ventricular free wall hypokinesis and at least moderate pulmonary hypertension. Dilated IVC with reduced respiratory collapse in keeping with an elevated central venous pressure. Severe mitral annular calcification with slightly thickened mitral leaflet edges but adequate leaflet excursion and no posterior systolic buckling. At least mild mitral inflow tract obstruction with mild insufficiency. Fairly severe aortic valvular sclerosis with marginal if any aortic stenosis and mild insufficiency. Normal at aortic root. Normal appearing tricuspid valve with mild insufficiency. No apparent intracardiac mass or pericardial effusion. MTDD
[2018-09-09 20:00] VITALS: BP 129/79
[2018-09-09] MEDS: ATORVASTATIN 20 MG TAB PO SCH (20:26)
[2018-09-10] VITALS (9 sets, daily range): BP systolic 112–149; BP diastolic 50–79
[2018-09-10] MEDS: PIPERACILLIN/TAZOBACTAM SOD 3.375 GM in D5W MINI-BAG PLUS 50 ML IV SCH ×3 (00:10→18:24)
[2018-09-10] MEDS: ACETAMINOPHEN TAB 650MG DOSE (2X325MG) PO PRN (00:11)
[2018-09-10] MEDS: IPRATROPIUM 0.5MG/ALBUTEROL 2.5MG INH SOL UD 3ML (DUONEB)(J7620) NEB SCH ×4 (00:32→15:45)
[2018-09-10] MEDS: CEPACOL LOZENGE PO PRN (00:53)
[2018-09-10] MEDS: SLF 3 ML SYR IV SCH ×3 (03:56→21:21)
[2018-09-10 05:29] LABS: HEMATOCRIT 23.6 % (42.0-52.0); HEMOGLOBIN 7.5 g/dl (13.5-17.5); MEAN CORPUSCULAR HEMOGLOBIN 29.2 pg (27.0-33.0); MEAN CORPUSCULAR HGB CONC 31.8 g/dl (32.0-36.5); MEAN CORPUSCULAR VOLUME 91.8 fl (80.0-96.0); RED BLOOD COUNT 2.57 10^6/uL (4.30-6.10); WHITE BLOOD COUNT 11.8 10^3/uL (4.0-10.0)
[2018-09-10 05:30] LABS: PLATELET COUNT, AUTOMATED 65 10^3/uL (150-450)
[2018-09-10 05:43] LABS: ALBUMIN 2.1 GM/DL (3.2-5.2); CALCIUM LEVEL 7.7 MG/DL (8.8-10.2); CREATININE FOR GFR 1.97 MG/DL (0.70-1.30); GLOMERULAR FILTRATION RATE 34.9 (>35); PHOSPHORUS LEVEL 3.5 MG/DL (2.5-4.9); POTASSIUM SERUM 4.2 MEQ/L (3.5-5.1)
--- NOTE | 2018-09-10 06:51 | IPN ---
DATE OF VISIT: 09/09/2018 Mr. Mcclure is seen this morning on his bedside. Nursing staff reports that he has been more short of breath today and he just finished being bathed by the nursing staff. Patient denies any nausea or vomiting. He is quite short of breath and has difficulty even talking. There is no nausea or vomiting reported. PHYSICAL EXAMINATION: Temperature 98 degrees Fahrenheit, heart rate 116 per minute, and respiratory rate 18 per minute. Blood pressure 170/82 mmHg and oxygen saturation 95%. His head is atraumatic. Neck is supple, and jugular venous distention (JVD) seems to be moderately elevated. There is no oral thrush or ulcers. Heart sounds are tachycardiac, and lungs have bilateral expiratory wheezing and rales. Abdomen soft and nontender, and bowel sounds are normal. Extremities have no cyanosis or clubbing. Neurologically, he is awake and able to answer questions appropriately. Today's labs show WBC count 13.9, hemoglobin 8.3, and hematocrit 26.2. Platelets 68,000. Sodium 143 and potassium 4.3. BUN is 50 and creatinine 1.76. PROBLEMS: 1. Acute renal failure superimposed on chronic kidney disease. Kidney function is improving gradually, and patient has no uremic symptoms. Will continue to monitor his renal function on a daily basis. His electrolytes are within normal range. 2. Congestive heart failure. His volume status seems decompensated and he is quite short of breath. Lasix 60 mg intravenous one dose is being ordered, and we will monitor his urine output and keep a close watch on his respiratory status. He is also being treated for chronic obstructive pulmonary disease (COPD) exacerbation with nebulizers. 3. Anemia. No significant change in anemia over the last 3 days. At this point, there is no emergent intervention indicated. CHERISED
[2018-09-10] MEDS: ADVAIR HFA 230/21MCG INHALER INH SCH ×2 (07:32→22:40)
[2018-09-10] MEDS: TIOTROPIUM INHALER/CAPSULE (SPIRIVA) INH SCH (08:53)
[2018-09-10] MEDS: SENOKOT S TAB PO SCH ×2 (09:00→20:33)
[2018-09-10] MEDS: FERROUS SULFATE 325MG TAB PO SCH ×2 (09:12→20:34)
[2018-09-10] MEDS: BENZONATATE 100 MG CAP PO SCH ×4 (09:12→20:47)
[2018-09-10] MEDS: APIXABAN 2.5 MG TAB (ELIQUIS) PO SCH ×2 (09:12→20:33)
[2018-09-10] MEDS: ESCITALOPRAM OXALATE 10 MG TAB (LEXAPRO) PO SCH (09:12)
[2018-09-10] MEDS: METOPROLOL TART 12.5 MG PER 1/2 TAB PO SCH (09:12)
[2018-09-10] MEDS: predniSONE 10 MG TAB PO SCH (09:12)
[2018-09-10] MEDS: LEVEMIR (INSULIN DETEMIR) 1 UNITS/0.01ML SC SCH (09:14)
[2018-09-10] MEDS: HumaLOG INSULIN (NovoLOG) PER UNIT SC SCH ×4 (09:14→20:35)
[2018-09-10] MEDS: ASCORBIC ACID 500 MG TAB PO SCH ×2 (09:15→20:34)
[2018-09-10] MEDS ORDERED: FUROSEMIDE 40 MG/4 ML VIAL (J1940) IV ONE (10:45)
--- NOTE | 2018-09-10 12:36 | IPN ---
DATE: 09/10/2018 Mr. Bernal is seen this morning on his bedside. He is very weak and pale looking today, but his dyspnea has improved. Yesterday we gave him Lasix and he responded well. He has no fever, chills, nausea or vomiting. PHYSICAL EXAMINATION: Temperature 98.6 degrees Fahrenheit, heart rate 98 per minute and respiratory rate 20 per minute. Blood pressure 115/58 mmHg and oxygen saturation 95%. Intake and output records from yesterday show total intake 1890 and output 3000. His head is atraumatic. Neck is supple and jugular venous distention (JVD) is minimally elevated. There is no oral thrush or ulcers. Heart sounds are regular and lungs with bilateral expiratory wheezing and diminished breath sounds. Abdomen soft and nontender and bowel sounds are normal. Extremities have no cyanosis or clubbing. Neurologically he is awake, alert and at his baseline mentation. Today's labs show a WBC count of 11.8, hemoglobin 7.5 and hematocrit 23.6. Platelets 65,000. Sodium 141, potassium 4.2, CO2 24, BUN 53 and creatinine 1.97. Calcium is 7.7 and phosphorus 3.5. PROBLEMS: 1. Acute kidney injury superimposed on chronic kidney disease. Kidney function has improved and there is slight worsening today. This is most likely related to diuresis yesterday. His electrolytes are stable and we will recheck his renal profile tomorrow. 2. Congestive heart failure and shortness of breath. His volume status is improved with diuresis yesterday. He seems clinically euvolemic and this is probably his baseline kidney function now with creatinine between 1.7 and 1.9. 3. Anemia. His anemia has worsened despite diuresis and negative fluid balance. I recommend transfusing him 2 units of packed RBCs today. I will also recommend to give him Lasix 40 mg after first unit of packed RBCs to prevent volume overload again. 4. Chronic obstructive pulmonary disease (COPD). His COPD seems to be improving and is being managed by hospitalist service.
[2018-09-10] MEDS ORDERED: METOPROLOL TART 25 MG TABLET PO ONE (12:45)
--- NOTE | 2018-09-10 19:31 | IPN ---
DATE: 09/10/2018 Patient was seen and examined continues to report shortness of breath, mildly weak, mildly confused. Denies any chest pain, pressure or discomfort. Denies any fevers or chills. VITAL SIGNS: Temperature 98, pulse 85, respirations 18, blood pressure 145/79, pulse ox 96% on 3 liters nasal cannula. LABORATORY: WBC 11.8, hemoglobin and hematocrit 7.5 over 23.6, platelets 65, chemistry, sodium 141, potassium 4.2, chloride 109, bicarbonate 24, BUN 53, creatinine 1.97. PHYSICAL EXAMINATION: GENERAL: Patient alert, comfortable in no acute distress. HEENT: Moist mucous membranes. NECK: Supple. No JVD. CARDIAC: Tachycardia, irregular S1, S2. PULMONARY: Diminished breath sounds bilateral, mild rhonchi. ABDOMEN: Soft, nontender and positive bowel sounds. EXTREMITIES: No clubbing, cyanosis or edema. 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 PROBLEMS: 1. Acute on chronic hypoxic respiratory failure secondary to acute COPD exacerbation with influenza on sputum culture. Also patient with pulmonary vascular congestion. Continue Zosyn. Will consider deescalating antibiotics tomorrow. Continue Advair, steroid taper, continue Oxygen supplementation. Patient on 2 liters at home. 2. Atrial fibrillation with rapid ventricular response. Metoprolol has been increased. Patient on Eliquis. 3. Anemia of chronic disease. Transfuse 2 units packed red blood cells. Monitor hemoglobin and hematocrit. Anemia workup has been appreciated. No signs of active bleeding. 4. Mild elevation of troponin, atrial fibrillation with rapid ventricular response. Patient denies any chest pain. Followup with cardiology as outpatient. Continue current medication. 5. Acute on chronic renal insufficiency. Nephrology consulted. No evidence of hydronephrosis. Diuretics is temporarily on hold. Further diuresis as per nephrology. 6. History of coronary artery disease status-post CABG. Cardia enzyme appreciated. Patient on Eliquis, statin, beta dotty. Outpatient followup. 7. History of right side lung cancer with adenocarcinoma status-post radiation, outpatient followup. 8. Insulin dependant diabetes. Continue basal bolus insulin, adjust as needed. 9. Hypertension. Continue current medication. Adjust medication as needed. 10. Lactic acidosis, likely secondary to acute on chronic hypoxic respiratory failure. Supportive care. Treatment as above. 11. DVT prophylaxis. Patient on Eliquis. 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 Pending clinical disposition. Pending clinical improvement.
[2018-09-10] MEDS: ATORVASTATIN 20 MG TAB PO SCH (20:33)
[2018-09-10] MEDS: METOPROLOL TART 25 MG TABLET PO SCH (20:34)
[2018-09-11] MEDS: PIPERACILLIN/TAZOBACTAM SOD 3.375 GM in D5W MINI-BAG PLUS 50 ML IV SCH ×2 (00:59→09:30)
[2018-09-11 06:00] VITALS: BP 148/60
[2018-09-11] MEDS: SLF 3 ML SYR IV SCH ×3 (06:00→21:05)
[2018-09-11 07:14] LABS: HEMATOCRIT 30.2 % (42.0-52.0); MEAN CORPUSCULAR HEMOGLOBIN 28.4 pg (27.0-33.0); MEAN CORPUSCULAR HGB CONC 32.1 g/dl (32.0-36.5); MEAN CORPUSCULAR VOLUME 88.6 fl (80.0-96.0); RED BLOOD COUNT 3.41 10^6/uL (4.30-6.10); WHITE BLOOD COUNT 12.8 10^3/uL (4.0-10.0)
[2018-09-11 07:17] LABS: HEMOGLOBIN 9.7 g/dl (13.5-17.5); PLATELET COUNT, AUTOMATED 79 10^3/uL (150-450)
[2018-09-11] MEDS: TIOTROPIUM INHALER/CAPSULE (SPIRIVA) INH SCH (07:29)
[2018-09-11] MEDS: ADVAIR HFA 230/21MCG INHALER INH SCH ×2 (07:29→19:56)
[2018-09-11 07:38] LABS: ALBUMIN 2.3 GM/DL (3.2-5.2); C REACTIVE PROTEIN QUANTITATIV 10.7 MG/DL (0.00-0.30); CALCIUM LEVEL 7.8 MG/DL (8.8-10.2); CREATININE FOR GFR 1.87 MG/DL (0.70-1.30); GLOMERULAR FILTRATION RATE 37.1 (>35); PHOSPHORUS LEVEL 3.8 MG/DL (2.5-4.9)
[2018-09-11 08:00] VITALS: BP 130/56
[2018-09-11] MEDS: SENOKOT S TAB PO SCH ×2 (09:00→21:04)
[2018-09-11] MEDS: HumaLOG INSULIN (NovoLOG) PER UNIT SC SCH ×4 (09:28→21:04)
[2018-09-11] MEDS: predniSONE 10 MG TAB PO SCH (09:28)
[2018-09-11] MEDS: BENZONATATE 100 MG CAP PO SCH ×3 (09:29→21:04)
[2018-09-11] MEDS: APIXABAN 2.5 MG TAB (ELIQUIS) PO SCH ×2 (09:29→21:04)
[2018-09-11] MEDS: ASCORBIC ACID 500 MG TAB PO SCH ×2 (09:29→21:04)
[2018-09-11] MEDS: FERROUS SULFATE 325MG TAB PO SCH ×2 (09:29→21:04)
[2018-09-11] MEDS: ESCITALOPRAM OXALATE 10 MG TAB (LEXAPRO) PO SCH (09:30)
[2018-09-11] MEDS: METOPROLOL TART 25 MG TABLET PO SCH ×2 (09:30→21:05)
[2018-09-11] MEDS: LEVEMIR (INSULIN DETEMIR) 1 UNITS/0.01ML SC SCH (09:31)
[2018-09-11] MEDS ORDERED: FUROSEMIDE 40 MG/4 ML VIAL (J1940) IV ONE (10:30)
--- NOTE | 2018-09-11 11:12 | IPN ---
DATE OF VISIT: 09/11/2018 Mr. Mcclure is seen this morning on his bedside. He is very hard of hearing and communication is quite difficult. He is still short of breath but denies any nausea or vomiting. He does report frequent loose stools. PHYSICAL EXAMINATION: Temperature 99.6 degrees Fahrenheit, heart rate 107 per minute and respiratory rate 18 per minute. Blood pressure 140/62 mmHg and oxygen saturation 95% on 2 liters oxygen. Intake and output records from yesterday showed total intake 2950 and output 2275 mL with a positive fluid balance of 675. His head is atraumatic. Neck is supple and jugular venous distention (JVD) is only mildly elevated. Lungs have diminished breath sounds and bilateral rhonchi and mild wheezing. Abdomen is soft and nontender. Heart sounds are regular and without a pericardial friction rub. Extremities have no cyanosis or clubbing. Neurologically he is at his baseline mentation. Today's labs show a WBC count of 12.8, hemoglobin 9.7 and hematocrit 30. Sodium 140, potassium 4.0, CO2 of 26, BUN 51 and creatinine 1.87. C-reactive protein is 10.7. PROBLEMS: 1. Acute renal failure superimposed on chronic kidney disease. No significant change in kidney function. He does have mild fluctuations but no trend. This is probably his baseline kidney function with creatinine between 1.7 and 1.9 mg/dL. 2. Congestive heart failure. Volume status has improved but still slightly decompensated. He will be given Lasix 40 mg intravenously today and continue to monitor his urine output. He is in mild positive fluid balance since yesterday. 3. Anemia. His anemia improved following transfusion of 2 units of packed RBCs and no other intervention is indicated.
[2018-09-11 14:18] VITALS: BP 127/56
[2018-09-11 16:00] VITALS: BP 127/66
[2018-09-11] MEDS: CEFDINIR 300 MG CAP (OMNICEF) PO SCH (16:12)
--- NOTE | 2018-09-11 16:21 | IPNPDOC ---
Text Note Date of Service The patient was seen on 09/11/18. NOTE Patient was seen and examined. Reported improved respiration, mildly weak, mildly confused. Denies any chest pain, pressure or discomfort. Denies any fevers or chills. PHYSICAL EXAMINATION: GENERAL: Patient alert, comfortable in no acute distress. HEENT: Moist mucous membranes. NECK: Supple. No JVD. CARDIAC: irregular S1, S2. PULMONARY: Diminished breath sounds bilateral, mild rhonchi. ABDOMEN: Soft, nontender and positive bowel sounds. EXTREMITIES: No clubbing, cyanosis or edema. ASSESSMENT AND PLAN: This is an 83-year-old male patient with underlying medical history of type 2 diabetes, hypertension, CKD stage 3, COPD on 2 liters oxygen at home,h/o lung cancer with adenocarcinoma status-post radiation, prostate cancer with radiation on home treatment, paroxysmal atrial fibrillation on Eliquis, coronary arterial disease who presented with coughing and confusion. PROBLEMS: 1. Acute on chronic hypoxic respiratory failure secondary to acute COPD exacerbation with heamophilus influenza on sputum culture. Also patient with pulmonary vascular congestion. de-escalate antibiotic to cefdnir. Continue Advair, steroid taper, continue Oxygen supplementation. Patient on 2 liters at home. 2. Atrial fibrillation with rapid ventricular response. Metoprolol has been increased. Patient on Eliquis. 3. Anemia of chronic disease. Transfuse 2 units packed red blood cells. Monitor hemoglobin and hematocrit. Anemia workup has been appreciated. No signs of active bleeding. 4. Mild elevation of troponin, atrial fibrillation with rapid ventricular response. Patient denies any chest pain. Followup with cardiology as outpatient. Continue current medication. 5. CHF with diastolic dysfunction. diuresis as per nephrology, serial cardiac enzymes, tele 6. Acute on chronic renal insufficiency. Nephrology consulted. No evidence of hydronephrosis. Further diuresis as per nephrology. 7. History of coronary artery disease status-post CABG. Cardiac enzyme appreciated. Patient on Eliquis, statin, beta dotty. Outpatient followup. 8. History of right side lung cancer with adenocarcinoma status-post radiation, outpatient followup. 9. Insulin dependant diabetes. Continue basal bolus insulin, adjust as needed. 10. Hypertension. Continue current medication. Adjust medication as needed. 11. Lactic acidosis, likely secondary to acute on chronic hypoxic respiratory failure. Supportive care. Treatment as above. 12. DVT prophylaxis. Patient on Eliquis. 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 Pending clinical improvement. PT VS,Fishbone, I+O VS, Fishbone, I+O Laboratory Tests 09/11/18 06:55 Red Blood Count 3.41 L, Mean Corpuscular Volume 88.6, Mean Corpuscular Hemoglobin 28.4, Mean Corpuscular Hemoglobin Concent 32.1, Red Cell Distribution Width 16.2 H, Anion Gap 9 Vital Signs Date Time Temp Pulse Resp B/P (MAP) Pulse Ox O2 Delivery O2 Flow Rate FiO2 09/11/18 14:18 97.8 96 18 127/56 (79) 95 2.0 09/11/18 08:00 Nasal Cannula I&O- Last 24 Hours up to 6 AM 09/11/18 06:00 Intake Total 2920 ml Output Total 2450 ml Balance 470 ml ALEXIS OLIVEIRA MD Sep 11, 2018 16:21
[2018-09-11 20:00] VITALS: BP 141/63
[2018-09-11] MEDS: ATORVASTATIN 20 MG TAB PO SCH (21:04)
[2018-09-11 23:59] VITALS: BP 121/58
[2018-09-12 04:00] VITALS: BP 182/99
[2018-09-12 04:30] VITALS: BP 156/54
[2018-09-12 05:00] VITALS: BP 138/50
[2018-09-12 05:07] LABS: HEMATOCRIT 31.6 % (42.0-52.0); HEMOGLOBIN 10.3 g/dl (13.5-17.5); MEAN CORPUSCULAR HGB CONC 32.6 g/dl (32.0-36.5); RED BLOOD COUNT 3.55 10^6/uL (4.30-6.10); WHITE BLOOD COUNT 12.9 10^3/uL (4.0-10.0)
[2018-09-12] MEDS: SLF 3 ML SYR IV SCH ×3 (05:12→21:18)
[2018-09-12 05:14] LABS: PLATELET COUNT, AUTOMATED 98 10^3/uL (150-450)
[2018-09-12 05:29] LABS: ALBUMIN 2.3 GM/DL (3.2-5.2); CALCIUM LEVEL 7.9 MG/DL (8.8-10.2); CREATININE FOR GFR 1.87 MG/DL (0.70-1.30); GLOMERULAR FILTRATION RATE 37.1 (>35); PHOSPHORUS LEVEL 3.8 MG/DL (2.5-4.9)
[2018-09-12] MEDS: TIOTROPIUM INHALER/CAPSULE (SPIRIVA) INH SCH (07:22)
[2018-09-12] MEDS: ADVAIR HFA 230/21MCG INHALER INH SCH ×2 (07:22→20:29)
[2018-09-12 08:00] VITALS: BP 158/80
[2018-09-12] MEDS: HumaLOG INSULIN (NovoLOG) PER UNIT SC SCH ×4 (08:49→21:03)
[2018-09-12] MEDS ORDERED: predniSONE 20 MG TAB PO SCH (09:00)
[2018-09-12] MEDS: SENOKOT S TAB PO SCH ×2 (09:31→21:03)
[2018-09-12] MEDS: APIXABAN 2.5 MG TAB (ELIQUIS) PO SCH ×2 (09:32→21:18)
[2018-09-12] MEDS: CEFDINIR 300 MG CAP (OMNICEF) PO SCH (09:32)
[2018-09-12] MEDS: ESCITALOPRAM OXALATE 10 MG TAB (LEXAPRO) PO SCH (09:32)
[2018-09-12] MEDS: FERROUS SULFATE 325MG TAB PO SCH ×2 (09:32→21:18)
[2018-09-12] MEDS: BENZONATATE 100 MG CAP PO SCH ×3 (09:32→21:17)
[2018-09-12] MEDS: ASCORBIC ACID 500 MG TAB PO SCH ×2 (09:32→21:17)
[2018-09-12] MEDS: METOPROLOL TART 25 MG TABLET PO SCH ×2 (09:32→21:17)
[2018-09-12] MEDS: LEVEMIR (INSULIN DETEMIR) 1 UNITS/0.01ML SC SCH (09:33)
[2018-09-12 11:40] VITALS: BP 139/65
[2018-09-12] MEDS: predniSONE 20 MG TAB PO SCH (12:55)
[2018-09-12] MEDS: FUROSEMIDE 40 MG TAB PO SCH (12:55)
[2018-09-12] MEDS: CARBAMIDE PEROXIDE 6.5% OTIC SOLN 15ML AD SCH ×2 (16:52→21:18)
--- NOTE | 2018-09-12 16:59 | IPNPDOC ---
Text Note Date of Service The patient was seen on 09/12/18. NOTE Patient was seen and examined. Reported worsening respiration, mildly weak, mildly confused. Denies any chest pain, pressure or discomfort. Denies any fevers or chills. Hard of hearing PHYSICAL EXAMINATION: GENERAL: Patient alert, comfortable in no acute distress. HEENT: Moist mucous membranes., b/l ear wax. NECK: Supple. No JVD. CARDIAC: irregular S1, S2. PULMONARY: Diminished breath sounds bilateral, mild rhonchi. ABDOMEN: Soft, nontender and positive bowel sounds. EXTREMITIES: No clubbing, cyanosis or edema. ASSESSMENT AND PLAN: This is an 83-year-old male patient with underlying medical history of type 2 diabetes, hypertension, CKD stage 3, COPD on 2 liters oxygen at home,h/o lung cancer with adenocarcinoma status-post radiation, prostate cancer with radiation on home treatment, paroxysmal atrial fibrillation on Eliquis, coronary arterial disease who presented with coughing and confusion. PROBLEMS: 1. Acute on chronic hypoxic respiratory failure secondary to acute COPD exacerbation with heamophilus influenza on sputum culture. Also patient with pulmonary vascular congestion. de-escalate antibiotic to cefdnir. Continue Advair, steroid taper, continue Oxygen supplementation. Patient on 2 liters at home. 2. Atrial fibrillation with rapid ventricular response. Metoprolol has been increased. Patient on Eliquis. 3. Anemia of chronic disease. Transfuse 2 units packed red blood cells. Monitor hemoglobin and hematocrit. Anemia workup has been appreciated. No signs of active bleeding. 4. Mild elevation of troponin, atrial fibrillation with rapid ventricular response. Patient denies any chest pain. Followup with cardiology as outpatient. Continue current medication. 5. CHF with diastolic dysfunction. diuresis as per nephrology, serial cardiac enzymes, tele, started on PO lasix 6. Acute on chronic renal insufficiency. Nephrology consulted. No evidence of hydronephrosis. Further diuresis as per nephrology. 7. History of coronary artery disease status-post CABG. Cardiac enzyme appreciated. Patient on Eliquis, statin, beta dotty. Outpatient followup. 8. History of right side lung cancer with adenocarcinoma status-post radiation, outpatient followup. ct appreciated 9. Insulin dependant diabetes. Continue basal bolus insulin, adjust as needed. 10. Hypertension. Continue current medication. Adjust medication as needed. 11. Lactic acidosis, likely secondary to acute on chronic hypoxic respiratory failure. Supportive care. Treatment as above. 12. DVT prophylaxis. Patient on Eliquis. 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 Pending clinical improvement. PT VS,Fishbone, I+O VS, Fishbone, I+O Laboratory Tests 09/12/18 04:52 Red Blood Count 3.55 L, Mean Corpuscular Volume 89.0, Mean Corpuscular Hemoglobin 29.0, Mean Corpuscular Hemoglobin Concent 32.6, Red Cell Distribution Width 16.1 H, Anion Gap 6 L Vital Signs Date Time Temp Pulse Resp B/P (MAP) Pulse Ox O2 Delivery O2 Flow Rate FiO2 09/12/18 12:00 2.0 09/12/18 11:40 98.5 63 24 139/65 (89) 93 09/11/18 08:00 Nasal Cannula I&O- Last 24 Hours up to 6 AM 09/12/18 06:00 Intake Total 2730 ml Output Total 2975 ml Balance -245 ml ALEXIS OLIVEIRA MD Sep 12, 2018 16:59
--- NOTE | 2018-09-12 17:11 | IPN ---
DATE: 09/12/2018 Mr. Mcclure is seen this morning on his bedside. The patient is resting comfortably and his dyspnea has improved significantly. No diarrhea or vomiting reported. He has no fever or chills. PHYSICAL EXAMINATION: Temperature 97.4 degrees Fahrenheit, heart rate 100 per minute and respiratory rate 20 per minute. Blood pressure 158/80 mmHg and oxygen saturation 94% on 2 liters oxygen. Intake and output records from yesterday showed total intake 2670 and output 3325 mL. The patient is significantly hard of hearing. His head is atraumatic and neck veins are not abnormally distended. Heart: Sounds are tachycardiac and somewhat distant. Lungs with slightly diminished breath sounds but no wheezing or rales. Abdomen: Soft and nontender and bowel sounds are normal. Extremities have no cyanosis or clubbing. Neurologically he is essentially unchanged. Today's labs show sodium 142, potassium 4.0, CO2 31, BUN 56 and creatinine 1.87. Hemoglobin is 10.3 and hematocrit 31.6. PROBLEM #1: Congestive heart failure. Volume status seems significantly improved. He does have advanced chronic obstructive pulmonary disease (COPD), and his dyspnea is now mostly related to COPD. PROBLEM #2: Acute on chronic kidney disease. His kidney function seems to be unchanged, and this is probably his baseline function. The patient does not have any uremic symptoms and electrolytes are within normal range. PROBLEM: #3: Chronic obstructive pulmonary disease and shortness of breath. His volume status is now well compensated and shortness of breath is mostly due to COPD. He remains on treatment with nebulizers, oxygen supplementation and steroids.
[2018-09-12 20:00] VITALS: BP 129/67
[2018-09-12] MEDS: ATORVASTATIN 20 MG TAB PO SCH (21:17)
[2018-09-13 00:17] VITALS: BP 120/69
[2018-09-13 04:00] VITALS: BP 150/58
[2018-09-13] MEDS: SLF 3 ML SYR IV SCH ×3 (05:02→21:00)
[2018-09-13 05:17] LABS: HEMATOCRIT 32.1 % (42.0-52.0); HEMOGLOBIN 10.4 g/dl (13.5-17.5); MEAN CORPUSCULAR HEMOGLOBIN 28.6 pg (27.0-33.0); MEAN CORPUSCULAR HGB CONC 32.4 g/dl (32.0-36.5); MEAN CORPUSCULAR VOLUME 88.2 fl (80.0-96.0); RED BLOOD COUNT 3.64 10^6/uL (4.30-6.10); WHITE BLOOD COUNT 11.3 10^3/uL (4.0-10.0)
[2018-09-13 05:24] LABS: PLATELET COUNT, AUTOMATED 94 10^3/uL (150-450)
[2018-09-13 05:40] LABS: ALBUMIN 2.4 GM/DL (3.2-5.2); C REACTIVE PROTEIN QUANTITATIV 4.12 MG/DL (0.00-0.30); CALCIUM LEVEL 7.9 MG/DL (8.8-10.2); CREATININE FOR GFR 1.83 MG/DL (0.70-1.30); MAGNESIUM LEVEL 2.4 MG/DL (1.8-2.4); PHOSPHORUS LEVEL 4.2 MG/DL (2.5-4.9); POTASSIUM SERUM 4.5 MEQ/L (3.5-5.1)
[2018-09-13] MEDS: HumaLOG INSULIN (NovoLOG) PER UNIT SC SCH ×4 (07:28→20:50)
[2018-09-13 08:00] VITALS: BP 130/50
[2018-09-13] MEDS: TIOTROPIUM INHALER/CAPSULE (SPIRIVA) INH SCH (08:26)
[2018-09-13] MEDS: ADVAIR HFA 230/21MCG INHALER INH SCH ×2 (08:26→21:13)
[2018-09-13] MEDS: SENOKOT S TAB PO SCH (09:00)
[2018-09-13] MEDS: LEVEMIR (INSULIN DETEMIR) 1 UNITS/0.01ML SC SCH (09:35)
[2018-09-13] MEDS: FERROUS SULFATE 325MG TAB PO SCH ×2 (09:35→20:51)
[2018-09-13] MEDS: predniSONE 20 MG TAB PO SCH (09:36)
[2018-09-13] MEDS: FUROSEMIDE 40 MG TAB PO SCH (09:36)
[2018-09-13] MEDS: BENZONATATE 100 MG CAP PO SCH ×3 (09:36→20:51)
[2018-09-13] MEDS: ASCORBIC ACID 500 MG TAB PO SCH ×2 (09:36→20:51)
[2018-09-13] MEDS: CEFDINIR 300 MG CAP (OMNICEF) PO SCH (09:36)
[2018-09-13] MEDS: ESCITALOPRAM OXALATE 10 MG TAB (LEXAPRO) PO SCH (09:36)
[2018-09-13] MEDS: APIXABAN 2.5 MG TAB (ELIQUIS) PO SCH ×2 (09:36→20:51)
[2018-09-13] MEDS: METOPROLOL TART 25 MG TABLET PO SCH ×2 (09:37→20:51)
[2018-09-13] MEDS: CARBAMIDE PEROXIDE 6.5% OTIC SOLN 15ML AD SCH ×2 (09:37→20:52)
[2018-09-13 12:00] VITALS: BP 160/78
[2018-09-13] MEDS: LACTOBACILLUS ACIDOPHILUS CAP (BACID) PO SCH ×2 (12:30→17:08)
--- NOTE | 2018-09-13 14:43 | IPN ---
DATE OF VISIT: 09/13/2018 Mr. Mcclure is seen this morning on his bedside. He is sitting in the chair and reports frequent loose stools. He denies any nausea or vomiting. His dyspnea has improved. He denies any fever or chills. PHYSICAL EXAMINATION Temperature 97.6 degrees Fahrenheit, heart rate 82 per minute and respiratory rate 18 per minute. Blood pressure 130/50 mmHg and oxygen saturation 97% on 2 liters oxygen. His head is atraumatic. Neck is supple and without jugular venous distention (JVD) sitting upright. Lungs have diminished breath sounds and minimal expiratory wheezing. Heart sounds are regular. Abdomen soft and bowel sounds are present. Extremities without any cyanosis or clubbing. Neurologically he is at his baseline mentation. Today's labs show a WBC count 11.3, hemoglobin 10.4 and hematocrit 32. Platelets of 94,000. Sodium 141, potassium 4.5, CO2 28, BUN 60 and creatinine 1.83. PROBLEMS: 1. Congestive heart failure. Volume status has improved and seems to be clinically optimal. He is currently on Lasix 40 mg daily which is appropriate. We have given some extra diuretic during last couple of days and volume status has improved. He is now having diarrhea so we will not give him any extra diuretic for now. 2. Acute renal failure superimposed on chronic disease. Kidney function has improved and stabilized and this is most likely his baseline function. 3. Anemia. He did require a transfusion a few days ago and since then his anemia has improved and stable. 4. Diarrhea. Dr. Dumont is going to investigate with possible stool panel.
[2018-09-13 16:00] VITALS: BP 160/60
--- NOTE | 2018-09-13 18:35 | IPNPDOC ---
Text Note Date of Service The patient was seen on 09/13/18. NOTE Patient was seen and examined. Con't sob, mildly weak, mildly confused. Denies any chest pain, pressure or discomfort. Denies any fevers or chills. Communicate much better with hearing aid PHYSICAL EXAMINATION: GENERAL: Patient alert, comfortable in no acute distress. HEENT: Moist mucous membranes., b/l ear wax. NECK: Supple. No JVD. CARDIAC: irregular S1, S2. PULMONARY: Diminished breath sounds bilateral, mild expiratory wheeze ABDOMEN: Soft, nontender and positive bowel sounds. EXTREMITIES: No clubbing, cyanosis or edema. ASSESSMENT AND PLAN: This is an 83-year-old male patient with underlying medical history of type 2 diabetes, hypertension, CKD stage 3, COPD on 2 liters oxygen at home,h/o lung cancer with adenocarcinoma status-post radiation, prostate cancer with radiation, paroxysmal atrial fibrillation on Eliquis, coronary arterial disease who presented with coughing and confusion. PROBLEMS: 1. Acute on chronic hypoxic respiratory failure secondary to acute COPD exacerbation with heamophilus influenza on sputum culture. Also patient with pulmonary vascular congestion. de-escalate antibiotic to cefdnir. Continue Advair, steroid taper, continue Oxygen supplementation. Patient on 2 liters at home. 2. Atrial fibrillation with rapid ventricular response. Metoprolol has been increased. Patient on Eliquis. 3. Anemia of chronic disease. Transfuse 2 units packed red blood cells. Monitor hemoglobin and hematocrit. Anemia workup has been appreciated. No signs of active bleeding. 4. Mild elevation of troponin, atrial fibrillation with rapid ventricular response. Patient denies any chest pain. Followup with cardiology as outpatient. Continue current medication. 5. CHF with diastolic dysfunction. diuresis as per nephrology, serial cardiac enzymes, tele, started on PO lasix 6. Acute on chronic renal insufficiency. Nephrology consulted. No evidence of hydronephrosis. Further diuresis as per nephrology. 7. History of coronary artery disease status-post CABG. Cardiac enzyme appreciated. Patient on Eliquis, statin, beta dotty. Outpatient followup. 8. History of right side lung cancer with adenocarcinoma status-post radiation, outpatient followup. ct appreciated 9. Insulin dependant diabetes. Continue basal bolus insulin, adjust as needed. 10. Hypertension. Continue current medication. Adjust medication as needed. 11. Lactic acidosis, likely secondary to acute on chronic hypoxic respiratory failure. Supportive care. Treatment as above. 12. DVT prophylaxis. Patient on Eliquis. 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 Pending clinical improvement. PT, need STR VS,Fishbone, I+O VS, Fishbone, I+O Laboratory Tests 09/13/18 04:21 Red Blood Count 3.64 L, Mean Corpuscular Volume 88.2, Mean Corpuscular Hemoglobin 28.6, Mean Corpuscular Hemoglobin Concent 32.4, Red Cell Distribution Width 15.9 H, Anion Gap 9 Vital Signs Date Time Temp Pulse Resp B/P (MAP) Pulse Ox O2 Delivery O2 Flow Rate FiO2 09/13/18 16:00 2.0 09/13/18 16:00 97.7 78 20 160/60 (93) 95 09/12/18 20:27 Nasal Cannula I&O- Last 24 Hours up to 6 AM 09/13/18 06:00 Intake Total 720 ml Output Total 1045 ml Balance -325 ml ALEXIS OLIVEIRA MD Sep 13, 2018 18:35
[2018-09-13 20:00] VITALS: BP 133/66
[2018-09-13] MEDS: ATORVASTATIN 20 MG TAB PO SCH (20:51)
[2018-09-14] VITALS: BP 160/60
[2018-09-14 04:00] VITALS: BP 153/68
[2018-09-14] MEDS: SLF 3 ML SYR IV SCH ×3 (05:01→22:00)
[2018-09-14 05:36] LABS: HEMATOCRIT 31.1 % (42.0-52.0); MEAN CORPUSCULAR HEMOGLOBIN 28.7 pg (27.0-33.0); MEAN CORPUSCULAR HGB CONC 32.2 g/dl (32.0-36.5); MEAN CORPUSCULAR VOLUME 89.1 fl (80.0-96.0); RED BLOOD COUNT 3.49 10^6/uL (4.30-6.10); WHITE BLOOD COUNT 15.2 10^3/uL (4.0-10.0)
[2018-09-14 05:44] LABS: PLATELET COUNT, AUTOMATED 96 10^3/uL (150-450)
[2018-09-14 05:53] LABS: ALBUMIN 2.3 GM/DL (3.2-5.2); C REACTIVE PROTEIN QUANTITATIV 1.87 MG/DL (0.00-0.30); CREATININE FOR GFR 1.49 MG/DL (0.70-1.30); GLOMERULAR FILTRATION RATE 48.2 (>35); MAGNESIUM LEVEL 2.3 MG/DL (1.8-2.4); PHOSPHORUS LEVEL 3.5 MG/DL (2.5-4.9); POTASSIUM SERUM 4.2 MEQ/L (3.5-5.1)
[2018-09-14 08:00] VITALS: BP 167/70
[2018-09-14] MEDS: LACTOBACILLUS ACIDOPHILUS CAP (BACID) PO SCH ×3 (08:33→17:31)
[2018-09-14] MEDS: BENZONATATE 100 MG CAP PO SCH ×3 (08:33→21:13)
[2018-09-14] MEDS: CEFDINIR 300 MG CAP (OMNICEF) PO SCH (08:33)
[2018-09-14] MEDS: APIXABAN 2.5 MG TAB (ELIQUIS) PO SCH ×2 (08:33→21:13)
[2018-09-14] MEDS: FUROSEMIDE 40 MG TAB PO SCH (08:34)
[2018-09-14] MEDS: FERROUS SULFATE 325MG TAB PO SCH (08:34)
[2018-09-14] MEDS: ESCITALOPRAM OXALATE 10 MG TAB (LEXAPRO) PO SCH (08:34)
[2018-09-14] MEDS: ASCORBIC ACID 500 MG TAB PO SCH ×2 (08:34→21:14)
[2018-09-14] MEDS: METOPROLOL TART 25 MG TABLET PO SCH ×2 (08:35→21:14)
[2018-09-14] MEDS: CARBAMIDE PEROXIDE 6.5% OTIC SOLN 15ML AD SCH ×2 (08:36→21:18)
[2018-09-14] MEDS: LEVEMIR (INSULIN DETEMIR) 1 UNITS/0.01ML SC SCH (08:37)
[2018-09-14] MEDS: HumaLOG INSULIN (NovoLOG) PER UNIT SC SCH ×4 (08:38→21:00)
[2018-09-14] MEDS: ADVAIR HFA 230/21MCG INHALER INH SCH ×2 (08:46→20:54)
[2018-09-14] MEDS: TIOTROPIUM INHALER/CAPSULE (SPIRIVA) INH SCH (08:46)
[2018-09-14] MEDS: predniSONE 10 MG TAB PO SCH (09:27)
[2018-09-14 12:00] VITALS: BP 176/58
--- NOTE | 2018-09-14 14:29 | IPNPDOC ---
Text Note Date of Service The patient was seen on 09/14/18. NOTE Patient was seen and examined. Con't sob, mildly weak. Denies any chest pain, pressure or discomfort. Denies any fevers or chills. Communicate much better with hearing aid PHYSICAL EXAMINATION: GENERAL: Patient alert, comfortable in no acute distress. HEENT: Moist mucous membranes., b/l ear wax. NECK: Supple. No JVD. CARDIAC: irregular S1, S2. PULMONARY: Diminished breath sounds bilateral, mild expiratory wheeze ABDOMEN: Soft, nontender and positive bowel sounds. EXTREMITIES: No clubbing, cyanosis or edema. ASSESSMENT AND PLAN: This is an 83-year-old male patient with underlying medical history of type 2 diabetes, hypertension, CKD stage 3, COPD on 2 liters oxygen at home,h/o lung cancer with adenocarcinoma status-post radiation, prostate cancer with radiation, paroxysmal atrial fibrillation on Eliquis, coronary arterial disease who presented with coughing and confusion. PROBLEMS: 1. Acute on chronic hypoxic respiratory failure secondary to acute COPD exacerbation with heamophilus influenza on sputum culture. Also patient with pulmonary vascular congestion. de-escalate antibiotic to cefdnir. Continue Advair, steroid taper, continue Oxygen supplementation. Patient on 2 liters at home. 2. Atrial fibrillation with rapid ventricular response. Metoprolol has been increased. Patient on Eliquis. 3. Anemia of chronic disease. Transfuse 2 units packed red blood cells. Monitor hemoglobin and hematocrit. Anemia workup has been appreciated. No signs of active bleeding. 4. Mild elevation of troponin, atrial fibrillation with rapid ventricular response. Patient denies any chest pain. Followup with cardiology as outpatient. Continue current medication. 5. CHF with diastolic dysfunction. diuresis as per nephrology, serial cardiac enzymes, tele, started on PO lasix 6. Acute on chronic renal insufficiency. Nephrology consulted. No evidence of hydronephrosis. Further diuresis as per nephrology. 7. History of coronary artery disease status-post CABG. Cardiac enzyme appreciated. Patient on Eliquis, statin, beta dotty. Outpatient followup. 8. History of right side lung cancer with adenocarcinoma status-post radiation, outpatient followup. ct appreciated 9. Insulin dependant diabetes. Continue basal bolus insulin, adjust as needed. 10. Hypertension. Continue current medication. Adjust medication as needed. 11. Lactic acidosis, likely secondary to acute on chronic hypoxic respiratory failure. Supportive care. Treatment as above. 12. DVT prophylaxis. Patient on Eliquis. 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 P ending clinical improvement. PT, need STR VS,Fishbone, I+O VS, Fishbone, I+O Laboratory Tests 09/14/18 04:50 Red Blood Count 3.49 L, Mean Corpuscular Volume 89.1, Mean Corpuscular Hemoglobin 28.7, Mean Corpuscular Hemoglobin Concent 32.2, Red Cell Distribution Width 15.6 H, Anion Gap 6 L Vital Signs Date Time Temp Pulse Resp B/P (MAP) Pulse Ox O2 Delivery O2 Flow Rate FiO2 09/14/18 12:00 97.8 105 20 176/58 (97 91 2.0 09/12/18 20:27 Nasal Cannula I&O- Last 24 Hours up to 6 AM 09/14/18 06:00 Intake Total 1020 ml Output Total 1100 ml Balance -80 ml ALEXIS OLIVEIRA MD Sep 14, 2018 14:28
[2018-09-14 15:01] VITALS: BP 152/0
[2018-09-14] MEDS: ATORVASTATIN 20 MG TAB PO SCH (21:13)
[2018-09-14 22:00] VITALS: BP 153/67
[2018-09-15 02:00] VITALS: BP 143/72
[2018-09-15 06:00] VITALS: BP 142/66
[2018-09-15 06:21] LABS: HEMOGLOBIN 10.2 g/dl (13.5-17.5); MEAN CORPUSCULAR HEMOGLOBIN 28.8 pg (27.0-33.0); MEAN CORPUSCULAR HGB CONC 31.9 g/dl (32.0-36.5); MEAN CORPUSCULAR VOLUME 90.4 fl (80.0-96.0); RED BLOOD COUNT 3.54 10^6/uL (4.30-6.10); WHITE BLOOD COUNT 18.2 10^3/uL (4.0-10.0)
[2018-09-15] MEDS: SLF 3 ML SYR IV SCH ×3 (06:22→22:00)
[2018-09-15 06:41] LABS: ALBUMIN 2.4 GM/DL (3.2-5.2); CALCIUM LEVEL 7.9 MG/DL (8.8-10.2); CREATININE FOR GFR 1.66 MG/DL (0.70-1.30); GLOMERULAR FILTRATION RATE 42.5 (>35); MAGNESIUM LEVEL 2.3 MG/DL (1.8-2.4); PHOSPHORUS LEVEL 3.7 MG/DL (2.5-4.9); POTASSIUM SERUM 4.3 MEQ/L (3.5-5.1)
[2018-09-15 06:49] LABS: PLATELET COUNT, AUTOMATED 81 10^3/uL (150-450)
[2018-09-15] MEDS: TIOTROPIUM INHALER/CAPSULE (SPIRIVA) INH SCH (08:30)
[2018-09-15] MEDS: ADVAIR HFA 230/21MCG INHALER INH SCH ×2 (08:30→21:37)
[2018-09-15] MEDS ORDERED: FUROSEMIDE 20 MG TAB PO SCH (09:00)
[2018-09-15] MEDS: CEFDINIR 300 MG CAP (OMNICEF) PO SCH (09:45)
[2018-09-15] MEDS: LACTOBACILLUS ACIDOPHILUS CAP (BACID) PO SCH ×3 (09:45→18:45)
[2018-09-15] MEDS: predniSONE 10 MG TAB PO SCH (09:45)
[2018-09-15] MEDS: ESCITALOPRAM OXALATE 10 MG TAB (LEXAPRO) PO SCH (09:45)
[2018-09-15] MEDS: FERROUS SULFATE 325MG TAB PO SCH (09:46)
[2018-09-15] MEDS: BENZONATATE 100 MG CAP PO SCH ×3 (09:46→22:00)
[2018-09-15] MEDS: APIXABAN 2.5 MG TAB (ELIQUIS) PO SCH ×2 (09:46→22:00)
[2018-09-15] MEDS: ASCORBIC ACID 500 MG TAB PO SCH ×2 (09:46→22:01)
[2018-09-15] MEDS: METOPROLOL TART 25 MG TABLET PO SCH ×2 (09:49→22:01)
[2018-09-15] MEDS: LEVEMIR (INSULIN DETEMIR) 1 UNITS/0.01ML SC SCH (09:50)
[2018-09-15] MEDS: CARBAMIDE PEROXIDE 6.5% OTIC SOLN 15ML AD SCH ×2 (09:50→22:01)
[2018-09-15] MEDS: HumaLOG INSULIN (NovoLOG) PER UNIT SC SCH ×4 (09:51→21:00)
[2018-09-15 10:00] VITALS: BP 150/67
[2018-09-15 14:00] VITALS: BP 147/67
[2018-09-15 18:00] VITALS: BP 166/75
[2018-09-15 22:00] VITALS: BP 144/69
[2018-09-15] MEDS: ATORVASTATIN 20 MG TAB PO SCH (22:00)
[2018-09-16 02:00] VITALS: BP 132/60
[2018-09-16 05:59] LABS: HEMATOCRIT 32.5 % (42.0-52.0); HEMOGLOBIN 10.2 g/dl (13.5-17.5); MEAN CORPUSCULAR HEMOGLOBIN 28.7 pg (27.0-33.0); MEAN CORPUSCULAR HGB CONC 31.4 g/dl (32.0-36.5); MEAN CORPUSCULAR VOLUME 91.5 fl (80.0-96.0); RED BLOOD COUNT 3.55 10^6/uL (4.30-6.10); WHITE BLOOD COUNT 19.7 10^3/uL (4.0-10.0)
[2018-09-16 06:00] VITALS: BP 157/67
[2018-09-16 06:00] LABS: PLATELET COUNT, AUTOMATED 75 10^3/uL (150-450)
[2018-09-16] MEDS: SLF 3 ML SYR IV SCH ×3 (06:00→20:49)
[2018-09-16 06:26] LABS: C REACTIVE PROTEIN QUANTITATIV 1.71 MG/DL (0.00-0.30); CALCIUM LEVEL 7.8 MG/DL (8.8-10.2); CREATININE FOR GFR 1.73 MG/DL (0.70-1.30); GLOMERULAR FILTRATION RATE 40.6 (>35); MAGNESIUM LEVEL 2.5 MG/DL (1.8-2.4); POTASSIUM SERUM 4.7 MEQ/L (3.5-5.1)
[2018-09-16] MEDS: TIOTROPIUM INHALER/CAPSULE (SPIRIVA) INH SCH ×2 (07:24→07:27)
[2018-09-16] MEDS: ADVAIR HFA 230/21MCG INHALER INH SCH ×2 (07:27→19:55)
[2018-09-16] MEDS: BENZONATATE 100 MG CAP PO SCH ×3 (09:03→20:48)
[2018-09-16] MEDS: LACTOBACILLUS ACIDOPHILUS CAP (BACID) PO SCH ×3 (09:03→17:53)
[2018-09-16] MEDS: CEFDINIR 300 MG CAP (OMNICEF) PO SCH (09:03)
[2018-09-16] MEDS: ASCORBIC ACID 500 MG TAB PO SCH ×2 (09:03→20:47)
[2018-09-16] MEDS: ESCITALOPRAM OXALATE 10 MG TAB (LEXAPRO) PO SCH (09:03)
[2018-09-16] MEDS: APIXABAN 2.5 MG TAB (ELIQUIS) PO SCH ×2 (09:04→20:49)
[2018-09-16] MEDS: predniSONE 10 MG TAB PO SCH (09:04)
[2018-09-16] MEDS: FERROUS SULFATE 325MG TAB PO SCH (09:04)
[2018-09-16] MEDS: METOPROLOL TART 25 MG TABLET PO SCH ×2 (09:04→20:48)
[2018-09-16] MEDS: LEVEMIR (INSULIN DETEMIR) 1 UNITS/0.01ML SC SCH (09:05)
[2018-09-16] MEDS: HumaLOG INSULIN (NovoLOG) PER UNIT SC SCH ×4 (09:06→20:42)
[2018-09-16] MEDS: CARBAMIDE PEROXIDE 6.5% OTIC SOLN 15ML AS SCH ×2 (09:06→20:50)
--- NOTE | 2018-09-16 09:17 | IPN ---
DATE: 09/15/2018 The patient is seen and examined, reporting improved respirations. Denies any chest pain, pressure or discomfort. Denies any fevers or chills. VITAL SIGNS: Temperature 97.5, pulse 96, respirations 17, blood pressure 166/75, pulse oximetry 93% on room air. LABORATORY: WBC 18.2, hemoglobin and hematocrit 10.2/32, platelets 81. Chemistry: Sodium 141, potassium 4.3, chloride 105, bicarbonate 30, BUN 62, creatinine 1.66. PHYSICAL EXAMINATION: GENERAL: The patient is alert, comfortable, and in no acute distress. HEENT: Moist mucous membranes. NECK: Supple. CARDIAC: Irregular. No tachycardia. S1, S2. PULMONARY: Diminished breath sounds bilaterally. Upper airway sounds. The patient's wheeze has improved. ABDOMEN: Soft, nontender. Positive bowel sounds. EXTREMITIES: No clubbing, cyanosis or edema. ASSESSMENT AND PLAN: This is an 83-year-old male patient with underlying medical history of type 2 diabetes, hypertension , chronic kidney disease stage III, chronic obstructive pulmonary disease (COPD) on 2 liters of oxygen at home, history of lung cancer with adenocarcinoma, status post radiation, prostate cancer with radiation, paroxysmal atrial fibrillation on Eliquis, coronary artery disease, presented with cough and confusion. 1. Acute on chronic hypoxic respiratory failure, secondary to acute chronic obstructive pulmonary disease (COPD) exacerbation due to Haemophilus influenzae pneumonia, Haemophilus influenzae on sputum. The patient is currently on Cefdinir for antibiotics. Was diuresed for pulmonary vascular congestion. Continue Advair, steroid taper. Continue oxygen supplementation, on 2 liters of oxygen at home. 2. Atrial fibrillation with rapid ventricular response. Continue metoprolol at increased dose. Continue Eliquis. 3. Anemia of chronic disease. Transfuse 2 units of packed red blood cell. Monitor hemoglobin and hematocrit. Anemia workup has been appreciated. No signs of bleeding. 4. Mild elevated troponin secondary to atrial fibrillation with rapid ventricular response. The patient denies any chest pain. Followup with cardiology as an outpatient. Continue current medications. 5. Congestive heart failure (CHF) with diastolic dysfunction. The patient was diuresed. Diuretic has been decreased given increase in creatinine. Further recommendations as per nephrology. Serial cardiac enzymes appreciated. 6. Acute on chronic renal insufficiency. Nephrology consulted. Diuretic has been decreased. Further recommendations as per nephrology. 7. History of coronary artery disease with coronary artery bypass graft (CABG). Cardiac enzymes appreciated. The patient is on Eliquis, statin, beta dotty. Outpatient followup. 8. History of right sided lung cancer with adenocarcinoma. Status post radiation. CT scan appreciated. Needs outpatient followup. Unknown if cancer has gotten worse. 9. Insulin-dependent diabetes. Basal bolus insulin. Followup fingersticks. 10. Hypertension. Continue current medications. 11. Lactic acidosis. Likely secondary to respiratory distress. Supportive care. Treatment as above. 12. Deep vein thrombosis (DVT) prophylaxis. The patient is on Eliquis. DISPOSITION: Poor long-term prognosis given multiple comorbidities. Physical therapy (PT) has been ordered. Likely needs short-term rehabilitation.
[2018-09-16 10:00] VITALS: BP 146/54
[2018-09-16] MEDS ORDERED: OXYMETAZOLINE NASAL SPRAY (AFRIN) STA (10:56)
--- NOTE | 2018-09-16 12:57 | IPN ---
DATE OF SERVICE: 09/14/2018 SUBJECTIVE: The patient was seen and examined at the bedside today morning. He was getting ready to washed in the morning when I saw him. He is afebrile. Hemodynamically stable. Renal function continues to improve. Creatinine is down to 1.4. He still has some cough. He denies any active complaints at this time. OBJECTIVE: VITAL SIGNS: Temperature is 97.8 degrees Fahrenheit, blood pressure 167/70, pulse is 105, respiratory rate of 20, saturating 97% on nasal cannula at 2 liters. INTAKE/OUTPUT: Urine output recorded as 1.5 liters yesterday, 850 mL so far today since overnight. Weight in the bed scale is 67.3 kg. PHYSICAL EXAMINATION: GENERAL: The patient is awake, very hard of hearing, laying in bed, in no apparent distress. HEAD AND NECK EXAM: Extraocular muscles intact. Pupils equally round and reactive to light. Mucous membranes are moist. Neck is supple. There is no jugular venous distention (JVD). CARDIOVASCULAR: S1, S2, regular rate. No edema of the bilateral lower extremities. Midline sternotomy scar was noted. RESPIRATORY: Mildly decreased breath sounds at the bases. Intermittently patient is having some cough, otherwise no active rales or rhonchi. ABDOMEN: Abdomen is soft. Positive bowel sounds, nontender. No organomegaly. MUSCULOSKELETAL: No clubbing or cyanosis. Pulses are 2+. CENTRAL NERVOUS SYSTEM: Patient is very hard of hearing, otherwise no focal deficit. LAB REVIEW: CBC showed a WBC of 15.2, hemoglobin 10, platelets are 96. BMP showed sodium 141, potassium 4.2, chloride 106, bicarbonate 29, BUN 57 creatinine is 1.4; it was 1.8 yesterday, phosphorus is 3.5, magnesium 2.3. CURRENT INPATIENT MEDICATIONS: The patient's medications were all reviewed by me. He continues to be on oral Omnicef 300 mg by mouth daily. Iron tablet has been decreased to 325 mg by mouth once a day. He continues to be on Lasix 40 mg by mouth daily. Prednisone dose has been decreased to 30 mg by mouth daily. No other changes in the medications today as compared with yesterday. ASSESSMENT AND PLAN: 1. Acute renal failure superimposed on chronic kidney disease. Patient's renal function continues to improve. Creatinine is down to 1.4. Okay to continue low dose diuretic at this time. 2. Congestive heart failure. Volume status is improving. Continue Lasix 40 mg by mouth daily. 3. Anemia secondary to chronic kidney disease. Hemoglobin is 10 which is optimal at this point. No need for blood transfusion. Iron tablet has been decreased to once a day only. 4. Acute chronic obstructive pulmonary artery disease (COPD) exacerbation. Patient is on antibiotics for Haemophilus influenzae in the sputum culture. Steroid dose is being decreased. Continue the nebulizations as needed. 5. Atrial fibrillation. Heart rate is controlled. Continue current dose of metoprolol. Patient is already anticoagulated with Eliquis.
--- NOTE | 2018-09-16 13:45 | IPN ---
DATE OF SERVICE: 09/15/2018 SUBJECTIVE: The patient was seen and examined at the bedside today morning. He is afebrile. He is very hard of hearing. He is unable to provide any reliable review of systems. There is a slight bump in his creatinine from 1.4 to 1.6 today. His cough is improving. OBJECTIVE: VITAL SIGNS: Temperature is 97.4 degrees Fahrenheit, blood pressure 150/67, pulse is 83, respiratory rate of 19, saturating 91% on 3 liters via nasal cannula. INTAKE/OUTPUT: Urine output recorded as 1.3 liters yesterday, 750 mL so far today since overnight. Weight in the bed scale is not available. PHYSICAL EXAMINATION: GENERAL: The patient is awake and alert, laying in the bed, very hard of hearing. HEAD AND NECK EXAM: Extraocular muscles intact. Pupils equally round and reactive to light. Mucous membranes are moist. Neck is supple. There is no jugular venous distention (JVD). CARDIOVASCULAR: S1, S2, irregular rate. No edema of the bilateral lower extremities. RESPIRATORY: Mildly decreased breath sounds at the bases, otherwise no active rales or rhonchi. ABDOMEN: Abdomen is soft. Positive bowel sounds, nontender. No organomegaly. GENITOURINARY: He has an indwelling Davis catheter. MUSCULOSKELETAL: No clubbing or cyanosis. No edema of the bilateral lower extremities. CENTRAL NERVOUS SYSTEM: Patient is hard of hearing, otherwise he moves all extremities. LAB REVIEW: CBC showed a WBC of 18.2, hemoglobin 9.2, platelets are 81. BMP showed sodium 141, potassium 4.3, chloride 105, bicarbonate 30, BUN 62 creatinine is 1.6; it was 1.4 yesterday, calcium 7.9, phosphorus is 3.7, magnesium 2.3. CURRENT INPATIENT MEDICATIONS: The patient's medications were all reviewed by me. His Lasix dose has been decreased to 20 mg by mouth daily by the primary team. No other change in the medications today as compared with yesterday. ASSESSMENT AND PLAN: 1. Acute renal failure superimposed on chronic kidney disease. Patient's creatinine was improving up until yesterday. There is a bump in the creatinine from 1.4 to 1.6. Looks like patient is slightly volume depleted. His diuretic dose has already been decreased by primary team and I agree with that. 2. Congestive heart failure. Patient's volume status is improved. I do not see any edema at this point. Lasix dose has been decreased to 20 mg by mouth daily. 3. Anemia and chronic kidney disease. Hemoglobin is 10.2 which is optimal at this point.
[2018-09-16 14:00] VITALS: BP 154/58
--- NOTE | 2018-09-16 15:08 | NUR ---
Pt seen for bedside swallow evaluation to r/o aspiration. No overt s/s of aspiration/penetration noted. Swallow appears to be adequate. Recommend: regular solids and liquids. Meds whole with liquid wash. Addendum: 09/17/18 at 1510 by SANDRA BRODERICK [facility] Amended: Links added.
--- NOTE | 2018-09-16 18:21 | IPNPDOC ---
Text Note Date of Service The patient was seen on 09/16/18. NOTE The patient is seen and examined, reporting improved respirations. Denies any chest pain, pressure or discomfort. Denies any fevers or chills. PHYSICAL EXAMINATION: GENERAL: The patient is alert, comfortable, and in no acute distress. HEENT: Moist mucous membranes. NECK: Supple. CARDIAC: Irregular. No tachycardia. S1, S2. PULMONARY: Diminished breath sounds bilaterally. Upper airway sounds. The patient's wheeze has improved. ABDOMEN: Soft, nontender. Positive bowel sounds. EXTREMITIES: No clubbing, cyanosis or edema. ASSESSMENT AND PLAN: This is an 83-year-old male patient with underlying medical history of type 2 diabetes, hypertension , chronic kidney disease stage III, chronic obstructive pulmonary disease (COPD) on 2 liters of oxygen at home, history of lung cancer with adenocarcinoma, status post radiation, prostate cancer with radiation, paroxysmal atrial fibrillation on Eliquis, coronary artery disease, presented with cough and confusion. 1. Acute on chronic hypoxic respiratory failure, secondary to acute chronic obstructive pulmonary disease (COPD) exacerbation due to Haemophilus influenzae pneumonia, Haemophilus influenzae on sputum. The patient is currently on Cefdinir for antibiotics. Was diuresed for pulmonary vascular congestion. Continue Advair, steroid taper. Continue oxygen supplementation, on 2 liters of oxygen at home. swallow eval 2. Atrial fibrillation with rapid ventricular response. Continue metoprolol at increased dose. Continue Eliquis. 3. Anemia of chronic disease. Transfuse 2 units of packed red blood cell. Monitor hemoglobin and hematocrit. Anemia workup has been appreciated. No signs of bleeding. 4. Mild elevated troponin secondary to atrial fibrillation with rapid ventricular response. The patient denies any chest pain. Followup with cardiology as an outpatient. Continue current medications. 5. Congestive heart failure (CHF) with diastolic dysfunction. The patient was diuresed. Diuretic has been decreased given increase in creatinine. Further recommendations as per nephrology. Serial cardiac enzymes appreciated. 6. Acute on chronic renal insufficiency. Nephrology consulted. Diuretic has been decreased. Further recommendations as per nephrology. 7. History of coronary artery disease with coronary artery bypass graft (CABG). Cardiac enzymes appreciated. The patient is on Eliquis, statin, beta dotty. Outpatient followup. 8. History of right sided lung cancer with adenocarcinoma. Status post radiation. CT scan appreciated. Needs outpatient followup. Unknown if cancer has gotten worse. 9. Insulin-dependent diabetes. Basal bolus insulin. Followup fingersticks. 10. Hypertension. Continue current medications. 11. Lactic acidosis. Likely secondary to respiratory distress. Supportive care. Treatment as above. 12. Deep vein thrombosis (DVT) prophylaxis. The patient is on Eliquis. DISPOSITION: Poor long-term prognosis given multiple comorbidities. Physical therapy (PT) has been ordered. Likely needs short-term rehabilitation. swallow eval VS,Fishbone, I+O VS, Fishbone, I+O Laboratory Tests 09/16/18 05:29 Red Blood Count 3.55 L, Mean Corpuscular Volume 91.5, Mean Corpuscular Hemoglobin 28.7, Mean Corpuscular Hemoglobin Concent 31.4 L, Red Cell Distribution Width 15.9 H, Calcium Level 7.8 L Vital Signs Date Time Temp Pulse Resp B/P (MAP) Pulse Ox O2 Delivery O2 Flow Rate FiO2 09/16/18 14:00 97.5 77 18 154/58 (90) 96 3.0 09/12/18 20:27 Nasal Cannula I&O- Last 24 Hours up to 6 AM 09/16/18 05:59 Intake Total 970 ml Output Total 1400 ml Balance -430 ml ALEXIS OLIVEIRA MD Sep 16, 2018 18:21
[2018-09-16] MEDS: ATORVASTATIN 20 MG TAB PO SCH (20:48)
[2018-09-16] MEDS ORDERED: CEFDINIR 300 MG CAP (OMNICEF) PO SCH (21:00)
[2018-09-16 22:00] VITALS: BP 131/61
[2018-09-17 02:00] VITALS: BP 146/66
[2018-09-17] MEDS: SLF 3 ML SYR IV SCH ×4 (05:14→22:25)
[2018-09-17 06:00] VITALS: BP 161/55
[2018-09-17 06:43] LABS: HEMATOCRIT 35.9 % (42.0-52.0); HEMOGLOBIN 11.4 g/dl (13.5-17.5); MEAN CORPUSCULAR HEMOGLOBIN 29.2 pg (27.0-33.0); MEAN CORPUSCULAR HGB CONC 31.8 g/dl (32.0-36.5); MEAN CORPUSCULAR VOLUME 91.8 fl (80.0-96.0); RED BLOOD COUNT 3.91 10^6/uL (4.30-6.10); WHITE BLOOD COUNT 23.6 10^3/uL (4.0-10.0)
[2018-09-17 06:48] LABS: PLATELET COUNT, AUTOMATED 89 10^3/uL (150-450)
[2018-09-17 07:15] LABS: C REACTIVE PROTEIN QUANTITATIV 1.45 MG/DL (0.00-0.30); CALCIUM LEVEL 8.2 MG/DL (8.8-10.2); CREATININE FOR GFR 1.55 MG/DL (0.70-1.30); MAGNESIUM LEVEL 2.7 MG/DL (1.8-2.4); POTASSIUM SERUM 4.7 MEQ/L (3.5-5.1)
[2018-09-17 07:20] VITALS: BP 164/80
[2018-09-17] MEDS: HumaLOG INSULIN (NovoLOG) PER UNIT SC SCH ×4 (07:30→21:00)
[2018-09-17] MEDS ORDERED: IPRATROPIUM 0.5MG/ALBUTEROL 2.5MG INH SOL UD 3ML (DUONEB)(J7620) NEB ONE (07:30)
[2018-09-17] MEDS: TIOTROPIUM INHALER/CAPSULE (SPIRIVA) INH SCH (07:34)
[2018-09-17] MEDS: ADVAIR HFA 230/21MCG INHALER INH SCH ×3 (07:35→19:52)
--- NOTE | 2018-09-17 07:35 | IPN ---
DATE OF SERVICE: 09/16/2018 SUBJECTIVE: The patient was seen and examined at the bedside today morning. When I saw him, he was having bleeding from the left nostril. His nose was pinched and there was an ulcer found because of use of nasal cannula. Afrin nasal spray was prescribed. There is slight bump in the patient's renal function today. Creatinine has bumped up from 1.6 to 1.7 today. His Lasix dose has already been stopped by the primary team. His shortness of breath is better today. OBJECTIVE: VITAL SIGNS: Temperature is 97.1 degrees Fahrenheit, blood pressure 146/54, pulse is 66, respiratory rate of 17, saturating 96% on 3 liters nasal cannula. INTAKE/OUTPUT: Urine output recorded as 1.4 liters yesterday, 1.3 liters so far today since overnight. Weight in the bed scale is not available. PHYSICAL EXAMINATION: GENERAL: The patient is awake and alert, but very hard of hearing. Hardly follows a few commands because he cannot understand. HEAD AND NECK EXAM: Extraocular muscles intact. Pupils equally round and reactive to light. Left sided nose ulcer was noted. CARDIOVASCULAR: S1, S2, regular rate. No edema of the bilateral lower extremities. RESPIRATORY: Mildly decreased breath sounds at the bases, no active rales or rhonchi. ABDOMEN: Abdomen soft. Positive bowel sounds, nontender. No organomegaly. GENITOURINARY: He has an indwelling Davis catheter. MUSCULOSKELETAL: No clubbing or cyanosis. Pulses are 2+. CENTRAL NERVOUS SYSTEM: He is very hard of hearing, otherwise he moves all extremities. LAB REVIEW: CBC showed a WBC of 19.7, hemoglobin 10.2, platelets are 75. BMP showed sodium 147, potassium 4.7, chloride 104, bicarbonate 30, BUN 60, creatinine is 1.7; it was 1.66 yesterday, calcium 7.8, magnesium 2.5. CURRENT INPATIENT MEDICATIONS: The patient's medications were all reviewed by me. His furosemide was stopped. He continues to be on oral Omnicef. There is no other change in the medications today as compared with yesterday. ASSESSMENT AND PLAN: 1. Acute renal failure superimposed on chronic kidney disease. Patient is slightly volume depleted. Diuretic dose was decreased yesterday, however, patient has a negative fluid balance for the last many days. Diuretic has been stopped by the primary team and I agree with that. 2. Diastolic congestive heart failure. As mentioned above, patient has a negative fluid balance and creatinine is rising. Diuretic has been stopped now. 3. Nasal bleeding. Respiratory was advised to use humidified oxygen after a nasal spray local application was ordered for use in left nostril. The patient is also on anticoagulation as well. Continue current dose of metoprolol. 4. Acute chronic obstructive pulmonary disease (COPD) exacerbation. The patient is getting nebulizations. He is on Omnicef for H. Influenzae in the sputum. Continue oxygen, but use the humidified oxygen because of nasal bleeding.
[2018-09-17 07:41] LABS: ABG BASE EXCESS -0.6 (-2.0-2.0); ABG HCO3 24.8 MEQ/L (22.0-26.0); ABG O2 SATURATION 95.2 % (95.0-99.0); ABG PARTIAL PRESSURE CO2 43.3 mmHg (35.0-45.0); ABG PARTIAL PRESSURE O2 81.9 mmHg (75.0-100.0); ABG TOTAL CO2 26.1 MEQ/L (23.0-31.0); ABG pH (ARTERIAL) 7.375 UNITS (7.350-7.450)
[2018-09-17] MEDS: IPRATROPIUM 0.5MG/ALBUTEROL 2.5MG INH SOL UD 3ML (DUONEB)(J7620) NEB SCH ×5 (08:00→23:27)
[2018-09-17] MEDS ORDERED: IPRATROPIUM 0.5MG/ALBUTEROL 2.5MG INH SOL UD 3ML (DUONEB)(J7620) NEB PRN (08:00)
--- NOTE | 2018-09-17 08:30 | REP ---
Portable chest x-ray: Single view. History: Shortness of breath. Comparison study: September 08, 2018. Findings: The patient is status post prior median sternotomy. Oxygen delivery tubing is seen. There is slight blunting of the left lateral pleural angle indicating a small amount of left pleural fluid. Heart is not felt to be enlarged. There is a new large infiltrate in the left perihilar region on current radiograph. This is new when compared with the September 04, 2018 study and appears more superiorly in the chest than it did on September 08, 2018. Pulmonary vascular and interstitial markings are diffusely increased. Citlaly B lines are noted at the bases and I cannot exclude interstitial edema. A spiculated pleural-based density is seen on the right unchanged from recent radiographs. Impression: Large new left mid lung zone infiltrate. Slight left pleural effusion. Pulmonary edema pattern. Electronically Signed by Morris Pineda MD 09/17/2018 10:03 A
[2018-09-17] MEDS: FERROUS SULFATE 325MG TAB PO SCH (08:47)
[2018-09-17] MEDS: predniSONE 10 MG TAB PO SCH (08:47)
[2018-09-17] MEDS: BENZONATATE 100 MG CAP PO SCH ×3 (08:47→21:00)
[2018-09-17 08:48] VITALS: BP 164/80
[2018-09-17] MEDS: LACTOBACILLUS ACIDOPHILUS CAP (BACID) PO SCH ×2 (08:48→12:30)
[2018-09-17] MEDS: ASCORBIC ACID 500 MG TAB PO SCH ×2 (08:48→21:00)
[2018-09-17] MEDS: ESCITALOPRAM OXALATE 10 MG TAB (LEXAPRO) PO SCH (08:48)
[2018-09-17] MEDS: METOPROLOL TART 25 MG TABLET PO SCH ×2 (08:48→21:00)
[2018-09-17] MEDS: APIXABAN 2.5 MG TAB (ELIQUIS) PO SCH ×2 (08:48→21:00)
[2018-09-17] MEDS: CARBAMIDE PEROXIDE 6.5% OTIC SOLN 15ML AS SCH ×2 (08:50→21:00)
[2018-09-17] MEDS ORDERED: PIPERACILLIN/TAZOBACTAM SOD 2.25 GM in D5W MINI-BAG PLUS 50 ML IV SCH (09:00)
[2018-09-17] MEDS: PIPERACILLIN/TAZOBACTAM SOD 3.375 GM in D5W MINI-BAG PLUS 50 ML IV SCH ×2 (09:04→15:00)
[2018-09-17] MEDS: LEVEMIR (INSULIN DETEMIR) 1 UNITS/0.01ML SC SCH (09:17)
[2018-09-17 10:00] VITALS: BP 152/57
[2018-09-17] MEDS: ONDANSETRON 4MG/2ML VIAL (J2405) IV PRN (11:38)
--- NOTE | 2018-09-17 11:50 | PHACANCOPD ---
PHARMACY VANCOMYCIN DOSING Pt Demographics Demographics Patient Age:83 , Weight:67.300 , Gender: male Adjusted Body Weight Date: 09/17/18, Adjusted Body Weight: Kg Events Past 24 Hours Events Past 24 Hours: YES: Change in CrCl, Elevation in WBC; NO: Dialysis, Diuretic Therapy, Fever, Pending Diagnostics, Pending Procedures, Other Vancomycin Vancomycin indication: hcap Vancomycin Target Ranges: 15-20 mcg/ml Vancomycin Load Y/N: Yes Load Dose Date Time Vancomycin Load Dose: 1500mg Date: 09/17/18 Time: 1100 Vancomycin Dose Date: 09/17/18. Current Vancomycin Dose: Intermittent Dosing?: No Labs Labs Item Value Date Time White Blood Count 23.6 10^3/uL H 09/17/18 0536 White Blood Count 19.7 10^3/uL H 09/16/18 0529 White Blood Count 18.2 10^3/uL H 09/15/18 0548 Creatinine 1.55 MG/DL H 09/17/18 0536 Creatinine 1.73 MG/DL H 09/16/18 0529 Creatinine 1.66 MG/DL H 09/15/18 0548 C-Reactive Protein, Quantitative 4.12 MG/DL H 09/13/18 0421 C-Reactive Protein, Quantitative 1.87 MG/DL H 09/14/18 0450 C-Reactive Protein, Quantitative 1.71 MG/DL H 09/16/18 0529 C-Reactive Protein, Quantitative 1.45 MG/DL H 09/17/18 0536 Oxygen Flow Rate 3.0 L/min 09/16/18 2200 Oxygen Flow Rate 3.0 L/min 09/16/18 2200 Oxygen Flow Rate 6.0 L/min 09/17/18 0720 Oxygen Flow Rate 15.0 L/min 09/17/18 1000 Vital Signs Label Value Date Time Patient Temperature 97.2 degrees F 09/17/18 1000 Temperature Source Temporal 09/17/18 1000 Patient Temperature 97.1 degrees F 09/17/18 0200 Temperature Source Temporal 09/17/18 0200 Patient Temperature 97.1 degrees F 09/17/18 0600 Temperature Source Temporal 09/17/18 0600 Patient Temperature 97.0 degrees F 09/16/18 2200 Temperature Source Temporal 09/16/18 2200 Micro Microbiology 09/17/18 Blood Culture, Received Pending 09/17/18 Blood Culture, Received Pending 09/08/18 Blood Culture - Final, Complete NO GROWTH AFTER 5 DAYS 09/08/18 Blood Culture - Final, Complete NO GROWTH AFTER 5 DAYS 09/07/18 Stool Occult Blood (STEPHANIE) - Final, Complete 09/09/18 Urine Culture - Final, Complete Creatinine Clearance Date:09/17/18. Creatinine Clearance: . Assessment and Plan Maintaining Current Dose?: Yes Reason for dose change: No Dose Change Pharmacist Note Pharmacist Note Date: 09/17/18. Pharmacist note: Pt. is an 83 year old male who was admitted on 09/04/18 due to increased confusion and new onset a.fb. Pt today has a significant jump in WBC. He is requiring significantly more O2. He has a hx of COPD and at home is on 2L O2. Right now he is requiring 15L O2. The patient has been started on Vanco and Zosyn for HCAP. I have loaded the pt with Vanco 1500mg IV x1@1100 followed by Vanco 1G IV Q24H@1200. We will continue to monitor and adjust dose as needed. EDWARD RUSHING [facility] Sep 17, 2018 11:50
[2018-09-17] MEDS ORDERED: VANCOMYCIN HCL 1,000 MG, VIAL MATE ADAPTER 1 EACH in D5W 250 ML IV SCH (12:00)
[2018-09-17] MEDS ORDERED: FUROSEMIDE 40 MG/4 ML VIAL (J1940) IV ONE (13:00)
[2018-09-17] MEDS ORDERED: VANCOMYCIN HCL 500 MG in D5W MINI-BAG PLUS 100 ML IV ONE (13:00)
[2018-09-17 14:00] VITALS: BP 163/66
[2018-09-17] MEDS ORDERED: ONDANSETRON 4MG/2ML VIAL (J2405) IV ONE (15:00)
[2018-09-17] MEDS ORDERED: LORazepam 2 MG/ML VIAL (J2060) IV PRN (15:30)
[2018-09-17] MEDS ORDERED: MORPHINE 4 MG/ML 1ML VIAL/SYRINGE (J2270) IV PRN (15:30)
--- NOTE | 2018-09-17 15:30 | IPNPDOC ---
Text Note Date of Service The patient was seen on 09/17/18. NOTE Subjective: Patient was hypoxic and short of breath this morning. Chest x-ray noted a large left lower lobe infiltrate, the patient required a Ventimask.. Throughout the day, the patient's mentation as well as dyspnea had progressed. I have had an extensive conversation with the son, who has agreed to comfort measures only. He would like to take his father home on hospice. Objective: Vitals: (see below) General: Mild distress secondary to dyspnea HEENT: Moist mucous membranes. Neck: No JVD or lymphadenopathy Cardiac: RRR, No murmurs Pulm: Crackles bases b/l. + wheezing. No rhonchi. conversational dyspnea. Abd: NT/ND + BS Ext: No edema or cyanosis. Labs (see below) Images: Renal u/s 09/05/18 IMPRESSION: Small cysts. No hydronephrosis. Increased renal cortical echogenicity pattern consistent with chronic medical renal disease. CT Chest IMPRESSION: There is a band-like area of chronic pleuroparenchymal fibrosis in the right upper lobe which may be slightly improved. There is mild mediastinal lymphadenopathy with interval mild enlargement of one or two mediastinal lymph nodes. The largest is a pretracheal lymph node measuring 16 x 25 mm. No new infiltrate. Chest x-ray 09/17/18 Impression: Large new left mid lung zone infiltrate. Slight left pleural effusion. Pulmonary edema pattern. Assessment/Plan 1. Acute on chronic hypoxic respiratory failure secondary to COPD exacerbation- initially 2/2 H. Influenza. Now patient with HCAP. Antibiotics initially changed to vancomycin and Zosyn. 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 MOLST form updated. Hospice consulted. 2. Atrial fibrillation with rapid ventricular response- Rate better controlled at this time. On eliquis 3. FLORENCE on CKD - on IVF. Renal u/s with no hydronephrosis. Urine lytes. FeNa- Prenal. Given IVF. Nephro consulted. 4. Elevated troponin secondary from demand ischemia, rapid ventricular response. Trending down. Patient denies chest pain. 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 5. H/o CAD s/p CABG. Cont home meds. 6. 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 7. 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 8. Hypertension controlled 9. Lactic acidosis secondary to the patient's acute on chronic hypoxic respiratory failure, nebulizers, will give breathing. Improved. Status post IV fluids. Continue to monitor. 10. Chronic anemia- we'll send for iron studies. Stool occult. No acute bleeding at this time. Repeat labs at 2 PM. DVT prophy:on eliquis. Overall prognosis guarded. 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 VS,Fishbone, I+O VS, Fishbone, I+O Laboratory Tests 09/17/18 05:36 Red Blood Count 3.91 L, Mean Corpuscular Volume 91.8, Mean Corpuscular Hemoglobin 29.2, Mean Corpuscular Hemoglobin Concent 31.8 L, Red Cell Distribution Width 16.2 H, Calcium Level 8.2 L Vital Signs Date Time Temp Pulse Resp B/P (MAP) Pulse Ox O2 Delivery O2 Flow Rate FiO2 09/17/18 10:00 97.2 76 14 152/57 (88) 95 15.0 28 09/17/18 08:58 Venturi Mask I&O- Last 24 Hours up to 6 AM 09/17/18 06:00 Intake Total 1370 ml Output Total 1550 ml Balance -180 ml SHAKIR HINSON MD Sep 17, 2018 15:30
[2018-09-17] MEDS ORDERED: MORPHINE 10MG/0.5ML ORAL CONCENTRATE SOLUTION U/D SL PRN (23:00)
[2018-09-18] MEDS: IPRATROPIUM 0.5MG/ALBUTEROL 2.5MG INH SOL UD 3ML (DUONEB)(J7620) NEB SCH ×5 (04:00→19:41)
[2018-09-18] MEDS: SLF 3 ML SYR IV SCH ×3 (05:28→19:51)
--- NOTE | 2018-09-18 07:01 | IPN ---
DATE OF SERVICE: 09/17/2018 SUBJECTIVE: The patient was seen and examined at the bedside today morning. He was in moderate amount of respiratory distress when I saw him in the morning. There is worsening of his white cell count. He was found to have left sided infiltrate in the lung and right sided pulmonary edema. Because of the respiratory distress, the patient was requesting that he wants to stop all the aggressive management, although his hard of hearing, but he was conveying his wishes that he wants to stop all this, he wants to go to [facility], and he wanted to be kept comfortable only and he did not want any more medical management. OBJECTIVE: VITAL SIGNS: Temperature is 97.2 degrees Fahrenheit, blood pressure 152/57, pulse is 76, respiratory rate of 24, saturating 95% on 28% FiO2. INTAKE/OUTPUT: Urine output recorded as 1.6 liters yesterday, 1100 mL so far today since overnight. Weight on the bed scale is not available. PHYSICAL EXAMINATION: GENERAL: The patient is hard of hearing, awake, alert, sitting up in the bed, moderate respiratory distress. HEAD AND NECK EXAM: Pupils equally round and reactive to light. Mucous membranes are moist. He is wearing oxygen mask. Neck is supple. There is no significant elevation of jugular venous distention (JVD). CARDIOVASCULAR: S1 and S2, regular rate. No edema of the bilateral lower extremities. RESPIRATORY: Moderate amount of respiratory distress. Decreased breath sounds at the bases with inspiratory crackles and mild expiratory rhonchi, especially on the left side at mid lung zone. ABDOMEN: Abdomen soft. Positive bowel sounds, nontender. No organomegaly. GENITOURINARY: He has an indwelling Davis catheter. MUSCULOSKELETAL: No clubbing or cyanosis. Pulses are 2+. CENTRAL NERVOUS SYSTEM: Patient is very hard of hearing, otherwise he moves extremities. LAB REVIEW: CBC showed a WBC of 23.6, hemoglobin 11.4, platelets are 89. ABG done today morning showed pH of 7.37, pCo2 of 43, pO2 of 81, bicarbonate 24, oxygen saturation 95%. BMP showed sodium 140, potassium 4.7, chloride 104, bicarbonate 29, BUN 63, creatinine 1.5, calcium 8.2, magnesium 2.7. MICROBIOLOGY: Blood cultures were sent today morning and they are pending. IMAGING: Chest x-ray was done today morning which showed large new left mid lung zone infiltrate, diffuse interstitial markings, and pulmonary edema suspected. CURRENT INPATIENT MEDICATIONS: The patient's medications were all reviewed by me. He was just started on IV vancomycin and Zosyn in the morning. I also gave him a dose of Lasix 40 mg IV times one dose. ASSESSMENT AND PLAN: 1. Acute renal failure superimposed on chronic kidney disease. Patient's renal function is stable. Creatinine is 1.5, however, because of evidence of pulmonary edema on the chest x-ray, I have ordered a dose of Lasix 40 mg IV times one dose. Clinically the patient actually looks dry. He is negative fluid balance for the last five days almost. There is no evidence of peripheral edema. 2. Health care associated pneumonia. The patient has worsening infiltrate on the left side. He was started on IV antibiotics. He is currently on oxygen via mask. 3. Diastolic congestive heart failure. As mentioned above, because of possible pulmonary edema on the chest x-ray he was given a dose of Lasix. His Lasix dose was actually decreased two days ago because of volume depletion and worsening creatinine. 4. Disposition. The patient is in respiratory distress, but he is requesting to stop all the treatment. He wants to keep himself comfortable only. I have discussed this with the hospitalist Dr. Jerome Harman as well who is going to discuss patient's current status with his family members. If the patient is made comfort care only, then nephrology service would sign off from the case.
[2018-09-18] MEDS: HumaLOG INSULIN (NovoLOG) PER UNIT SC SCH ×4 (07:30→19:50)
[2018-09-18] MEDS: TIOTROPIUM INHALER/CAPSULE (SPIRIVA) INH SCH (08:00)
[2018-09-18] MEDS: APIXABAN 2.5 MG TAB (ELIQUIS) PO SCH ×2 (08:35→19:50)
[2018-09-18] MEDS: predniSONE 10 MG TAB PO SCH (08:35)
[2018-09-18] MEDS: ASCORBIC ACID 500 MG TAB PO SCH ×2 (08:36→19:50)
[2018-09-18] MEDS: LEVEMIR (INSULIN DETEMIR) 1 UNITS/0.01ML SC SCH (08:36)
[2018-09-18] MEDS: CARBAMIDE PEROXIDE 6.5% OTIC SOLN 15ML AS SCH ×2 (08:36→19:51)
[2018-09-18] MEDS: BENZONATATE 100 MG CAP PO SCH ×3 (08:36→19:50)
[2018-09-18] MEDS: METOPROLOL TART 25 MG TABLET PO SCH ×2 (08:36→19:50)
[2018-09-18] MEDS: ADVAIR HFA 230/21MCG INHALER INH SCH ×2 (09:00→19:41)
--- NOTE | 2018-09-18 14:26 | IPNPDOC ---
Text Note Date of Service The patient was seen on 09/18/18. NOTE Subjective: Patient lethargic this morning. Does not appear to be in acute distress. Objective: Vitals: (see below) General: Mild distress secondary to dyspnea HEENT: Moist mucous membranes. Neck: No JVD or lymphadenopathy Cardiac: RRR, No murmurs Pulm: Crackles bases b/l. + wheezing. No rhonchi. conversational dyspnea. Abd: NT/ND + BS Ext: No edema or cyanosis. Labs (see below) Images: Renal u/s 09/05/18 IMPRESSION: Small cysts. No hydronephrosis. Increased renal cortical echogenicity pattern consistent with chronic medical renal disease. CT Chest IMPRESSION: There is a band-like area of chronic pleuroparenchymal fibrosis in the right upper lobe which may be slightly improved. There is mild mediastinal lymphadenopathy with interval mild enlarg ement of one or two mediastinal lymph nodes. The largest is a pretracheal lymph node measuring 16 x 25 mm. No new infiltrate. Chest x-ray 09/17/18 Impression: Large new left mid lung zone infiltrate. Slight left pleural effusion. Pulmonary edema pattern. Assessment/Plan 1. Acute on chronic hypoxic respiratory failure secondary to COPD exacerbation- initially 2/2 H. Influenza. Now patient with HCAP. Antibiotics initially changed to vancomycin and Zosyn. 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 MOLST form updated. Hospice consulted. 2. Atrial fibrillation with rapid ventricular response- Rate better controlled at this time. On eliquis 3. FLORENCE on CKD - on IVF. Renal u/s with no hydronephrosis. Urine lytes. FeNa- Prenal. Given IVF. Nephro consulted. 4. Elevated troponin secondary from demand ischemia, rapid ventricular response. Trending down. Patient denies chest pain. 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 5. H/o CAD s/p CABG. Cont home meds. 6. 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 7. 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 8. Hypertension controlled 9. Lactic acidosis secondary to the patient's acute on chronic hypoxic respiratory failure, nebulizers, will give breathing. Improved. Status post IV fluids. Continue to monitor. 10. Chronic anemia- we'll send for iron studies. Stool occult. No acute bleeding at this time. Repeat labs at 2 PM. DVT prophy:on eliquis. Overall prognosis guarded. COMMUNITY MARKETING COORDINATOR. 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 VS,Fishbone, I+O VS, Fishbone, I+O Vital Signs Date Time Temp Pulse Resp B/P (MAP) Pulse Ox O2 Delivery O2 Flow Rate FiO2 09/18/18 09:00 28 09/17/18 14:00 97.6 66 18 163/66 (98) 100 15.0 09/17/18 08:58 Venturi Mask I&O- Last 24 Hours up to 6 AM 09/18/18 06:00 Intake Total 180 ml Output Total 1650 ml Balance -1470 ml SHAKIR HINSON MD Sep 18, 2018 14:26
[2018-09-19] MEDS: IPRATROPIUM 0.5MG/ALBUTEROL 2.5MG INH SOL UD 3ML (DUONEB)(J7620) NEB SCH ×6 (03:56→19:06)
[2018-09-19] MEDS: SLF 3 ML SYR IV SCH ×3 (05:46→21:20)
[2018-09-19] MEDS: APIXABAN 2.5 MG TAB (ELIQUIS) PO SCH ×2 (08:00→21:00)
[2018-09-19] MEDS: TIOTROPIUM INHALER/CAPSULE (SPIRIVA) INH SCH (08:00)
[2018-09-19] MEDS: METOPROLOL TART 25 MG TABLET PO SCH ×2 (08:00→21:00)
[2018-09-19] MEDS: ASCORBIC ACID 500 MG TAB PO SCH ×2 (08:00→21:00)
[2018-09-19] MEDS: BENZONATATE 100 MG CAP PO SCH ×3 (08:00→21:00)
[2018-09-19] MEDS: CARBAMIDE PEROXIDE 6.5% OTIC SOLN 15ML AS SCH ×2 (08:00→21:00)
[2018-09-19] MEDS: HumaLOG INSULIN (NovoLOG) PER UNIT SC SCH ×4 (08:00→21:00)
[2018-09-19] MEDS: predniSONE 10 MG TAB PO SCH (08:00)
[2018-09-19] MEDS: LEVEMIR (INSULIN DETEMIR) 1 UNITS/0.01ML SC SCH (08:00)
[2018-09-19] MEDS: ADVAIR HFA 230/21MCG INHALER INH SCH ×2 (08:39→21:00)
--- NOTE | 2018-09-19 13:57 | IPNPDOC ---
Text Note Date of Service The patient was seen on 09/19/18. NOTE Subjective: Patient lethargic. No acute distress Objective: Vitals: (see below) General: lethargic HEENT: Moist mucous membranes. Neck: No JVD or lymphadenopathy Cardiac: RRR, No murmurs Pulm: Diminished breath sounds at the bases b/l. no wheezing. No rhonchi. Abd: NT/ND + BS Ext: No edema or cyanosis. Labs (see below) Images: Renal u/s 09/05/18 IMPRESSION: Small cysts. No hydronephrosis. Increased renal cortical echogenicity pattern consistent with chronic medical renal disease. CT Chest IMPRESSION: There is a band-like area of chronic pleuroparenchymal fibrosis in the right upper lobe which may be slightly improved. There is mild mediastinal lymphadenopathy with interval mild enlargement of one or two mediastinal lymph nodes. The largest is a pretracheal lymph node measuring 16 x 25 mm. No new infiltrate. Chest x-ray 09/17/18 Impression: Large new left mid lung zone infiltrate. Slight left pleural effusion. Pulmonary edema pattern. Assessment/Plan 1. Acute on chronic hypoxic respiratory failure secondary to COPD exacerbation- initially 2/2 H. Influenza. Now patient with HCAP. Antibiotics initially changed to vancomycin and Zosyn. 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 MOLST form updated. Hospice consulted. 2. Atrial fibrillation with rapid ventricular response- Rate better controlled at this time. On eliquis 3. FLORENCE on CKD - on IVF. Renal u/s with no hydronephrosis. Urine lytes. FeNa- Prenal. Given IVF. Nephro consulted. 4. Elevated troponin secondary from demand ischemia, rapid ventricular response. Trending down. Patient denies chest pain. Will need close outpatient follow-up with his copy chief. 5. H/o CAD s/p CABG. Cont home meds. 6. 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 7. 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 8. Hypertension controlled 9. Lactic acidosis secondary to the patient's acute on chronic hypoxic respiratory failure, nebulizers, will give breathing. Improved. Status post IV fluids. Continue to monitor. 10. Chronic anemia- we'll send for iron studies. Stool occult. No acute bleeding at this time. Repeat labs at 2 PM. DVT prophy:on eliquis. Overall prognosis guarded. KEEPER HEAD. Family unable to take him home as they initially wished. VS,Fishbone, I+O VS, Fishbone, I+O Vital Signs Date Time Temp Pulse Resp B/P (MAP) Pulse Ox O2 Delivery O2 Flow Rate FiO2 09/19/18 09:00 28 09/17/18 14:00 97.6 66 18 163/66 (98) 100 15.0 09/17/18 08:58 Venturi Mask I&O- Last 24 Hours up to 6 AM 09/19/18 06:00 Intake Total 0 ml Output Total 275 ml Balance -275 ml SHAKIR HINSON MD Sep 19, 2018 13:57
[2018-09-19] MEDS: MORPHINE 10MG/0.5ML ORAL CONCENTRATE SOLUTION U/D SL PRN (14:59)
[2018-09-20] MEDS: IPRATROPIUM 0.5MG/ALBUTEROL 2.5MG INH SOL UD 3ML (DUONEB)(J7620) NEB SCH ×6 (04:00→19:58)
[2018-09-20] MEDS: SLF 3 ML SYR IV SCH (05:37)
[2018-09-20] MEDS: TIOTROPIUM INHALER/CAPSULE (SPIRIVA) INH SCH (07:25)
[2018-09-20] MEDS: HumaLOG INSULIN (NovoLOG) PER UNIT SC SCH ×4 (07:30→21:00)
[2018-09-20] MEDS: ADVAIR HFA 230/21MCG INHALER INH SCH ×2 (09:00→21:00)
[2018-09-20] MEDS: ASCORBIC ACID 500 MG TAB PO SCH (09:00)
[2018-09-20] MEDS: METOPROLOL TART 25 MG TABLET PO SCH (09:00)
[2018-09-20] MEDS: BENZONATATE 100 MG CAP PO SCH ×3 (09:00→20:43)
[2018-09-20] MEDS: LEVEMIR (INSULIN DETEMIR) 1 UNITS/0.01ML SC SCH (09:00)
[2018-09-20] MEDS: predniSONE 10 MG TAB PO SCH (09:00)
[2018-09-20] MEDS: MORPHINE 10MG/0.5ML ORAL CONCENTRATE SOLUTION U/D SL PRN ×2 (09:39→17:28)
--- NOTE | 2018-09-20 15:29 | IPNPDOC ---
Text Note Date of Service The patient was seen on 09/20/18. NOTE Subjective: Patient lethargic. Appears comfortable. Objective: Vitals: (see below) General: lethargic HEENT: Moist mucous membranes. Neck: No JVD or lymphadenopathy Cardiac: RRR, No murmurs Pulm: Diminished breath sounds at the bases b/l. no wheezing. No rhonchi. Abd: NT/ND + BS Ext: No edema or cyanosis. Labs (see below) Images: Renal u/s 09/05/18 IMPRESSION: Small cysts. No hydronephrosis. Increased renal cortical echogenicity pattern consistent with chronic medical renal disease. CT Chest IMPRESSION: There is a band-like area of chronic pleuroparenchymal fibrosis in the right upper lobe which may be slightly improved. There is mild mediastinal lymphadenopathy with interval mild enlargement of one or two mediastinal lymph nodes. The largest is a pretracheal lymph node measuring 16 x 25 mm. No new infiltrate. Chest x-ray 09/17/18 Impression: Large new left mid lung zone infiltrate. Slight left pleural effusion. Pulmonary edema pattern. Assessment/Plan 1. Acute on chronic hypoxic respiratory failure secondary to COPD exacerbation- initially 2/2 H. Influenza. Now patient with HCAP. Antibiotics initially changed to vancomycin and Zosyn. 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 MOLST form updated. Hospice consulted. 2. Atrial fibrillation with rapid ventricular response- Rate better controlled at this time. On eliquis 3. FLORENCE on CKD - on IVF. Renal u/s with no hydronephrosis. Urine lytes. FeNa- Prenal. Given IVF. Nephro consulted. 4. Elevated troponin secondary from demand ischemia, rapid ventricular response. Trending down. Patient denies chest pain. Will need close outpatient follow-up with his bad work gatherer. 5. H/o CAD s/p CABG. Cont home meds. 6. 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 7. 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 8. Hypertension controlled 9. Lactic acidosis secondary to the patient's acute on chronic hypoxic respiratory failure, nebulizers, will give breathing. Improved. Status post IV fluids. Continue to monitor. 10. Chronic anemia- we'll send for iron studies. Stool occult. No acute bleeding at this time. Repeat labs at 2 PM. DVT prophy:on eliquis. Overall prognosis guarded. DRAPERY HANGER. I have had an extensive conversation with the son at bedside, and answered all of his questions to his satisfaction. VS,Fishbone, I+O VS, Fishbone, I+O Vital Signs Date Time Temp Pulse Resp B/P (MAP) Pulse Ox O2 Delivery O2 Flow Rate FiO2 09/20/18 09:00 28 09/17/18 14:00 97.6 66 18 163/66 (98) 100 15.0 09/17/18 08:58 Venturi Mask I&O- Last 24 Hours up to 6 AM 09/20/18 06:00 Intake Total 0 ml Output Total 125 ml Balance -125 ml SHAKIR HINSON MD Sep 20, 2018 15:29
[2018-09-20] MEDS: APIXABAN 2.5 MG TAB (ELIQUIS) PO SCH (17:49)
[2018-09-21] MEDS: HumaLOG INSULIN (NovoLOG) PER UNIT SC SCH ×3 (07:30→16:58)
[2018-09-21] MEDS: IPRATROPIUM 0.5MG/ALBUTEROL 2.5MG INH SOL UD 3ML (DUONEB)(J7620) NEB SCH ×4 (07:32→16:00)
[2018-09-21] MEDS: TIOTROPIUM INHALER/CAPSULE (SPIRIVA) INH SCH (08:00)
[2018-09-21] MEDS: BENZONATATE 100 MG CAP PO SCH ×2 (09:00→16:00)
[2018-09-21] MEDS: ADVAIR HFA 230/21MCG INHALER INH SCH (09:00)
--- NOTE | 2018-09-21 11:36 | IPNPDOC ---
Text Note Date of Service The patient was seen on 09/21/18. NOTE Subjective: Patient lethargic. Appears comfortable. Shallow breathing this am. Objective: Vitals: (see below) General: lethargic HEENT: Moist mucous membranes. Neck: No JVD or lymphadenopathy Cardiac: RRR, No murmurs Pulm: Diminished breath sounds at the bases b/l. No wheezing. No rhonchi. Abd: NT/ND + BS Ext: No edema or cyanosis. Labs (see below) Images: Renal u/s 09/05/18 IMPRESSION: Small cysts. No hydronephrosis. Increased renal cortical echogenicity pattern consistent with chronic medical renal disease. CT Chest IMPRESSION: There is a band-like area of chronic pleuroparenchymal fibrosis in the right upper lobe which may be slightly improved. There is mild mediastinal lymphadenopathy with interval mild enlargement of one or two mediastinal lymph nodes. The largest is a pretracheal lymph node measuring 16 x 25 mm. No new infiltrate. Chest x-ray 09/17/18 Impression: Large new left mid lung zone infiltrate. Slight left pleural effusion. Pulmonary edema pattern. Assessment/Plan 1. Acute on chronic hypoxic respiratory failure secondary to COPD exacerbation- initially 2/2 H. Influenza. Now patient with HCAP. Antibiotics initially changed to vancomycin and Zosyn. 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 MOLST form updated. Hospice consulted. 2. Atrial fibrillation with rapid ventricular response- Rate better controlled at this time. On eliquis 3. FLORENCE on CKD - on IVF. Renal u/s with no hydronephrosis. Urine lytes. FeNa- Prenal. Given IVF. Nephro consulted. 4. Elevated troponin secondary from demand ischemia, rapid ventricular response. Trending down. Patient denies chest pain. Will need close outpatient follow-up with his composition mixer. 5. H/o CAD s/p CABG. Cont home meds. 6. 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 7. 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 8. Hypertension controlled 9. Lactic acidosis secondary to the patient's acute on chronic hypoxic respiratory failure, nebulizers, will give breathing. Improved. Status post IV fluids. Continue to monitor. 10. Chronic anemia- we'll send for iron studies. Stool occult. No acute bleeding at this time. Repeat labs at 2 PM. Overall prognosis guarded. 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 I have had an extensive conversation with the son at bedside, and answered all of his questions to his satisfaction. VS,Alfredobone, I+O VS, Alfredobone, I+O Vital Signs Date Time Temp Pulse Resp B/P (MAP) Pulse Ox O2 Delivery O2 Flow Rate FiO2 09/21/18 08:00 15.0 09/20/18 21:00 09/17/18 14:00 97.6 66 18 163/66 (98) 100 09/17/18 08:58 Venturi Mask I&O- Last 24 Hours up to 6 AM 09/21/18 06:00 Intake Total 0 ml Output Total 0 ml Balance 0 ml SHAKIR HINSON MD Sep 21, 2018 11:36
[2018-09-21] MEDS: MORPHINE 10MG/0.5ML ORAL CONCENTRATE SOLUTION U/D SL PRN ×2 (13:50→14:42)
[2018-09-21] MEDS ORDERED: MORPHINE 10MG/0.5ML ORAL CONCENTRATE SOLUTION U/D SL PRN (15:15)
[2018-09-21] MEDS ORDERED: LORazepam 0.5 MG TAB PO PRN (15:15)
[2018-09-21] MEDS ORDERED: LORazepam 1 MG TAB PO PRN (15:15)
--- NOTE | 2018-09-21 18:27 | DS.PDOC ---
Discharge Summary General Date of Admission Sep 04, 2018 at 18:28 Date of Discharge 09/21/18 Attending Physician: SHAKIR HINSON MD Specialist/Consultants Involve: JUANA RYAN MD @ Discharge Summary PROCEDURES PERFORMED DURING STAY: None. ADMITTING/DISCHARGE DIAGNOSES: 1. Acute on chronic hypoxic respiratory failure secondary to end-stage COPD 2. H. influenzae and HCAP 3. Atrial fibrillation with rapid ventricular response 4. Acute kidney injury on chronic kidney disease 5. History of CAD status post CABG 6. Insulin-dependent diabetes mellitus 7. Chronic anemia 8. History of right-sided lung cancer with adenocarcinoma status post radiation COMPLICATIONS/CHIEF COMPLAINT: Shortness of breath HISTORY OF PRESENT ILLNESS/HOSPITAL COURSE: This is a this is a 83-year-old male with an extensive past medical history including adenocarcinoma lung cancer status post radiation, severe end-stage COPD who presents with shortness of breath and cough and noted to have an COPD exacerbation secondary to H influenza. Patient was treated with IV antibiotics, steroids, nebulizers. Over the course of hospitalization, patient developed acute kidney injury as well as atrial fibrillation with rapid ventricular response. Nephrology was consulted and assisted with the patient's declining renal function. Over the course of hospitalization, the patient had waxing and waning of his mentation as well as his decompensated state. Although he initially improved, the patient developed subsequent pneumonia and was treated for healthcare associated pneumonia, however his respiratory status progressively declined. I have had an extensive conversation with the family, decided to make the patient comfort measures only. The patient on 09/21/18. TIME SPENT ON DISCHARGE: Greater than 30 minutes. Vital Signs/I&Os Vital Signs Date Time Temp Pulse Resp B/P (MAP) Pulse Ox O2 Delivery O2 Flow Rate FiO2 09/21/18 08:00 15.0 09/20/18 21:00 09/17/18 14:00 97.6 66 18 163/66 (98) 100 09/17/18 08:58 Venturi Mask I&O- Last 24 Hours up to 6 AM 09/21/18 06:00 Intake Total 0 ml Output Total 0 ml Balance 0 ml Microbiology Microbiology 09/17/18 Blood Culture - Preliminary, Resulted No Growth after 72 hours. All specime... 09/17/18 Blood Culture - Preliminary, Resulted No Growth after 72 hours. All specime... 09/17/18 MRSA Screen - Final, Complete Discharge Medications Scheduled (Glucosamine Chondroitin) 1 Tab Tab, 1 TAB PO QPM, (Reported) (Toujeo Solostar) 300 Unit/Ml Inj, 64 UNIT SC DAILY, (Reported) Albuterol Sulfate (Albuterol Sulfate) 2.5 Mg/0.5 Ml Neb, 2.5 MG INH TID, (Reported) Apixaban Base (Eliquis) 2.5 Mg Tab, 2.5 MG PO BID, (Reported) Atorvastatin Calcium (Atorvastatin Calcium) 40 Mg Tab, 40 MG PO QPM, (Reported) Benzonatate (Benzonatate) 100 Mg Cap, 100 MG PO TID, (Reported) Escitalopram Oxalate (Lexapro) 10 Mg Tab, 10 MG PO DAILY, (Reported) Metoprolol Tartrate (Metoprolol Tartrate) 25 Mg Tab, 12.5 MG PO BID, (Reported) Salmeterol/Fluticasone (Advair Hfa 230-21 Mcg/Act) 1 Aer Aer, 2 PUFF INH BID, (Reported) Tiotropium [place] Monohydrate (Spiriva Handihaler) 18 Mcg Cap, 18 MCG INH DAILY, (Reported) Scheduled PRN Acetaminophen (Tylenol Extra Strength) 500 Mg Tab, 1,000 MG PO QID PRN for PAIN, (Reported) Albuterol Sulfate (Proair Hfa) 108 Mcg/Act Aer, 2 PUFF INH QID PRN for SHORTNESS OF BREATH, (Reported) Milk Of Magnesia (Milk of Magnesia) 1,200 Mg/15 Ml Mary, 10 ML PO DAILY PRN for CONSTIPATION, (Reported) Allergies Coded Allergies: Sulfamethoxazole w/Trimethoprim (Verified Allergy, Mild, hives, 01/27/17) Bee Venom (Verified Allergy, Unknown, 11/16/12) SHAKIR HINSON MD Sep 21, 2018 18:27
[2018-09-21] MEDS ORDERED: LORazepam 0.5 MG TAB PO SCH (21:00)
== END 2018-09-21 17:44 | disposition expired | DRG 189 ==
LOC: M ED 13:52 → EDBD 13:52 → M ED INP 18:28 → M PCU 21:23 → M MSPAV 09-14 15:36
PROVIDERS: ADMIT Internal Medicine; ATTEND Internal Medicine
PROC: 30233N1 Transfusion of Nonautologous Red Blood Cells into Peripheral Vein, Percutaneous Approach (ICD-10-PCS; principal; 2018-09-10)
DX: J96.21 Acute and chronic respiratory failure with hypoxia (principal); I50.33 Acute on chronic diastolic (congestive) heart failure; J14 Pneumonia due to Hemophilus influenzae; J44.1 Chronic obstructive pulmonary disease with (acute) exacerbation; J44.0 Chronic obstructive pulmonary disease with (acute) lower respiratory infection; N17.9 Acute kidney failure, unspecified; E87.2 Acidosis; E87.3 Alkalosis; I24.8 Other forms of acute ischemic heart disease; J90 Pleural effusion, not elsewhere classified; I13.0 Hypertensive heart and chronic kidney disease with heart failure and stage 1 through stage 4 chronic kidney disease, or unspecified chronic kidney disease; B96.3 Hemophilus influenzae [H. influenzae] as the cause of diseases classified elsewhere; I48.0 Paroxysmal atrial fibrillation; N18.3 Chronic kidney disease, stage 3 (moderate); E11.9 Type 2 diabetes mellitus without complications; D64.9 Anemia, unspecified; I25.10 Atherosclerotic heart disease of native coronary artery without angina pectoris; Z95.1 Presence of aortocoronary bypass graft; Z51.5 Encounter for palliative care; Z79.899 Other long term (current) drug therapy; Z88.2 Allergy status to sulfonamides; Z91.038 Other insect allergy status; Z79.01 Long term (current) use of anticoagulants; Z66 Do not resuscitate; Z87.891 Personal history of nicotine dependence; Z85.118 Personal history of other malignant neoplasm of bronchus and lung; Z85.46 Personal history of malignant neoplasm of prostate; R19.7 Diarrhea, unspecified